=== PATIENT | male | born 1945 | race Caucasian/White ===

== ENCOUNTER 2018-01-23 09:29 | Day surgery (SDC) | payer OTHER ==
--- OUTSIDE RECORDS SUMMARY | 2018-01-23 09:31 | XMS REPORT | Clinical Summary ---
:1945 Author Organization [facility] Address [address] [place] [address] Phone Care Team Providers Name Role Phone Unavailable Primary Care Provider Unavailable Allergies No Known Allergies Current Medications Prescription Sig. Disp. Refills Start Date End Date Status minocycline Take 100 mg by Active (MINOCIN,DYNACIN) mouth daily. 100 MG capsule atorvastatin Take 1 tablet 30 tablet 3 09/18/2017 09/18/2018 Active (LIPITOR) 40 MG (40 mg total) tablet by mouth nightly. metoprolol Take 0.5 60 tablet 3 09/18/2017 09/18/2018 Active (LOPRESSOR) 25 MG tablets (12.5 tablet mg total) by mouth 2 (two) times daily. amiodarone Take 1 tablet 60 tablet 0 09/18/2017 09/18/2018 Active (PACERONE) 200 MG (200 mg total) tablet by mouth every 12 (twelve) hours. lisinopril Take 10 mg by 09/18/2017 Discontinued (PRINIVIL,ZESTRIL) mouth daily. 10 MG tablet acetaminophen-codei Take 1 tablet 30 tablet 0 09/18/2017 09/28/2017 ne (TYLENOL #3) by mouth every 300-30 mg per 4 (four) hours tablet as needed for up to 10 days. 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 (HCC) 09/09/2017 Anesthesia Event Graf Ronaldo Jarrett, AA 09/09/2017 Orders Only Andrzej Hernández MD after 01/22/2017 Social History Tobacco Use Types Packs/Day Years Used Date Former Smoker 1 25 Comments: stopped 5 years ago Sex Assigned at Date Recorded Not on file Last Filed Vital Signs Vital Sign Reading Time Taken Blood Pressure 119/69 09/18/2017 8:29 AM MEDICAL TRANSPORT SPECIALIST Pulse 88 09/18/2017 12:11 PM MEDICAL TRANSPORT SPECIALIST Temperature 36.5 C (97.7 F) 09/18/2017 8:29 AM MEDICAL TRANSPORT SPECIALIST Respiratory Rate 20 09/18/2017 12:11 PM MEDICAL TRANSPORT SPECIALIST Oxygen Saturation 96% 09/18/2017 12:11 PM MEDICAL TRANSPORT SPECIALIST Inhaled Oxygen Concentration - - Weight 109 kg (240 lb 4.8 oz) 09/18/2017 4:43 AM MEDICAL TRANSPORT SPECIALIST Height 171.5 cm (5' 7.5") 09/09/2017 7:48 AM MEDICAL TRANSPORT SPECIALIST Body Mass Index 37.08 09/18/2017 4:43 AM MEDICAL TRANSPORT SPECIALIST Plan of Treatment Not on file Implants Implanted Type Area Inhalation Therapy Aides Teacher Device Expiration Model / Identifier Date Serial / Lot Sut Surg Stl 7 18g 18in Mls Mp M655g - Sn/A Mcalister/Arthroscop N/A: J &J: ETHICON 06/21/2022 M655G / Implanted: Qty: 2 on 09/10/2017 by Mike Price MD y Sternum N/A / [id number] Sut Surg Stl 7 18g 18in Mls Mp M655g - Sn/A Mcalister/Arthroscop N/A: J &J: ETHICON 06/21/2022 M655G / Implanted: Qty: 4 on 09/10/2017 by Mike Price MD y Sternum N/A / [id number] Sternal Zipfix Ndl Strl [id number] - Sn/A Cardiovascular N/A: SYNTHES: SYNTHE 06/21/2022 08..[id number] / Implanted: Qty: 1 on 09/10/2017 by Mike Price MD Sternum S [facility] N /A / [id number] Procedures Procedure Name Priority Date/Time Associated Diagnosis Comments ENDOSCOPIC HARVEST,VEIN 09/10/2017 7:30 AM CAOD MEDICAL TRANSPORT SPECIALIST BYPASS,AORTO CORONARY 09/10/2017 7:30 AM CAOD MISTY/SVG MEDICAL TRANSPORT SPECIALIST after 01/22/2017 Results RHYTHM STRIP - SCAN (09/29/2017 2:11 PM)Only the most recent of2 resultswithin the time period is included.VASCULAR DIAGRAM -SCAN (09/19/2017 1:21 PM)Basic Metabolic Panel (09/18/2017 10:18 AM)Only the most recent of8 resultswithin the time period is included. Component Value Ref Range Sodium 135 (L) 136 - 145 meq/L Potassium 4.4 3.5 - 5.1 meq/L Chloride 106 98 - 107 meq/L CO2 22 22 - 29 meq/L BUN 16 7 - 21 mg/dL Creatinine 0.82 0.57 - 1.25 mg/dL Glucose 147 (H) 70 - 105 mg/dL Calcium 8.4 8.4 - 10.2 mg/dL EGFR 93Comment: ESTIMATED GFR IS NOT ACCURATE mL/min/1.73 sq m CREATININE CLEARANCE IN PREDICTING GLOMERULAR FILTRATION RATE. ESTIMATED GFR IS NOT APPLICABLE FOR DIALYSIS PATIENTS. Specimen Performing Laboratory Blood - Arm, [address] [address] CBC with platelet count + automated diff (09/18/2017 8:54 AM)Only the most recent of7 resultswithin the time period is included. Component Value Ref Range WBC 12.1 (H) 3.5 - 10.5 K/L RBC 3.66 (L) 4.63 - 6.08 M/L Hemoglobin 9.2 (L) 13.7 - 17.5 GM/DL Hematocrit 29.2 (L) 40.1 - 51.0 % MCV 79.8 79.0 - 92.2 fL MCH 25.1 (L) 25.7 - 32.2 pg MCHC 31.5 (L) 32.3 - 36.5 GM/DL RDW 16.2 (H) 11.6 - 14.4 % Platelets 224 150 - 450 K/CU MM MPV 10.9 9.4 - 12.4 fL nRBC 0 0 - 0 /100 WBC % Neutros 72 % % Lymphs 13 % % Monos 6 % % Eos 4 % % Baso 0 % # Neutros 8.68 (H) 1.78 - 5.38 K/L # Lymphs 1.61 1.32 - 3.57 K/L # Monos 0.74 0.30 - 0.82 K/L # Eos 0.44 0.04 - 0.54 K/L # Baso 0.04 0.01 - 0.08 K/L Immature Granulocytes-Relative 5 (H) 0 - 1 % Specimen Performing Laboratory Blood [facility] [address] [address] CBC with platelet count + automated diff (09/18/2017 8:54 AM)Only the most recent of7 resultswithin the time period is included. Specimen Performing Laboratory Blood Narrative The following orders were created for panel order CBC with platelet count + automated diff. Procedure Abnormality Status --------- ------ CBC with platelet count ...[[id number]]AbnormalFinal result Please view results for these tests on the individual orders. XR chest 1 view portable / bedside (09/16/2017 11:31 AM)Only the most recent of6 resultswithin the time period is included. Specimen Performing Laboratory GE RIS Narrative FINAL REPORT CLINICAL HISTORY: atelectasis wheeze TECHNIQUE: 1 view of the chest. COMPARISON: 09/13/2017 IMPRESSION: Mild prominence of the pulmonary vasculature is again seen with decreased left lower lung pleural-parenchymal opacity. A trace right effusion is again seen. The cardiomediastinal silhouette is magnified by technique with sternotomy wires.A chronic left clavicular fracture is again seen. Signed: Jose Marley MD Report Verified Date/Time:09/16/2017 12:21:35 Reading Location: [facility] Radiology Reading Room Procedure Note Interface, External Ris In - 09/16/2017 12:23 PM MEDICAL TRANSPORT SPECIALIST FINAL REPORT CLINICAL HISTORY: atelectasis wheeze TECHNIQUE: 1 view of the chest. COMPARISON: 09/13/2017 IMPRESSION: Mild prominence of the pulmonary vasculature is again seen with decreased left lower lung pleural-parenchymal opacity. A trace right effusion is again seen. The cardiomediastinal silhouette is magnified by technique with sternotomy wires. A chronic left clavicular fracture is again seen. Signed: Jose Marley MD Report Verified Date/Time: 09/16/2017 12:21:35 Reading Location: [facility] Radiology Reading Room Calcium, Ionized (09/14/2017 5:47 AM)Only the most recent of6 resultswithin the time period is included. Component Value Ref Range Calcium, Ion 1.02 (L) 1.12 - 1.27 mmol/L pH, Blood 7.39 Specimen Performing Laboratory Blood [address] [address] Phosphorus (09/14/2017 5:47 AM)Only the most recent of4 resultswithin the time period is included. Component Value Ref Range Phosphorus 3.4 2.3 - 4.7 mg/dL Specimen Performing Laboratory Blood [address] [address] Magnesium (09/14/2017 5:47 AM)Only the most recent of8 resultswithin the time period is included. Component Value Ref Range Magnesium 2.0 1.6 - 2.6 mg/dL Specimen Performing Laboratory Blood [address] [address] TRANSFUSION SERVICE REPORT - SCAN (09/12/2017 5:43 PM)Only the most recent of3 resultswithin the time period is included.POC-Glucose meter (09/12/2017 4:38 PM )Only the most recent of12 resultswithin the time period is included. Component Value Ref Range POC-Glucose Meter 123 (H)Comment: TESTED AT [address] 70 - 110 mg/[place] [address] Specimen Performing Laboratory Blood [address] [address] Lactic acid, arterial, whole blood (09/12/2017 4:59 AM)Only the most recent of5 resultswithin the time period is included. Component Value Ref Range Lactate, Art 1.0 0.5 - 2.2 mmol/L Specimen Performing Laboratory Blood, Arterial [address] [address] Narrative Effective 01/24/2016: Units/Reference Range Change New: 0.5-2.2 mmol/LPrevious: 5-20 mg/dL Oxygen saturation, measured (09/12/2017 4:58 AM)Only the most recent of3 resultswithin the time period is included. Component Value Ref Range O2 Saturation (Measured) 62.7 % Specimen Performing Laboratory Blood [address] [address] Prepare RBC (09/11/2017 11:54 PM) Component Value Ref Range CROSSMATCH COMPATIBLE Unit ABO O Pos UNIT NUMBER [id number] Status RETURNED FROM ISSUE Blood Bank Product RED BLOOD CELLS PRODUCT CODE N8779D32 CROSSMATCH COMPATIBLE Unit ABO O Pos UNIT NUMBER [id number] Status RETURNED FROM ISSUE Blood Bank Product RED BLOOD CELLS PRODUCT CODE [id number] CROSSMATCH COMPATIBLE Unit ABO O Pos UNIT NUMBER [id number] Status TRANSFUSED Blood Bank Product RED BLOOD CELLS PRODUCT CODE [id number] CROSSMATCH COMPATIBLE Unit ABO O Pos UNIT NUMBER [id number] Status RETURNED FROM ISSUE Blood Bank Product RED BLOOD CELLS PRODUCT CODE [id number] Specimen Performing Laboratory [place] Potassium (09/11/2017 6:14 PM)Only the most recent of3 resultswithin the time period is included. Component Value Ref Range Potassium 4.4 3.5 - 5.1 meq/L Specimen Performing Laboratory Blood - Line, Arterial [address] [address] Blood gas, arterial (09/11/2017 2:54 PM)Only the most recent of13 resultswithin the time period is included. Component Value Ref Range pH, Arterial 7.43 7.35 - 7.45 pCO2, Arterial 42 35 - 45 mmHg pO2, Arterial 76 (L) 80 - 90 mmHg O2 Sat, Arterial 95.2 (L) 96.0 - 97.0 % HCO3, Arterial 27 21 - 29 mmol/L Base Excess, Arterial 2.2 -2.0 - 3.0 mmol/L Patient Temperature 37.6 C FIO2 40.0 % Specimen Performing Laboratory Blood, Arterial [facility] [address] [place] [address] Glucose-Stat Lab (09/11/2017 1:11 AM)Only the most recent of8 resultswithin the time period is included. Component Value Ref Range Glucose 123 (H) 70 - 110 mg/dL Specimen Performing Laboratory Blood, [address] [address] HGB/HCT (H&H)-Stat Lab (09/10/2017 9:15 PM)Only the most recent of8 resultswithin the time period is included. Component Value Ref Range Hemoglobin 9.1 (L) 13.0 - 16.8 g/dL Hematocrit 27.0 (L) 40.0 - 50.0 % Specimen Performing Laboratory Blood, [address] [address] Hepatic function panel (09/10/2017 6:16 PM) Component Value Ref Range Protein, Total 5.5 (L) 6.0 - 8.3 gm/dL Albumin 3.5 3.5 - 5.0 g/dL Total Bilirubin 0.7 0.2 - 1.2 mg/dL Bilirubin, Direct 0.4 0.1 - 0.5 mg/dL Alkaline Phosphatase 50 40 - 150 U/L AST 54 (H) 5 - 34 U/L ALT 33 6 - 55 U/L Specimen Performing Laboratory Blood [address] [address] Hemoglobin and hematocrit (09/10/2017 4:47 PM) Component Value Ref Range Hemoglobin 9.1 (L) 13.7 - 17.5 GM/DL Hematocrit 29.2 (L) 40.1 - 51.0 % Specimen Performing Laboratory Blood [address] [address] CBC (Hemogram only) (09/10/2017 3:03 PM) Component Value Ref Range WBC 27.2 (H) 3.5 - 10.5 K/L RBC 3.92 (L) 4.63 - 6.08 M/L Hemoglobin 9.7 (L) 13.7 - 17.5 GM/DL Hematocrit 31.4 (L) 40.1 - 51.0 % MCV 80.1 79.0 - 92.2 fL MCH 24.7 (L) 25.7 - 32.2 pg MCHC 30.9 (L) 32.3 - 36.5 GM/DL RDW 15.6 (H) 11.6 - 14.4 % Platelets 126 (L) 150 - 450 K/CU MM MPV 11.2 9.4 - 12.4 fL nRBC 0 0 - 0 /100 WBC Specimen Performing Laboratory Blood - Line, Arterial [address] [address] RRL Critical Labs (ABG,NA,K,H&H,GLU) (09/10/2017 2:48 PM)Only the most recent of7 resultswithin the time period is included. Specimen Performing Laboratory Blood, Arterial Narrative The following orders were created for panel order RRL Critical Labs (ABG,NA,K,H&H,GLU). Procedure Abnormality Status --------- ------ Blood gas, arterial[[id number]]AbnormalFinal result Sodium Na-Stat Lab[[id number]] AbnormalFinal result Potassium-Stat Lab[[id number]] NormalFinal result Glucose-Stat Lab[[id number]] AbnormalFinal result HGB/HCT (H&H)-Stat Lab[[id number]] Abnormal Final result Please view results for these tests on the individual orders. Potassium-Stat Lab (09/10/2017 2:48 PM)Only the most recent of7 resultswithin the time period is included. Component Value Ref Range Potassium 4.2 3.6 - 5.5 meq/L Specimen Performing Laboratory Blood, Arterial [address] [address] Sodium Na-Stat Lab (09/10/2017 2:48 PM)Only the most recent of7 resultswithin the time period is included. Component Value Ref Range Sodium 134 (L) 135 - 148 meq/L Specimen Performing Laboratory Blood, Arterial [address] [address] Glucose-STAT (09/10/2017 12:59 PM) Component Value Ref Range Glucose 217 (H) 70 - 105 mg/dL Specimen Performing Laboratory Blood [facility] [address] [place] [address] POC ACTIVATED CLOTTING TIME (09/10/2017 11:12 AM)Only the most recent of5 resultswithin the time period is included. Component Value Ref Range Activated Clotting Time 109Comment: TESTED AT [address] sec [address] Specimen Performing Laboratory [address] [address] aPTT (09/10/2017 11:02 AM) Component Value Ref Range PTT 32.4 22.5 - 36.0 seconds Specimen Performing Laboratory [address] [address] Prothromin time/INR (09/10/2017 11:02 AM)Only the most recent of2 resultswithin the time period is included. Component Value Ref Range Protime 18.3 (H) 11.7 - 14.7 seconds INR 1.5 <=5.9 Specimen Performing Laboratory [address] [address] Narrative RECOMMENDED COUMADIN/WARFARIN INR THERAPY RANGES STANDARD DOSE: 2.0 - 3.0 Includes: PROPHYLAXIS for venous thrombosis, systemic embolization; TREATMENT for venous thrombosis and/or pulmonary embolus. HIGH RISK: Target INR is 2.5-3.5 for patients with mechanical heart valves. Fibrinogen (09/10/2017 11:02 AM) Component Value Ref Range Fibrinogen 248 225 - 434 mg/dl Specimen Performing Laboratory [address] [address] Platelet count (09/10/2017 11:02 AM) Component Value Ref Range Platelets 113 (L) 150 - 450 K/CU MM Specimen Performing Laboratory [address] [address] Tissue Exam (09/10/2017 10:45 AM) Component Value Ref Range Case Report Surgical Pathology Report Case: [id number] Authorizing Provider:Mike Price MDCollected: 09/10/2017 1045 Ordering Location: [facility] Received: 09/10/2017 1314 PERIOPERATIVE SERVICES Pathologist: Darcy Duque MD Specimen:Plaque, LEFT OM1 ARTERY PLAQUE DIAGNOSIS TISSUE SUBMITTED LEFTOM1 ARTERY PLAQUE: - ATHEROSCLEROTIC PLAQUE WITH CALCIFICATIONS Signing Pathologist Direct Phone Line: [phone] CPT Code(s) 28877; 96167 CLINICAL HISTORY CAOD SPECIMEN SOURCE Left artery plaque GROSS DESCRIPTION Specimen is received in saline labeled with the patient's information and labeled "left artery plaque" and consists of a velasquez, off-white, tubular shaped segment of calcified tissue measuring 1.2 cm in length x 0.3 cm in diameter. The specimen is sectioned and submitted entirely in A1 for decalcification. CG/ew MICROSCOPIC DESCRIPTION PERFORMED Specimen Performing Laboratory Tissue - Plaque [address] [address] Blood gas, venous (09/10/2017 9:57 AM) Component Value Ref Range pH, Paco 7.36 7.32 - 7.42 pCO2, Paco 41 41 - 51 mmHg pO2, Paco 44 (H) 25 - 40 mmHg O2 Sat, Paco 91.5 (H) 40.0 - 70.0 % HCO3, Paco 25 21 - 29 mmol/L Base Excess, Pcao -2.3 (L) -2.0 - 3.0 mmol/L Patient Temperature 30.2 C FIO2 70.0 % Specimen Performing Laboratory Blood [address] [address] Electrocardiogram, 12-lead (09/09/2017 10:11 AM) Specimen Performing Laboratory GE MUSE Narrative Ventricular Rate 89 BPM Atrial Rate 89 BPM P-R Interval 196 ms QRS Duration 86 ms Q-T Interval 370 ms QTC Calculation(Bazett) 450 ms P [place] 30 degrees R [place] 55 degrees T [place] 43 degrees Normal sinus rhythm Normal ECG No previous ECGs available Confirmed by MD Spivey Roberto ([id number]) on 09/09/2017 2:09:23 PM Procedure Note Interface, External Ris In - 09/09/2017 2:09 PM MEDICAL TRANSPORT SPECIALIST Ventricular Rate 89 BPM Atrial Rate 89 BPM P-R Interval 196 ms QRS Duration 86 ms Q-T Interval 370 ms QTC Calculation(Bazett) 450 ms P [place] 30 degrees R [place] 55 degrees T [place] 43 degrees Normal sinus rhythm Normal ECG No previous ECGs available Confirmed by MD Spivey Roberto ([id number]) on 09/09/2017 2:09:23 PM Type and screen, automated (09/09/2017 10:02 AM) Component Value Ref Range ABO/RH AUTOMATED (BEAKER) O POSITIVE Ab Scrn NEGATIVE Specimen Performing Laboratory Blood [address] [address] Comprehensive metabolic panel (09/09/2017 10:02 AM) Component Value Ref Range Protein, Total 6.5 6.0 - 8.3 gm/dL Albumin 3.6 3.5 - 5.0 g/dL Alkaline Phosphatase 83 40 - 150 U/L Total Bilirubin 0.5 0.2 - 1.2 mg/dL Sodium 133 (L) 136 - 145 meq/L Potassium 4.3 3.5 - 5.1 meq/L Chloride 103 98 - 107 meq/L CO2 22 22 - 29 meq/L BUN 16 7 - 21 mg/dL Creatinine 0.82 0.57 - 1.25 mg/dL Glucose 117 (H) 70 - 105 mg/dL Calcium 8.6 8.4 - 10.2 mg/dL AST 41 (H) 5 - 34 U/L ALT 44 6 - 55 U/L EGFR 93Comment: ESTIMATED GFR IS NOT ACCURATE mL/min/1.73 sq m CREATININE CLEARANCE IN PREDICTING GLOMERULAR FILTRATION RATE. ESTIMATED GFR IS NOT APPLICABLE FOR DIALYSIS PATIENTS. Specimen Performing Laboratory Blood [address] [address] after 01/22/2017
--- OUTSIDE RECORDS SUMMARY | 2018-01-23 09:32 | XMS REPORT ---
:1945 Author Organization [facility] Address [address] [place] [address] [address] [place] [address] Care Team Providers Name Role Phone MISTY PRIEC Unavailable Unavailable Problems This patient has no known problems. Allergies, Adverse Reactions, Alerts This patient has no known allergies or adverse reactions. Medications This patient has no known medications. Results Test Description Test Time Test Comments Text Results Atomic Results Result Comments BASIC METABOLIC PANEL 2017-09-18 11:11:00 Test Item Value Reference Range Comments SODIUM (BEAKER) (test 135 meq/L 136-145 mplv=596) POTASSIUM (BEAKER) (test 4.4 meq/L 3.5-5.1 jzaj=123) CHLORIDE (BEAKER) (test 106 meq/L 98-107 inpm=083) CO2 (BEAKER) (test bgns=430) 22 meq/L 22-29 BLOOD UREA NITROGEN (BEAKER) 16 mg/dL 7-21 (test jpyf=115) CREATININE (BEAKER) (test 0.82 mg/dL 0.57-1.25 mrbd=736) GLUCOSE RANDOM (BEAKER) 147 mg/dL 70-105 (test ftvo=533) CALCIUM (BEAKER) (test 8.4 mg/dL 8.4-10.2 zfre=715) EGFR (BEAKER) (test 93 mL/min/1.73 sq m ESTIMATED GFR IS NOT gaif=2808) ACCURATE CREATININE CLEARANCE IN PREDICTING GLOMERULAR FILTRATION RATE. ESTIMATED GFR IS NOT APPLICABLE FOR DIALYSIS PATIENTS. CBC W/PLT COUNT & AUTO [id number] 09:19:00 Test Item Value Reference Range Comments WHITE BLOOD CELL COUNT (BEAKER) (test vkgv=971) 12.1 K/ L 3.5-10.5 RED BLOOD CELL COUNT (BEAKER) (test wkbe=419) 3.66 M/ L 4.63-6.08 HEMOGLOBIN (BEAKER) (test bmem=332) 9.2 GM/DL 13.7-17.5 HEMATOCRIT (BEAKER) (test bdum=307) 29.2 % 40.1-51.0 MEAN CORPUSCULAR VOLUME (BEAKER) (test tosg=795) 79.8 fL 79.0-92.2 MEAN CORPUSCULAR HEMOGLOBIN (BEAKER) (test 25.1 pg 25.7-32.2 piqu=358) MEAN CORPUSCULAR HEMOGLOBIN CONC (BEAKER) (test 31.5 GM/DL 32.3-36.5 lbht=832) RED CELL DISTRIBUTION WIDTH (BEAKER) (test 16.2 % 11.6-14.4 mhke=251) PLATELET COUNT (BEAKER) (test mlfm=265) 224 K/CU MM 150-450 MEAN PLATELET VOLUME (BEAKER) (test flnu=013) 10.9 fL 9.4-12.4 NUCLEATED RED BLOOD CELLS (BEAKER) (test 0 /100 WBC 0-0 ehif=817) NEUTROPHILS RELATIVE PERCENT (BEAKER) (test 72 % akru=495) LYMPHOCYTES RELATIVE PERCENT (BEAKER) (test 13 % crgl=451) MONOCYTES RELATIVE PERCENT (BEAKER) (test 6 % dkrd=167) EOSINOPHILS RELATIVE PERCENT (BEAKER) (test 4 % qwtl=452) BASOPHILS RELATIVE PERCENT (BEAKER) (test 0 % kngl=296) NEUTROPHILS ABSOLUTE COUNT (BEAKER) (test 8.68 K/ L 1.78-5.38 xsfh=006) LYMPHOCYTES ABSOLUTE COUNT (BEAKER) (test 1.61 K/ L 1.32-3.57 lvnh=921) MONOCYTES ABSOLUTE COUNT (BEAKER) (test 0.74 K/ L 0.30-0.82 zyxb=036) EOSINOPHILS ABSOLUTE COUNT (BEAKER) (test 0.44 K/ L 0.04-0.54 bnjc=344) BASOPHILS ABSOLUTE COUNT (BEAKER) (test 0.04 K/ L 0.01-0.08 eulu=851) IMMATURE GRANULOCYTES-RELATIVE PERCENT (BEAKER) 5 % 0-1 (test ateg=3656) TISSUE [id number] 17:27:00Surgical Pathology Report Case: [id number] Authorizing Provider: Misty Price MD Collected: 09/10/2017 1045 Ordering Location: [facility] Received: 09/10/2017 1314 PERIOPERATIVE SERVICES Pathologist: Darcy Duque MD Specimen: Plaque , LEFT OM1 ARTERY PLAQUE TISSUE SUBMITTED LEFT OM1 ARTERY PLAQUE: - ATHEROSCLEROTIC PLAQUE WITH CALCIFICATIONS Signing Pathologist Direct Phone Line: [phone] at 5: 27 [id number]; [id number] artery plaque Specimen is received in saline labeled with the patient's information and labeled "left artery plaque" and consists of a velasquez, off-white, tubular shaped segment of calcified tissue measuring 1.2 cm in length x 0.3 cm in diameter. The specimen is sectioned and submitted entirely in A1 for decalcification. CG/ew PERFORMEDCBC W/PLT COUNT & AUTO [id number] 13:19:00 Test Item Value Reference Range Comments WHITE BLOOD CELL COUNT (BEAKER) (test wajo=105) 14.0 K/ L 3.5-10.5 RED BLOOD CELL COUNT (BEAKER) (test rcoc=127) 3.80 M/ L 4.63-6.08 HEMOGLOBIN (BEAKER) (test klwg=008) 9.2 GM/DL 13.7-17.5 HEMATOCRIT (BEAKER) (test opwv=295) 30.5 % 40.1-51.0 MEAN CORPUSCULAR VOLUME (BEAKER) (test uajs=964) 80.3 fL 79.0-92.2 MEAN CORPUSCULAR HEMOGLOBIN (BEAKER) (test 24.2 pg 25.7-32.2 nllx=348) MEAN CORPUSCULAR HEMOGLOBIN CONC (BEAKER) (test 30.2 GM/DL 32.3-36.5 eqrt=790) RED CELL DISTRIBUTION WIDTH (BEAKER) (test 16.1 % 11.6-14.4 oblo=421) PLATELET COUNT (BEAKER) (test zzis=000) 192 K/CU MM 150-450 MEAN PLATELET VOLUME (BEAKER) (test fagh=071) 11.3 fL 9.4-12.4 NUCLEATED RED BLOOD CELLS (BEAKER) (test 0 /100 WBC 0-0 icsf=937) NEUTROPHILS RELATIVE PERCENT (BEAKER) (test 68 % yxcv=146) LYMPHOCYTES RELATIVE PERCENT (BEAKER) (test 16 % aohq=163) MONOCYTES RELATIVE PERCENT (BEAKER) (test 9 % zgsi=345) EOSINOPHILS RELATIVE PERCENT (BEAKER) (test 4 % wlll=401) BASOPHILS RELATIVE PERCENT (BEAKER) (test 0 % sjuf=411) NEUTROPHILS ABSOLUTE COUNT (BEAKER) (test 9.46 K/ L 1.78-5.38 bjzo=948) LYMPHOCYTES ABSOLUTE COUNT (BEAKER) (test 2.18 K/ L 1.32-3.57 kwvs=855) MONOCYTES ABSOLUTE COUNT (BEAKER) (test 1.25 K/ L 0.30-0.82 xtbw=065) EOSINOPHILS ABSOLUTE COUNT (BEAKER) (test 0.50 K/ L 0.04-0.54 aokl=357) BASOPHILS ABSOLUTE COUNT (BEAKER) (test 0.05 K/ L 0.01-0.08 ixyc=852) IMMATURE GRANULOCYTES-RELATIVE PERCENT (BEAKER) 4 % 0-1 (test sxua=9599) RAD, CHEST, 1 VIEW, NON [id number] 12:21:00Reason for exam:->atelectasis ? wheezeShould this be performed at the bedside?->YesFINAL REPORT CLINICAL HISTORY: atelectasis wheeze TECHNIQUE: 1 view of the chest. COMPARISON: 09/13/2017 IMPRESSION: Mild prominence of the pulmonary vasculature is again seen with decreased left lower lung pleural-parenchymal opacity. A trace right effusion is again seen. The cardiomediastinal silhouette is magnified by technique with sternotomy wires. A chronic left clavicular fracture is again seen. Signed: Jose Marley [facility] CENTEReport Verified Date/Time: 12:21:35 Reading Location: [facility] Radiology Reading Room BASI METABOLIC [id number] 09:07:00 Test Item Value Reference Range Comments SODIUM (BEAKER) (test 134 meq/L 136-145 bury=749) POTASSIUM (BEAKER) (test 4.5 meq/L 3.5-5.1 Specimen slightly ubsr=174) hemolyzed CHLORIDE (BEAKER) (test 107 meq/L 98-107 voog=707) CO2 (BEAKER) (test 17 meq/L 22-29 eero=644) BLOOD UREA NITROGEN 15 mg/dL 7-21 (BEAKER) (test foiy=579) CREATININE (BEAKER) (test 0.83 mg/dL 0.57-1.25 Specimen slightly atrd=517) hemolyzed GLUCOSE RANDOM (BEAKER) 96 mg/dL 70-105 (test yslr=949) CALCIUM (BEAKER) (test 8.7 mg/dL 8.4-10.2 qswh=536) EGFR (BEAKER) (test 91 mL/min/1.73 sq m ESTIMATED GFR IS NOT nsyv=8950) ACCURATE CREATININE CLEARANCE IN PREDICTING GLOMERULAR FILTRATION RATE. ESTIMATED GFR IS NOT APPLICABLE FOR DIALYSIS PATIENTS. [id number] 07:48:00 Test Item Value Reference Range Comments PHOSPHORUS (BEAKER) (test vpav=691) 3.4 mg/dL 2.3-4.7 [id number] 07:48:00 Test Item Value Reference Range Comments MAGNESIUM (BEAKER) (test kake=911) 2.0 mg/dL 1.6-2.6 BASIC METABOLIC [id number] 07:48:00 Test Item Value Reference Range Comments SODIUM (BEAKER) (test 135 meq/L 136-145 swwm=376) POTASSIUM (BEAKER) (test 4.0 meq/L 3.5-5.1 pklt=194) CHLORIDE (BEAKER) (test 103 meq/L 98-107 skya=889) CO2 (BEAKER) (test 25 meq/L 22-29 omek=781) BLOOD UREA NITROGEN 25 mg/dL 7-21 (BEAKER) (test qjhx=204) CREATININE (BEAKER) (test 0.85 mg/dL 0.57-1.25 krqt=804) GLUCOSE RANDOM (BEAKER) 91 mg/dL 70-105 (test mahl=539) CALCIUM (BEAKER) (test 8.0 mg/dL 8.4-10.2 gywg=405) EGFR (BEAKER) (test 89 mL/min/1.73 sq m ESTIMATED GFR IS NOT qukp=0302) ACCURATE CREATININE CLEARANCE IN PREDICTING GLOMERULAR FILTRATION RATE. ESTIMATED GFR IS NOT APPLICABLE FOR DIALYSIS PATIENTS. CBC W/PLT COUNT & AUTO [id number] 06:28:00 Test Item Value Reference Range Comments WHITE BLOOD CELL COUNT (BEAKER) (test vglj=095) 10.5 K/ L 3.5-10.5 RED BLOOD CELL COUNT (BEAKER) (test serj=538) 3.51 M/ L 4.63-6.08 HEMOGLOBIN (BEAKER) (test dfxa=852) 8.6 GM/DL 13.7-17.5 HEMATOCRIT (BEAKER) (test xfuw=728) 27.8 % 40.1-51.0 MEAN CORPUSCULAR VOLUME (BEAKER) (test finc=980) 79.2 fL 79.0-92.2 MEAN CORPUSCULAR HEMOGLOBIN (BEAKER) (test 24.5 pg 25.7-32.2 eeng=083) MEAN CORPUSCULAR HEMOGLOBIN CONC (BEAKER) (test 30.9 GM/DL 32.3-36.5 lxhl=230) RED CELL DISTRIBUTION WIDTH (BEAKER) (test 16.0 % 11.6-14.4 qoma=887) PLATELET COUNT (BEAKER) (test kbmy=946) 138 K/CU MM 150-450 MEAN PLATELET VOLUME (BEAKER) (test ocxb=894) 11.4 fL 9.4-12.4 NUCLEATED RED BLOOD CELLS (BEAKER) (test 0 /100 WBC 0-0 cixj=855) NEUTROPHILS RELATIVE PERCENT (BEAKER) (test 67 % odhe=858) LYMPHOCYTES RELATIVE PERCENT (BEAKER) (test 19 % gsyy=505) MONOCYTES RELATIVE PERCENT (BEAKER) (test 10 % ysuv=877) EOSINOPHILS RELATIVE PERCENT (BEAKER) (test 2 % aste=980) BASOPHILS RELATIVE PERCENT (BEAKER) (test 0 % swfv=523) NEUTROPHILS ABSOLUTE COUNT (BEAKER) (test 7.04 K/ L 1.78-5.38 ryhn=572) LYMPHOCYTES ABSOLUTE COUNT (BEAKER) (test 1.95 K/ L 1.32-3.57 gupl=021) MONOCYTES ABSOLUTE COUNT (BEAKER) (test 1.07 K/ L 0.30-0.82 innq=489) EOSINOPHILS ABSOLUTE COUNT (BEAKER) (test 0.25 K/ L 0.04-0.54 bgns=528) BASOPHILS ABSOLUTE COUNT (BEAKER) (test 0.01 K/ L 0.01-0.08 ohlt=294) IMMATURE GRANULOCYTES-RELATIVE PERCENT (BEAKER) 2 % 0-1 (test oghv=8365) CALCIUM, [id number] 06:25:00 Test Item Value Reference Range Comments CALCIUM IONIZED (BEAKER) (test vcsx=649) 1.02 mmol/L 1.12-1.27 PH, BLOOD (BEAKER) (test aodh=1936) 7.39 CBC W/PLT COUNT & AUTO [id number] 08:38:00 Test Item Value Reference Range Comments WHITE BLOOD CELL COUNT (BEAKER) (test njjg=581) 15.7 K/ L 3.5-10.5 RED BLOOD CELL COUNT (BEAKER) (test mhao=492) 3.20 M/ L 4.63-6.08 HEMOGLOBIN (BEAKER) (test cjwk=508) 7.9 GM/DL 13.7-17.5 HEMATOCRIT (BEAKER) (test tdtj=069) 25.5 % 40.1-51.0 MEAN CORPUSCULAR VOLUME (BEAKER) (test glll=663) 79.7 fL 79.0-92.2 MEAN CORPUSCULAR HEMOGLOBIN (BEAKER) (test 24.7 pg 25.7-32.2 cfir=475) MEAN CORPUSCULAR HEMOGLOBIN CONC (BEAKER) (test 31.0 GM/DL 32.3-36.5 kvmu=459) RED CELL DISTRIBUTION WIDTH (BEAKER) (test 16.0 % 11.6-14.4 ktaq=402) PLATELET COUNT (BEAKER) (test hecu=161) 98 K/CU MM 150-450 MEAN PLATELET VOLUME (BEAKER) (test gwme=393) 11.3 fL 9.4-12.4 NUCLEATED RED BLOOD CELLS (BEAKER) (test 0 /100 WBC 0-0 xmtz=426) NEUTROPHILS RELATIVE PERCENT (BEAKER) (test 84 % fprb=888) LYMPHOCYTES RELATIVE PERCENT (BEAKER) (test 8 % zido=131) MONOCYTES RELATIVE PERCENT (BEAKER) (test 7 % nqpv=420) EOSINOPHILS RELATIVE PERCENT (BEAKER) (test 0 % djcu=776) BASOPHILS RELATIVE PERCENT (BEAKER) (test 0 % ddrn=888) NEUTROPHILS ABSOLUTE COUNT (BEAKER) (test 13.19 K/ L 1.78-5.38 pyuz=446) LYMPHOCYTES ABSOLUTE COUNT (BEAKER) (test 1.21 K/ L 1.32-3.57 xbtf=607) MONOCYTES ABSOLUTE COUNT (BEAKER) (test hbfr=896) 1.17 K/ L 0.30-0.82 EOSINOPHILS ABSOLUTE COUNT (BEAKER) (test 0.01 K/ L 0.04-0.54 leqd=929) BASOPHILS ABSOLUTE COUNT (BEAKER) (test tuxp=435) 0.01 K/ L 0.01-0.08 IMMATURE GRANULOCYTES-RELATIVE PERCENT (BEAKER) 1 % 0-1 (test jlxp=9753) RAD, CHEST, 1 VIEW, NON [id number] 07:45:00Reason for exam:->s/p cardiac surgeryFINAL REPORT HISTORY : s/p cardiac surgery. Comparison: 09/12/2017 Comment: Single portable view of the chest was obtained. The cardiac silhouette size is enlarged. There is widening of the mediastinum. There is a tortuous/ectatic thoracic aorta. There has been interval removalof the right-sided IJ sheath. No pneumothorax or pleural effusion is seen. There is some nonspecificpatchy bibasilar airspace disease. There is some mild pulmonary venous congestion with some interstitial prominence. Signed: Claire Sutherland MDReport Verified Date/Time: 09/13/2017 07:45: 50 Reading Location: [address] Transitional Reading Room [id number] 07:22:00 Test Item Value Reference Range Comments MAGNESIUM (BEAKER) (test 2.1 mg/dL 1.6-2.6 Specimen slightly hemolyzed msqc=767) [id number] 07:22:00 Test Item Value Reference Range Comments PHOSPHORUS (BEAKER) (test 3.3 mg/dL 2.3-4.7 Specimen slightly hemolyzed aybi=448) BASIC METABOLIC [id number] 07:22:00 Test Item Value Reference Range Comments SODIUM (BEAKER) (test 134 meq/L 136-145 hysx=622) POTASSIUM (BEAKER) (test 4.1 meq/L 3.5-5.1 Specimen slightly jhnl=561) hemolyzed CHLORIDE (BEAKER) (test 102 meq/L 98-107 fucf=236) CO2 (BEAKER) (test 23 meq/L 22-29 vhdx=327) BLOOD UREA NITROGEN 27 mg/dL 7-21 (BEAKER) (test zrsk=238) CREATININE (BEAKER) (test 0.85 mg/dL 0.57-1.25 Specimen slightly ajhw=496) hemolyzed GLUCOSE RANDOM (BEAKER) 122 mg/dL 70-105 (test wjba=049) CALCIUM (BEAKER) (test 8.0 mg/dL 8.4-10.2 ydbu=984) EGFR (BEAKER) (test 89 mL/min/1.73 sq m ESTIMATED GFR IS NOT jztd=1868) ACCURATE CREATININE CLEARANCE IN PREDICTING GLOMERULAR FILTRATION RATE. ESTIMATED GFR IS NOT APPLICABLE FOR DIALYSIS PATIENTS. POCT-GLUCOSE [id number] 17:00:00 Test Item Value Reference Range Comments POC-GLUCOSE METER (BEAKER) 258 mg/dL 70-110 TESTED AT [address] (test rcmt=5270) [facility] [address] POCT-GLUCOSE [id number] 16:40:00 Test Item Value Reference Range Comments POC-GLUCOSE METER (BEAKER) 123 mg/dL 70-110 TESTED AT [address] (test ztwp=8158) [facility] [address] [id number] 08:08:00 Test Item Value Reference Range Comments PHOSPHORUS (BEAKER) (test pmgq=146) 3.3 mg/dL 2.3-4.7 [id number] 08:08:00 Test Item Value Reference Range Comments MAGNESIUM (BEAKER) (test pwqn=610) 2.3 mg/dL 1.6-2.6 BASIC METABOLIC [id number] 08:08:00 Test Item Value Reference Range Comments SODIUM (BEAKER) (test 137 meq/L 136-145 hdpj=890) POTASSIUM (BEAKER) (test 4.5 meq/L 3.5-5.1 bwgf=867) CHLORIDE (BEAKER) (test 106 meq/L 98-107 gaun=768) CO2 (BEAKER) (test 23 meq/L 22-29 dpjc=731) BLOOD UREA NITROGEN 28 mg/dL 7-21 (BEAKER) (test mkvi=507) CREATININE (BEAKER) (test 0.86 mg/dL 0.57-1.25 dsst=891) GLUCOSE RANDOM (BEAKER) 159 mg/dL 70-105 (test iguc=055) CALCIUM (BEAKER) (test 8.4 mg/dL 8.4-10.2 eqit=748) EGFR (BEAKER) (test 88 mL/min/1.73 sq m ESTIMATED GFR IS NOT zled=6029) ACCURATE CREATININE CLEARANCE IN PREDICTING GLOMERULAR FILTRATION RATE. ESTIMATED GFR IS NOT APPLICABLE FOR DIALYSIS PATIENTS. RAD, CHEST, 1 VIEW, NON [id number] 07:59:00Reason for exam:->s/p cardiac surgeryFINAL REPORT AP chest HISTORY: Cardiac surgery COMPARISON: 09/11/2017 IMPRESSION:Endotracheal tube removed. Remainder of support lines unchanged. Cardiomegaly similar to previous. Some interval improvement in pulmonary expansion. Interstitial edema appears stable to slightly improved. Trace effusions. No pneumothorax. Signed: Sterling Meza MDReport Verified Date/Time: 09/12/2017 07:59:49 Reading Location: [facility] Radiology Reading Room CBC W/PLT COUNT & AUTO [id number] 06: 44:00 Test Item Value Reference Range Comments WHITE BLOOD CELL COUNT (BEAKER) (test junc=267) 14.3 K/ L 3.5-10.5 RED BLOOD CELL COUNT (BEAKER) (test cbzc=688) 3.26 M/ L 4.63-6.08 HEMOGLOBIN (BEAKER) (test thrt=522) 7.9 GM/DL 13.7-17.5 HEMATOCRIT (BEAKER) (test euns=885) 25.8 % 40.1-51.0 MEAN CORPUSCULAR VOLUME (BEAKER) (test noui=651) 79.1 fL 79.0-92.2 MEAN CORPUSCULAR HEMOGLOBIN (BEAKER) (test 24.2 pg 25.7-32.2 ahyz=223) MEAN CORPUSCULAR HEMOGLOBIN CONC (BEAKER) (test 30.6 GM/DL 32.3-36.5 rbuu=557) RED CELL DISTRIBUTION WIDTH (BEAKER) (test 16.1 % 11.6-14.4 abgm=460) PLATELET COUNT (BEAKER) (test qkcv=316) 91 K/CU MM 150-450 MEAN PLATELET VOLUME (BEAKER) (test pjzm=972) 12.3 fL 9.4-12.4 NUCLEATED RED BLOOD CELLS (BEAKER) (test 0 /100 WBC 0-0 fwgy=239) NEUTROPHILS RELATIVE PERCENT (BEAKER) (test 88 % ysbz=571) LYMPHOCYTES RELATIVE PERCENT (BEAKER) (test 6 % hmyo=927) MONOCYTES RELATIVE PERCENT (BEAKER) (test 5 % kawr=423) EOSINOPHILS RELATIVE PERCENT (BEAKER) (test 0 % swyh=509) BASOPHILS RELATIVE PERCENT (BEAKER) (test 0 % krpt=192) NEUTROPHILS ABSOLUTE COUNT (BEAKER) (test 12.52 K/ L 1.78-5.38 uuua=247) LYMPHOCYTES ABSOLUTE COUNT (BEAKER) (test 0.87 K/ L 1.32-3.57 uokp=703) MONOCYTES ABSOLUTE COUNT (BEAKER) (test bsvw=218) 0.77 K/ L 0.30-0.82 EOSINOPHILS ABSOLUTE COUNT (BEAKER) (test 0.00 K/ L 0.04-0.54 iydd=092) BASOPHILS ABSOLUTE COUNT (BEAKER) (test trom=330) 0.01 K/ L 0.01-0.08 IMMATURE GRANULOCYTES-RELATIVE PERCENT (BEAKER) 1 % 0-1 (test icwj=1796) LACTIC ACID, ARTERIAL, WHOLE [id number] 05:23:00 Test Item Value Reference Range Comments LACTATE BLOOD ARTERIAL (2) (BEAKER) (test 1.0 mmol/L 0.5-2.2 dvbh=7479) Effective 01/24/2016: Units/Reference Range ChangeNew: 0.5-2.2 mmol/L Previous: 5 -20 mg/dLCALCIUM, [id number] 04:58:00 Test Item Value Reference Range Comments CALCIUM IONIZED (BEAKER) (test bijq=789) 1.09 mmol/L 1.12-1.27 PH, BLOOD (BEAKER) (test pagg=3662) 7.46 OXYGEN SATURATION, [id number] 04:58:00 Test Item Value Reference Range Comments O2 SATURATION (MEASURED) (BEAKER) (test cxbe=9384) 62.7 % POCT-GLUCOSE [id number] 22:35:00 Test Item Value Reference Range Comments POC-GLUCOSE METER (BEAKER) 178 mg/dL 70-110 TESTED AT [address] (test kcvj=0181) [facility] [address] [id number] 18:51:00 Test Item Value Reference Range Comments POTASSIUM (BEAKER) (test gpwk=126) 4.4 meq/L 3.5-5.1 [id number] 18:51:00 Test Item Value Reference Range Comments MAGNESIUM (BEAKER) (test srfw=755) 2.1 mg/dL 1.6-2.6 POCT-GLUCOSE [id number] 18:46:00 Test Item Value Reference Range Comments POC-GLUCOSE METER (BEAKER) 170 mg/dL 70-110 TESTED AT [address] (test knwd=0435) [place] [id number] CALCIUM, [id number] 18:23:00 Test Item Value Reference Range Comments CALCIUM IONIZED (BEAKER) (test chls=678) 1.09 mmol/L 1.12-1.27 PH, BLOOD (BEAKER) (test rpph=3782) 7.44 BLOOD GAS, [id number] 15:01:00 Test Item Value Reference Range Comments PH ARTERIAL (BEAKER) (test rsfg=120) 7.43 7.35-7.45 PCO2 ARTERIAL (BEAKER) (test fbua=345) 42 mmHg 35-45 PO2 ARTERIAL (BEAKER) (test thmu=493) 76 mmHg 80-90 O2 SATURATION ARTERIAL (BEAKER) (test fxqs=903) 95.2 % 96.0-97.0 HCO3 ARTERIAL (BEAKER) (test xqyo=173) 27 mmol/L 21-29 BASE EXCESS ARTERIAL (BEAKER) (test serz=193) 2.2 mmol/L -2.0-3.0 PATIENT TEMPERATURE (BEAKER) (test nilg=6279) 37.6 C FIO2 (BEAKER) (test asiq=6042) 40.0 % POCT-GLUCOSE [id number] 13:46:00 Test Item Value Reference Range Comments POC-GLUCOSE METER (BEAKER) 166 mg/dL 70-110 TESTED AT [address] (test jzhb=9349) [place] [id number] 13:40:00 Test Item Value Reference Range Comments POTASSIUM (BEAKER) (test zubk=578) 4.3 meq/L 3.5-5.1 [id number] 13:40:00 Test Item Value Reference Range Comments MAGNESIUM (BEAKER) (test dksa=455) 2.1 mg/dL 1.6-2.6 RAD, CHEST, 1 VIEW, NON [id number] 09:06:00Reason for exam:-> postopShould this be performed at the bedside?->YesFINAL REPORT Chest one view. Clinical history: postop Comparison: 2016Discussion: A frontal chest is provided. Cardiomediastinal contours are unchanged. Lines and tubesare in stable position. There is vascular congestion. Slightly increased opacity at the left lowerlung may reflect progression of atelectasis/consolidation and a small superimposed effusion. Suspecttrace right effusion. No pneumothorax. Signed: Danna Gallego Verified Date/Time: 09/11/2017 09:06:00 Reading Location: [facility] Radiology Reading Room Electronically signed by: DANNA GALLEGO M.D. on 09/11 09:06 AMPOCT-GLUCOSE [id number] 08:34:00 Test Item Value Reference Range Comments POC-GLUCOSE METER (BEAKER) 172 mg/dL 70-110 TESTED AT [address] (test rwdg=6311) [facility] [address] CBC W/PLT COUNT & AUTO [id number] 04:19:00 Test Item Value Reference Range Comments WHITE BLOOD CELL COUNT (BEAKER) (test syks=640) 9.9 K/ L 3.5-10.5 RED BLOOD CELL COUNT (BEAKER) (test sotx=326) 3.18 M/ L 4.63-6.08 HEMOGLOBIN (BEAKER) (test skti=631) 7.9 GM/DL 13.7-17.5 HEMATOCRIT (BEAKER) (test cwic=951) 25.0 % 40.1-51.0 MEAN CORPUSCULAR VOLUME (BEAKER) (test xetp=070) 78.6 fL 79.0-92.2 MEAN CORPUSCULAR HEMOGLOBIN (BEAKER) (test 24.8 pg 25.7-32.2 dfua=892) MEAN CORPUSCULAR HEMOGLOBIN CONC (BEAKER) (test 31.6 GM/DL 32.3-36.5 flff=098) RED CELL DISTRIBUTION WIDTH (BEAKER) (test 15.8 % 11.6-14.4 ealk=429) PLATELET COUNT (BEAKER) (test kvde=721) 89 K/CU MM 150-450 MEAN PLATELET VOLUME (BEAKER) (test qhih=173) 11.0 fL 9.4-12.4 NUCLEATED RED BLOOD CELLS (BEAKER) (test 0 /100 WBC 0-0 lgkm=998) NEUTROPHILS RELATIVE PERCENT (BEAKER) (test 82 % krzs=896) LYMPHOCYTES RELATIVE PERCENT (BEAKER) (test 8 % ahqf=532) MONOCYTES RELATIVE PERCENT (BEAKER) (test 10 % nppb=067) EOSINOPHILS RELATIVE PERCENT (BEAKER) (test 0 % vgzn=017) BASOPHILS RELATIVE PERCENT (BEAKER) (test 0 % zmhe=589) NEUTROPHILS ABSOLUTE COUNT (BEAKER) (test 8.08 K/ L 1.78-5.38 eewc=548) LYMPHOCYTES ABSOLUTE COUNT (BEAKER) (test 0.75 K/ L 1.32-3.57 atiq=113) MONOCYTES ABSOLUTE COUNT (BEAKER) (test qjsz=379) 0.99 K/ L 0.30-0.82 EOSINOPHILS ABSOLUTE COUNT (BEAKER) (test 0.00 K/ L 0.04-0.54 gayj=750) BASOPHILS ABSOLUTE COUNT (BEAKER) (test cxwa=197) 0.00 K/ L 0.01-0.08 IMMATURE GRANULOCYTES-RELATIVE PERCENT (BEAKER) 1 % 0-1 (test jdan=7032) [id number] 04:16:00 Test Item Value Reference Range Comments PHOSPHORUS (BEAKER) (test cuvx=302) 3.9 mg/dL 2.3-4.7 [id number] 04:16:00 Test Item Value Reference Range Comments MAGNESIUM (BEAKER) (test drfg=646) 2.1 mg/dL 1.6-2.6 BASIC METABOLIC [id number] 04:16:00 Test Item Value Reference Range Comments SODIUM (BEAKER) (test 138 meq/L 136-145 acgp=442) POTASSIUM (BEAKER) (test 4.4 meq/L 3.5-5.1 qesn=419) CHLORIDE (BEAKER) (test 108 meq/L 98-107 xhuk=621) CO2 (BEAKER) (test 23 meq/L 22-29 nipo=016) BLOOD UREA NITROGEN 13 mg/dL 7-21 (BEAKER) (test qybt=756) CREATININE (BEAKER) (test 0.85 mg/dL 0.57-1.25 ttlb=001) GLUCOSE RANDOM (BEAKER) 120 mg/dL 70-105 (test wvhe=679) CALCIUM (BEAKER) (test 7.9 mg/dL 8.4-10.2 gvfx=078) EGFR (BEAKER) (test 89 mL/min/1.73 sq m ESTIMATED GFR IS NOT xlns=4062) ACCURATE CREATININE CLEARANCE IN PREDICTING GLOMERULAR FILTRATION RATE. ESTIMATED GFR IS NOT APPLICABLE FOR DIALYSIS PATIENTS. POCT-GLUCOSE [id number] 04:15:00 Test Item Value Reference Range Comments POC-GLUCOSE METER (BEAKER) 135 mg/dL 70-110 TESTED AT [address] (test gddr=8251) [facility] [id number] BLOOD GAS, [id number] 03:44:00 Test Item Value Reference Range Comments PH ARTERIAL (BEAKER) (test vkiw=155) 7.48 7.35-7.45 PCO2 ARTERIAL (BEAKER) (test vqvt=932) 36 mmHg 35-45 PO2 ARTERIAL (BEAKER) (test eujp=685) 106 mmHg 80-90 O2 SATURATION ARTERIAL (BEAKER) (test ejut=574) 98.2 % 96.0-97.0 HCO3 ARTERIAL (BEAKER) (test bdfm=765) 26 mmol/L 21-29 BASE EXCESS ARTERIAL (BEAKER) (test eoyc=726) 2.7 mmol/L -2.0-3.0 PATIENT TEMPERATURE (BEAKER) (test ifcj=3529) 36.8 C FIO2 (BEAKER) (test xnut=3422) 40.0 % POCT-GLUCOSE [id number] 03:10:00 Test Item Value Reference Range Comments POC-GLUCOSE METER (BEAKER) 128 mg/dL 70-110 TESTED AT [address] (test rwvi=5185) [place] [id number] LACTIC ACID, ARTERIAL, WHOLE [id number] 01:31:00 Test Item Value Reference Range Comments LACTATE BLOOD ARTERIAL (2) (BEAKER) (test 1.5 mmol/L 0.5-2.2 bimt=6765) Effective 01/24/2016: Units/Reference Range ChangeNew: 0.5-2.2 mmol/L Previous: 5 -20 mg/dLBLOOD GAS, [id number] 01:20:00 Test Item Value Reference Range Comments PH ARTERIAL (BEAKER) (test urqk=822) 7.39 7.35-7.45 PCO2 ARTERIAL (BEAKER) (test pcwx=905) 47 mmHg 35-45 PO2 ARTERIAL (BEAKER) (test vmda=624) 90 mmHg 80-90 O2 SATURATION ARTERIAL (BEAKER) (test uuja=236) 96.8 % 96.0-97.0 HCO3 ARTERIAL (BEAKER) (test ebvg=941) 28 mmol/L 21-29 BASE EXCESS ARTERIAL (BEAKER) (test isov=721) 2.8 mmol/L -2.0-3.0 PATIENT TEMPERATURE (BEAKER) (test nqpx=8542) 36.9 C FIO2 (BEAKER) (test hgrs=2647) 40.0 % GLUCOSE-STAT [id number] 01:20:00 Test Item Value Reference Range Comments GLUCOSE RANDOM (BEAKER) (test caha=208) 123 mg/dL 70-110 POCT-GLUCOSE [id number] 00:57:00 Test Item Value Reference Range Comments POC-GLUCOSE METER (BEAKER) 154 mg/dL 70-110 TESTED AT [address] (test sgrt=7213) [facility] [id number] POCT-GLUCOSE [id number] 22:22:00 Test Item Value Reference Range Comments POC-GLUCOSE METER (BEAKER) 176 mg/dL 70-110 TESTED AT [address] (test txqm=4400) [facility] [address] POCT-GLUCOSE [id number] 22:22:00 Test Item Value Reference Range Comments POC-GLUCOSE METER (BEAKER) 227 mg/dL 70-110 TESTED AT [address] (test vkda=7110) [place] [id number] LACTIC ACID, ARTERIAL, WHOLE [id number] 21:58:00 Test Item Value Reference Range Comments LACTATE BLOOD ARTERIAL (2) (BEAKER) (test 3.1 mmol/L 0.5-2.2 aqif=6794) Effective 01/24/2016: Units/Reference Range ChangeNew: 0.5-2.2 mmol/L Previous: 5 -20 mg/[id number] 21:58:00 Test Item Value Reference Range Comments MAGNESIUM (BEAKER) (test ovxg=329) 2.2 mg/dL 1.6-2.6 OXYGEN SATURATION, [id number] 21:27:00 Test Item Value Reference Range Comments O2 SATURATION (MEASURED) (BEAKER) (test ybvl=1626) 75.9 % BLOOD GAS, [id number] 21:26:00 Test Item Value Reference Range Comments PH ARTERIAL (BEAKER) (test wipm=351) 7.42 7.35-7.45 PCO2 ARTERIAL (BEAKER) (test rsoz=781) 41 mmHg 35-45 PO2 ARTERIAL (BEAKER) (test tijo=753) 152 mmHg 80-90 O2 SATURATION ARTERIAL (BEAKER) (test xaki=134) 99.0 % 96.0-97.0 HCO3 ARTERIAL (BEAKER) (test xmzs=049) 26 mmol/L 21-29 BASE EXCESS ARTERIAL (BEAKER) (test joeu=658) 1.2 mmol/L -2.0-3.0 PATIENT TEMPERATURE (BEAKER) (test xbfw=6414) 37.7 C FIO2 (BEAKER) (test abyk=6536) 60.0 % HGB/HCT (H&H) - STAT [id number] 21:26:00 Test Item Value Reference Range Comments HEMOGLOBIN (BEAKER) (test nfuz=468) 9.1 g/dL 13.0-16.8 HEMATOCRIT (BEAKER) (test nmox=861) 27.0 % 40.0-50.0 CALCIUM, [id number] 21:26:00 Test Item Value Reference Range Comments CALCIUM IONIZED (BEAKER) (test juej=336) 1.08 mmol/L 1.12-1.27 PH, BLOOD (BEAKER) (test ezzk=5695) 7.42 BASIC METABOLIC [id number] 18:58:00 Test Item Value Reference Range Comments SODIUM (BEAKER) (test 136 meq/L 136-145 jxwy=859) POTASSIUM (BEAKER) (test 4.8 meq/L 3.5-5.1 olfb=583) CHLORIDE (BEAKER) (test 105 meq/L 98-107 acza=751) CO2 (BEAKER) (test 20 meq/L 22-29 atlh=576) BLOOD UREA NITROGEN 13 mg/dL 7-21 (BEAKER) (test vdvw=667) CREATININE (BEAKER) (test 0.98 mg/dL 0.57-1.25 vfvm=882) GLUCOSE RANDOM (BEAKER) 246 mg/dL 70-105 (test nulp=522) CALCIUM (BEAKER) (test 7.4 mg/dL 8.4-10.2 kfxv=161) EGFR (BEAKER) (test 75 mL/min/1.73 sq m ESTIMATED GFR IS NOT tkyv=5533) ACCURATE CREATININE CLEARANCE IN PREDICTING GLOMERULAR FILTRATION RATE. ESTIMATED GFR IS NOT APPLICABLE FOR DIALYSIS PATIENTS. HEPATIC FUNCTION [id number] 18:54:00 Test Item Value Reference Range Comments TOTAL PROTEIN (BEAKER) (test iokg=212) 5.5 gm/dL 6.0-8.3 ALBUMIN (BEAKER) (test rvwf=3536) 3.5 g/dL 3.5-5.0 BILIRUBIN TOTAL (BEAKER) (test rzey=392) 0.7 mg/dL 0.2-1.2 BILIRUBIN DIRECT (BEAKER) (test bfgw=429) 0.4 mg/dL 0.1-0.5 ALKALINE PHOSPHATASE (BEAKER) (test vvkq=951) 50 U/L 40-150 AST (SGOT) (BEAKER) (test pfyz=900) 54 U/L 5-34 ALT (SGPT) (BEAKER) (test ungq=928) 33 U/L 6-55 LACTIC ACID, ARTERIAL, WHOLE [id number] 17:19:00 Test Item Value Reference Range Comments LACTATE BLOOD ARTERIAL (2) (BEAKER) (test 9.2 mmol/L 0.5-2.2 nkpm=8510) Effective 01/24/2016: Units/Reference Range ChangeNew: 0.5-2.2 mmol/L Previous: 5 -20 mg/dLPOCT-GLUCOSE [id number] 17:09:00 Test Item Value Reference Range Comments POC-GLUCOSE METER (BEAKER) 233 mg/dL 70-110 TESTED AT [facility] [address] [facility] (test svth=5015) [facility] [address] HEMOGLOBIN AND [id number] 17:08:00 Test Item Value Reference Range Comments HEMOGLOBIN (BEAKER) (test whaz=573) 9.1 GM/DL 13.7-17.5 HEMATOCRIT (BEAKER) (test xxtz=426) 29.2 % 40.1-51.0 BLOOD GAS, [id number] 17:03:00 Test Item Value Reference Range Comments PH ARTERIAL (BEAKER) (test sjxf=342) 7.29 7.35-7.45 PCO2 ARTERIAL (BEAKER) (test lvgq=249) 42 mm Hg 35-45 PO2 ARTERIAL (BEAKER) (test anuf=772) 175 mm Hg 80-90 O2 SATURATION ARTERIAL (BEAKER) (test cfdh=483) 99.0 % 96.0-97.0 HCO3 ARTERIAL (BEAKER) (test zzyu=293) 20 mmol/L 21-29 BASE EXCESS ARTERIAL (BEAKER) (test ojwv=987) -6.3 mmol/L -2.0-3.0 PATIENT TEMPERATURE (BEAKER) (test dref=9265) 36.9 FIO2 (BEAKER) (test nbxo=8854) 60 BLOOD GAS, [id number] 16:14:00 Test Item Value Reference Range Comments PH ARTERIAL (BEAKER) (test nkht=936) 7.29 7.35-7.45 PCO2 ARTERIAL (BEAKER) (test gvgw=291) 41 mmHg 35-45 PO2 ARTERIAL (BEAKER) (test ucew=517) 169 mmHg 80-90 O2 SATURATION ARTERIAL (BEAKER) (test vuzr=582) 99.0 % 96.0-97.0 HCO3 ARTERIAL (BEAKER) (test gjwb=907) 19 mmol/L 21-29 BASE EXCESS ARTERIAL (BEAKER) (test cjmn=354) -7.2 mmol/L -2.0-3.0 PATIENT TEMPERATURE (BEAKER) (test jgfh=1040) 36.8 C FIO2 (BEAKER) (test rtkt=3841) 60.0 % CBC (HEMOGRAM ONLY)2017-09-10 15:59:00 Test Item Value Reference Range Comments WHITE BLOOD CELL COUNT (BEAKER) (test mupn=521) 27.2 K/ L 3.5-10.5 RED BLOOD CELL COUNT (BEAKER) (test prtg=797) 3.92 M/ L 4.63-6.08 HEMOGLOBIN (BEAKER) (test kosc=594) 9.7 GM/DL 13.7-17.5 HEMATOCRIT (BEAKER) (test zzha=951) 31.4 % 40.1-51.0 MEAN CORPUSCULAR VOLUME (BEAKER) (test wapl=039) 80.1 fL 79.0-92.2 MEAN CORPUSCULAR HEMOGLOBIN (BEAKER) (test 24.7 pg 25.7-32.2 yocm=411) MEAN CORPUSCULAR HEMOGLOBIN CONC (BEAKER) (test 30.9 GM/DL 32.3-36.5 pevp=776) RED CELL DISTRIBUTION WIDTH (BEAKER) (test 15.6 % 11.6-14.4 hqtf=727) PLATELET COUNT (BEAKER) (test tkxz=863) 126 K/CU MM 150-450 MEAN PLATELET VOLUME (BEAKER) (test obvm=880) 11.2 fL 9.4-12.4 NUCLEATED RED BLOOD CELLS (BEAKER) (test 0 /100 WBC 0-0 hhwv=669) POTASSIUM-STAT [id number] 14:57:00 Test Item Value Reference Range Comments POTASSIUM (BEAKER) (test caen=457) 4.2 meq/L 3.6-5.5 BLOOD GAS, [id number] 14:57:00 Test Item Value Reference Range Comments PH ARTERIAL (BEAKER) (test tojh=501) 7.26 7.35-7.45 PCO2 ARTERIAL (BEAKER) (test zkba=227) 45 mmHg 35-45 PO2 ARTERIAL (BEAKER) (test qmfs=647) 208 mmHg 80-90 O2 SATURATION ARTERIAL (BEAKER) (test muqe=892) 99.2 % 96.0-97.0 HCO3 ARTERIAL (BEAKER) (test hybq=344) 20 mmol/L 21-29 BASE EXCESS ARTERIAL (BEAKER) (test auxy=183) -6.9 mmol/L -2.0-3.0 PATIENT TEMPERATURE (BEAKER) (test tkga=6455) 37.0 C FIO2 (BEAKER) (test pmgg=5151) 100.0 % SODIUM NA-STAT [id number] 14:57:00 Test Item Value Reference Range Comments SODIUM (BEAKER) (test wmql=523) 134 meq/L 135-148 GLUCOSE-STAT [id number] 14:57:00 Test Item Value Reference Range Comments GLUCOSE RANDOM (BEAKER) (test gidd=625) 218 mg/dL 70-110 HGB/HCT (H&H) - STAT [id number] 14:57:00 Test Item Value Reference Range Comments HEMOGLOBIN (BEAKER) (test dksa=042) 10.5 g/dL 13.0-16.8 HEMATOCRIT (BEAKER) (test hxnq=842) 31.0 % 40.0-50.0 LACTIC ACID, ARTERIAL, WHOLE [id number] 14:12:00 Test Item Value Reference Range Comments LACTATE BLOOD ARTERIAL (2) 4.2 mmol/L 0.5-2.2 Specimen slightly hemolyzed (BEAKER) (test uioc=8811) Effective 01/24/2016: Units/Reference Range ChangeNew: 0.5-2.2 mmol/L Previous: 5 -20 mg/dLBASIC METABOLIC [id number] 13:49:00 Test Item Value Reference Range Comments SODIUM (BEAKER) (test 134 meq/L 136-145 dmqh=144) POTASSIUM (BEAKER) (test 3.7 meq/L 3.5-5.1 Specimen slightly rpui=964) hemolyzed CHLORIDE (BEAKER) (test 106 meq/L 98-107 fvbb=940) CO2 (BEAKER) (test 17 meq/L 22-29 nkde=891) BLOOD UREA NITROGEN 13 mg/dL 7-21 (BEAKER) (test tmpn=687) CREATININE (BEAKER) (test 0.92 mg/dL 0.57-1.25 Specimen slightly nkzk=508) hemolyzed GLUCOSE RANDOM (BEAKER) 217 mg/dL 70-105 (test kdmr=167) CALCIUM (BEAKER) (test 7.6 mg/dL 8.4-10.2 zvsy=351) EGFR (BEAKER) (test 81 mL/min/1.73 sq m ESTIMATED GFR IS NOT usuu=3609) ACCURATE CREATININE CLEARANCE IN PREDICTING GLOMERULAR FILTRATION RATE. ESTIMATED GFR IS NOT APPLICABLE FOR DIALYSIS PATIENTS. [id number] 13:47:00 Test Item Value Reference Range Comments MAGNESIUM (BEAKER) (test 2.2 mg/dL 1.6-2.6 Specimen slightly hemolyzed gqwu=848) [id number] 13:47:00 Test Item Value Reference Range Comments POTASSIUM (BEAKER) (test 3.7 meq/L 3.5-5.1 Specimen slightly hemolyzed syfy=196) [id number] 13:47:00 Test Item Value Reference Range Comments GLUCOSE RANDOM (BEAKER) (test qlyz=643) 217 mg/dL 70-105 BLOOD GAS, [id number] 13:17:00 Test Item Value Reference Range Comments PH ARTERIAL (BEAKER) (test eclq=555) 7.32 7.35-7.45 PCO2 ARTERIAL (BEAKER) (test fpjl=148) 38 mmHg 35-45 PO2 ARTERIAL (BEAKER) (test kebl=198) 189 mmHg 80-90 O2 SATURATION ARTERIAL (BEAKER) (test wgko=732) 99.2 % 96.0-97.0 HCO3 ARTERIAL (BEAKER) (test bmrh=133) 19 mmol/L 21-29 BASE EXCESS ARTERIAL (BEAKER) (test oape=155) -6.5 mmol/L -2.0-3.0 PATIENT TEMPERATURE (BEAKER) (test bckv=8962) 37.0 C FIO2 (BEAKER) (test bcmf=6789) 100.0 % SODIUM NA-STAT [id number] 13:17:00 Test Item Value Reference Range Comments SODIUM (BEAKER) (test jaob=621) 132 meq/L 135-148 GLUCOSE-STAT [id number] 13:17:00 Test Item Value Reference Range Comments GLUCOSE RANDOM (BEAKER) (test rxty=457) 209 mg/dL 70-110 HGB/HCT (H&H) - STAT [id number] 13:17:00 Test Item Value Reference Range Comments HEMOGLOBIN (BEAKER) (test stvp=859) 11.3 g/dL 13.0-16.8 HEMATOCRIT (BEAKER) (test ctwk=881) 33.0 % 40.0-50.0 POTASSIUM-STAT [id number] 13:15:00 Test Item Value Reference Range Comments POTASSIUM (BEAKER) (test npzw=376) 3.7 meq/L 3.6-5.5 OXYGEN SATURATION, [id number] 13:15:00 Test Item Value Reference Range Comments O2 SATURATION (MEASURED) (BEAKER) (test pijl=7783) 72.7 % RAD, CHEST, 1 VIEW, NON [id number] 13:11:00Reason for exam:->intubated/ cardiac surgeryShould this be performed at the bedside?->YesFINAL REPORT INDICATION: intubated/cardiac surgery COMPARISON: September 09, 2017 TECHNIQUE: Chest radiograph, single view, portable technique. FINDINGS / IMPRESSION: Endotrachealtube terminates 1.5 cm above the dayami. Right internal jugular line terminates in the low SVC. Leftchest tube, mediastinal tube, and median sternotomy wires noted. No pulmonary edema, pneumothorax, or apical cap demonstrated. No significant mediastinal widening. Left retrocardiac opacity probably represents pleural fluid and related atelectasis. In summary, no definite postoperative obligation. Signed: Luiz Salazar MDReport Verified Date/Time: 09/10/2017 13:11:58 Reading Location: [address] Ortho Consult Reading Room [id number] 12:12:00 Test Item Value Reference Range Comments ACTIVATED CLOTTING TIME 109 sec TESTED AT [place] [address] [address] (BEAKER) (test bmmt=007) [place] [address] [id number] 12:12:00 Test Item Value Reference Range Comments ACTIVATED CLOTTING TIME 412 sec TESTED AT [place] [id number] [place] (BEAKER) (test nfmf=517) [place] [address] [id number] 12:11:00 Test Item Value Reference Range Comments ACTIVATED CLOTTING TIME 461 sec TESTED AT [place] [id number] [place] (BEAKER) (test pmph=666) [place] [address] [id number] 12:11:00 Test Item Value Reference Range Comments ACTIVATED CLOTTING TIME 527 sec TESTED AT [place] [id number] [place] (BEAKER) (test ynmo=795) [place] [address] [id number] 12:11:00 Test Item Value Reference Range Comments ACTIVATED CLOTTING TIME 494 sec TESTED AT [place] [id number] [place] (BEAKER) (test nnwv=362) [place] [address] PROTHROMBIN [id number] 12:07:00 Test Item Value Reference Range Comments PROTIME (BEAKER) (test wjyy=110) 18.3 seconds 11.7-14.7 INR (BEAKER) (test sjvq=614) 1.5 <=5.9 RECOMMENDED COUMADIN/WARFARIN INR THERAPY RANGESSTANDARD DOSE: 2.0 - 3.0 Includes: PROPHYLAXIS forvenous thrombosis, systemic embolization; TREATMENT for venous thrombosis and/or pulmonary embolus.HIGH RISK: Target INR is 2.5-3.5 for patients with mechanical heart valves.[id number] 12:07:00 Test Item Value Reference Range Comments FIBRINOGEN LEVEL (BEAKER) (test rynb=588) 248 mg/dl 225-434 [id number] 12:07:00 Test Item Value Reference Range Comments PARTIAL THROMBOPLASTIN TIME (BEAKER) (test 32.4 seconds 22.5-36.0 odwo=245) PLATELET [id number] 11:46:00 Test Item Value Reference Range Comments PLATELET COUNT (BEAKER) (test waez=979) 113 K/CU MM 150-450 BLOOD GAS, [id number] 11:25:00 Test Item Value Reference Range Comments PH ARTERIAL (BEAKER) (test qlgs=465) 7.45 7.35-7.45 PCO2 ARTERIAL (BEAKER) (test psno=749) 31 mmHg 35-45 PO2 ARTERIAL (BEAKER) (test fkjo=501) 381 mmHg 80-90 O2 SATURATION ARTERIAL (BEAKER) (test vjae=133) 99.8 % 96.0-97.0 HCO3 ARTERIAL (BEAKER) (test rdzz=971) 21 mmol/L 21-29 BASE EXCESS ARTERIAL (BEAKER) (test fjqk=522) -2.6 mmol/L -2.0-3.0 PATIENT TEMPERATURE (BEAKER) (test jduy=9280) 35.7 C FIO2 (BEAKER) (test melr=2349) 100.0 % SODIUM NA-STAT [id number] 11:25:00 Test Item Value Reference Range Comments SODIUM (BEAKER) (test dprg=494) 129 meq/L 135-148 GLUCOSE-STAT [id number] 11:25:00 Test Item Value Reference Range Comments GLUCOSE RANDOM (BEAKER) (test mayu=242) 158 mg/dL 70-110 HGB/HCT (H&H) - STAT [id number] 11:25:00 Test Item Value Reference Range Comments HEMOGLOBIN (BEAKER) (test qnjh=396) 9.4 g/dL 13.0-16.8 HEMATOCRIT (BEAKER) (test alre=925) 28.0 % 40.0-50.0 CALCIUM, [id number] 11:25:00 Test Item Value Reference Range Comments CALCIUM IONIZED (BEAKER) (test fwdv=127) 1.10 mmol/L 1.12-1.27 PH, BLOOD (BEAKER) (test ctgn=5904) 7.43 POTASSIUM-STAT [id number] 11:22:00 Test Item Value Reference Range Comments POTASSIUM (BEAKER) (test wsmf=062) 4.6 meq/L 3.6-5.5 BLOOD GAS, [id number] 10:50:00 Test Item Value Reference Range Comments PH ARTERIAL (BEAKER) (test wcla=349) 7.34 7.35-7.45 PCO2 ARTERIAL (BEAKER) (test kehn=015) 44 mmHg 35-45 PO2 ARTERIAL (BEAKER) (test gtob=176) 379 mmHg 80-90 O2 SATURATION ARTERIAL (BEAKER) (test wewu=101) 99.8 % 96.0-97.0 HCO3 ARTERIAL (BEAKER) (test qlkj=652) 23 mmol/L 21-29 BASE EXCESS ARTERIAL (BEAKER) (test zjkj=017) -2.3 mmol/L -2.0-3.0 PATIENT TEMPERATURE (BEAKER) (test zjde=2985) 36.9 C FIO2 (BEAKER) (test upjq=0107) 90.0 % SODIUM NA-STAT [id number] 10:50:00 Test Item Value Reference Range Comments SODIUM (BEAKER) (test wiwf=936) 128 meq/L 135-148 GLUCOSE-STAT [id number] 10:50:00 Test Item Value Reference Range Comments GLUCOSE RANDOM (BEAKER) (test gcyi=620) 153 mg/dL 70-110 HGB/HCT (H&H) - STAT [id number] 10:50:00 Test Item Value Reference Range Comments HEMOGLOBIN (BEAKER) (test mduh=543) 8.6 g/dL 13.0-16.8 HEMATOCRIT (BEAKER) (test mdjz=046) 25.0 % 40.0-50.0 POTASSIUM-STAT [id number] 10:50:00 Test Item Value Reference Range Comments POTASSIUM (BEAKER) (test mjsv=849) 6.1 meq/L 3.6-5.5 POTASSIUM-STAT [id number] 10:26:00 Test Item Value Reference Range Comments POTASSIUM (BEAKER) (test kczj=746) 6.3 meq/L 3.6-5.5 BLOOD GAS, [id number] 10:25:00 Test Item Value Reference Range Comments PH ARTERIAL (BEAKER) (test pryf=227) 7.45 7.35-7.45 PCO2 ARTERIAL (BEAKER) (test vuwy=959) 33 mmHg 35-45 PO2 ARTERIAL (BEAKER) (test kjnj=924) 308 mmHg 80-90 O2 SATURATION ARTERIAL (BEAKER) (test mcpc=190) 99.7 % 96.0-97.0 HCO3 ARTERIAL (BEAKER) (test fiix=192) 23 mmol/L 21-29 BASE EXCESS ARTERIAL (BEAKER) (test rknr=839) -1.6 mmol/L -2.0-3.0 PATIENT TEMPERATURE (BEAKER) (test vjil=1106) 34.6 C FIO2 (BEAKER) (test epyt=2142) 75.0 % SODIUM NA-STAT [id number] 10:25:00 Test Item Value Reference Range Comments SODIUM (BEAKER) (test lfrp=952) 124 meq/L 135-148 GLUCOSE-STAT [id number] 10:25:00 Test Item Value Reference Range Comments GLUCOSE RANDOM (BEAKER) (test qhvs=122) 143 mg/dL 70-110 HGB/HCT (H&H) - STAT [id number] 10:25:00 Test Item Value Reference Range Comments HEMOGLOBIN (BEAKER) (test fsbv=652) 7.6 g/dL 13.0-16.8 HEMATOCRIT (BEAKER) (test amdd=852) 22.0 % 40.0-50.0 BLOOD GAS, [id number] 10:07:00 Test Item Value Reference Range Comments PH VENOUS (BEAKER) (test hukn=826) 7.36 7.32-7.42 PCO2 VENOUS (BEAKER) (test pjin=925) 41 mmHg 41-51 PO2 VENOUS (BEAKER) (test hgsv=942) 44 mmHg 25-40 O2 SATURATION VENOUS (BEAKER) (test ujqs=609) 91.5 % 40.0-70.0 HCO3 VENOUS (BEAKER) (test pdkf=754) 25 mmol/L 21-29 BASE EXCESS VENOUS (BEAKER) (test koga=733) -2.3 mmol/L -2.0-3.0 PATIENT TEMPERATURE (BEAKER) (test trad=7210) 30.2 C FIO2 (BEAKER) (test erna=0824) 70.0 % BLOOD GAS, [id number] 10:06:00 Test Item Value Reference Range Comments PH ARTERIAL (BEAKER) (test nsjw=897) 7.38 7.35-7.45 PCO2 ARTERIAL (BEAKER) (test oukg=850) 38 mmHg 35-45 PO2 ARTERIAL (BEAKER) (test sjvm=389) 388 mmHg 80-90 O2 SATURATION ARTERIAL (BEAKER) (test wqcz=541) 99.8 % 96.0-97.0 HCO3 ARTERIAL (BEAKER) (test dryz=059) 24 mmol/L 21-29 BASE EXCESS ARTERIAL (BEAKER) (test btll=118) -2.9 mmol/L -2.0-3.0 PATIENT TEMPERATURE (BEAKER) (test lcpp=5469) 30.2 C FIO2 (BEAKER) (test symf=0406) 70.0 % SODIUM NA-STAT [id number] 10:06:00 Test Item Value Reference Range Comments SODIUM (BEAKER) (test akie=939) 125 meq/L 135-148 GLUCOSE-STAT [id number] 10:06:00 Test Item Value Reference Range Comments GLUCOSE RANDOM (BEAKER) (test qejp=764) 126 mg/dL 70-110 HGB/HCT (H&H) - STAT [id number] 10:06:00 Test Item Value Reference Range Comments HEMOGLOBIN (BEAKER) (test lnin=614) 6.9 g/dL 13.0-16.8 HEMATOCRIT (BEAKER) (test tquj=580) 20.0 % 40.0-50.0 POTASSIUM-STAT [id number] 10:04:00 Test Item Value Reference Range Comments POTASSIUM (BEAKER) (test osgx=934) 5.2 meq/L 3.6-5.5 CALCIUM, [id number] 08:57:00 Test Item Value Reference Range Comments CALCIUM IONIZED (BEAKER) (test dxgl=715) 1.02 mmol/L 1.12-1.27 PH, BLOOD (BEAKER) (test ouir=3051) 7.45 BLOOD GAS, [id number] 08:57:00 Test Item Value Reference Range Comments PH ARTERIAL (BEAKER) (test hegp=562) 7.45 7.35-7.45 PCO2 ARTERIAL (BEAKER) (test tgan=886) 37 mmHg 35-45 PO2 ARTERIAL (BEAKER) (test rqzi=341) 401 mmHg 80-90 O2 SATURATION ARTERIAL (BEAKER) (test vwzt=722) 99.8 % 96.0-97.0 HCO3 ARTERIAL (BEAKER) (test beyo=884) 25 mmol/L 21-29 BASE EXCESS ARTERIAL (BEAKER) (test ofcm=790) 1.5 mmol/L -2.0-3.0 PATIENT TEMPERATURE (BEAKER) (test dpqc=3142) 37.1 C FIO2 (BEAKER) (test pkfh=8059) 98.0 % SODIUM NA-STAT [id number] 08:57:00 Test Item Value Reference Range Comments SODIUM (BEAKER) (test jbod=947) 129 meq/L 135-148 GLUCOSE-STAT [id number] 08:57:00 Test Item Value Reference Range Comments GLUCOSE RANDOM (BEAKER) (test vjyq=569) 115 mg/dL 70-110 HGB/HCT (H&H) - STAT [id number] 08:57:00 Test Item Value Reference Range Comments HEMOGLOBIN (BEAKER) (test trum=744) 10.8 g/dL 13.0-16.8 HEMATOCRIT (BEAKER) (test zoya=542) 32.0 % 40.0-50.0 POTASSIUM-STAT [id number] 08:56:00 Test Item Value Reference Range Comments POTASSIUM (BEAKER) (test mjss=187) 4.8 meq/L 3.6-5.5 COMPREHENSIVE METABOLIC [id number] 11:10:00 Test Item Value Reference Range Comments TOTAL PROTEIN (BEAKER) 6.5 gm/dL 6.0-8.3 (test yzck=511) ALBUMIN (BEAKER) (test 3.6 g/dL 3.5-5.0 wkpu=2583) ALKALINE PHOSPHATASE 83 U/L 40-150 (BEAKER) (test cwti=064) BILIRUBIN TOTAL (BEAKER) 0.5 mg/dL 0.2-1.2 (test teje=981) SODIUM (BEAKER) (test 133 meq/L 136-145 rkfy=876) POTASSIUM (BEAKER) (test 4.3 meq/L 3.5-5.1 sjjz=894) CHLORIDE (BEAKER) (test 103 meq/L 98-107 hgxk=291) CO2 (BEAKER) (test 22 meq/L 22-29 tnoo=218) BLOOD UREA NITROGEN 16 mg/dL 7-21 (BEAKER) (test ypfh=898) CREATININE (BEAKER) (test 0.82 mg/dL 0.57-1.25 ikzs=417) GLUCOSE RANDOM (BEAKER) 117 mg/dL 70-105 (test khwf=952) CALCIUM (BEAKER) (test 8.6 mg/dL 8.4-10.2 ytri=974) AST (SGOT) (BEAKER) (test 41 U/L 5-34 uzfq=347) ALT (SGPT) (BEAKER) (test 44 U/L 6-55 yeic=631) EGFR (BEAKER) (test 93 mL/min/1.73 sq m ESTIMATED GFR IS NOT begp=1155) ACCURATE CREATININE CLEARANCE IN PREDICTING GLOMERULAR FILTRATION RATE. ESTIMATED GFR IS NOT APPLICABLE FOR DIALYSIS PATIENTS. CBC W/PLT COUNT & AUTO [id number] 10:41:00 Test Item Value Reference Range Comments WHITE BLOOD CELL COUNT (BEAKER) (test syqz=112) 7.9 K/ L 3.5-10.5 RED BLOOD CELL COUNT (BEAKER) (test hrkg=924) 4.33 M/ L 4.63-6.08 HEMOGLOBIN (BEAKER) (test bocn=144) 10.2 GM/DL 13.7-17.5 HEMATOCRIT (BEAKER) (test hsvy=207) 33.7 % 40.1-51.0 MEAN CORPUSCULAR VOLUME (BEAKER) (test hjcu=315) 77.8 fL 79.0-92.2 MEAN CORPUSCULAR HEMOGLOBIN (BEAKER) (test 23.6 pg 25.7-32.2 iyea=661) MEAN CORPUSCULAR HEMOGLOBIN CONC (BEAKER) (test 30.3 GM/DL 32.3-36.5 auqi=820) RED CELL DISTRIBUTION WIDTH (BEAKER) (test 15.6 % 11.6-14.4 jzqy=207) PLATELET COUNT (BEAKER) (test rwkf=629) 156 K/CU MM 150-450 MEAN PLATELET VOLUME (BEAKER) (test ywbq=555) 11.6 fL 9.4-12.4 NUCLEATED RED BLOOD CELLS (BEAKER) (test 0 /100 WBC 0-0 xxat=748) NEUTROPHILS RELATIVE PERCENT (BEAKER) (test 68 % lynk=436) LYMPHOCYTES RELATIVE PERCENT (BEAKER) (test 15 % velj=870) MONOCYTES RELATIVE PERCENT (BEAKER) (test 12 % atrm=107) EOSINOPHILS RELATIVE PERCENT (BEAKER) (test 3 % vbgm=641) BASOPHILS RELATIVE PERCENT (BEAKER) (test 1 % uqfs=580) NEUTROPHILS ABSOLUTE COUNT (BEAKER) (test 5.42 K/ L 1.78-5.38 orrq=586) LYMPHOCYTES ABSOLUTE COUNT (BEAKER) (test 1.20 K/ L 1.32-3.57 mgkf=614) MONOCYTES ABSOLUTE COUNT (BEAKER) (test 0.96 K/ L 0.30-0.82 nvud=184) EOSINOPHILS ABSOLUTE COUNT (BEAKER) (test 0.22 K/ L 0.04-0.54 xqmv=152) BASOPHILS ABSOLUTE COUNT (BEAKER) (test 0.04 K/ L 0.01-0.08 qzrt=600) IMMATURE GRANULOCYTES-RELATIVE PERCENT (BEAKER) 1 % 0-1 (test tnkw=8176) PROTHROMBIN TIME/[id number] 10:30:00 Test Item Value Reference Range Comments PROTIME (BEAKER) (test xffb=221) 14.0 seconds 11.7-14.7 INR (BEAKER) (test ekkv=657) 1.1 <=5.9 RECOMMENDED COUMADIN/WARFARIN INR THERAPY RANGESSTANDARD DOSE: 2.0 - 3.0 Includes: PROPHYLAXIS forvenous thrombosis, systemic embolization; TREATMENT for venous thrombosis and/or pulmonary embolus.HIGH RISK: Target INR is 2.5-3.5 for patients with mechanical heart valves.RAD, CHEST, 1 VIEW, NON [id number] 09:27:00Reason for exam:->pre opShould this be performed at the bedside?-& gt;YesFINAL REPORT HISTORY : pre op. Comparison: None Comment: Single portable viewof the chest was obtained. The cardiac silhouette size is enlarged. There are findings of mild pulmonary venous congestion. There is a tortuous/ectatic thoracic aorta with some atherosclerotic calcification. No pneumothorax or pleural effusion is seen. There is some hazy opacity identified over the left lung base. Signed: Claire Sutherland [facility] Verified Date/ Time: 09/09/2017 09:27:37 Reading Location: [facility] Radiology Reading Room
--- OUTSIDE RECORDS SUMMARY | 2018-01-23 09:59 | XMS REPORT | Clinical Summary ---
:1945 Author Organization [facility] Address [address] [place] [address] Phone Care Team Providers Name Role Phone [...] 4 (Primary Dx);Secondary hypertension;Coronary artery disease involving [place] coronary artery of [place] heart with angina pectoris (HCC) 09/09/2017 Anesthesia Event Graf Ronaldo Jarrett, AA 09/09/2017 Orders Only Andrzej Hernández MD after 01/22/2017 Social History Tobacco Use Types Packs/Day Years Used Date Former Smoker 1 25 Comments: stopped 5 years ago Sex Assigned at Date Recorded Not on file Last Filed Vital Signs Vital Sign Reading Time Taken Blood Pressure 119/69 09/18/2017 8:29 AM [facility] Pulse 88 09/18/2017 12:11 PM [facility] [employer] [employer] Temperature 36.5 C (97.7 F) 09/18/2017 8:29 AM [facility] [employer] [employer] Respiratory Rate 20 09/18/2017 12:11 PM [facility] [employer] [employer] Oxygen Saturation 96% 09/18/2017 12:11 PM [facility] [employer] Inhaled Oxygen Concentration - - Weight 109 kg (240 lb 4.8 oz) 09/18/2017 4:43 AM [facility] [employer] [employer] Height 171.5 cm (5' 7.5") 09/09/2017 7:48 AM [facility] [employer] [employer] Body Mass Index 37.08 09/18/2017 4:43 AM [facility] [employer] Plan of Treatment Not on file Implants Implanted Type Area Word Processor Device Expiration Model / Identifier Date Serial / Lot Sut Surg Stl 7 18g 18in Mls Mp M655g - Sn/A [place]/Arthroscop N/A: J &J: ETHICON 06/21/2022 M655G / Implanted: Qty: 2 on 09/10/2017 by Mike Price MD y Sternum N/A / [id number] Sut Surg Stl 7 18g 18in Mls Mp M655g - Sn/A [place]/Arthroscop N/A: J &J: ETHICON 06/21/2022 M655G / Implanted: Qty: 4 on 09/10/2017 by Mike Price MD y Sternum N/A / [id number] Sternal Zipfix Ndl Strl [id number] - Sn/A Cardiovascular N/A: SYNTHES: SYNTHE 06/21/2022 08..001.20S / Implanted: Qty: 1 on 09/10/2017 by Mike Price MD Sternum S [facility] N /A / [id number] Procedures Procedure Name Priority Date/Time Associated Diagnosis Comments ENDOSCOPIC HARVEST,VEIN 09/10/2017 7:30 AM CAOD [facility] BYPASS,[place] CORONARY 09/10/2017 7:30 AM CAOD MISTY/SVG [facility] [employer] after 01/22/2017 Results RHYTHM STRIP - SCAN [...] PATIENTS. Specimen Performing Laboratory Blood - Arm, [address] [address] CBC with platelet count + automated diff [...] 1 % Specimen Performing Laboratory Blood [facility] [address] [address] CBC with platelet count + automated diff (09/18/2017 8:54 AM)Only the most recent of7 resultswithin the time period is included. Specimen Performing Laboratory Blood Narrative The following orders were created for panel order CBC with platelet count + automated diff. Procedure Abnormality Status --------- ------ CBC with platelet count ...[[id number]]AbnormalFinal result Please view results for these tests [...] MD Report Verified Date/Time:09/16/2017 12:21:35 Reading Location: [facility] Radiology Reading Room Procedure Note Interface, External Ris In - 09/16/2017 12:23 PM [facility] [employer] FINAL REPORT CLINICAL HISTORY: atelectasis wheeze TECHNIQUE: [...] Report Verified Date/Time: 09/16/2017 12:21:35 Reading Location: [facility] Radiology Reading Room Calcium, Ionized (09/14/2017 5:47 AM)Only the most recent of6 resultswithin the time period is included. Component Value Ref Range Calcium, Ion 1.02 (L) 1.12 - 1.27 mmol/L pH, Blood 7.39 Specimen Performing Laboratory Blood [address] [address] Phosphorus (09/14/2017 5:47 AM)Only the most recent of4 resultswithin the time period is included. Component Value Ref Range Phosphorus 3.4 2.3 - 4.7 mg/dL Specimen Performing Laboratory Blood [address] [address] Magnesium (09/14/2017 5:47 AM)Only the most recent of8 resultswithin the time period is included. Component Value Ref Range Magnesium 2.0 1.6 - 2.6 mg/dL Specimen Performing Laboratory Blood [address] [address] TRANSFUSION SERVICE REPORT - SCAN (09/12/2017 5:43 PM)Only the most recent of3 resultswithin the time period is included.POC-Glucose meter (09/12/2017 4:38 PM )Only the most recent of12 resultswithin the time period is included. Component Value Ref Range POC-Glucose Meter 123 (H)Comment: TESTED AT [address] 70 - 110 mg/[place] [address] Specimen Performing Laboratory Blood [address] [address] Lactic acid, arterial, whole blood (09/12/2017 4:59 AM)Only the most recent of5 resultswithin the time period is included. Component Value Ref Range Lactate, Art 1.0 0.5 - 2.2 mmol/L Specimen Performing Laboratory Blood, Arterial [address] [address] Narrative Effective 01/24/2016: Units/Reference Range Change New: 0.5-2.2 mmol/LPrevious: 5-20 mg/dL Oxygen saturation, measured (09/12/2017 4:58 AM)Only the most recent of3 resultswithin the time period is included. Component Value Ref Range O2 Saturation (Measured) 62.7 % Specimen Performing Laboratory Blood [address] [address] Prepare RBC (09/11/2017 11:54 PM) Component Value Ref Range CROSSMATCH COMPATIBLE Unit ABO O Pos UNIT NUMBER [id number] Status RETURNED FROM ISSUE Blood Bank Product RED BLOOD CELLS PRODUCT CODE [id number] CROSSMATCH COMPATIBLE Unit ABO O Pos UNIT NUMBER [id number] Status RETURNED FROM ISSUE Blood Bank Product RED BLOOD CELLS PRODUCT CODE [id number] CROSSMATCH COMPATIBLE Unit ABO O Pos UNIT NUMBER [id number] Status TRANSFUSED Blood Bank Product RED BLOOD CELLS PRODUCT CODE [id number] CROSSMATCH COMPATIBLE Unit ABO O Pos UNIT NUMBER [id number] Status RETURNED FROM ISSUE Blood Bank Product RED BLOOD CELLS PRODUCT CODE [id number] Specimen Performing Laboratory [place] Potassium (09/11/2017 6:14 PM)Only the most recent of3 resultswithin the time period is included. Component Value Ref Range Potassium 4.4 3.5 - 5.1 meq/L Specimen Performing Laboratory Blood - Line, Arterial [address] [address] Blood gas, arterial (09/11/2017 2:54 PM)Only the [...] 40.0 % Specimen Performing Laboratory Blood, Arterial [facility] [address] [place] [address] Glucose-Stat Lab (09/11/2017 1:11 AM)Only the most recent of8 resultswithin the time period is included. Component Value Ref Range Glucose 123 (H) 70 - 110 mg/dL Specimen Performing Laboratory Blood, [address] [address] HGB/HCT (H&H)-Stat Lab (09/10/2017 9:15 PM)Only the most recent of8 resultswithin the time period is included. Component Value Ref Range Hemoglobin 9.1 (L) 13.0 - 16.8 g/dL Hematocrit 27.0 (L) 40.0 - 50.0 % Specimen Performing Laboratory Blood, [address] [address] Hepatic function panel (09/10/2017 6:16 PM) Component Value Ref Range Protein, Total 5.5 (L) 6.0 - 8.3 gm/dL Albumin 3.5 3.5 - 5.0 g/dL Total Bilirubin 0.7 0.2 - 1.2 mg/dL Bilirubin, Direct 0.4 0.1 - 0.5 mg/dL Alkaline Phosphatase 50 40 - 150 U/L AST 54 (H) 5 - 34 U/L ALT 33 6 - 55 U/L Specimen Performing Laboratory Blood [address] [address] Hemoglobin and hematocrit (09/10/2017 4:47 PM) Component Value Ref Range Hemoglobin 9.1 (L) 13.7 - 17.5 GM/DL Hematocrit 29.2 (L) 40.1 - 51.0 % Specimen Performing Laboratory Blood [address] [address] CBC (Hemogram only) (09/10/2017 3:03 PM) Component [...] Performing Laboratory Blood - Line, Arterial [address] [address] RRL Critical Labs (ABG,NA,K,H&H,GLU) (09/10/2017 2:48 PM)Only the most recent of7 resultswithin the time period is included. Specimen Performing Laboratory Blood, Arterial Narrative The following orders were created for panel order RRL Critical Labs (ABG,NA,K,H&H,GLU). Procedure Abnormality Status --------- ------ Blood gas, arterial[[id number]]AbnormalFinal result Sodium Na-Stat Lab[[id number]] AbnormalFinal result Potassium-Stat Lab[[id number]] NormalFinal result Glucose-Stat Lab[[id number]] AbnormalFinal result HGB/HCT (H&H)-Stat Lab[[id number]] Abnormal Final result Please view results for these tests on the individual orders. Potassium-Stat Lab (09/10/2017 2:48 PM)Only the most recent of7 resultswithin the time period is included. Component Value Ref Range Potassium 4.2 3.6 - 5.5 meq/L Specimen Performing Laboratory Blood, Arterial [address] [address] Sodium Na-Stat Lab (09/10/2017 2:48 PM)Only the most recent of7 resultswithin the time period is included. Component Value Ref Range Sodium 134 (L) 135 - 148 meq/L Specimen Performing Laboratory Blood, Arterial [address] [address] Glucose-STAT (09/10/2017 12:59 PM) Component Value Ref Range Glucose 217 (H) 70 - 105 mg/dL Specimen Performing Laboratory Blood [facility] [address] [place] [address] POC ACTIVATED CLOTTING TIME (09/10/2017 11:12 AM)Only the most recent of5 resultswithin the time period is included. Component Value Ref Range Activated Clotting Time 109Comment: TESTED AT [address] sec [address] Specimen Performing Laboratory [address] [address] aPTT (09/10/2017 11:02 AM) Component Value Ref Range PTT 32.4 22.5 - 36.0 seconds Specimen Performing Laboratory [address] [address] Prothromin time/INR (09/10/2017 11:02 AM)Only the most recent of2 resultswithin the time period is included. Component Value Ref Range Protime 18.3 (H) 11.7 - 14.7 seconds INR 1.5 <=5.9 Specimen Performing Laboratory [address] [address] Narrative RECOMMENDED COUMADIN/WARFARIN INR THERAPY RANGES STANDARD DOSE: 2.0 - 3.0 Includes: PROPHYLAXIS for venous thrombosis, systemic embolization; TREATMENT for venous thrombosis and/or pulmonary embolus. HIGH RISK: Target INR is 2.5-3.5 for patients with mechanical heart valves. Fibrinogen (09/10/2017 11:02 AM) Component Value Ref Range Fibrinogen 248 225 - 434 mg/dl Specimen Performing Laboratory [address] [address] Platelet count (09/10/2017 11:02 AM) Component Value Ref Range Platelets 113 (L) 150 - 450 K/CU MM Specimen Performing Laboratory [address] [address] Tissue Exam (09/10/2017 10:45 AM) Component Value Ref Range Case Report Surgical Pathology Report Case: [id number] Authorizing Provider:Mike Price MDCollected: 09/10/2017 1045 Ordering Location: [facility] Received: 09/10/2017 1314 PERIOPERATIVE SERVICES Pathologist: Darcy Duque MD Specimen:Plaque, LEFT OM1 ARTERY PLAQUE DIAGNOSIS TISSUE SUBMITTED LEFTOM1 ARTERY PLAQUE: - ATHEROSCLEROTIC PLAQUE WITH CALCIFICATIONS Signing Pathologist Direct Phone Line: [phone] CPT Code(s) 07355; 26276 CLINICAL HISTORY CAOD SPECIMEN SOURCE Left artery [...] Specimen Performing Laboratory Tissue - Plaque [address] [address] Blood gas, venous (09/10/2017 9:57 AM) Component Value Ref Range pH, Paco 7.36 7.32 - 7.42 pCO2, Paco 41 41 - 51 mmHg pO2, Paco 44 (H) 25 - 40 mmHg O2 Sat, Paco 91.5 (H) 40.0 - 70.0 % HCO3, Paco 25 21 - 29 mmol/L Base Excess, Paco -2.3 (L) -2.0 - 3.0 mmol/L Patient Temperature 30.2 C FIO2 70.0 % Specimen Performing Laboratory Blood [address] [address] Electrocardiogram, 12-lead (09/09/2017 10:11 AM) Specimen Performing Laboratory GE MUSE Narrative Ventricular Rate 89 BPM Atrial Rate 89 BPM P-R Interval 196 ms QRS Duration 86 ms Q-T Interval 370 ms QTC Calculation(Bazett) 450 ms P [place] 30 degrees R [place] 55 degrees T [place] 43 degrees Normal sinus rhythm Normal ECG No previous ECGs available Confirmed by MD Spivey Roberto ([id number]) on 09/09/2017 2:09:23 PM Procedure Note Interface, External Ris In - 09/09/2017 2:09 PM [facility] [employer] Ventricular Rate 89 BPM Atrial Rate 89 BPM P-R Interval 196 ms QRS Duration 86 ms Q-T Interval 370 ms QTC Calculation(Bazett) 450 ms P [place] 30 degrees R [place] 55 degrees T [place] 43 degrees Normal sinus rhythm Normal ECG No previous ECGs available Confirmed by MD Spivey Roberto ([id number]) on 09/09/2017 2:09:23 PM Type and screen, automated (09/09/2017 10:02 AM) Component Value Ref Range ABO/RH AUTOMATED (BEAKER) O POSITIVE Ab Scrn NEGATIVE Specimen Performing Laboratory Blood [address] [address] Comprehensive metabolic panel (09/09/2017 10:02 AM) Component [...] DIALYSIS PATIENTS. Specimen Performing Laboratory Blood [address] [address] after 01/22/2017
--- OUTSIDE RECORDS SUMMARY | 2018-01-23 10:00 | XMS REPORT ---
:1945 [facility] [address] [place] [address] Dr. Vega [address] [place] [id number] Care Team Providers Name Role Phone MISTY PRICE Unavailable Unavailable Problems This patient has no known problems. Allergies, Adverse Reactions, Alerts This patient has no known allergies or adverse reactions. Medications This patient has no known medications. Results Test Description Test Time Test Comments Text Results Atomic Results Result Comments BASIC METABOLIC PANEL 2017-09-18 11:11:00 Test Item Value Reference Range Comments SODIUM (BEAKER) (test 135 meq/L 136-145 dacl=255) POTASSIUM (BEAKER) (test 4.4 meq/L 3.5-5.1 qvsq=826) CHLORIDE (BEAKER) (test 106 meq/L 98-107 drsh=128) CO2 (BEAKER) (test kexe=263) 22 meq/L 22-29 BLOOD UREA NITROGEN (BEAKER) 16 mg/dL 7-21 (test iiad=341) CREATININE (BEAKER) (test 0.82 mg/dL 0.57-1.25 ehwx=277) GLUCOSE RANDOM (BEAKER) 147 mg/dL 70-105 (test igvz=795) CALCIUM (BEAKER) (test 8.4 mg/dL 8.4-10.2 nuis=176) EGFR (BEAKER) (test 93 mL/min/1.73 sq m ESTIMATED GFR IS NOT zjgp=8656) ACCURATE CREATININE CLEARANCE IN PREDICTING GLOMERULAR FILTRATION RATE. ESTIMATED GFR IS NOT APPLICABLE FOR DIALYSIS PATIENTS. CBC W/PLT COUNT & AUTO [id number] 09:19:00 Test Item Value Reference Range Comments WHITE BLOOD CELL COUNT (BEAKER) (test sjhs=249) 12.1 K/ L 3.5-10.5 RED BLOOD CELL COUNT (BEAKER) (test ewru=844) 3.66 M/ L 4.63-6.08 HEMOGLOBIN (BEAKER) (test ifba=810) 9.2 GM/DL 13.7-17.5 HEMATOCRIT (BEAKER) (test dqqu=897) 29.2 % 40.1-51.0 MEAN CORPUSCULAR VOLUME (BEAKER) (test lpnp=473) 79.8 fL 79.0-92.2 MEAN CORPUSCULAR HEMOGLOBIN (BEAKER) (test 25.1 pg 25.7-32.2 shcb=521) MEAN CORPUSCULAR HEMOGLOBIN CONC (BEAKER) (test 31.5 GM/DL 32.3-36.5 sivd=332) RED CELL DISTRIBUTION WIDTH (BEAKER) (test 16.2 % 11.6-14.4 zclp=877) PLATELET COUNT (BEAKER) (test couz=035) 224 K/CU MM 150-450 MEAN PLATELET VOLUME (BEAKER) (test tixp=234) 10.9 fL 9.4-12.4 NUCLEATED RED BLOOD CELLS (BEAKER) (test 0 /100 WBC 0-0 vper=643) NEUTROPHILS RELATIVE PERCENT (BEAKER) (test 72 % nxgy=965) LYMPHOCYTES RELATIVE PERCENT (BEAKER) (test 13 % wptj=004) MONOCYTES RELATIVE PERCENT (BEAKER) (test 6 % xjhb=427) EOSINOPHILS RELATIVE PERCENT (BEAKER) (test 4 % xjpk=137) BASOPHILS RELATIVE PERCENT (BEAKER) (test 0 % ckdr=529) NEUTROPHILS ABSOLUTE COUNT (BEAKER) (test 8.68 K/ L 1.78-5.38 diyx=600) LYMPHOCYTES ABSOLUTE COUNT (BEAKER) (test 1.61 K/ L 1.32-3.57 whwq=993) MONOCYTES ABSOLUTE COUNT (BEAKER) (test 0.74 K/ L 0.30-0.82 exnr=730) EOSINOPHILS ABSOLUTE COUNT (BEAKER) (test 0.44 K/ L 0.04-0.54 ttvx=669) BASOPHILS ABSOLUTE COUNT (BEAKER) (test 0.04 K/ L 0.01-0.08 ibld=874) IMMATURE GRANULOCYTES-RELATIVE PERCENT (BEAKER) 5 % 0-1 (test bjhq=7347) TISSUE [id number] 17:27:00Surgical Pathology Report Case: [id number] Authorizing Provider: Misty Price MD Collected: 09/10/2017 1045 Ordering Location: [facility] Received: 09/10/2017 1314 PERIOPERATIVE SERVICES Pathologist: Darcy Duque MD Specimen: Plaque , LEFT OM1 ARTERY PLAQUE TISSUE SUBMITTED LEFT OM1 ARTERY PLAQUE: - ATHEROSCLEROTIC PLAQUE WITH CALCIFICATIONS Signing Pathologist Direct Phone Line: at 5: [phone] [id number]; [id number] artery plaque Specimen is received in saline labeled with the patient's information and labeled "left artery plaque" and consists of a velasquez, off-white, tubular shaped segment of calcified tissue measuring 1.2 cm in length x 0.3 cm in diameter. The specimen is sectioned and submitted entirely in A1 for decalcification. CG/ew PERFORMEDCBC W/PLT COUNT & AUTO [id number] 13:19:00 Test Item Value Reference Range Comments WHITE BLOOD CELL COUNT (BEAKER) (test xvvv=046) 14.0 K/ L 3.5-10.5 RED BLOOD CELL COUNT (BEAKER) (test qhwg=633) 3.80 M/ L 4.63-6.08 HEMOGLOBIN (BEAKER) (test lztw=528) 9.2 GM/DL 13.7-17.5 HEMATOCRIT (BEAKER) (test tvht=061) 30.5 % 40.1-51.0 MEAN CORPUSCULAR VOLUME (BEAKER) (test vnom=245) 80.3 fL 79.0-92.2 MEAN CORPUSCULAR HEMOGLOBIN (BEAKER) (test 24.2 pg 25.7-32.2 qhyk=959) MEAN CORPUSCULAR HEMOGLOBIN CONC (BEAKER) (test 30.2 GM/DL 32.3-36.5 bjyn=801) RED CELL DISTRIBUTION WIDTH (BEAKER) (test 16.1 % 11.6-14.4 exer=821) PLATELET COUNT (BEAKER) (test thlc=281) 192 K/CU MM 150-450 MEAN PLATELET VOLUME (BEAKER) (test fxfd=987) 11.3 fL 9.4-12.4 NUCLEATED RED BLOOD CELLS (BEAKER) (test 0 /100 WBC 0-0 jcmi=404) NEUTROPHILS RELATIVE PERCENT (BEAKER) (test 68 % qrky=043) LYMPHOCYTES RELATIVE PERCENT (BEAKER) (test 16 % jbbv=745) MONOCYTES RELATIVE PERCENT (BEAKER) (test 9 % rbva=757) EOSINOPHILS RELATIVE PERCENT (BEAKER) (test 4 % isbq=466) BASOPHILS RELATIVE PERCENT (BEAKER) (test 0 % otwf=169) NEUTROPHILS ABSOLUTE COUNT (BEAKER) (test 9.46 K/ L 1.78-5.38 pzvw=902) LYMPHOCYTES ABSOLUTE COUNT (BEAKER) (test 2.18 K/ L 1.32-3.57 tyke=802) MONOCYTES ABSOLUTE COUNT (BEAKER) (test 1.25 K/ L 0.30-0.82 sqqs=388) EOSINOPHILS ABSOLUTE COUNT (BEAKER) (test 0.50 K/ L 0.04-0.54 zafi=069) BASOPHILS ABSOLUTE COUNT (BEAKER) (test 0.05 K/ L 0.01-0.08 fdqp=215) IMMATURE GRANULOCYTES-RELATIVE PERCENT (BEAKER) 4 % 0-1 (test zybp=0211) RAD, CHEST, 1 VIEW, NON [id number] 12:21:00Reason for exam:->atelectasis ? wheezeShould this be [...] fracture is again seen. Signed: Jose Marley [facility]ort Verified Date/Time: 12:21:35 Reading Location: [facility] Radiology Reading Room BASI METABOLIC [id number] 09:07:00 Test Item Value Reference Range Comments SODIUM (BEAKER) (test 134 meq/L 136-145 riac=859) POTASSIUM (BEAKER) (test 4.5 meq/L 3.5-5.1 Specimen slightly mcnb=804) hemolyzed CHLORIDE (BEAKER) (test 107 meq/L 98-107 mlvp=723) CO2 (BEAKER) (test 17 meq/L 22-29 dvom=952) BLOOD UREA NITROGEN 15 mg/dL 7-21 (BEAKER) (test asrr=981) CREATININE (BEAKER) (test 0.83 mg/dL 0.57-1.25 Specimen slightly golh=761) hemolyzed GLUCOSE RANDOM (BEAKER) 96 mg/dL 70-105 (test kvrb=329) CALCIUM (BEAKER) (test 8.7 mg/dL 8.4-10.2 wzoz=548) EGFR (BEAKER) (test 91 mL/min/1.73 sq m ESTIMATED GFR IS NOT ecyi=3777) ACCURATE CREATININE CLEARANCE IN PREDICTING GLOMERULAR FILTRATION RATE. ESTIMATED GFR IS NOT APPLICABLE FOR DIALYSIS PATIENTS. [id number] 07:48:00 Test Item Value Reference Range Comments PHOSPHORUS (BEAKER) (test wgoj=966) 3.4 mg/dL 2.3-4.7 [id number] 07:48:00 Test Item Value Reference Range Comments MAGNESIUM (BEAKER) (test bejy=833) 2.0 mg/dL 1.6-2.6 BASIC METABOLIC [id number] 07:48:00 Test Item Value Reference Range Comments SODIUM (BEAKER) (test 135 meq/L 136-145 sjyp=130) POTASSIUM (BEAKER) (test 4.0 meq/L 3.5-5.1 ldbe=927) CHLORIDE (BEAKER) (test 103 meq/L 98-107 fmwu=598) CO2 (BEAKER) (test 25 meq/L 22-29 ojzx=092) BLOOD UREA NITROGEN 25 mg/dL 7-21 (BEAKER) (test buhl=567) CREATININE (BEAKER) (test 0.85 mg/dL 0.57-1.25 zupo=390) GLUCOSE RANDOM (BEAKER) 91 mg/dL 70-105 (test cyyv=280) CALCIUM (BEAKER) (test 8.0 mg/dL 8.4-10.2 tbhs=274) EGFR (BEAKER) (test 89 mL/min/1.73 sq m ESTIMATED GFR IS NOT nrts=1827) ACCURATE CREATININE CLEARANCE IN PREDICTING GLOMERULAR FILTRATION RATE. ESTIMATED GFR IS NOT APPLICABLE FOR DIALYSIS PATIENTS. CBC W/PLT COUNT & AUTO [id number] 06:28:00 Test Item Value Reference Range Comments WHITE BLOOD CELL COUNT (BEAKER) (test gzhn=678) 10.5 K/ L 3.5-10.5 RED BLOOD CELL COUNT (BEAKER) (test iipj=310) 3.51 M/ L 4.63-6.08 HEMOGLOBIN (BEAKER) (test ptmm=247) 8.6 GM/DL 13.7-17.5 HEMATOCRIT (BEAKER) (test dsps=774) 27.8 % 40.1-51.0 MEAN CORPUSCULAR VOLUME (BEAKER) (test zayj=460) 79.2 fL 79.0-92.2 MEAN CORPUSCULAR HEMOGLOBIN (BEAKER) (test 24.5 pg 25.7-32.2 fyfw=365) MEAN CORPUSCULAR HEMOGLOBIN CONC (BEAKER) (test 30.9 GM/DL 32.3-36.5 xkyv=314) RED CELL DISTRIBUTION WIDTH (BEAKER) (test 16.0 % 11.6-14.4 rmpb=386) PLATELET COUNT (BEAKER) (test xpbz=485) 138 K/CU MM 150-450 MEAN PLATELET VOLUME (BEAKER) (test zbyo=970) 11.4 fL 9.4-12.4 NUCLEATED RED BLOOD CELLS (BEAKER) (test 0 /100 WBC 0-0 rrls=974) NEUTROPHILS RELATIVE PERCENT (BEAKER) (test 67 % vzbf=226) LYMPHOCYTES RELATIVE PERCENT (BEAKER) (test 19 % evkm=121) MONOCYTES RELATIVE PERCENT (BEAKER) (test 10 % void=921) EOSINOPHILS RELATIVE PERCENT (BEAKER) (test 2 % fsui=116) BASOPHILS RELATIVE PERCENT (BEAKER) (test 0 % qxhc=145) NEUTROPHILS ABSOLUTE COUNT (BEAKER) (test 7.04 K/ L 1.78-5.38 wqjv=856) LYMPHOCYTES ABSOLUTE COUNT (BEAKER) (test 1.95 K/ L 1.32-3.57 dqbh=617) MONOCYTES ABSOLUTE COUNT (BEAKER) (test 1.07 K/ L 0.30-0.82 dyqn=861) EOSINOPHILS ABSOLUTE COUNT (BEAKER) (test 0.25 K/ L 0.04-0.54 aeso=710) BASOPHILS ABSOLUTE COUNT (BEAKER) (test 0.01 K/ L 0.01-0.08 engi=249) IMMATURE GRANULOCYTES-RELATIVE PERCENT (BEAKER) 2 % 0-1 (test mdey=9955) CALCIUM, [id number] 06:25:00 Test Item Value Reference Range Comments CALCIUM IONIZED (BEAKER) (test ttgq=727) 1.02 mmol/L 1.12-1.27 PH, BLOOD (BEAKER) (test meli=4999) 7.39 CBC W/PLT COUNT & AUTO [id number] 08:38:00 Test Item Value Reference Range Comments WHITE BLOOD CELL COUNT (BEAKER) (test sejb=615) 15.7 K/ L 3.5-10.5 RED BLOOD CELL COUNT (BEAKER) (test xqwu=099) 3.20 M/ L 4.63-6.08 HEMOGLOBIN (BEAKER) (test diuf=561) 7.9 GM/DL 13.7-17.5 HEMATOCRIT (BEAKER) (test penc=170) 25.5 % 40.1-51.0 MEAN CORPUSCULAR VOLUME (BEAKER) (test pjnu=653) 79.7 fL 79.0-92.2 MEAN CORPUSCULAR HEMOGLOBIN (BEAKER) (test 24.7 pg 25.7-32.2 cqsq=828) MEAN CORPUSCULAR HEMOGLOBIN CONC (BEAKER) (test 31.0 GM/DL 32.3-36.5 opaf=607) RED CELL DISTRIBUTION WIDTH (BEAKER) (test 16.0 % 11.6-14.4 nubv=503) PLATELET COUNT (BEAKER) (test zcct=040) 98 K/CU MM 150-450 MEAN PLATELET VOLUME (BEAKER) (test uuxy=833) 11.3 fL 9.4-12.4 NUCLEATED RED BLOOD CELLS (BEAKER) (test 0 /100 WBC 0-0 pgau=447) NEUTROPHILS RELATIVE PERCENT (BEAKER) (test 84 % xicz=709) LYMPHOCYTES RELATIVE PERCENT (BEAKER) (test 8 % zhfy=042) MONOCYTES RELATIVE PERCENT (BEAKER) (test 7 % mcbf=638) EOSINOPHILS RELATIVE PERCENT (BEAKER) (test 0 % hpae=586) BASOPHILS RELATIVE PERCENT (BEAKER) (test 0 % prcv=923) NEUTROPHILS ABSOLUTE COUNT (BEAKER) (test 13.19 K/ L 1.78-5.38 eztr=404) LYMPHOCYTES ABSOLUTE COUNT (BEAKER) (test 1.21 K/ L 1.32-3.57 neas=725) MONOCYTES ABSOLUTE COUNT (BEAKER) (test lncj=022) 1.17 K/ L 0.30-0.82 EOSINOPHILS ABSOLUTE COUNT (BEAKER) (test 0.01 K/ L 0.04-0.54 euvm=890) BASOPHILS ABSOLUTE COUNT (BEAKER) (test htiq=180) 0.01 K/ L 0.01-0.08 IMMATURE GRANULOCYTES-RELATIVE PERCENT (BEAKER) 1 % 0-1 (test ayps=7120) RAD, CHEST, 1 VIEW, NON [id number] 07:45:00Reason for exam:->s/p cardiac surgeryFINAL REPORT HISTORY [...] congestion with some interstitial prominence. Signed: Claire Sutherlandeport Verified Date/Time: 09/13/2017 07:45: 50 Reading Location: [address] Transitional Reading Room [id number] 07:22:00 Test Item Value Reference Range Comments MAGNESIUM (BEAKER) (test 2.1 mg/dL 1.6-2.6 Specimen slightly hemolyzed zdsy=995) [id number] 07:22:00 Test Item Value Reference Range Comments PHOSPHORUS (BEAKER) (test 3.3 mg/dL 2.3-4.7 Specimen slightly hemolyzed wvrr=555) BASIC METABOLIC [id number] 07:22:00 Test Item Value Reference Range Comments SODIUM (BEAKER) (test 134 meq/L 136-145 imiq=588) POTASSIUM (BEAKER) (test 4.1 meq/L 3.5-5.1 Specimen slightly yxuk=505) hemolyzed CHLORIDE (BEAKER) (test 102 meq/L 98-107 ubck=254) CO2 (BEAKER) (test 23 meq/L 22-29 rsuc=366) BLOOD UREA NITROGEN 27 mg/dL 7-21 (BEAKER) (test lpel=193) CREATININE (BEAKER) (test 0.85 mg/dL 0.57-1.25 Specimen slightly iyog=682) hemolyzed GLUCOSE RANDOM (BEAKER) 122 mg/dL 70-105 (test vmgb=496) CALCIUM (BEAKER) (test 8.0 mg/dL 8.4-10.2 qzzh=805) EGFR (BEAKER) (test 89 mL/min/1.73 sq m ESTIMATED GFR IS NOT vybd=5800) ACCURATE CREATININE CLEARANCE IN PREDICTING GLOMERULAR FILTRATION RATE. ESTIMATED GFR IS NOT APPLICABLE FOR DIALYSIS PATIENTS. POCT-GLUCOSE [id number] 17:00:00 Test Item Value Reference Range Comments POC-GLUCOSE METER (BEAKER) 258 mg/dL 70-110 TESTED AT [address] (test nrsm=8625) [facility] [address] POCT-GLUCOSE [id number] 16:40:00 Test Item Value Reference Range Comments POC-GLUCOSE METER (BEAKER) 123 mg/dL 70-110 TESTED AT [address] (test zuxl=0595) [facility] [address] [id number] 08:08:00 Test Item Value Reference Range Comments PHOSPHORUS (BEAKER) (test xvej=683) 3.3 mg/dL 2.3-4.7 [id number] 08:08:00 Test Item Value Reference Range Comments MAGNESIUM (BEAKER) (test ysqf=744) 2.3 mg/dL 1.6-2.6 BASIC METABOLIC [id number] 08:08:00 Test Item Value Reference Range Comments SODIUM (BEAKER) (test 137 meq/L 136-145 egph=057) POTASSIUM (BEAKER) (test 4.5 meq/L 3.5-5.1 nrlq=061) CHLORIDE (BEAKER) (test 106 meq/L 98-107 gnzn=071) CO2 (BEAKER) (test 23 meq/L 22-29 vxps=957) BLOOD UREA NITROGEN 28 mg/dL 7-21 (BEAKER) (test vhhg=560) CREATININE (BEAKER) (test 0.86 mg/dL 0.57-1.25 pdqp=493) GLUCOSE RANDOM (BEAKER) 159 mg/dL 70-105 (test dqvv=825) CALCIUM (BEAKER) (test 8.4 mg/dL 8.4-10.2 ulbo=319) EGFR (BEAKER) (test 88 mL/min/1.73 sq m ESTIMATED GFR IS NOT khyc=4487) ACCURATE CREATININE CLEARANCE IN PREDICTING GLOMERULAR FILTRATION RATE. ESTIMATED GFR IS NOT APPLICABLE FOR DIALYSIS PATIENTS. RAD, CHEST, 1 VIEW, NON [id number] 07:59:00Reason for exam:->s/p cardiac surgeryFINAL REPORT AP chest HISTORY: Cardiac surgery COMPARISON: 09/11/2017 IMPRESSION:Endotracheal tube removed. Remainder of support lines unchanged. Cardiomegaly similar to previous. Some interval improvement in pulmonary expansion. Interstitial edema appears stable to slightly improved. Trace effusions. No pneumothorax. Signed: Sterling Meza MDReport Verified Date/Time: 09/12/2017 07:59:49 Reading Location: [facility] Radiology Reading Room CBC W/PLT COUNT & AUTO [id number] 06: 44:00 Test Item Value Reference Range Comments WHITE BLOOD CELL COUNT (BEAKER) (test ligg=525) 14.3 K/ L 3.5-10.5 RED BLOOD CELL COUNT (BEAKER) (test dzkf=048) 3.26 M/ L 4.63-6.08 HEMOGLOBIN (BEAKER) (test vmjn=114) 7.9 GM/DL 13.7-17.5 HEMATOCRIT (BEAKER) (test clsp=637) 25.8 % 40.1-51.0 MEAN CORPUSCULAR VOLUME (BEAKER) (test dzbr=542) 79.1 fL 79.0-92.2 MEAN CORPUSCULAR HEMOGLOBIN (BEAKER) (test 24.2 pg 25.7-32.2 nxfj=303) MEAN CORPUSCULAR HEMOGLOBIN CONC (BEAKER) (test 30.6 GM/DL 32.3-36.5 cqqb=615) RED CELL DISTRIBUTION WIDTH (BEAKER) (test 16.1 % 11.6-14.4 ibzx=417) PLATELET COUNT (BEAKER) (test pfrh=123) 91 K/CU MM 150-450 MEAN PLATELET VOLUME (BEAKER) (test cjoh=094) 12.3 fL 9.4-12.4 NUCLEATED RED BLOOD CELLS (BEAKER) (test 0 /100 WBC 0-0 yfvq=749) NEUTROPHILS RELATIVE PERCENT (BEAKER) (test 88 % dxuu=240) LYMPHOCYTES RELATIVE PERCENT (BEAKER) (test 6 % pogs=122) MONOCYTES RELATIVE PERCENT (BEAKER) (test 5 % logz=741) EOSINOPHILS RELATIVE PERCENT (BEAKER) (test 0 % nkyl=081) BASOPHILS RELATIVE PERCENT (BEAKER) (test 0 % azbb=123) NEUTROPHILS ABSOLUTE COUNT (BEAKER) (test 12.52 K/ L 1.78-5.38 zita=442) LYMPHOCYTES ABSOLUTE COUNT (BEAKER) (test 0.87 K/ L 1.32-3.57 canu=494) MONOCYTES ABSOLUTE COUNT (BEAKER) (test uuqt=385) 0.77 K/ L 0.30-0.82 EOSINOPHILS ABSOLUTE COUNT (BEAKER) (test 0.00 K/ L 0.04-0.54 yogf=103) BASOPHILS ABSOLUTE COUNT (BEAKER) (test dxnr=059) 0.01 K/ L 0.01-0.08 IMMATURE GRANULOCYTES-RELATIVE PERCENT (BEAKER) 1 % 0-1 (test quvp=0745) LACTIC ACID, ARTERIAL, WHOLE [id number] 05:23:00 Test Item Value Reference Range Comments LACTATE BLOOD ARTERIAL (2) (BEAKER) (test 1.0 mmol/L 0.5-2.2 lmwb=1626) Effective 01/24/2016: Units/Reference Range ChangeNew: 0.5-2.2 mmol/L Previous: 5 -20 mg/dLCALCIUM, [id number] 04:58:00 Test Item Value Reference Range Comments CALCIUM IONIZED (BEAKER) (test snmt=229) 1.09 mmol/L 1.12-1.27 PH, BLOOD (BEAKER) (test erzl=9814) 7.46 OXYGEN SATURATION, [id number] 04:58:00 Test Item Value Reference Range Comments O2 SATURATION (MEASURED) (BEAKER) (test knbm=7367) 62.7 % POCT-GLUCOSE [id number] 22:35:00 Test Item Value Reference Range Comments POC-GLUCOSE METER (BEAKER) 178 mg/dL 70-110 TESTED AT [address] (test utqs=1762) [facility] [address] [id number] 18:51:00 Test Item Value Reference Range Comments POTASSIUM (BEAKER) (test vqlv=748) 4.4 meq/L 3.5-5.1 [id number] 18:51:00 Test Item Value Reference Range Comments MAGNESIUM (BEAKER) (test jyst=601) 2.1 mg/dL 1.6-2.6 POCT-GLUCOSE [id number] 18:46:00 Test Item Value Reference Range Comments POC-GLUCOSE METER (BEAKER) 170 mg/dL 70-110 TESTED AT [address] (test glxf=7746) [place] [id number] CALCIUM, [id number] 18:23:00 Test Item Value Reference Range Comments CALCIUM IONIZED (BEAKER) (test qgzs=567) 1.09 mmol/L 1.12-1.27 PH, BLOOD (BEAKER) (test wgaq=6166) 7.44 BLOOD GAS, [id number] 15:01:00 Test Item Value Reference Range Comments PH ARTERIAL (BEAKER) (test outt=636) 7.43 7.35-7.45 PCO2 ARTERIAL (BEAKER) (test ptoe=435) 42 mmHg 35-45 PO2 ARTERIAL (BEAKER) (test ytbd=035) 76 mmHg 80-90 O2 SATURATION ARTERIAL (BEAKER) (test eunl=587) 95.2 % 96.0-97.0 HCO3 ARTERIAL (BEAKER) (test dder=002) 27 mmol/L 21-29 BASE EXCESS ARTERIAL (BEAKER) (test sboz=513) 2.2 mmol/L -2.0-3.0 PATIENT TEMPERATURE (BEAKER) (test hyps=1519) 37.6 C FIO2 (BEAKER) (test yngc=6469) 40.0 % POCT-GLUCOSE [id number] 13:46:00 Test Item Value Reference Range Comments POC-GLUCOSE METER (BEAKER) 166 mg/dL 70-110 TESTED AT [address] (test lxfr=8943) [place] [id number] 13:40:00 Test Item Value Reference Range Comments POTASSIUM (BEAKER) (test vqkg=203) 4.3 meq/L 3.5-5.1 [id number] 13:40:00 Test Item Value Reference Range Comments MAGNESIUM (BEAKER) (test tson=415) 2.1 mg/dL 1.6-2.6 RAD, CHEST, 1 VIEW, NON [id number] 09:06:00Reason for exam:-> postopShould this be performed [...] Gallego Verified Date/Time: 09/11/2017 09:06:00 Reading Location: [facility] Radiology Reading Room Electronically signed by: DANNA GALLEGO M.D. on 09/11 09:06 AMPOCT-GLUCOSE [id number] 08:34:00 Test Item Value Reference Range Comments POC-GLUCOSE METER (BEAKER) 172 mg/dL 70-110 TESTED AT [address] (test komu=7394) [facility] [address] CBC W/PLT COUNT & AUTO [id number] 04:19:00 Test Item Value Reference Range Comments WHITE BLOOD CELL COUNT (BEAKER) (test vwdb=786) 9.9 K/ L 3.5-10.5 RED BLOOD CELL COUNT (BEAKER) (test duwx=108) 3.18 M/ L 4.63-6.08 HEMOGLOBIN (BEAKER) (test jbve=230) 7.9 GM/DL 13.7-17.5 HEMATOCRIT (BEAKER) (test jtwm=987) 25.0 % 40.1-51.0 MEAN CORPUSCULAR VOLUME (BEAKER) (test aump=872) 78.6 fL 79.0-92.2 MEAN CORPUSCULAR HEMOGLOBIN (BEAKER) (test 24.8 pg 25.7-32.2 pgtq=040) MEAN CORPUSCULAR HEMOGLOBIN CONC (BEAKER) (test 31.6 GM/DL 32.3-36.5 kbcj=104) RED CELL DISTRIBUTION WIDTH (BEAKER) (test 15.8 % 11.6-14.4 rbzg=261) PLATELET COUNT (BEAKER) (test fcpx=886) 89 K/CU MM 150-450 MEAN PLATELET VOLUME (BEAKER) (test fuzn=403) 11.0 fL 9.4-12.4 NUCLEATED RED BLOOD CELLS (BEAKER) (test 0 /100 WBC 0-0 jfjs=810) NEUTROPHILS RELATIVE PERCENT (BEAKER) (test 82 % sgxe=265) LYMPHOCYTES RELATIVE PERCENT (BEAKER) (test 8 % rxee=674) MONOCYTES RELATIVE PERCENT (BEAKER) (test 10 % reqm=456) EOSINOPHILS RELATIVE PERCENT (BEAKER) (test 0 % hiqg=253) BASOPHILS RELATIVE PERCENT (BEAKER) (test 0 % bsrj=311) NEUTROPHILS ABSOLUTE COUNT (BEAKER) (test 8.08 K/ L 1.78-5.38 wbqm=659) LYMPHOCYTES ABSOLUTE COUNT (BEAKER) (test 0.75 K/ L 1.32-3.57 sjpe=788) MONOCYTES ABSOLUTE COUNT (BEAKER) (test pjfr=860) 0.99 K/ L 0.30-0.82 EOSINOPHILS ABSOLUTE COUNT (BEAKER) (test 0.00 K/ L 0.04-0.54 nrsj=107) BASOPHILS ABSOLUTE COUNT (BEAKER) (test kobm=340) 0.00 K/ L 0.01-0.08 IMMATURE GRANULOCYTES-RELATIVE PERCENT (BEAKER) 1 % 0-1 (test zuja=5203) [id number] 04:16:00 Test Item Value Reference Range Comments PHOSPHORUS (BEAKER) (test hdhn=607) 3.9 mg/dL 2.3-4.7 [id number] 04:16:00 Test Item Value Reference Range Comments MAGNESIUM (BEAKER) (test phbh=728) 2.1 mg/dL 1.6-2.6 BASIC METABOLIC [id number] 04:16:00 Test Item Value Reference Range Comments SODIUM (BEAKER) (test 138 meq/L 136-145 rmsr=696) POTASSIUM (BEAKER) (test 4.4 meq/L 3.5-5.1 tuwr=114) CHLORIDE (BEAKER) (test 108 meq/L 98-107 krjz=463) CO2 (BEAKER) (test 23 meq/L 22-29 arct=928) BLOOD UREA NITROGEN 13 mg/dL 7-21 (BEAKER) (test zlga=944) CREATININE (BEAKER) (test 0.85 mg/dL 0.57-1.25 zjpv=227) GLUCOSE RANDOM (BEAKER) 120 mg/dL 70-105 (test qcav=137) CALCIUM (BEAKER) (test 7.9 mg/dL 8.4-10.2 nihh=316) EGFR (BEAKER) (test 89 mL/min/1.73 sq m ESTIMATED GFR IS NOT ednr=4161) ACCURATE CREATININE CLEARANCE IN PREDICTING GLOMERULAR FILTRATION RATE. ESTIMATED GFR IS NOT APPLICABLE FOR DIALYSIS PATIENTS. POCT-GLUCOSE [id number] 04:15:00 Test Item Value Reference Range Comments POC-GLUCOSE METER (BEAKER) 135 mg/dL 70-110 TESTED AT [address] (test ptce=3084) [facility] [address] BLOOD GAS, [id number] 03:44:00 Test Item Value Reference Range Comments PH ARTERIAL (BEAKER) (test zegv=058) 7.48 7.35-7.45 PCO2 ARTERIAL (BEAKER) (test bewq=938) 36 mmHg 35-45 PO2 ARTERIAL (BEAKER) (test fdpa=410) 106 mmHg 80-90 O2 SATURATION ARTERIAL (BEAKER) (test mrca=436) 98.2 % 96.0-97.0 HCO3 ARTERIAL (BEAKER) (test eigk=759) 26 mmol/L 21-29 BASE EXCESS ARTERIAL (BEAKER) (test dsnx=362) 2.7 mmol/L -2.0-3.0 PATIENT TEMPERATURE (BEAKER) (test wbdt=7553) 36.8 C FIO2 (BEAKER) (test bmio=7207) 40.0 % POCT-GLUCOSE [id number] 03:10:00 Test Item Value Reference Range Comments POC-GLUCOSE METER (BEAKER) 128 mg/dL 70-110 TESTED AT [address] (test oumd=0803) [place] [id number] LACTIC ACID, ARTERIAL, WHOLE [id number] 01:31:00 Test Item Value Reference Range Comments LACTATE BLOOD ARTERIAL (2) (BEAKER) (test 1.5 mmol/L 0.5-2.2 qrvq=5276) Effective 01/24/2016: Units/Reference Range ChangeNew: 0.5-2.2 mmol/L Previous: 5 -20 mg/dLBLOOD GAS, [id number] 01:20:00 Test Item Value Reference Range Comments PH ARTERIAL (BEAKER) (test jyzr=282) 7.39 7.35-7.45 PCO2 ARTERIAL (BEAKER) (test ephm=493) 47 mmHg 35-45 PO2 ARTERIAL (BEAKER) (test atqm=156) 90 mmHg 80-90 O2 SATURATION ARTERIAL (BEAKER) (test rout=640) 96.8 % 96.0-97.0 HCO3 ARTERIAL (BEAKER) (test gtrx=373) 28 mmol/L 21-29 BASE EXCESS ARTERIAL (BEAKER) (test yunh=774) 2.8 mmol/L -2.0-3.0 PATIENT TEMPERATURE (BEAKER) (test iqyr=6903) 36.9 C FIO2 (BEAKER) (test nsak=9014) 40.0 % GLUCOSE-STAT [id number] 01:20:00 Test Item Value Reference Range Comments GLUCOSE RANDOM (BEAKER) (test hvak=050) 123 mg/dL 70-110 POCT-GLUCOSE [id number] 00:57:00 Test Item Value Reference Range Comments POC-GLUCOSE METER (BEAKER) 154 mg/dL 70-110 TESTED AT [address] (test qdlz=9113) [facility] [address] POCT-GLUCOSE [id number] 22:22:00 Test Item Value Reference Range Comments POC-GLUCOSE METER (BEAKER) 176 mg/dL 70-110 TESTED AT [address] (test ietf=0483) [facility] [address] POCT-GLUCOSE [id number] 22:22:00 Test Item Value Reference Range Comments POC-GLUCOSE METER (BEAKER) 227 mg/dL 70-110 TESTED AT [address] (test rvct=8670) [place] [id number] LACTIC ACID, ARTERIAL, WHOLE [id number] 21:58:00 Test Item Value Reference Range Comments LACTATE BLOOD ARTERIAL (2) (BEAKER) (test 3.1 mmol/L 0.5-2.2 uaxd=1959) Effective 01/24/2016: Units/Reference Range ChangeNew: 0.5-2.2 mmol/L Previous: 5 -20 mg/[id number] 21:58:00 Test Item Value Reference Range Comments MAGNESIUM (BEAKER) (test bfji=327) 2.2 mg/dL 1.6-2.6 OXYGEN SATURATION, [id number] 21:27:00 Test Item Value Reference Range Comments O2 SATURATION (MEASURED) (BEAKER) (test fuyy=9425) 75.9 % BLOOD GAS, [id number] 21:26:00 Test Item Value Reference Range Comments PH ARTERIAL (BEAKER) (test tedm=760) 7.42 7.35-7.45 PCO2 ARTERIAL (BEAKER) (test arbk=598) 41 mmHg 35-45 PO2 ARTERIAL (BEAKER) (test bfgw=319) 152 mmHg 80-90 O2 SATURATION ARTERIAL (BEAKER) (test diro=971) 99.0 % 96.0-97.0 HCO3 ARTERIAL (BEAKER) (test wlkf=954) 26 mmol/L 21-29 BASE EXCESS ARTERIAL (BEAKER) (test rddq=618) 1.2 mmol/L -2.0-3.0 PATIENT TEMPERATURE (BEAKER) (test jfhf=3318) 37.7 C FIO2 (BEAKER) (test eqtd=7968) 60.0 % HGB/HCT (H&H) - STAT [id number] 21:26:00 Test Item Value Reference Range Comments HEMOGLOBIN (BEAKER) (test tgrb=879) 9.1 g/dL 13.0-16.8 HEMATOCRIT (BEAKER) (test kbdf=328) 27.0 % 40.0-50.0 CALCIUM, [id number] 21:26:00 Test Item Value Reference Range Comments CALCIUM IONIZED (BEAKER) (test aaoj=271) 1.08 mmol/L 1.12-1.27 PH, BLOOD (BEAKER) (test aawe=2321) 7.42 BASIC METABOLIC [id number] 18:58:00 Test Item Value Reference Range Comments SODIUM (BEAKER) (test 136 meq/L 136-145 scgt=090) POTASSIUM (BEAKER) (test 4.8 meq/L 3.5-5.1 dunt=651) CHLORIDE (BEAKER) (test 105 meq/L 98-107 eitr=901) CO2 (BEAKER) (test 20 meq/L 22-29 ppte=797) BLOOD UREA NITROGEN 13 mg/dL 7-21 (BEAKER) (test yiqp=214) CREATININE (BEAKER) (test 0.98 mg/dL 0.57-1.25 pugg=588) GLUCOSE RANDOM (BEAKER) 246 mg/dL 70-105 (test pjbf=863) CALCIUM (BEAKER) (test 7.4 mg/dL 8.4-10.2 ksmt=565) EGFR (BEAKER) (test 75 mL/min/1.73 sq m ESTIMATED GFR IS NOT ygpk=5203) ACCURATE CREATININE CLEARANCE IN PREDICTING GLOMERULAR FILTRATION RATE. ESTIMATED GFR IS NOT APPLICABLE FOR DIALYSIS PATIENTS. HEPATIC FUNCTION [id number] 18:54:00 Test Item Value Reference Range Comments TOTAL PROTEIN (BEAKER) (test agfm=140) 5.5 gm/dL 6.0-8.3 ALBUMIN (BEAKER) (test vkpa=0068) 3.5 g/dL 3.5-5.0 BILIRUBIN TOTAL (BEAKER) (test ozrl=683) 0.7 mg/dL 0.2-1.2 BILIRUBIN DIRECT (BEAKER) (test zwuc=835) 0.4 mg/dL 0.1-0.5 ALKALINE PHOSPHATASE (BEAKER) (test ckgw=699) 50 U/L 40-150 AST (SGOT) (BEAKER) (test jvrn=852) 54 U/L 5-34 ALT (SGPT) (BEAKER) (test eibc=838) 33 U/L 6-55 LACTIC ACID, ARTERIAL, WHOLE [id number] 17:19:00 Test Item Value Reference Range Comments LACTATE BLOOD ARTERIAL (2) (BEAKER) (test 9.2 mmol/L 0.5-2.2 ngfh=1759) Effective 01/24/2016: Units/Reference Range ChangeNew: 0.5-2.2 mmol/L Previous: 5 -20 mg/dLPOCT-GLUCOSE [id number] 17:09:00 Test Item Value Reference Range Comments POC-GLUCOSE METER (BEAKER) 233 mg/dL 70-[address] [facility] [address] [facility] (test ctzw=3900) [facility] [address] HEMOGLOBIN AND [id number] 17:08:00 Test Item Value Reference Range Comments HEMOGLOBIN (BEAKER) (test fvfq=917) 9.1 GM/DL 13.7-17.5 HEMATOCRIT (BEAKER) (test mxdm=705) 29.2 % 40.1-51.0 BLOOD GAS, [id number] 17:03:00 Test Item Value Reference Range Comments PH ARTERIAL (BEAKER) (test gult=056) 7.29 7.35-7.45 PCO2 ARTERIAL (BEAKER) (test yobn=780) 42 mm Hg 35-45 PO2 ARTERIAL (BEAKER) (test jadp=900) 175 mm Hg 80-90 O2 SATURATION ARTERIAL (BEAKER) (test spki=194) 99.0 % 96.0-97.0 HCO3 ARTERIAL (BEAKER) (test pgqw=185) 20 mmol/L 21-29 BASE EXCESS ARTERIAL (BEAKER) (test ncgy=516) -6.3 mmol/L -2.0-3.0 PATIENT TEMPERATURE (BEAKER) (test pwup=0765) 36.9 FIO2 (BEAKER) (test qoug=5297) 60 BLOOD GAS, [id number] 16:14:00 Test Item Value Reference Range Comments PH ARTERIAL (BEAKER) (test buly=353) 7.29 7.35-7.45 PCO2 ARTERIAL (BEAKER) (test gbzt=564) 41 mmHg 35-45 PO2 ARTERIAL (BEAKER) (test zzpl=275) 169 mmHg 80-90 O2 SATURATION ARTERIAL (BEAKER) (test egaq=364) 99.0 % 96.0-97.0 HCO3 ARTERIAL (BEAKER) (test lnol=605) 19 mmol/L 21-29 BASE EXCESS ARTERIAL (BEAKER) (test ebug=682) -7.2 mmol/L -2.0-3.0 PATIENT TEMPERATURE (BEAKER) (test busv=6359) 36.8 C FIO2 (BEAKER) (test eskq=0492) 60.0 % CBC (HEMOGRAM ONLY)[id number] 15:59:00 Test Item Value Reference Range Comments WHITE BLOOD CELL COUNT (BEAKER) (test mpyj=837) 27.2 K/ L 3.5-10.5 RED BLOOD CELL COUNT (BEAKER) (test zzjo=800) 3.92 M/ L 4.63-6.08 HEMOGLOBIN (BEAKER) (test xmbh=178) 9.7 GM/DL 13.7-17.5 HEMATOCRIT (BEAKER) (test xody=984) 31.4 % 40.1-51.0 MEAN CORPUSCULAR VOLUME (BEAKER) (test llqj=672) 80.1 fL 79.0-92.2 MEAN CORPUSCULAR HEMOGLOBIN (BEAKER) (test 24.7 pg 25.7-32.2 rbye=069) MEAN CORPUSCULAR HEMOGLOBIN CONC (BEAKER) (test 30.9 GM/DL 32.3-36.5 pohb=276) RED CELL DISTRIBUTION WIDTH (BEAKER) (test 15.6 % 11.6-14.4 flez=347) PLATELET COUNT (BEAKER) (test mbhv=904) 126 K/CU MM 150-450 MEAN PLATELET VOLUME (BEAKER) (test wvuh=276) 11.2 fL 9.4-12.4 NUCLEATED RED BLOOD CELLS (BEAKER) (test 0 /100 WBC 0-0 fohu=606) POTASSIUM-STAT [id number] 14:57:00 Test Item Value Reference Range Comments POTASSIUM (BEAKER) (test cwch=648) 4.2 meq/L 3.6-5.5 BLOOD GAS, [id number] 14:57:00 Test Item Value Reference Range Comments PH ARTERIAL (BEAKER) (test jhao=389) 7.26 7.35-7.45 PCO2 ARTERIAL (BEAKER) (test zcrd=493) 45 mmHg 35-45 PO2 ARTERIAL (BEAKER) (test qmwr=139) 208 mmHg 80-90 O2 SATURATION ARTERIAL (BEAKER) (test bolh=063) 99.2 % 96.0-97.0 HCO3 ARTERIAL (BEAKER) (test rbwo=423) 20 mmol/L 21-29 BASE EXCESS ARTERIAL (BEAKER) (test huhv=742) -6.9 mmol/L -2.0-3.0 PATIENT TEMPERATURE (BEAKER) (test azxc=4198) 37.0 C FIO2 (BEAKER) (test zabp=5481) 100.0 % SODIUM NA-STAT [id number] 14:57:00 Test Item Value Reference Range Comments SODIUM (BEAKER) (test gjfq=600) 134 meq/L 135-148 GLUCOSE-STAT [id number] 14:57:00 Test Item Value Reference Range Comments GLUCOSE RANDOM (BEAKER) (test bllv=737) 218 mg/dL 70-110 HGB/HCT (H&H) - STAT [id number] 14:57:00 Test Item Value Reference Range Comments HEMOGLOBIN (BEAKER) (test nvfr=230) 10.5 g/dL 13.0-16.8 HEMATOCRIT (BEAKER) (test vuvo=527) 31.0 % 40.0-50.0 LACTIC ACID, ARTERIAL, WHOLE [id number] 14:12:00 Test Item Value Reference Range Comments LACTATE BLOOD ARTERIAL (2) 4.2 mmol/L 0.5-2.2 Specimen slightly hemolyzed (BEAKER) (test lzah=8785) Effective 01/24/2016: Units/Reference Range ChangeNew: 0.5-2.2 mmol/L Previous: 5 -20 mg/dLBASIC METABOLIC [id number] 13:49:00 Test Item Value Reference Range Comments SODIUM (BEAKER) (test 134 meq/L 136-145 gueh=630) POTASSIUM (BEAKER) (test 3.7 meq/L 3.5-5.1 Specimen slightly fhth=541) hemolyzed CHLORIDE (BEAKER) (test 106 meq/L 98-107 cxkk=607) CO2 (BEAKER) (test 17 meq/L 22-29 sxmo=412) BLOOD UREA NITROGEN 13 mg/dL 7-21 (BEAKER) (test xxys=853) CREATININE (BEAKER) (test 0.92 mg/dL 0.57-1.25 Specimen slightly pbgk=450) hemolyzed GLUCOSE RANDOM (BEAKER) 217 mg/dL 70-105 (test klpu=272) CALCIUM (BEAKER) (test 7.6 mg/dL 8.4-10.2 puil=885) EGFR (BEAKER) (test 81 mL/min/1.73 sq m ESTIMATED GFR IS NOT tdck=7293) ACCURATE CREATININE CLEARANCE IN PREDICTING GLOMERULAR FILTRATION RATE. ESTIMATED GFR IS NOT APPLICABLE FOR DIALYSIS PATIENTS. [id number] 13:47:00 Test Item Value Reference Range Comments MAGNESIUM (BEAKER) (test 2.2 mg/dL 1.6-2.6 Specimen slightly hemolyzed tbtv=251) [id number] 13:47:00 Test Item Value Reference Range Comments POTASSIUM (BEAKER) (test 3.7 meq/L 3.5-5.1 Specimen slightly hemolyzed bovm=978) [id number] 13:47:00 Test Item Value Reference Range Comments GLUCOSE RANDOM (BEAKER) (test flok=998) 217 mg/dL 70-105 BLOOD GAS, [id number] 13:17:00 Test Item Value Reference Range Comments PH ARTERIAL (BEAKER) (test afqj=954) 7.32 7.35-7.45 PCO2 ARTERIAL (BEAKER) (test vszv=532) 38 mmHg 35-45 PO2 ARTERIAL (BEAKER) (test xhtm=338) 189 mmHg 80-90 O2 SATURATION ARTERIAL (BEAKER) (test nbcb=249) 99.2 % 96.0-97.0 HCO3 ARTERIAL (BEAKER) (test erql=996) 19 mmol/L 21-29 BASE EXCESS ARTERIAL (BEAKER) (test dvjr=954) -6.5 mmol/L -2.0-3.0 PATIENT TEMPERATURE (BEAKER) (test dfce=6593) 37.0 C FIO2 (BEAKER) (test birt=8159) 100.0 % SODIUM NA-STAT [id number] 13:17:00 Test Item Value Reference Range Comments SODIUM (BEAKER) (test kuod=140) 132 meq/L 135-148 GLUCOSE-STAT [id number] 13:17:00 Test Item Value Reference Range Comments GLUCOSE RANDOM (BEAKER) (test adnt=826) 209 mg/dL 70-110 HGB/HCT (H&H) - STAT [id number] 13:17:00 Test Item Value Reference Range Comments HEMOGLOBIN (BEAKER) (test uzzq=301) 11.3 g/dL 13.0-16.8 HEMATOCRIT (BEAKER) (test mmsi=294) 33.0 % 40.0-50.0 POTASSIUM-STAT [id number] 13:15:00 Test Item Value Reference Range Comments POTASSIUM (BEAKER) (test mxmh=966) 3.7 meq/L 3.6-5.5 OXYGEN SATURATION, [id number] 13:15:00 Test Item Value Reference Range Comments O2 SATURATION (MEASURED) (BEAKER) (test qmiw=6627) 72.7 % RAD, CHEST, 1 VIEW, NON [id number] 13:11:00Reason for exam:->intubated/ cardiac surgeryShould this be [...] MDReport Verified Date/Time: 09/10/2017 13:11:58 Reading Location: [address] Consult Reading Room [id number] 12:12:00 Test Item Value Reference Range Comments ACTIVATED CLOTTING TIME 109 sec TESTED AT [place] [address] [address] [facility] (test wbne=076) [place] [address] [id number] 12:12:00 Test Item Value Reference Range Comments ACTIVATED CLOTTING TIME 412 sec TESTED AT [place] [address] [address] (BEAKER) (test xzxf=041) [place] [address] [id number] 12:11:00 Test Item Value Reference Range Comments ACTIVATED CLOTTING TIME 461 sec TESTED AT [place] [id number] (BEAKER) (test uvje=403) [place] [address] [id number] 12:11:00 Test Item Value Reference Range Comments ACTIVATED CLOTTING TIME 527 sec TESTED AT [place] [id number] [address] (BEAKER) (test ayno=768) [place] [address] [id number] 12:11:00 Test Item Value Reference Range Comments ACTIVATED CLOTTING TIME 494 sec TESTED AT [place] [address] [address] [facility] (test etgb=511) [place] [address] PROTHROMBIN [id number] 12:07:00 Test Item Value Reference Range Comments PROTIME ([facility]) (test oesu=644) 18.3 seconds 11.7-14.7 INR (BEAKER) (test rfso=479) 1.5 <=5.9 RECOMMENDED COUMADIN/WARFARIN INR THERAPY RANGESSTANDARD DOSE: 2.0 - 3.0 Includes: PROPHYLAXIS forvenous thrombosis, systemic embolization; TREATMENT for venous thrombosis and/or pulmonary embolus.HIGH RISK: Target INR is 2.5-3.5 for patients with mechanical heart valves.[id number] 12:07:00 Test Item Value Reference Range Comments FIBRINOGEN LEVEL (BEAKER) (test vtar=125) 248 mg/dl 225-434 [id number] 12:07:00 Test Item Value Reference Range Comments PARTIAL THROMBOPLASTIN TIME (BEAKER) (test 32.4 seconds 22.5-36.0 spon=487) PLATELET [id number] 11:46:00 Test Item Value Reference Range Comments PLATELET COUNT (BEAKER) (test ekym=473) 113 K/CU MM 150-450 BLOOD GAS, [id number] 11:25:00 Test Item Value Reference Range Comments PH ARTERIAL (BEAKER) (test nfnt=821) 7.45 7.35-7.45 PCO2 ARTERIAL (BEAKER) (test lofh=194) 31 mmHg 35-45 PO2 ARTERIAL (BEAKER) (test ormn=298) 381 mmHg 80-90 O2 SATURATION ARTERIAL (BEAKER) (test cmen=082) 99.8 % 96.0-97.0 HCO3 ARTERIAL (BEAKER) (test dtky=319) 21 mmol/L 21-29 BASE EXCESS ARTERIAL (BEAKER) (test hmth=232) -2.6 mmol/L -2.0-3.0 PATIENT TEMPERATURE (BEAKER) (test rvpv=1207) 35.7 C FIO2 (BEAKER) (test qaef=1510) 100.0 % SODIUM NA-STAT [id number] 11:25:00 Test Item Value Reference Range Comments SODIUM (BEAKER) (test zamo=250) 129 meq/L 135-148 GLUCOSE-STAT [id number] 11:25:00 Test Item Value Reference Range Comments GLUCOSE RANDOM (BEAKER) (test qozn=601) 158 mg/dL 70-110 HGB/HCT (H&H) - STAT [id number] 11:25:00 Test Item Value Reference Range Comments HEMOGLOBIN (BEAKER) (test yupu=426) 9.4 g/dL 13.0-16.8 HEMATOCRIT (BEAKER) (test gmgy=321) 28.0 % 40.0-50.0 CALCIUM, [id number] 11:25:00 Test Item Value Reference Range Comments CALCIUM IONIZED (BEAKER) (test xuts=163) 1.10 mmol/L 1.12-1.27 PH, BLOOD (BEAKER) (test wnno=2262) 7.43 POTASSIUM-STAT [id number] 11:22:00 Test Item Value Reference Range Comments POTASSIUM (BEAKER) (test eduy=115) 4.6 meq/L 3.6-5.5 BLOOD GAS, [id number] 10:50:00 Test Item Value Reference Range Comments PH ARTERIAL (BEAKER) (test trfs=316) 7.34 7.35-7.45 PCO2 ARTERIAL (BEAKER) (test kjpl=229) 44 mmHg 35-45 PO2 ARTERIAL (BEAKER) (test rjct=516) 379 mmHg 80-90 O2 SATURATION ARTERIAL (BEAKER) (test eids=633) 99.8 % 96.0-97.0 HCO3 ARTERIAL (BEAKER) (test afik=811) 23 mmol/L 21-29 BASE EXCESS ARTERIAL (BEAKER) (test lhel=372) -2.3 mmol/L -2.0-3.0 PATIENT TEMPERATURE (BEAKER) (test qzst=9098) 36.9 C FIO2 (BEAKER) (test wnvr=1028) 90.0 % SODIUM NA-STAT [id number] 10:50:00 Test Item Value Reference Range Comments SODIUM (BEAKER) (test edgz=661) 128 meq/L 135-148 GLUCOSE-STAT [id number] 10:50:00 Test Item Value Reference Range Comments GLUCOSE RANDOM (BEAKER) (test awrc=743) 153 mg/dL 70-110 HGB/HCT (H&H) - STAT [id number] 10:50:00 Test Item Value Reference Range Comments HEMOGLOBIN (BEAKER) (test vjmb=682) 8.6 g/dL 13.0-16.8 HEMATOCRIT (BEAKER) (test mybh=896) 25.0 % 40.0-50.0 POTASSIUM-STAT [id number] 10:50:00 Test Item Value Reference Range Comments POTASSIUM (BEAKER) (test oiyq=679) 6.1 meq/L 3.6-5.5 POTASSIUM-STAT [id number] 10:26:00 Test Item Value Reference Range Comments POTASSIUM (BEAKER) (test bdke=438) 6.3 meq/L 3.6-5.5 BLOOD GAS, [id number] 10:25:00 Test Item Value Reference Range Comments PH ARTERIAL (BEAKER) (test uizf=738) 7.45 7.35-7.45 PCO2 ARTERIAL (BEAKER) (test wjzz=571) 33 mmHg 35-45 PO2 ARTERIAL (BEAKER) (test bzbq=873) 308 mmHg 80-90 O2 SATURATION ARTERIAL (BEAKER) (test same=534) 99.7 % 96.0-97.0 HCO3 ARTERIAL (BEAKER) (test boom=203) 23 mmol/L 21-29 BASE EXCESS ARTERIAL (BEAKER) (test jcjo=987) -1.6 mmol/L -2.0-3.0 PATIENT TEMPERATURE (BEAKER) (test wqut=5438) 34.6 C FIO2 (BEAKER) (test simv=1312) 75.0 % SODIUM NA-STAT [id number] 10:25:00 Test Item Value Reference Range Comments SODIUM (BEAKER) (test uhmc=988) 124 meq/L 135-148 GLUCOSE-STAT [id number] 10:25:00 Test Item Value Reference Range Comments GLUCOSE RANDOM (BEAKER) (test cutq=217) 143 mg/dL 70-110 HGB/HCT (H&H) - STAT [id number] 10:25:00 Test Item Value Reference Range Comments HEMOGLOBIN (BEAKER) (test tjnt=613) 7.6 g/dL 13.0-16.8 HEMATOCRIT (BEAKER) (test qqkz=072) 22.0 % 40.0-50.0 BLOOD GAS, [id number] 10:07:00 Test Item Value Reference Range Comments PH VENOUS (BEAKER) (test dogb=354) 7.36 7.32-7.42 PCO2 VENOUS (BEAKER) (test vads=989) 41 mmHg 41-51 PO2 VENOUS (BEAKER) (test wzgt=331) 44 mmHg 25-40 O2 SATURATION VENOUS (BEAKER) (test dtxa=362) 91.5 % 40.0-70.0 HCO3 VENOUS (BEAKER) (test huhs=747) 25 mmol/L 21-29 BASE EXCESS VENOUS (BEAKER) (test sufh=203) -2.3 mmol/L -2.0-3.0 PATIENT TEMPERATURE (BEAKER) (test ntvo=2592) 30.2 C FIO2 (BEAKER) (test vkfi=8993) 70.0 % BLOOD GAS, [id number] 10:06:00 Test Item Value Reference Range Comments PH ARTERIAL (BEAKER) (test ohik=291) 7.38 7.35-7.45 PCO2 ARTERIAL (BEAKER) (test xsgu=290) 38 mmHg 35-45 PO2 ARTERIAL (BEAKER) (test zjoq=287) 388 mmHg 80-90 O2 SATURATION ARTERIAL (BEAKER) (test blwt=086) 99.8 % 96.0-97.0 HCO3 ARTERIAL (BEAKER) (test rlrk=961) 24 mmol/L 21-29 BASE EXCESS ARTERIAL (BEAKER) (test pmsh=965) -2.9 mmol/L -2.0-3.0 PATIENT TEMPERATURE (BEAKER) (test prrs=6428) 30.2 C FIO2 (BEAKER) (test tddr=6203) 70.0 % SODIUM NA-STAT [id number] 10:06:00 Test Item Value Reference Range Comments SODIUM (BEAKER) (test fkyk=366) 125 meq/L 135-148 GLUCOSE-STAT [id number] 10:06:00 Test Item Value Reference Range Comments GLUCOSE RANDOM (BEAKER) (test ljzg=774) 126 mg/dL 70-110 HGB/HCT (H&H) - STAT [id number] 10:06:00 Test Item Value Reference Range Comments HEMOGLOBIN (BEAKER) (test aycg=869) 6.9 g/dL 13.0-16.8 HEMATOCRIT (BEAKER) (test eolm=492) 20.0 % 40.0-50.0 POTASSIUM-STAT [id number] 10:04:00 Test Item Value Reference Range Comments POTASSIUM (BEAKER) (test hvmt=750) 5.2 meq/L 3.6-5.5 CALCIUM, [id number] 08:57:00 Test Item Value Reference Range Comments CALCIUM IONIZED (BEAKER) (test mcuy=271) 1.02 mmol/L 1.12-1.27 PH, BLOOD (BEAKER) (test city=7338) 7.45 BLOOD GAS, [id number] 08:57:00 Test Item Value Reference Range Comments PH ARTERIAL (BEAKER) (test htva=815) 7.45 7.35-7.45 PCO2 ARTERIAL (BEAKER) (test xsia=728) 37 mmHg 35-45 PO2 ARTERIAL (BEAKER) (test zhgx=766) 401 mmHg 80-90 O2 SATURATION ARTERIAL (BEAKER) (test obwx=199) 99.8 % 96.0-97.0 HCO3 ARTERIAL (BEAKER) (test rrsj=331) 25 mmol/L 21-29 BASE EXCESS ARTERIAL (BEAKER) (test ffst=495) 1.5 mmol/L -2.0-3.0 PATIENT TEMPERATURE (BEAKER) (test pgjy=2180) 37.1 C FIO2 (BEAKER) (test aunp=4873) 98.0 % SODIUM NA-STAT [id number] 08:57:00 Test Item Value Reference Range Comments SODIUM (BEAKER) (test mlvr=715) 129 meq/L 135-148 GLUCOSE-STAT [id number] 08:57:00 Test Item Value Reference Range Comments GLUCOSE RANDOM (BEAKER) (test ufqj=678) 115 mg/dL 70-110 HGB/HCT (H&H) - STAT [id number] 08:57:00 Test Item Value Reference Range Comments HEMOGLOBIN (BEAKER) (test qhti=135) 10.8 g/dL 13.0-16.8 HEMATOCRIT (BEAKER) (test qleo=934) 32.0 % 40.0-50.0 POTASSIUM-STAT [id number] 08:56:00 Test Item Value Reference Range Comments POTASSIUM (BEAKER) (test imee=638) 4.8 meq/L 3.6-5.5 COMPREHENSIVE METABOLIC [id number] 11:10:00 Test Item Value Reference Range Comments TOTAL PROTEIN (BEAKER) 6.5 gm/dL 6.0-8.3 (test xxvl=690) ALBUMIN (BEAKER) (test 3.6 g/dL 3.5-5.0 jmpc=2331) ALKALINE PHOSPHATASE 83 U/L 40-150 (BEAKER) (test pasz=392) BILIRUBIN TOTAL (BEAKER) 0.5 mg/dL 0.2-1.2 (test wpyd=875) SODIUM (BEAKER) (test 133 meq/L 136-145 wnfi=174) POTASSIUM (BEAKER) (test 4.3 meq/L 3.5-5.1 fljf=927) CHLORIDE (BEAKER) (test 103 meq/L 98-107 jkhx=594) CO2 (BEAKER) (test 22 meq/L 22-29 vwjh=142) BLOOD UREA NITROGEN 16 mg/dL 7-21 (BEAKER) (test pkpc=553) CREATININE (BEAKER) (test 0.82 mg/dL 0.57-1.25 vrdy=251) GLUCOSE RANDOM (BEAKER) 117 mg/dL 70-105 (test hqfy=837) CALCIUM (BEAKER) (test 8.6 mg/dL 8.4-10.2 clhf=601) AST (SGOT) (BEAKER) (test 41 U/L 5-34 ygmy=782) ALT (SGPT) (BEAKER) (test 44 U/L 6-55 bcum=593) EGFR (BEAKER) (test 93 mL/min/1.73 sq m ESTIMATED GFR IS NOT jebd=0371) ACCURATE CREATININE CLEARANCE IN PREDICTING GLOMERULAR FILTRATION RATE. ESTIMATED GFR IS NOT APPLICABLE FOR DIALYSIS PATIENTS. CBC W/PLT COUNT & AUTO [id number] 10:41:00 Test Item Value Reference Range Comments WHITE BLOOD CELL COUNT (BEAKER) (test bnxp=592) 7.9 K/ L 3.5-10.5 RED BLOOD CELL COUNT (BEAKER) (test hcfu=157) 4.33 M/ L 4.63-6.08 HEMOGLOBIN (BEAKER) (test qkzq=819) 10.2 GM/DL 13.7-17.5 HEMATOCRIT (BEAKER) (test yrli=718) 33.7 % 40.1-51.0 MEAN CORPUSCULAR VOLUME (BEAKER) (test acaa=699) 77.8 fL 79.0-92.2 MEAN CORPUSCULAR HEMOGLOBIN (BEAKER) (test 23.6 pg 25.7-32.2 zhvm=552) MEAN CORPUSCULAR HEMOGLOBIN CONC (BEAKER) (test 30.3 GM/DL 32.3-36.5 qehp=631) RED CELL DISTRIBUTION WIDTH (BEAKER) (test 15.6 % 11.6-14.4 ynwd=988) PLATELET COUNT (BEAKER) (test emlf=377) 156 K/CU MM 150-450 MEAN PLATELET VOLUME (BEAKER) (test pkns=748) 11.6 fL 9.4-12.4 NUCLEATED RED BLOOD CELLS (BEAKER) (test 0 /100 WBC 0-0 pajq=429) NEUTROPHILS RELATIVE PERCENT (BEAKER) (test 68 % clxh=828) LYMPHOCYTES RELATIVE PERCENT (BEAKER) (test 15 % ghff=468) MONOCYTES RELATIVE PERCENT (BEAKER) (test 12 % nexr=206) EOSINOPHILS RELATIVE PERCENT (BEAKER) (test 3 % llpl=226) BASOPHILS RELATIVE PERCENT (BEAKER) (test 1 % dnuk=083) NEUTROPHILS ABSOLUTE COUNT (BEAKER) (test 5.42 K/ L 1.78-5.38 qyqp=100) LYMPHOCYTES ABSOLUTE COUNT (BEAKER) (test 1.20 K/ L 1.32-3.57 emzy=033) MONOCYTES ABSOLUTE COUNT (BEAKER) (test 0.96 K/ L 0.30-0.82 yalx=110) EOSINOPHILS ABSOLUTE COUNT (BEAKER) (test 0.22 K/ L 0.04-0.54 orxk=184) BASOPHILS ABSOLUTE COUNT (BEAKER) (test 0.04 K/ L 0.01-0.08 vwcl=238) IMMATURE GRANULOCYTES-RELATIVE PERCENT (BEAKER) 1 % 0-1 (test mofc=0581) PROTHROMBIN TIME/[id number] 10:30:00 Test Item Value Reference Range Comments PROTIME (BEAKER) (test mbgp=567) 14.0 seconds 11.7-14.7 INR (BEAKER) (test ldyn=913) 1.1 <=5.9 RECOMMENDED COUMADIN/WARFARIN INR THERAPY RANGESSTANDARD DOSE: 2.0 - 3.0 Includes: PROPHYLAXIS forvenous thrombosis, systemic embolization; TREATMENT for venous thrombosis and/or pulmonary embolus.HIGH RISK: Target INR is 2.5-3.5 for patients with mechanical heart valves.RAD, CHEST, 1 VIEW, NON [id number] 09:27:00Reason for exam:->pre opShould this be [...] the left lung base. Signed: Claire Sutherland MDReport Verified Date/ Time: 09/09/2017 09:27:37 Reading Location: [facility] Radiology Reading Room
--- OUTSIDE RECORDS SUMMARY | 2018-01-23 10:01 | XMS REPORT | Clinical Summary ---
:1945 Author Organization [facility] Address [address] [place] [address] Phone Care Team Providers Name Role Phone [...] 4 (Primary Dx);Secondary hypertension;Coronary artery disease involving [place] coronary artery of [place] heart with angina pectoris (HCC) 09/09/2017 Anesthesia Event Graf Ronaldo Jarrett, AA 09/09/2017 Orders Only Andrzej Hernández MD after 01/22/2017 Social History Tobacco Use Types Packs/Day Years Used Date Former Smoker 1 25 Comments: stopped 5 years ago Sex Assigned at Date Recorded Not on file Last Filed Vital Signs Vital Sign Reading Time Taken Blood Pressure 119/69 09/18/2017 8:29 AM [employer] Pulse 88 09/18/2017 12:11 PM [employer] Temperature 36.5 C (97.7 F) 09/18/2017 8:29 AM [employer] Respiratory Rate 20 09/18/2017 12:11 PM [employer] Oxygen Saturation 96% 09/18/2017 12:11 PM [employer] Inhaled Oxygen Concentration - - Weight 109 kg (240 lb 4.8 oz) 09/18/2017 4:43 AM [employer] Height 171.5 cm (5' 7.5") 09/09/2017 7:48 AM [employer] Body Mass Index 37.08 09/18/2017 4:43 AM [employer] Plan of Treatment Not on file Implants Implanted Type Area Estimator Jewelry Device Expiration Model / Identifier Date Serial / Lot Sut Surg Stl 7 18g 18in Mls Mp M655g - Sn/A [place]/Arthroscop N/A: J &J: ETHICON 06/21/2022 M655G / Implanted: Qty: 2 on 09/10/2017 by Mike Price MD y Sternum N/A / [id number] Sut Surg Stl 7 18g 18in Mls Mp M655g - Sn/A [place]/Arthroscop N/A: J &J: ETHICON 06/21/2022 M655G / Implanted: Qty: 4 on 09/10/2017 by Mike Price MD y Sternum N/A / [id number] Sternal Zipfix Ndl Strl 08.501.001.20s - Sn/A Cardiovascular N/A: SYNTHES: SYNTHE 06/21/2022 08..001.20S / Implanted: Qty: 1 on 09/10/2017 by Mike Price MD Sternum S [facility] N /A / [id number] Procedures Procedure Name Priority Date/Time Associated Diagnosis Comments ENDOSCOPIC HARVEST,VEIN 09/10/2017 7:30 AM CAOD [employer] BYPASS,[place] CORONARY 09/10/2017 7:30 AM CAOD MISTY/SVG [employer] after 01/22/2017 Results RHYTHM STRIP - SCAN [...] PATIENTS. Specimen Performing Laboratory Blood - Arm, [address] [address] CBC with platelet count + automated diff [...] 1 % Specimen Performing Laboratory Blood [facility] [address] [address] CBC with platelet count + automated diff (09/18/2017 8:54 AM)Only the most recent of7 resultswithin the time period is included. Specimen Performing Laboratory Blood Narrative The following orders were created for panel order CBC with platelet count + automated diff. Procedure Abnormality Status --------- ------ CBC with platelet count ...[[id number]]AbnormalFinal result Please view results for these tests [...] MD Report Verified Date/Time:09/16/2017 12:21:35 Reading Location: [facility] Radiology Reading Room Procedure Note Interface, External Ris In - 09/16/2017 12:23 PM [employer] FINAL REPORT CLINICAL HISTORY: atelectasis wheeze TECHNIQUE: [...] Report Verified Date/Time: 09/16/2017 12:21:35 Reading Location: [facility] Radiology Reading Room Calcium, Ionized (09/14/2017 5:47 AM)Only the most recent of6 resultswithin the time period is included. Component Value Ref Range Calcium, Ion 1.02 (L) 1.12 - 1.27 mmol/L pH, Blood 7.39 Specimen Performing Laboratory Blood [address] [address] Phosphorus (09/14/2017 5:47 AM)Only the most recent of4 resultswithin the time period is included. Component Value Ref Range Phosphorus 3.4 2.3 - 4.7 mg/dL Specimen Performing Laboratory Blood [address] [address] Magnesium (09/14/2017 5:47 AM)Only the most recent of8 resultswithin the time period is included. Component Value Ref Range Magnesium 2.0 1.6 - 2.6 mg/dL Specimen Performing Laboratory Blood [address] [address] TRANSFUSION SERVICE REPORT - SCAN (09/12/2017 5:43 PM)Only the most recent of3 resultswithin the time period is included.POC-Glucose meter (09/12/2017 4:38 PM )Only the most recent of12 resultswithin the time period is included. Component Value Ref Range POC-Glucose Meter 123 (H)Comment: TESTED AT [address] 70 - 110 mg/[place] [address] Specimen Performing Laboratory Blood [address] [address] Lactic acid, arterial, whole blood (09/12/2017 4:59 AM)Only the most recent of5 resultswithin the time period is included. Component Value Ref Range Lactate, Art 1.0 0.5 - 2.2 mmol/L Specimen Performing Laboratory Blood, Arterial [address] [address] Narrative Effective 01/24/2016: Units/Reference Range Change New: 0.5-2.2 mmol/LPrevious: 5-20 mg/dL Oxygen saturation, measured (09/12/2017 4:58 AM)Only the most recent of3 resultswithin the time period is included. Component Value Ref Range O2 Saturation (Measured) 62.7 % Specimen Performing Laboratory Blood [address] [address] Prepare RBC (09/11/2017 11:54 PM) Component Value Ref Range CROSSMATCH COMPATIBLE Unit ABO O Pos UNIT NUMBER [id number] Status RETURNED FROM ISSUE Blood Bank Product RED BLOOD CELLS PRODUCT CODE [id number] CROSSMATCH COMPATIBLE Unit ABO O Pos UNIT NUMBER [id number] Status RETURNED FROM ISSUE Blood Bank Product RED BLOOD CELLS PRODUCT CODE [id number] CROSSMATCH COMPATIBLE Unit ABO O Pos UNIT NUMBER [id number] Status TRANSFUSED Blood Bank Product RED BLOOD CELLS PRODUCT CODE [id number] CROSSMATCH COMPATIBLE Unit ABO O Pos UNIT NUMBER [id number] Status RETURNED FROM ISSUE Blood Bank Product RED BLOOD CELLS PRODUCT CODE [id number] Specimen Performing Laboratory [place] Potassium (09/11/2017 6:14 PM)Only the most recent of3 resultswithin the time period is included. Component Value Ref Range Potassium 4.4 3.5 - 5.1 meq/L Specimen Performing Laboratory Blood - Line, Arterial [address] [address] Blood gas, arterial (09/11/2017 2:54 PM)Only the [...] 40.0 % Specimen Performing Laboratory Blood, Arterial [facility] [address] [place] [address] Glucose-Stat Lab (09/11/2017 1:11 AM)Only the most recent of8 resultswithin the time period is included. Component Value Ref Range Glucose 123 (H) 70 - 110 mg/dL Specimen Performing Laboratory Blood, [address] [address] HGB/HCT (H&H)-Stat Lab (09/10/2017 9:15 PM)Only the most recent of8 resultswithin the time period is included. Component Value Ref Range Hemoglobin 9.1 (L) 13.0 - 16.8 g/dL Hematocrit 27.0 (L) 40.0 - 50.0 % Specimen Performing Laboratory Blood, [address] [address] Hepatic function panel (09/10/2017 6:16 PM) Component Value Ref Range Protein, Total 5.5 (L) 6.0 - 8.3 gm/dL Albumin 3.5 3.5 - 5.0 g/dL Total Bilirubin 0.7 0.2 - 1.2 mg/dL Bilirubin, Direct 0.4 0.1 - 0.5 mg/dL Alkaline Phosphatase 50 40 - 150 U/L AST 54 (H) 5 - 34 U/L ALT 33 6 - 55 U/L Specimen Performing Laboratory Blood [address] [address] Hemoglobin and hematocrit (09/10/2017 4:47 PM) Component Value Ref Range Hemoglobin 9.1 (L) 13.7 - 17.5 GM/DL Hematocrit 29.2 (L) 40.1 - 51.0 % Specimen Performing Laboratory Blood [address] [address] CBC (Hemogram only) (09/10/2017 3:03 PM) Component [...] Specimen Performing Laboratory Blood - Line, Arterial [address] [address] RRL Critical Labs (ABG,NA,K,H&H,GLU) (09/10/2017 2:48 PM)Only the most recent of7 resultswithin the time period is included. Specimen Performing Laboratory Blood, Arterial Narrative The following orders were created for panel order RRL Critical Labs (ABG,NA,K,H&H,GLU). Procedure Abnormality Status --------- ------ Blood gas, arterial[[id number]]AbnormalFinal result Sodium Na-Stat Lab[[id number]] AbnormalFinal result Potassium-Stat Lab[[id number]] NormalFinal result Glucose-Stat Lab[[id number]] AbnormalFinal result HGB/HCT (H&H)-Stat Lab[[id number]] Abnormal Final result Please view results for these tests on the individual orders. Potassium-Stat Lab (09/10/2017 2:48 PM)Only the most recent of7 resultswithin the time period is included. Component Value Ref Range Potassium 4.2 3.6 - 5.5 meq/L Specimen Performing Laboratory Blood, Arterial [address] [address] Sodium Na-Stat Lab (09/10/2017 2:48 PM)Only the most recent of7 resultswithin the time period is included. Component Value Ref Range Sodium 134 (L) 135 - 148 meq/L Specimen Performing Laboratory Blood, Arterial [address] [address] Glucose-STAT (09/10/2017 12:59 PM) Component Value Ref Range Glucose 217 (H) 70 - 105 mg/dL Specimen Performing Laboratory Blood [facility] [address] [place] [address] POC ACTIVATED CLOTTING TIME (09/10/2017 11:12 AM)Only the most recent of5 resultswithin the time period is included. Component Value Ref Range Activated Clotting Time 109Comment: TESTED AT [address] sec [address] Specimen Performing Laboratory [address] [address] aPTT (09/10/2017 11:02 AM) Component Value Ref Range PTT 32.4 22.5 - 36.0 seconds Specimen Performing Laboratory [address] [address] Prothromin time/INR (09/10/2017 11:02 AM)Only the most recent of2 resultswithin the time period is included. Component Value Ref Range Protime 18.3 (H) 11.7 - 14.7 seconds INR 1.5 <=5.9 Specimen Performing Laboratory [address] [address] Narrative RECOMMENDED COUMADIN/WARFARIN INR THERAPY RANGES STANDARD DOSE: 2.0 - 3.0 Includes: PROPHYLAXIS for venous thrombosis, systemic embolization; TREATMENT for venous thrombosis and/or pulmonary embolus. HIGH RISK: Target INR is 2.5-3.5 for patients with mechanical heart valves. Fibrinogen (09/10/2017 11:02 AM) Component Value Ref Range Fibrinogen 248 225 - 434 mg/dl Specimen Performing Laboratory [address] [address] Platelet count (09/10/2017 11:02 AM) Component Value Ref Range Platelets 113 (L) 150 - 450 K/CU MM Specimen Performing Laboratory [address] [address] Tissue Exam (09/10/2017 10:45 AM) Component Value Ref Range Case Report Surgical Pathology Report Case: [id number] Authorizing Provider:Mike Price MDCollected: 09/10/2017 1045 Ordering Location: [facility] Received: 09/10/2017 1314 PERIOPERATIVE SERVICES Pathologist: Darcy Duque MD Specimen:Plaque, LEFT OM1 ARTERY PLAQUE DIAGNOSIS TISSUE SUBMITTED LEFTOM1 ARTERY PLAQUE: - ATHEROSCLEROTIC PLAQUE WITH CALCIFICATIONS Signing Pathologist Direct Phone Line: [phone] CPT Code(s) 37723; 47389 CLINICAL HISTORY CAOD SPECIMEN SOURCE Left artery [...] PERFORMED Specimen Performing Laboratory Tissue - Plaque [address] [address] Blood gas, venous (09/10/2017 9:57 AM) Component [...] FIO2 70.0 % Specimen Performing Laboratory Blood [address] [address] Electrocardiogram, 12-lead (09/09/2017 10:11 AM) Specimen Performing Laboratory GE MUSE Narrative Ventricular Rate 89 BPM Atrial Rate 89 BPM P-R Interval 196 ms QRS Duration 86 ms Q-T Interval 370 ms QTC Calculation(Bazett) 450 ms P [place] 30 degrees R [place] 55 degrees T [place] 43 degrees Normal sinus rhythm Normal ECG No previous ECGs available Confirmed by MD Spivey Roberto ([id number]) on 09/09/2017 2:09:23 PM Procedure Note Interface, External Ris In - 09/09/2017 2:09 PM [employer] Ventricular Rate 89 BPM Atrial Rate 89 BPM P-R Interval 196 ms QRS Duration 86 ms Q-T Interval 370 ms QTC Calculation(Bazett) 450 ms P [place] 30 degrees R [place] 55 degrees T [place] 43 degrees Normal sinus rhythm Normal ECG No previous ECGs available Confirmed by MD Spivey Roberto ([id number]) on 09/09/2017 2:09:23 PM Type and screen, automated (09/09/2017 10:02 AM) Component Value Ref Range ABO/RH AUTOMATED (BEAKER) O POSITIVE Ab Scrn NEGATIVE Specimen Performing Laboratory Blood [address] [address] Comprehensive metabolic panel (09/09/2017 10:02 AM) Component [...] FOR DIALYSIS PATIENTS. Specimen Performing Laboratory Blood [address] [address] after 01/22/2017
--- OUTSIDE RECORDS SUMMARY | 2018-01-23 10:03 | XMS REPORT ---
:1945 [facility] Address [address] [place] [address] Dr. Vega [address] [place] [id number] Care Team Providers Name Role Phone MISTY [...] Comments SODIUM (BEAKER) (test 135 meq/L 136-145 pihu=835) POTASSIUM (BEAKER) (test 4.4 meq/L 3.5-5.1 bsjv=135) CHLORIDE (BEAKER) (test 106 meq/L 98-107 tkqt=178) CO2 (BEAKER) (test vomd=821) 22 meq/L 22-29 BLOOD UREA NITROGEN (BEAKER) 16 mg/dL 7-21 (test qrzl=419) CREATININE (BEAKER) (test 0.82 mg/dL 0.57-1.25 neos=646) GLUCOSE RANDOM (BEAKER) 147 mg/dL 70-105 (test zjzs=995) CALCIUM (BEAKER) (test 8.4 mg/dL 8.4-10.2 litb=147) EGFR (BEAKER) (test 93 mL/min/1.73 sq m ESTIMATED GFR IS NOT gcxu=3612) ACCURATE CREATININE CLEARANCE IN PREDICTING GLOMERULAR FILTRATION RATE. ESTIMATED GFR IS NOT APPLICABLE FOR DIALYSIS PATIENTS. CBC W/PLT COUNT & AUTO [id number] 09:19:00 Test Item Value Reference Range Comments WHITE BLOOD CELL COUNT (BEAKER) (test tphh=345) 12.1 K/ L 3.5-10.5 RED BLOOD CELL COUNT (BEAKER) (test dsju=845) 3.66 M/ L 4.63-6.08 HEMOGLOBIN (BEAKER) (test uhyu=598) 9.2 GM/DL 13.7-17.5 HEMATOCRIT (BEAKER) (test sdyp=532) 29.2 % 40.1-51.0 MEAN CORPUSCULAR VOLUME (BEAKER) (test fojl=439) 79.8 fL 79.0-92.2 MEAN CORPUSCULAR HEMOGLOBIN (BEAKER) (test 25.1 pg 25.7-32.2 deyb=612) MEAN CORPUSCULAR HEMOGLOBIN CONC (BEAKER) (test 31.5 GM/DL 32.3-36.5 mhpp=919) RED CELL DISTRIBUTION WIDTH (BEAKER) (test 16.2 % 11.6-14.4 lmog=786) PLATELET COUNT (BEAKER) (test cncp=531) 224 K/CU MM 150-450 MEAN PLATELET VOLUME (BEAKER) (test baku=527) 10.9 fL 9.4-12.4 NUCLEATED RED BLOOD CELLS (BEAKER) (test 0 /100 WBC 0-0 hfvx=381) NEUTROPHILS RELATIVE PERCENT (BEAKER) (test 72 % zmyr=331) LYMPHOCYTES RELATIVE PERCENT (BEAKER) (test 13 % rnxs=509) MONOCYTES RELATIVE PERCENT (BEAKER) (test 6 % tucx=367) EOSINOPHILS RELATIVE PERCENT (BEAKER) (test 4 % tcsx=084) BASOPHILS RELATIVE PERCENT (BEAKER) (test 0 % bbwg=484) NEUTROPHILS ABSOLUTE COUNT (BEAKER) (test 8.68 K/ L 1.78-5.38 ngho=467) LYMPHOCYTES ABSOLUTE COUNT (BEAKER) (test 1.61 K/ L 1.32-3.57 dzcv=728) MONOCYTES ABSOLUTE COUNT (BEAKER) (test 0.74 K/ L 0.30-0.82 jokc=041) EOSINOPHILS ABSOLUTE COUNT (BEAKER) (test 0.44 K/ L 0.04-0.54 nhqm=670) BASOPHILS ABSOLUTE COUNT (BEAKER) (test 0.04 K/ L 0.01-0.08 cedo=094) IMMATURE GRANULOCYTES-RELATIVE PERCENT (BEAKER) 5 % 0-1 (test dagz=9469) TISSUE [id number] 17:27:00Surgical Pathology Report Case: [id number] Authorizing Provider: Misty Price MD Collected: 09/10/2017 1045 Ordering Location: [facility] Received: 09/10/2017 1314 PERIOPERATIVE SERVICES Pathologist: Darcy Duque MD Specimen: Plaque , LEFT OM1 ARTERY PLAQUE TISSUE SUBMITTED LEFT OM1 ARTERY PLAQUE: - ATHEROSCLEROTIC PLAQUE WITH CALCIFICATIONS Signing Pathologist Direct Phone Line: [phone] at 5: 27 [id number]; [id number] artery plaque Specimen is received in saline labeled with the patient's information and labeled "left artery plaque" and consists of a velasquez, off-white, tubular shaped segment of calcified tissue measuring 1.2 cm in length x 0.3 cm in diameter. The specimen is sectioned and submitted entirely in A1 for decalcification. CG/ew PERFORMEDCBC W/PLT COUNT & AUTO [id number] 13:19:00 Test Item Value Reference Range Comments WHITE BLOOD CELL COUNT (BEAKER) (test ouli=493) 14.0 K/ L 3.5-10.5 RED BLOOD CELL COUNT (BEAKER) (test pwbf=744) 3.80 M/ L 4.63-6.08 HEMOGLOBIN (BEAKER) (test mlym=617) 9.2 GM/DL 13.7-17.5 HEMATOCRIT (BEAKER) (test wkbi=422) 30.5 % 40.1-51.0 MEAN CORPUSCULAR VOLUME (BEAKER) (test ttiw=365) 80.3 fL 79.0-92.2 MEAN CORPUSCULAR HEMOGLOBIN (BEAKER) (test 24.2 pg 25.7-32.2 kcxk=275) MEAN CORPUSCULAR HEMOGLOBIN CONC (BEAKER) (test 30.2 GM/DL 32.3-36.5 wsxp=807) RED CELL DISTRIBUTION WIDTH (BEAKER) (test 16.1 % 11.6-14.4 ppcl=401) PLATELET COUNT (BEAKER) (test auih=552) 192 K/CU MM 150-450 MEAN PLATELET VOLUME (BEAKER) (test axlt=362) 11.3 fL 9.4-12.4 NUCLEATED RED BLOOD CELLS (BEAKER) (test 0 /100 WBC 0-0 fatd=937) NEUTROPHILS RELATIVE PERCENT (BEAKER) (test 68 % eumw=773) LYMPHOCYTES RELATIVE PERCENT (BEAKER) (test 16 % eaxo=032) MONOCYTES RELATIVE PERCENT (BEAKER) (test 9 % qcgq=618) EOSINOPHILS RELATIVE PERCENT (BEAKER) (test 4 % uvwo=762) BASOPHILS RELATIVE PERCENT (BEAKER) (test 0 % xijv=585) NEUTROPHILS ABSOLUTE COUNT (BEAKER) (test 9.46 K/ L 1.78-5.38 hiae=703) LYMPHOCYTES ABSOLUTE COUNT (BEAKER) (test 2.18 K/ L 1.32-3.57 pizn=459) MONOCYTES ABSOLUTE COUNT (BEAKER) (test 1.25 K/ L 0.30-0.82 grpu=853) EOSINOPHILS ABSOLUTE COUNT (BEAKER) (test 0.50 K/ L 0.04-0.54 ixed=516) BASOPHILS ABSOLUTE COUNT (BEAKER) (test 0.05 K/ L 0.01-0.08 jegm=065) IMMATURE GRANULOCYTES-RELATIVE PERCENT (BEAKER) 4 % 0-1 (test pnnq=7866) RAD, CHEST, 1 VIEW, NON [id number] 12:21:00Reason for exam:->atelectasis ? wheezeShould this be [...] fracture is again seen. Signed: Jose Marley [facility]ort Verified Date/Time: 12:21:35 [facility] BASI METABOLIC [id number] 09:07:00 Test Item Value Reference Range Comments SODIUM (BEAKER) (test 134 meq/L 136-145 rutz=553) POTASSIUM (BEAKER) (test 4.5 meq/L 3.5-5.1 Specimen slightly fame=705) hemolyzed CHLORIDE (BEAKER) (test 107 meq/L 98-107 qhjv=333) CO2 (BEAKER) (test 17 meq/L 22-29 gofd=052) BLOOD UREA NITROGEN 15 mg/dL 7-21 (BEAKER) (test uicl=564) CREATININE (BEAKER) (test 0.83 mg/dL 0.57-1.25 Specimen slightly unwm=121) hemolyzed GLUCOSE RANDOM (BEAKER) 96 mg/dL 70-105 (test ebxe=170) CALCIUM (BEAKER) (test 8.7 mg/dL 8.4-10.2 uiqa=826) EGFR (BEAKER) (test 91 mL/min/1.73 sq m ESTIMATED GFR IS NOT nqke=5759) ACCURATE CREATININE CLEARANCE IN PREDICTING GLOMERULAR FILTRATION RATE. ESTIMATED GFR IS NOT APPLICABLE FOR DIALYSIS PATIENTS. [id number] 07:48:00 Test Item Value Reference Range Comments PHOSPHORUS (BEAKER) (test qcmk=665) 3.4 mg/dL 2.3-4.7 [id number] 07:48:00 Test Item Value Reference Range Comments MAGNESIUM (BEAKER) (test yvmi=561) 2.0 mg/dL 1.6-2.6 BASIC METABOLIC [id number] 07:48:00 Test Item Value Reference Range Comments SODIUM (BEAKER) (test 135 meq/L 136-145 zyzm=711) POTASSIUM (BEAKER) (test 4.0 meq/L 3.5-5.1 qkwo=256) CHLORIDE (BEAKER) (test 103 meq/L 98-107 spuk=890) CO2 (BEAKER) (test 25 meq/L 22-29 fqtf=038) BLOOD UREA NITROGEN 25 mg/dL 7-21 (BEAKER) (test sezj=232) CREATININE (BEAKER) (test 0.85 mg/dL 0.57-1.25 cpqt=716) GLUCOSE RANDOM (BEAKER) 91 mg/dL 70-105 (test cyys=462) CALCIUM (BEAKER) (test 8.0 mg/dL 8.4-10.2 utqw=284) EGFR (BEAKER) (test 89 mL/min/1.73 sq m ESTIMATED GFR IS NOT dyms=2837) ACCURATE CREATININE CLEARANCE IN PREDICTING GLOMERULAR FILTRATION RATE. ESTIMATED GFR IS NOT APPLICABLE FOR DIALYSIS PATIENTS. CBC W/PLT COUNT & AUTO [id number] 06:28:00 Test Item Value Reference Range Comments WHITE BLOOD CELL COUNT (BEAKER) (test hzpc=900) 10.5 K/ L 3.5-10.5 RED BLOOD CELL COUNT (BEAKER) (test bwha=996) 3.51 M/ L 4.63-6.08 HEMOGLOBIN (BEAKER) (test oqns=724) 8.6 GM/DL 13.7-17.5 HEMATOCRIT (BEAKER) (test jmez=352) 27.8 % 40.1-51.0 MEAN CORPUSCULAR VOLUME (BEAKER) (test qjpl=753) 79.2 fL 79.0-92.2 MEAN CORPUSCULAR HEMOGLOBIN (BEAKER) (test 24.5 pg 25.7-32.2 hawe=604) MEAN CORPUSCULAR HEMOGLOBIN CONC (BEAKER) (test 30.9 GM/DL 32.3-36.5 uwzv=747) RED CELL DISTRIBUTION WIDTH (BEAKER) (test 16.0 % 11.6-14.4 mpqk=773) PLATELET COUNT (BEAKER) (test dvcc=599) 138 K/CU MM 150-450 MEAN PLATELET VOLUME (BEAKER) (test lihj=712) 11.4 fL 9.4-12.4 NUCLEATED RED BLOOD CELLS (BEAKER) (test 0 /100 WBC 0-0 hslq=264) NEUTROPHILS RELATIVE PERCENT (BEAKER) (test 67 % xdqr=745) LYMPHOCYTES RELATIVE PERCENT (BEAKER) (test 19 % idot=531) MONOCYTES RELATIVE PERCENT (BEAKER) (test 10 % frpg=767) EOSINOPHILS RELATIVE PERCENT (BEAKER) (test 2 % hsby=851) BASOPHILS RELATIVE PERCENT (BEAKER) (test 0 % olra=293) NEUTROPHILS ABSOLUTE COUNT (BEAKER) (test 7.04 K/ L 1.78-5.38 xatl=274) LYMPHOCYTES ABSOLUTE COUNT (BEAKER) (test 1.95 K/ L 1.32-3.57 hieu=513) MONOCYTES ABSOLUTE COUNT (BEAKER) (test 1.07 K/ L 0.30-0.82 djgh=999) EOSINOPHILS ABSOLUTE COUNT (BEAKER) (test 0.25 K/ L 0.04-0.54 efut=462) BASOPHILS ABSOLUTE COUNT (BEAKER) (test 0.01 K/ L 0.01-0.08 uzlt=393) IMMATURE GRANULOCYTES-RELATIVE PERCENT (BEAKER) 2 % 0-1 (test jfqy=9641) CALCIUM, [id number] 06:25:00 Test Item Value Reference Range Comments CALCIUM IONIZED (BEAKER) (test pzxu=964) 1.02 mmol/L 1.12-1.27 PH, BLOOD (BEAKER) (test jdpa=0957) 7.39 CBC W/PLT COUNT & AUTO [id number] 08:38:00 Test Item Value Reference Range Comments WHITE BLOOD CELL COUNT (BEAKER) (test qwue=425) 15.7 K/ L 3.5-10.5 RED BLOOD CELL COUNT (BEAKER) (test ksrk=143) 3.20 M/ L 4.63-6.08 HEMOGLOBIN (BEAKER) (test vbgo=283) 7.9 GM/DL 13.7-17.5 HEMATOCRIT (BEAKER) (test lujc=171) 25.5 % 40.1-51.0 MEAN CORPUSCULAR VOLUME (BEAKER) (test ivmm=123) 79.7 fL 79.0-92.2 MEAN CORPUSCULAR HEMOGLOBIN (BEAKER) (test 24.7 pg 25.7-32.2 nxrm=406) MEAN CORPUSCULAR HEMOGLOBIN CONC (BEAKER) (test 31.0 GM/DL 32.3-36.5 ukme=939) RED CELL DISTRIBUTION WIDTH (BEAKER) (test 16.0 % 11.6-14.4 emks=344) PLATELET COUNT (BEAKER) (test uymw=433) 98 K/CU MM 150-450 MEAN PLATELET VOLUME (BEAKER) (test axll=139) 11.3 fL 9.4-12.4 NUCLEATED RED BLOOD CELLS (BEAKER) (test 0 /100 WBC 0-0 rcio=794) NEUTROPHILS RELATIVE PERCENT (BEAKER) (test 84 % lvir=719) LYMPHOCYTES RELATIVE PERCENT (BEAKER) (test 8 % dzkn=220) MONOCYTES RELATIVE PERCENT (BEAKER) (test 7 % whgm=137) EOSINOPHILS RELATIVE PERCENT (BEAKER) (test 0 % uybl=610) BASOPHILS RELATIVE PERCENT (BEAKER) (test 0 % vpxs=863) NEUTROPHILS ABSOLUTE COUNT (BEAKER) (test 13.19 K/ L 1.78-5.38 fcmc=052) LYMPHOCYTES ABSOLUTE COUNT (BEAKER) (test 1.21 K/ L 1.32-3.57 fvzl=505) MONOCYTES ABSOLUTE COUNT (BEAKER) (test qrwz=972) 1.17 K/ L 0.30-0.82 EOSINOPHILS ABSOLUTE COUNT (BEAKER) (test 0.01 K/ L 0.04-0.54 lpcb=207) BASOPHILS ABSOLUTE COUNT (BEAKER) (test indo=129) 0.01 K/ L 0.01-0.08 IMMATURE GRANULOCYTES-RELATIVE PERCENT (BEAKER) 1 % 0-1 (test ksqm=0616) RAD, CHEST, 1 VIEW, NON [id number] 07:45:00Reason for exam:->s/p cardiac surgeryFINAL REPORT HISTORY [...] Verified Date/Time: 09/13/2017 07:45: 50 Reading Location: [address] Transitional Reading Room [id number] 07:22:00 Test Item Value Reference Range Comments MAGNESIUM (BEAKER) (test 2.1 mg/dL 1.6-2.6 Specimen slightly hemolyzed keho=742) [id number] 07:22:00 Test Item Value Reference Range Comments PHOSPHORUS (BEAKER) (test 3.3 mg/dL 2.3-4.7 Specimen slightly hemolyzed anmh=457) BASIC METABOLIC [id number] 07:22:00 Test Item Value Reference Range Comments SODIUM (BEAKER) (test 134 meq/L 136-145 eloh=768) POTASSIUM (BEAKER) (test 4.1 meq/L 3.5-5.1 Specimen slightly ghfd=786) hemolyzed CHLORIDE (BEAKER) (test 102 meq/L 98-107 nvxy=937) CO2 (BEAKER) (test 23 meq/L 22-29 zhkg=508) BLOOD UREA NITROGEN 27 mg/dL 7-21 (BEAKER) (test bkut=439) CREATININE (BEAKER) (test 0.85 mg/dL 0.57-1.25 Specimen slightly spqk=797) hemolyzed GLUCOSE RANDOM (BEAKER) 122 mg/dL 70-105 (test nvzy=128) CALCIUM (BEAKER) (test 8.0 mg/dL 8.4-10.2 wmlv=753) EGFR (BEAKER) (test 89 mL/min/1.73 sq m ESTIMATED GFR IS NOT ntzm=4627) ACCURATE CREATININE CLEARANCE IN PREDICTING GLOMERULAR FILTRATION RATE. ESTIMATED GFR IS NOT APPLICABLE FOR DIALYSIS PATIENTS. POCT-GLUCOSE [id number] 17:00:00 Test Item Value Reference Range Comments POC-GLUCOSE METER (BEAKER) 258 mg/dL 70-110 TESTED AT [address] (test pusj=9361) [facility] [address] POCT-GLUCOSE [id number] 16:40:00 Test Item Value Reference Range Comments POC-GLUCOSE METER (BEAKER) 123 mg/dL 70-110 TESTED AT [address] (test yyah=2690) [facility] [address] [id number] 08:08:00 Test Item Value Reference Range Comments PHOSPHORUS (BEAKER) (test edus=254) 3.3 mg/dL 2.3-4.7 [id number] 08:08:00 Test Item Value Reference Range Comments MAGNESIUM (BEAKER) (test nkne=972) 2.3 mg/dL 1.6-2.6 BASIC METABOLIC [id number] 08:08:00 Test Item Value Reference Range Comments SODIUM (BEAKER) (test 137 meq/L 136-145 pgmk=290) POTASSIUM (BEAKER) (test 4.5 meq/L 3.5-5.1 yhdo=824) CHLORIDE (BEAKER) (test 106 meq/L 98-107 xfvd=581) CO2 (BEAKER) (test 23 meq/L 22-29 edyg=341) BLOOD UREA NITROGEN 28 mg/dL 7-21 (BEAKER) (test nzvw=580) CREATININE (BEAKER) (test 0.86 mg/dL 0.57-1.25 ypbl=936) GLUCOSE RANDOM (BEAKER) 159 mg/dL 70-105 (test njqn=010) CALCIUM (BEAKER) (test 8.4 mg/dL 8.4-10.2 ienw=142) EGFR (BEAKER) (test 88 mL/min/1.73 sq m ESTIMATED GFR IS NOT cpue=2051) ACCURATE CREATININE CLEARANCE IN PREDICTING GLOMERULAR FILTRATION RATE. ESTIMATED GFR IS NOT APPLICABLE FOR DIALYSIS PATIENTS. RAD, CHEST, 1 VIEW, NON [id number] 07:59:00Reason for exam:->s/p cardiac surgeryFINAL REPORT AP chest HISTORY: Cardiac surgery COMPARISON: 09/11/2017 IMPRESSION:Endotracheal tube removed. Remainder of support lines unchanged. Cardiomegaly similar to previous. Some interval improvement in pulmonary expansion. Interstitial edema appears stable to slightly improved. Trace effusions. No pneumothorax. Signed: Sterling Meza MDReport Verified Date/Time: 09/12/2017 07:59:49 [facility] CBC W/PLT COUNT & AUTO [id number] 06: 44:00 Test Item Value Reference Range Comments WHITE BLOOD CELL COUNT (BEAKER) (test osyx=213) 14.3 K/ L 3.5-10.5 RED BLOOD CELL COUNT (BEAKER) (test cegz=514) 3.26 M/ L 4.63-6.08 HEMOGLOBIN (BEAKER) (test qcsn=243) 7.9 GM/DL 13.7-17.5 HEMATOCRIT (BEAKER) (test akba=355) 25.8 % 40.1-51.0 MEAN CORPUSCULAR VOLUME (BEAKER) (test qwjj=030) 79.1 fL 79.0-92.2 MEAN CORPUSCULAR HEMOGLOBIN (BEAKER) (test 24.2 pg 25.7-32.2 vopm=667) MEAN CORPUSCULAR HEMOGLOBIN CONC (BEAKER) (test 30.6 GM/DL 32.3-36.5 twgg=793) RED CELL DISTRIBUTION WIDTH (BEAKER) (test 16.1 % 11.6-14.4 mxlv=518) PLATELET COUNT (BEAKER) (test sehw=961) 91 K/CU MM 150-450 MEAN PLATELET VOLUME (BEAKER) (test wozx=700) 12.3 fL 9.4-12.4 NUCLEATED RED BLOOD CELLS (BEAKER) (test 0 /100 WBC 0-0 qnlj=631) NEUTROPHILS RELATIVE PERCENT (BEAKER) (test 88 % kwea=170) LYMPHOCYTES RELATIVE PERCENT (BEAKER) (test 6 % bubo=388) MONOCYTES RELATIVE PERCENT (BEAKER) (test 5 % tmii=735) EOSINOPHILS RELATIVE PERCENT (BEAKER) (test 0 % dphd=990) BASOPHILS RELATIVE PERCENT (BEAKER) (test 0 % hcpm=260) NEUTROPHILS ABSOLUTE COUNT (BEAKER) (test 12.52 K/ L 1.78-5.38 srgl=472) LYMPHOCYTES ABSOLUTE COUNT (BEAKER) (test 0.87 K/ L 1.32-3.57 jvjd=076) MONOCYTES ABSOLUTE COUNT (BEAKER) (test vlsr=892) 0.77 K/ L 0.30-0.82 EOSINOPHILS ABSOLUTE COUNT (BEAKER) (test 0.00 K/ L 0.04-0.54 vmnr=008) BASOPHILS ABSOLUTE COUNT (BEAKER) (test vcse=379) 0.01 K/ L 0.01-0.08 IMMATURE GRANULOCYTES-RELATIVE PERCENT (BEAKER) 1 % 0-1 (test dvtq=7241) LACTIC ACID, ARTERIAL, WHOLE [id number] 05:23:00 Test Item Value Reference Range Comments LACTATE BLOOD ARTERIAL (2) (BEAKER) (test 1.0 mmol/L 0.5-2.2 yhmg=4108) Effective 01/24/2016: Units/Reference Range ChangeNew: 0.5-2.2 mmol/L Previous: 5 -20 mg/dLCALCIUM, [id number] 04:58:00 Test Item Value Reference Range Comments CALCIUM IONIZED (BEAKER) (test dyej=629) 1.09 mmol/L 1.12-1.27 PH, BLOOD (BEAKER) (test hfeu=8897) 7.46 OXYGEN SATURATION, [id number] 04:58:00 Test Item Value Reference Range Comments O2 SATURATION (MEASURED) (BEAKER) (test tdpi=7398) 62.7 % POCT-GLUCOSE [id number] 22:35:00 Test Item Value Reference Range Comments POC-GLUCOSE METER (BEAKER) 178 mg/dL 70-110 TESTED AT [address] (test byop=5061) [facility] [address] [id number] 18:51:00 Test Item Value Reference Range Comments POTASSIUM (BEAKER) (test ktzp=601) 4.4 meq/L 3.5-5.1 [id number] 18:51:00 Test Item Value Reference Range Comments MAGNESIUM (BEAKER) (test nyij=031) 2.1 mg/dL 1.6-2.6 POCT-GLUCOSE [id number] 18:46:00 Test Item Value Reference Range Comments POC-GLUCOSE METER (BEAKER) 170 mg/dL 70-110 TESTED AT [address] (test quio=3333) [place] [id number] CALCIUM, [id number] 18:23:00 Test Item Value Reference Range Comments CALCIUM IONIZED (BEAKER) (test cclu=814) 1.09 mmol/L 1.12-1.27 PH, BLOOD (BEAKER) (test osdu=7362) 7.44 BLOOD GAS, [id number] 15:01:00 Test Item Value Reference Range Comments PH ARTERIAL (BEAKER) (test seho=350) 7.43 7.35-7.45 PCO2 ARTERIAL (BEAKER) (test jvkn=349) 42 mmHg 35-45 PO2 ARTERIAL (BEAKER) (test veta=292) 76 mmHg 80-90 O2 SATURATION ARTERIAL (BEAKER) (test qsfx=712) 95.2 % 96.0-97.0 HCO3 ARTERIAL (BEAKER) (test zalx=018) 27 mmol/L 21-29 BASE EXCESS ARTERIAL (BEAKER) (test jyqv=203) 2.2 mmol/L -2.0-3.0 PATIENT TEMPERATURE (BEAKER) (test xxzf=6434) 37.6 C FIO2 (BEAKER) (test qexk=0672) 40.0 % POCT-GLUCOSE [id number] 13:46:00 Test Item Value Reference Range Comments POC-GLUCOSE METER (BEAKER) 166 mg/dL 70-110 TESTED AT [address] (test frfn=5198) [place] [id number] 13:40:00 Test Item Value Reference Range Comments POTASSIUM (BEAKER) (test nziv=261) 4.3 meq/L 3.5-5.1 [id number] 13:40:00 Test Item Value Reference Range Comments MAGNESIUM (BEAKER) (test xori=380) 2.1 mg/dL 1.6-2.6 RAD, CHEST, 1 VIEW, NON [id number] 09:06:00Reason for exam:-> postopShould this be performed [...] Gallego Verified Date/Time: 09/11/2017 09:06:00 [facility] Electronically signed by: DANNA GALLEGO M.D. on 09/11 09:06 AMPOCT-GLUCOSE [id number] 08:34:00 Test Item Value Reference Range Comments POC-GLUCOSE METER (BEAKER) 172 mg/dL 70-110 TESTED AT [address] (test nnmo=8038) [facility] [address] CBC W/PLT COUNT & AUTO [id number] 04:19:00 Test Item Value Reference Range Comments WHITE BLOOD CELL COUNT (BEAKER) (test ejbs=302) 9.9 K/ L 3.5-10.5 RED BLOOD CELL COUNT (BEAKER) (test vzqz=259) 3.18 M/ L 4.63-6.08 HEMOGLOBIN (BEAKER) (test arwk=470) 7.9 GM/DL 13.7-17.5 HEMATOCRIT (BEAKER) (test vnzm=350) 25.0 % 40.1-51.0 MEAN CORPUSCULAR VOLUME (BEAKER) (test nspm=703) 78.6 fL 79.0-92.2 MEAN CORPUSCULAR HEMOGLOBIN (BEAKER) (test 24.8 pg 25.7-32.2 dpyu=697) MEAN CORPUSCULAR HEMOGLOBIN CONC (BEAKER) (test 31.6 GM/DL 32.3-36.5 qvnf=383) RED CELL DISTRIBUTION WIDTH (BEAKER) (test 15.8 % 11.6-14.4 ybjt=062) PLATELET COUNT (BEAKER) (test dxga=079) 89 K/CU MM 150-450 MEAN PLATELET VOLUME (BEAKER) (test fxge=513) 11.0 fL 9.4-12.4 NUCLEATED RED BLOOD CELLS (BEAKER) (test 0 /100 WBC 0-0 ivdb=843) NEUTROPHILS RELATIVE PERCENT (BEAKER) (test 82 % ykdc=185) LYMPHOCYTES RELATIVE PERCENT (BEAKER) (test 8 % gxtn=334) MONOCYTES RELATIVE PERCENT (BEAKER) (test 10 % rtjh=126) EOSINOPHILS RELATIVE PERCENT (BEAKER) (test 0 % vmlb=487) BASOPHILS RELATIVE PERCENT (BEAKER) (test 0 % khvu=253) NEUTROPHILS ABSOLUTE COUNT (BEAKER) (test 8.08 K/ L 1.78-5.38 njoi=825) LYMPHOCYTES ABSOLUTE COUNT (BEAKER) (test 0.75 K/ L 1.32-3.57 cqak=940) MONOCYTES ABSOLUTE COUNT (BEAKER) (test lskc=578) 0.99 K/ L 0.30-0.82 EOSINOPHILS ABSOLUTE COUNT (BEAKER) (test 0.00 K/ L 0.04-0.54 fnzj=872) BASOPHILS ABSOLUTE COUNT (BEAKER) (test dsik=766) 0.00 K/ L 0.01-0.08 IMMATURE GRANULOCYTES-RELATIVE PERCENT (BEAKER) 1 % 0-1 (test zowi=5932) [id number] 04:16:00 Test Item Value Reference Range Comments PHOSPHORUS (BEAKER) (test qclc=156) 3.9 mg/dL 2.3-4.7 [id number] 04:16:00 Test Item Value Reference Range Comments MAGNESIUM (BEAKER) (test jdmx=925) 2.1 mg/dL 1.6-2.6 BASIC METABOLIC [id number] 04:16:00 Test Item Value Reference Range Comments SODIUM (BEAKER) (test 138 meq/L 136-145 poxm=392) POTASSIUM (BEAKER) (test 4.4 meq/L 3.5-5.1 caqb=625) CHLORIDE (BEAKER) (test 108 meq/L 98-107 vusu=628) CO2 (BEAKER) (test 23 meq/L 22-29 ofuq=273) BLOOD UREA NITROGEN 13 mg/dL 7-21 (BEAKER) (test hvly=233) CREATININE (BEAKER) (test 0.85 mg/dL 0.57-1.25 qojz=953) GLUCOSE RANDOM (BEAKER) 120 mg/dL 70-105 (test gvsl=586) CALCIUM (BEAKER) (test 7.9 mg/dL 8.4-10.2 wfev=362) EGFR (BEAKER) (test 89 mL/min/1.73 sq m ESTIMATED GFR IS NOT zibs=2346) ACCURATE CREATININE CLEARANCE IN PREDICTING GLOMERULAR FILTRATION RATE. ESTIMATED GFR IS NOT APPLICABLE FOR DIALYSIS PATIENTS. POCT-GLUCOSE [id number] 04:15:00 Test Item Value Reference Range Comments POC-GLUCOSE METER (BEAKER) 135 mg/dL 70-110 TESTED AT [address] (test seqh=7842) [facility] [id number] BLOOD GAS, [id number] 03:44:00 Test Item Value Reference Range Comments PH ARTERIAL (BEAKER) (test umlx=161) 7.48 7.35-7.45 PCO2 ARTERIAL (BEAKER) (test hwyy=713) 36 mmHg 35-45 PO2 ARTERIAL (BEAKER) (test nxdo=683) 106 mmHg 80-90 O2 SATURATION ARTERIAL (BEAKER) (test kyqv=539) 98.2 % 96.0-97.0 HCO3 ARTERIAL (BEAKER) (test swmy=564) 26 mmol/L 21-29 BASE EXCESS ARTERIAL (BEAKER) (test cewz=812) 2.7 mmol/L -2.0-3.0 PATIENT TEMPERATURE (BEAKER) (test xmmc=0038) 36.8 C FIO2 (BEAKER) (test ssto=9071) 40.0 % POCT-GLUCOSE [id number] 03:10:00 Test Item Value Reference Range Comments POC-GLUCOSE METER (BEAKER) 128 mg/dL 70-110 TESTED AT [address] (test aclb=6055) [place] [id number] LACTIC ACID, ARTERIAL, WHOLE [id number] 01:31:00 Test Item Value Reference Range Comments LACTATE BLOOD ARTERIAL (2) (BEAKER) (test 1.5 mmol/L 0.5-2.2 zmlp=6897) Effective 01/24/2016: Units/Reference Range ChangeNew: 0.5-2.2 mmol/L Previous: 5 -20 mg/dLBLOOD GAS, [id number] 01:20:00 Test Item Value Reference Range Comments PH ARTERIAL (BEAKER) (test kfoc=800) 7.39 7.35-7.45 PCO2 ARTERIAL (BEAKER) (test rujp=942) 47 mmHg 35-45 PO2 ARTERIAL (BEAKER) (test nvgb=083) 90 mmHg 80-90 O2 SATURATION ARTERIAL (BEAKER) (test dpuk=929) 96.8 % 96.0-97.0 HCO3 ARTERIAL (BEAKER) (test zozx=407) 28 mmol/L 21-29 BASE EXCESS ARTERIAL (BEAKER) (test omgg=567) 2.8 mmol/L -2.0-3.0 PATIENT TEMPERATURE (BEAKER) (test gymt=5893) 36.9 C FIO2 (BEAKER) (test ghzf=8751) 40.0 % GLUCOSE-STAT [id number] 01:20:00 Test Item Value Reference Range Comments GLUCOSE RANDOM (BEAKER) (test rfri=702) 123 mg/dL 70-110 POCT-GLUCOSE [id number] 00:57:00 Test Item Value Reference Range Comments POC-GLUCOSE METER (BEAKER) 154 mg/dL 70-110 TESTED AT [address] (test iicm=9138) [facility] [id number] POCT-GLUCOSE [id number] 22:22:00 Test Item Value Reference Range Comments POC-GLUCOSE METER (BEAKER) 176 mg/dL 70-110 TESTED AT [address] (test tvhe=6530) [facility] [id number] POCT-GLUCOSE [id number] 22:22:00 Test Item Value Reference Range Comments POC-GLUCOSE METER (BEAKER) 227 mg/dL 70-110 TESTED AT [address] (test lbjo=6949) [place] [id number] LACTIC ACID, ARTERIAL, WHOLE [id number] 21:58:00 Test Item Value Reference Range Comments LACTATE BLOOD ARTERIAL (2) (BEAKER) (test 3.1 mmol/L 0.5-2.2 yktm=0128) Effective 01/24/2016: Units/Reference Range ChangeNew: 0.5-2.2 mmol/L Previous: 5 -20 mg/[id number] 21:58:00 Test Item Value Reference Range Comments MAGNESIUM (BEAKER) (test znjv=544) 2.2 mg/dL 1.6-2.6 OXYGEN SATURATION, [id number] 21:27:00 Test Item Value Reference Range Comments O2 SATURATION (MEASURED) (BEAKER) (test yipf=8088) 75.9 % BLOOD GAS, [id number] 21:26:00 Test Item Value Reference Range Comments PH ARTERIAL (BEAKER) (test jqhw=687) 7.42 7.35-7.45 PCO2 ARTERIAL (BEAKER) (test wgdm=688) 41 mmHg 35-45 PO2 ARTERIAL (BEAKER) (test osog=961) 152 mmHg 80-90 O2 SATURATION ARTERIAL (BEAKER) (test rsyw=754) 99.0 % 96.0-97.0 HCO3 ARTERIAL (BEAKER) (test tpty=333) 26 mmol/L 21-29 BASE EXCESS ARTERIAL (BEAKER) (test jofe=735) 1.2 mmol/L -2.0-3.0 PATIENT TEMPERATURE (BEAKER) (test exgu=4894) 37.7 C FIO2 (BEAKER) (test ympn=9390) 60.0 % HGB/HCT (H&H) - STAT [id number] 21:26:00 Test Item Value Reference Range Comments HEMOGLOBIN (BEAKER) (test hmar=389) 9.1 g/dL 13.0-16.8 HEMATOCRIT (BEAKER) (test ckog=601) 27.0 % 40.0-50.0 CALCIUM, [id number] 21:26:00 Test Item Value Reference Range Comments CALCIUM IONIZED (BEAKER) (test uhbl=727) 1.08 mmol/L 1.12-1.27 PH, BLOOD (BEAKER) (test wlof=2288) 7.42 BASIC METABOLIC [id number] 18:58:00 Test Item Value Reference Range Comments SODIUM (BEAKER) (test 136 meq/L 136-145 ppmy=570) POTASSIUM (BEAKER) (test 4.8 meq/L 3.5-5.1 bxrz=986) CHLORIDE (BEAKER) (test 105 meq/L 98-107 gqzv=104) CO2 (BEAKER) (test 20 meq/L 22-29 wpjg=816) BLOOD UREA NITROGEN 13 mg/dL 7-21 (BEAKER) (test yqhh=211) CREATININE (BEAKER) (test 0.98 mg/dL 0.57-1.25 kiac=219) GLUCOSE RANDOM (BEAKER) 246 mg/dL 70-105 (test fopm=389) CALCIUM (BEAKER) (test 7.4 mg/dL 8.4-10.2 sgvx=688) EGFR (BEAKER) (test 75 mL/min/1.73 sq m ESTIMATED GFR IS NOT vgze=1804) ACCURATE CREATININE CLEARANCE IN PREDICTING GLOMERULAR FILTRATION RATE. ESTIMATED GFR IS NOT APPLICABLE FOR DIALYSIS PATIENTS. HEPATIC FUNCTION [id number] 18:54:00 Test Item Value Reference Range Comments TOTAL PROTEIN (BEAKER) (test rsoa=471) 5.5 gm/dL 6.0-8.3 ALBUMIN (BEAKER) (test tzau=2812) 3.5 g/dL 3.5-5.0 BILIRUBIN TOTAL (BEAKER) (test tigz=403) 0.7 mg/dL 0.2-1.2 BILIRUBIN DIRECT (BEAKER) (test lewz=409) 0.4 mg/dL 0.1-0.5 ALKALINE PHOSPHATASE (BEAKER) (test tfvj=655) 50 U/L 40-150 AST (SGOT) (BEAKER) (test ccby=047) 54 U/L 5-34 ALT (SGPT) (BEAKER) (test ickz=831) 33 U/L 6-55 LACTIC ACID, ARTERIAL, WHOLE [id number] 17:19:00 Test Item Value Reference Range Comments LACTATE BLOOD ARTERIAL (2) (BEAKER) (test 9.2 mmol/L 0.5-2.2 xrys=7978) Effective 01/24/2016: Units/Reference Range ChangeNew: 0.5-2.2 mmol/L Previous: 5 -20 mg/dLPOCT-GLUCOSE [id number] 17:09:00 Test Item Value Reference Range Comments POC-GLUCOSE METER (BEAKER) 233 mg/dL 70-110 TESTED AT [facility] [address] [facility] (test xglf=5342) [facility] [address] HEMOGLOBIN AND [id number] 17:08:00 Test Item Value Reference Range Comments HEMOGLOBIN (BEAKER) (test rpyc=809) 9.1 GM/DL 13.7-17.5 HEMATOCRIT (BEAKER) (test glci=060) 29.2 % 40.1-51.0 BLOOD GAS, [id number] 17:03:00 Test Item Value Reference Range Comments PH ARTERIAL (BEAKER) (test xbtf=617) 7.29 7.35-7.45 PCO2 ARTERIAL (BEAKER) (test bdgo=678) 42 mm Hg 35-45 PO2 ARTERIAL (BEAKER) (test sdrg=005) 175 mm Hg 80-90 O2 SATURATION ARTERIAL (BEAKER) (test alfk=130) 99.0 % 96.0-97.0 HCO3 ARTERIAL (BEAKER) (test eobk=264) 20 mmol/L 21-29 BASE EXCESS ARTERIAL (BEAKER) (test gzsw=507) -6.3 mmol/L -2.0-3.0 PATIENT TEMPERATURE (BEAKER) (test ntnj=6656) 36.9 FIO2 (BEAKER) (test udce=5347) 60 BLOOD GAS, [id number] 16:14:00 Test Item Value Reference Range Comments PH ARTERIAL (BEAKER) (test tfkc=481) 7.29 7.35-7.45 PCO2 ARTERIAL (BEAKER) (test juub=352) 41 mmHg 35-45 PO2 ARTERIAL (BEAKER) (test pxno=944) 169 mmHg 80-90 O2 SATURATION ARTERIAL (BEAKER) (test glfa=497) 99.0 % 96.0-97.0 HCO3 ARTERIAL (BEAKER) (test iars=321) 19 mmol/L 21-29 BASE EXCESS ARTERIAL (BEAKER) (test vhbd=485) -7.2 mmol/L -2.0-3.0 PATIENT TEMPERATURE (BEAKER) (test cdla=9995) 36.8 C FIO2 (BEAKER) (test mowt=3142) 60.0 % CBC (HEMOGRAM ONLY)2017-09-10 15:59:00 Test Item Value Reference Range Comments WHITE BLOOD CELL COUNT (BEAKER) (test fhgd=021) 27.2 K/ L 3.5-10.5 RED BLOOD CELL COUNT (BEAKER) (test cymc=299) 3.92 M/ L 4.63-6.08 HEMOGLOBIN (BEAKER) (test gcjf=698) 9.7 GM/DL 13.7-17.5 HEMATOCRIT (BEAKER) (test jdqg=811) 31.4 % 40.1-51.0 MEAN CORPUSCULAR VOLUME (BEAKER) (test fmdi=574) 80.1 fL 79.0-92.2 MEAN CORPUSCULAR HEMOGLOBIN (BEAKER) (test 24.7 pg 25.7-32.2 rqhm=528) MEAN CORPUSCULAR HEMOGLOBIN CONC (BEAKER) (test 30.9 GM/DL 32.3-36.5 xkly=582) RED CELL DISTRIBUTION WIDTH (BEAKER) (test 15.6 % 11.6-14.4 dbzv=478) PLATELET COUNT (BEAKER) (test ibey=053) 126 K/CU MM 150-450 MEAN PLATELET VOLUME (BEAKER) (test ghvu=879) 11.2 fL 9.4-12.4 NUCLEATED RED BLOOD CELLS (BEAKER) (test 0 /100 WBC 0-0 bkye=421) POTASSIUM-STAT [id number] 14:57:00 Test Item Value Reference Range Comments POTASSIUM (BEAKER) (test aowd=422) 4.2 meq/L 3.6-5.5 BLOOD GAS, [id number] 14:57:00 Test Item Value Reference Range Comments PH ARTERIAL (BEAKER) (test byjw=243) 7.26 7.35-7.45 PCO2 ARTERIAL (BEAKER) (test dudw=739) 45 mmHg 35-45 PO2 ARTERIAL (BEAKER) (test ojly=125) 208 mmHg 80-90 O2 SATURATION ARTERIAL (BEAKER) (test pioy=717) 99.2 % 96.0-97.0 HCO3 ARTERIAL (BEAKER) (test jfyr=176) 20 mmol/L 21-29 BASE EXCESS ARTERIAL (BEAKER) (test xvup=768) -6.9 mmol/L -2.0-3.0 PATIENT TEMPERATURE (BEAKER) (test pxwo=9527) 37.0 C FIO2 (BEAKER) (test gtja=2145) 100.0 % SODIUM NA-STAT [id number] 14:57:00 Test Item Value Reference Range Comments SODIUM (BEAKER) (test iunm=304) 134 meq/L 135-148 GLUCOSE-STAT [id number] 14:57:00 Test Item Value Reference Range Comments GLUCOSE RANDOM (BEAKER) (test itqb=096) 218 mg/dL 70-110 HGB/HCT (H&H) - STAT [id number] 14:57:00 Test Item Value Reference Range Comments HEMOGLOBIN (BEAKER) (test rjwp=254) 10.5 g/dL 13.0-16.8 HEMATOCRIT (BEAKER) (test kkhz=182) 31.0 % 40.0-50.0 LACTIC ACID, ARTERIAL, WHOLE [id number] 14:12:00 Test Item Value Reference Range Comments LACTATE BLOOD ARTERIAL (2) 4.2 mmol/L 0.5-2.2 Specimen slightly hemolyzed (BEAKER) (test owrd=4242) Effective 01/24/2016: Units/Reference Range ChangeNew: 0.5-2.2 mmol/L Previous: 5 -20 mg/dLBASIC METABOLIC [id number] 13:49:00 Test Item Value Reference Range Comments SODIUM (BEAKER) (test 134 meq/L 136-145 dwvb=245) POTASSIUM (BEAKER) (test 3.7 meq/L 3.5-5.1 Specimen slightly ahmj=183) hemolyzed CHLORIDE (BEAKER) (test 106 meq/L 98-107 cfpk=584) CO2 (BEAKER) (test 17 meq/L 22-29 qrou=035) BLOOD UREA NITROGEN 13 mg/dL 7-21 (BEAKER) (test fzio=309) CREATININE (BEAKER) (test 0.92 mg/dL 0.57-1.25 Specimen slightly ciqj=167) hemolyzed GLUCOSE RANDOM (BEAKER) 217 mg/dL 70-105 (test ivqe=535) CALCIUM (BEAKER) (test 7.6 mg/dL 8.4-10.2 qmxr=892) EGFR (BEAKER) (test 81 mL/min/1.73 sq m ESTIMATED GFR IS NOT tgjd=9396) ACCURATE CREATININE CLEARANCE IN PREDICTING GLOMERULAR FILTRATION RATE. ESTIMATED GFR IS NOT APPLICABLE FOR DIALYSIS PATIENTS. [id number] 13:47:00 Test Item Value Reference Range Comments MAGNESIUM (BEAKER) (test 2.2 mg/dL 1.6-2.6 Specimen slightly hemolyzed cqgb=838) [id number] 13:47:00 Test Item Value Reference Range Comments POTASSIUM (BEAKER) (test 3.7 meq/L 3.5-5.1 Specimen slightly hemolyzed kpzr=540) [id number] 13:47:00 Test Item Value Reference Range Comments GLUCOSE RANDOM (BEAKER) (test kcsp=527) 217 mg/dL 70-105 BLOOD GAS, [id number] 13:17:00 Test Item Value Reference Range Comments PH ARTERIAL (BEAKER) (test zgbi=011) 7.32 7.35-7.45 PCO2 ARTERIAL (BEAKER) (test csmt=559) 38 mmHg 35-45 PO2 ARTERIAL (BEAKER) (test uqth=931) 189 mmHg 80-90 O2 SATURATION ARTERIAL (BEAKER) (test cmgr=471) 99.2 % 96.0-97.0 HCO3 ARTERIAL (BEAKER) (test resv=542) 19 mmol/L 21-29 BASE EXCESS ARTERIAL (BEAKER) (test jdnr=068) -6.5 mmol/L -2.0-3.0 PATIENT TEMPERATURE (BEAKER) (test igjk=9885) 37.0 C FIO2 (BEAKER) (test ygoz=2755) 100.0 % SODIUM NA-STAT [id number] 13:17:00 Test Item Value Reference Range Comments SODIUM (BEAKER) (test gxxx=763) 132 meq/L 135-148 GLUCOSE-STAT [id number] 13:17:00 Test Item Value Reference Range Comments GLUCOSE RANDOM (BEAKER) (test jsul=046) 209 mg/dL 70-110 HGB/HCT (H&H) - STAT [id number] 13:17:00 Test Item Value Reference Range Comments HEMOGLOBIN (BEAKER) (test glag=712) 11.3 g/dL 13.0-16.8 HEMATOCRIT (BEAKER) (test yxjw=557) 33.0 % 40.0-50.0 POTASSIUM-STAT [id number] 13:15:00 Test Item Value Reference Range Comments POTASSIUM (BEAKER) (test yvyx=719) 3.7 meq/L 3.6-5.5 OXYGEN SATURATION, [id number] 13:15:00 Test Item Value Reference Range Comments O2 SATURATION (MEASURED) (BEAKER) (test ygmp=5549) 72.7 % RAD, CHEST, 1 VIEW, NON [id number] 13:11:00Reason for exam:->intubated/ cardiac surgeryShould this be [...] MDReport Verified Date/Time: 09/10/2017 13:11:58 Reading Location: [address] Consult Reading Room [id number] 12:12:00 Test Item Value Reference Range Comments ACTIVATED CLOTTING TIME 109 sec TESTED AT [place] [address] [address] ([facility]) (test kchr=883) [place] [address] [id number] 12:12:00 Test Item Value Reference Range Comments ACTIVATED CLOTTING TIME 412 sec TESTED AT [place] [address] [address] (BEAKER) (test tnjt=607) [place] [address] [id number] 12:11:00 Test Item Value Reference Range Comments ACTIVATED CLOTTING TIME 461 sec TESTED AT [place] [id number] [facility] (BEAKER) (test egcz=344) [place] [address] [id number] 12:11:00 Test Item Value Reference Range Comments ACTIVATED CLOTTING TIME 527 sec TESTED AT [place] [id number] [facility] (BEAKER) (test bxvn=126) [place] [address] [id number] 12:11:00 Test Item Value Reference Range Comments ACTIVATED CLOTTING TIME 494 sec TESTED AT [place] [address] [address] ([facility]) (test jlfh=360) [place] [address] PROTHROMBIN [id number] 12:07:00 Test Item Value Reference Range Comments PROTIME ([facility]) (test cuuv=238) 18.3 seconds 11.7-14.7 INR (BEAKER) (test hitd=918) 1.5 <=5.9 RECOMMENDED COUMADIN/WARFARIN INR THERAPY RANGESSTANDARD DOSE: 2.0 - 3.0 Includes: PROPHYLAXIS forvenous thrombosis, systemic embolization; TREATMENT for venous thrombosis and/or pulmonary embolus.HIGH RISK: Target INR is 2.5-3.5 for patients with mechanical heart valves.[id number] 12:07:00 Test Item Value Reference Range Comments FIBRINOGEN LEVEL (BEAKER) (test bglj=526) 248 mg/dl 225-434 [id number] 12:07:00 Test Item Value Reference Range Comments PARTIAL THROMBOPLASTIN TIME (BEAKER) (test 32.4 seconds 22.5-36.0 nvhc=616) PLATELET [id number] 11:46:00 Test Item Value Reference Range Comments PLATELET COUNT (BEAKER) (test xyqs=164) 113 K/CU MM 150-450 BLOOD GAS, [id number] 11:25:00 Test Item Value Reference Range Comments PH ARTERIAL (BEAKER) (test lmfk=466) 7.45 7.35-7.45 PCO2 ARTERIAL (BEAKER) (test dwhv=622) 31 mmHg 35-45 PO2 ARTERIAL (BEAKER) (test hhqo=877) 381 mmHg 80-90 O2 SATURATION ARTERIAL (BEAKER) (test pjbi=828) 99.8 % 96.0-97.0 HCO3 ARTERIAL (BEAKER) (test nzxv=878) 21 mmol/L 21-29 BASE EXCESS ARTERIAL (BEAKER) (test etrn=196) -2.6 mmol/L -2.0-3.0 PATIENT TEMPERATURE (BEAKER) (test wimr=4712) 35.7 C FIO2 (BEAKER) (test pojm=8730) 100.0 % SODIUM NA-STAT [id number] 11:25:00 Test Item Value Reference Range Comments SODIUM (BEAKER) (test rymi=592) 129 meq/L 135-148 GLUCOSE-STAT [id number] 11:25:00 Test Item Value Reference Range Comments GLUCOSE RANDOM (BEAKER) (test lxet=810) 158 mg/dL 70-110 HGB/HCT (H&H) - STAT [id number] 11:25:00 Test Item Value Reference Range Comments HEMOGLOBIN (BEAKER) (test gagj=699) 9.4 g/dL 13.0-16.8 HEMATOCRIT (BEAKER) (test dxds=588) 28.0 % 40.0-50.0 CALCIUM, [id number] 11:25:00 Test Item Value Reference Range Comments CALCIUM IONIZED (BEAKER) (test akgb=360) 1.10 mmol/L 1.12-1.27 PH, BLOOD (BEAKER) (test crpu=3974) 7.43 POTASSIUM-STAT [id number] 11:22:00 Test Item Value Reference Range Comments POTASSIUM (BEAKER) (test tffv=919) 4.6 meq/L 3.6-5.5 BLOOD GAS, [id number] 10:50:00 Test Item Value Reference Range Comments PH ARTERIAL (BEAKER) (test uwba=655) 7.34 7.35-7.45 PCO2 ARTERIAL (BEAKER) (test hwgk=295) 44 mmHg 35-45 PO2 ARTERIAL (BEAKER) (test wnta=736) 379 mmHg 80-90 O2 SATURATION ARTERIAL (BEAKER) (test dptd=574) 99.8 % 96.0-97.0 HCO3 ARTERIAL (BEAKER) (test xtql=595) 23 mmol/L 21-29 BASE EXCESS ARTERIAL (BEAKER) (test dvcf=287) -2.3 mmol/L -2.0-3.0 PATIENT TEMPERATURE (BEAKER) (test azyt=6316) 36.9 C FIO2 (BEAKER) (test uzqv=7188) 90.0 % SODIUM NA-STAT [id number] 10:50:00 Test Item Value Reference Range Comments SODIUM (BEAKER) (test fqsm=860) 128 meq/L 135-148 GLUCOSE-STAT [id number] 10:50:00 Test Item Value Reference Range Comments GLUCOSE RANDOM (BEAKER) (test wfkb=480) 153 mg/dL 70-110 HGB/HCT (H&H) - STAT [id number] 10:50:00 Test Item Value Reference Range Comments HEMOGLOBIN (BEAKER) (test awku=666) 8.6 g/dL 13.0-16.8 HEMATOCRIT (BEAKER) (test bwrk=975) 25.0 % 40.0-50.0 POTASSIUM-STAT [id number] 10:50:00 Test Item Value Reference Range Comments POTASSIUM (BEAKER) (test kewe=789) 6.1 meq/L 3.6-5.5 POTASSIUM-STAT [id number] 10:26:00 Test Item Value Reference Range Comments POTASSIUM (BEAKER) (test lmhg=031) 6.3 meq/L 3.6-5.5 BLOOD GAS, [id number] 10:25:00 Test Item Value Reference Range Comments PH ARTERIAL (BEAKER) (test mhto=894) 7.45 7.35-7.45 PCO2 ARTERIAL (BEAKER) (test fiuc=337) 33 mmHg 35-45 PO2 ARTERIAL (BEAKER) (test ylmk=245) 308 mmHg 80-90 O2 SATURATION ARTERIAL (BEAKER) (test zasa=023) 99.7 % 96.0-97.0 HCO3 ARTERIAL (BEAKER) (test vscr=483) 23 mmol/L 21-29 BASE EXCESS ARTERIAL (BEAKER) (test jjzg=129) -1.6 mmol/L -2.0-3.0 PATIENT TEMPERATURE (BEAKER) (test iadp=6001) 34.6 C FIO2 (BEAKER) (test vkbx=4644) 75.0 % SODIUM NA-STAT [id number] 10:25:00 Test Item Value Reference Range Comments SODIUM (BEAKER) (test xnce=395) 124 meq/L 135-148 GLUCOSE-STAT [id number] 10:25:00 Test Item Value Reference Range Comments GLUCOSE RANDOM (BEAKER) (test pkmw=273) 143 mg/dL 70-110 HGB/HCT (H&H) - STAT [id number] 10:25:00 Test Item Value Reference Range Comments HEMOGLOBIN (BEAKER) (test edrc=709) 7.6 g/dL 13.0-16.8 HEMATOCRIT (BEAKER) (test cxmz=398) 22.0 % 40.0-50.0 BLOOD GAS, [id number] 10:07:00 Test Item Value Reference Range Comments PH VENOUS (BEAKER) (test rusc=735) 7.36 7.32-7.42 PCO2 VENOUS (BEAKER) (test gcgp=336) 41 mmHg 41-51 PO2 VENOUS (BEAKER) (test crhp=192) 44 mmHg 25-40 O2 SATURATION VENOUS (BEAKER) (test cwjx=034) 91.5 % 40.0-70.0 HCO3 VENOUS (BEAKER) (test egtd=087) 25 mmol/L 21-29 BASE EXCESS VENOUS (BEAKER) (test pmst=340) -2.3 mmol/L -2.0-3.0 PATIENT TEMPERATURE (BEAKER) (test bqad=2238) 30.2 C FIO2 (BEAKER) (test doxw=0788) 70.0 % BLOOD GAS, [id number] 10:06:00 Test Item Value Reference Range Comments PH ARTERIAL (BEAKER) (test czok=092) 7.38 7.35-7.45 PCO2 ARTERIAL (BEAKER) (test eyzz=654) 38 mmHg 35-45 PO2 ARTERIAL (BEAKER) (test nqke=344) 388 mmHg 80-90 O2 SATURATION ARTERIAL (BEAKER) (test gkdl=812) 99.8 % 96.0-97.0 HCO3 ARTERIAL (BEAKER) (test qrvg=502) 24 mmol/L 21-29 BASE EXCESS ARTERIAL (BEAKER) (test nbgb=104) -2.9 mmol/L -2.0-3.0 PATIENT TEMPERATURE (BEAKER) (test vpoz=4907) 30.2 C FIO2 (BEAKER) (test hfme=4969) 70.0 % SODIUM NA-STAT [id number] 10:06:00 Test Item Value Reference Range Comments SODIUM (BEAKER) (test qdlu=029) 125 meq/L 135-148 GLUCOSE-STAT [id number] 10:06:00 Test Item Value Reference Range Comments GLUCOSE RANDOM (BEAKER) (test gcix=626) 126 mg/dL 70-110 HGB/HCT (H&H) - STAT [id number] 10:06:00 Test Item Value Reference Range Comments HEMOGLOBIN (BEAKER) (test dlkt=249) 6.9 g/dL 13.0-16.8 HEMATOCRIT (BEAKER) (test lqge=407) 20.0 % 40.0-50.0 POTASSIUM-STAT [id number] 10:04:00 Test Item Value Reference Range Comments POTASSIUM (BEAKER) (test okkq=937) 5.2 meq/L 3.6-5.5 CALCIUM, [id number] 08:57:00 Test Item Value Reference Range Comments CALCIUM IONIZED (BEAKER) (test kpfk=086) 1.02 mmol/L 1.12-1.27 PH, BLOOD (BEAKER) (test cnhn=3487) 7.45 BLOOD GAS, [id number] 08:57:00 Test Item Value Reference Range Comments PH ARTERIAL (BEAKER) (test stug=301) 7.45 7.35-7.45 PCO2 ARTERIAL (BEAKER) (test rgwh=473) 37 mmHg 35-45 PO2 ARTERIAL (BEAKER) (test bvrh=078) 401 mmHg 80-90 O2 SATURATION ARTERIAL (BEAKER) (test ohfz=194) 99.8 % 96.0-97.0 HCO3 ARTERIAL (BEAKER) (test rpnf=781) 25 mmol/L 21-29 BASE EXCESS ARTERIAL (BEAKER) (test fdqz=718) 1.5 mmol/L -2.0-3.0 PATIENT TEMPERATURE (BEAKER) (test meqe=2809) 37.1 C FIO2 (BEAKER) (test ttkd=7909) 98.0 % SODIUM NA-STAT [id number] 08:57:00 Test Item Value Reference Range Comments SODIUM (BEAKER) (test jiwf=842) 129 meq/L 135-148 GLUCOSE-STAT [id number] 08:57:00 Test Item Value Reference Range Comments GLUCOSE RANDOM (BEAKER) (test gbve=232) 115 mg/dL 70-110 HGB/HCT (H&H) - STAT [id number] 08:57:00 Test Item Value Reference Range Comments HEMOGLOBIN (BEAKER) (test agdj=970) 10.8 g/dL 13.0-16.8 HEMATOCRIT (BEAKER) (test nhah=035) 32.0 % 40.0-50.0 POTASSIUM-STAT [id number] 08:56:00 Test Item Value Reference Range Comments POTASSIUM (BEAKER) (test tano=013) 4.8 meq/L 3.6-5.5 COMPREHENSIVE METABOLIC [id number] 11:10:00 Test Item Value Reference Range Comments TOTAL PROTEIN (BEAKER) 6.5 gm/dL 6.0-8.3 (test qunp=657) ALBUMIN (BEAKER) (test 3.6 g/dL 3.5-5.0 mzkt=6072) ALKALINE PHOSPHATASE 83 U/L 40-150 (BEAKER) (test fxjl=453) BILIRUBIN TOTAL (BEAKER) 0.5 mg/dL 0.2-1.2 (test qlnz=257) SODIUM (BEAKER) (test 133 meq/L 136-145 vikb=531) POTASSIUM (BEAKER) (test 4.3 meq/L 3.5-5.1 ofbz=934) CHLORIDE (BEAKER) (test 103 meq/L 98-107 etll=109) CO2 (BEAKER) (test 22 meq/L 22-29 wior=513) BLOOD UREA NITROGEN 16 mg/dL 7-21 (BEAKER) (test oqok=303) CREATININE (BEAKER) (test 0.82 mg/dL 0.57-1.25 znhs=449) GLUCOSE RANDOM (BEAKER) 117 mg/dL 70-105 (test yvzs=828) CALCIUM (BEAKER) (test 8.6 mg/dL 8.4-10.2 fwqy=093) AST (SGOT) (BEAKER) (test 41 U/L 5-34 snzx=337) ALT (SGPT) (BEAKER) (test 44 U/L 6-55 mhza=890) EGFR (BEAKER) (test 93 mL/min/1.73 sq m ESTIMATED GFR IS NOT dqtb=4034) ACCURATE CREATININE CLEARANCE IN PREDICTING GLOMERULAR FILTRATION RATE. ESTIMATED GFR IS NOT APPLICABLE FOR DIALYSIS PATIENTS. CBC W/PLT COUNT & AUTO [id number] 10:41:00 Test Item Value Reference Range Comments WHITE BLOOD CELL COUNT (BEAKER) (test srpf=058) 7.9 K/ L 3.5-10.5 RED BLOOD CELL COUNT (BEAKER) (test fgjx=369) 4.33 M/ L 4.63-6.08 HEMOGLOBIN (BEAKER) (test mfxh=593) 10.2 GM/DL 13.7-17.5 HEMATOCRIT (BEAKER) (test uzky=414) 33.7 % 40.1-51.0 MEAN CORPUSCULAR VOLUME (BEAKER) (test qqgx=700) 77.8 fL 79.0-92.2 MEAN CORPUSCULAR HEMOGLOBIN (BEAKER) (test 23.6 pg 25.7-32.2 pgxt=404) MEAN CORPUSCULAR HEMOGLOBIN CONC (BEAKER) (test 30.3 GM/DL 32.3-36.5 kfup=226) RED CELL DISTRIBUTION WIDTH (BEAKER) (test 15.6 % 11.6-14.4 hrdk=034) PLATELET COUNT (BEAKER) (test rlbq=106) 156 K/CU MM 150-450 MEAN PLATELET VOLUME (BEAKER) (test evez=833) 11.6 fL 9.4-12.4 NUCLEATED RED BLOOD CELLS (BEAKER) (test 0 /100 WBC 0-0 fmrv=955) NEUTROPHILS RELATIVE PERCENT (BEAKER) (test 68 % clpk=819) LYMPHOCYTES RELATIVE PERCENT (BEAKER) (test 15 % xcsq=831) MONOCYTES RELATIVE PERCENT (BEAKER) (test 12 % awow=423) EOSINOPHILS RELATIVE PERCENT (BEAKER) (test 3 % lxwq=032) BASOPHILS RELATIVE PERCENT (BEAKER) (test 1 % rtxd=928) NEUTROPHILS ABSOLUTE COUNT (BEAKER) (test 5.42 K/ L 1.78-5.38 hehr=156) LYMPHOCYTES ABSOLUTE COUNT (BEAKER) (test 1.20 K/ L 1.32-3.57 mbvk=371) MONOCYTES ABSOLUTE COUNT (BEAKER) (test 0.96 K/ L 0.30-0.82 obqm=243) EOSINOPHILS ABSOLUTE COUNT (BEAKER) (test 0.22 K/ L 0.04-0.54 eqmh=273) BASOPHILS ABSOLUTE COUNT (BEAKER) (test 0.04 K/ L 0.01-0.08 bgsd=813) IMMATURE GRANULOCYTES-RELATIVE PERCENT (BEAKER) 1 % 0-1 (test dqgx=0120) PROTHROMBIN [id number] 10:30:00 Test Item Value Reference Range Comments PROTIME (BEAKER) (test ujqx=224) 14.0 seconds 11.7-14.7 INR (BEAKER) (test gatq=966) 1.1 <=5.9 RECOMMENDED COUMADIN/WARFARIN INR THERAPY RANGESSTANDARD DOSE: 2.0 - 3.0 Includes: PROPHYLAXIS forvenous thrombosis, systemic embolization; TREATMENT for venous thrombosis and/or pulmonary embolus.HIGH RISK: Target INR is 2.5-3.5 for patients with mechanical heart valves.RAD, CHEST, 1 VIEW, NON [id number] 09:27:00Reason for exam:->pre opShould this be [...] Verified Date/ Time: 09/09/2017 09:27:37 Reading Location: [facility] Radiology Reading Room
[2018-01-23] MEDS ORDERED: NA CHLORIDE 0.9% 250 ML ONE ×2 (11:54→13:55)
[2018-01-23] MEDS ORDERED: FUROSEMIDE 40 MG/4 ML VIAL ONE (14:01)
[2018-01-23 15:46] VITALS: BMI 37.5
[2018-01-23 18:57] VITALS: BP 128/78; TEMP 98; O2SAT 97
== END 2018-01-23 18:30 | disposition home or self-care (01) ==
LOC: DS 09:29 → EDSTATUS 10:00 → DS 18:30
PROVIDERS: ATTEND Internal Medicine Gastroenterology
DX: D50.0 Iron deficiency anemia secondary to blood loss (chronic) (principal)
CPT/HCPCS: 36430; 86850; 86900; 86901; P9016 ×2

== ENCOUNTER 2018-02-24 08:42 | Day surgery (SDC) | payer OTHER ==
--- OUTSIDE RECORDS SUMMARY | 2018-02-24 08:45 | XMS REPORT | Clinical Summary ---
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) 09/09/2017 Anesthesia Event Graf Ronaldo Jarrett, AA 09/09/2017 Orders Only Andrzej Hernández MD after 02/23/2017 Social History Tobacco Use Types Packs/Day Years Used Date Former Smoker 1 25 Comments: stopped 5 years ago Sex Assigned at Date Recorded Not on file Last Filed Vital Signs Vital Sign Reading Time Taken Blood Pressure 119/69 09/18/2017 8:29 AM [facility] Pulse 88 09/18/2017 12:11 PM [facility] Temperature 36.5 C (97.7 F) 09/18/2017 8:29 AM [facility] Respiratory Rate 20 09/18/2017 12:11 PM [facility] Oxygen Saturation 96% 09/18/2017 12:11 PM [facility] Inhaled Oxygen Concentration - - Weight 109 kg (240 lb 4.8 oz) 09/18/2017 4:43 AM [facility] Height 171.5 cm (5' 7.5") 09/09/2017 7:48 AM [facility] Body Mass Index 37.08 09/18/2017 4:43 AM [facility] Plan of Treatment Not on file Implants Implanted Type Area Rail Loader Device Expiration Model / Identifier Date Serial / Lot Sut Surg Stl 7 18g 18in Mls Mp M655g - Sn/A Palmetto/Arthroscop N/A: J &J: ETHICON 06/21/2022 M655G / Implanted: Qty: 2 on 09/10/2017 by Mike Price MD y Sternum N/A / [id number] Sut Surg Stl 7 18g 18in Mls Mp M655g - Sn/A Palmetto/Arthroscop N/A: J &J: ETHICON 06/21/2022 M655G / Implanted: Qty: 4 on 09/10/2017 by Mike Price MD y Sternum N/A / [id number] Sternal Zipfix Ndl Strl 08.501.001.20s - Sn/A Cardiovascular N/A: SYNTHES: SYNTHE 06/21/2022 08..001.20S / Implanted: Qty: 1 on 09/10/2017 by Mike Price MD Sternum [facility] N /A / [id number] Procedures Procedure Name Priority Date/Time Associated Diagnosis Comments ENDOSCOPIC HARVEST,VEIN 09/10/2017 7:30 AM CAOD [facility] BYPASS,AORTO CORONARY 09/10/2017 7:30 AM CAOD MISTY/SVG [facility] after 02/23/2017 Results RHYTHM STRIP - SCAN (09/29/2017 2:11 [...] PATIENTS. Specimen Performing Laboratory Blood - Arm, [address] [address] CBC with platelet count + automated diff [...] 1 % Specimen Performing Laboratory Blood [facility] [address] [address] CBC with platelet count + automated diff (09/18/2017 8:54 AM)Only the most recent of7 resultswithin the time period is included. Specimen Performing Laboratory Blood Narrative The following orders were created for panel order CBC with platelet count + automated diff. Procedure Abnormality Status --------- ------ CBC with platelet count ...[[id number]]AbnormalFinal result Please view results for these tests [...] MD Report Verified Date/Time:09/16/2017 12:21:35 Reading Location: [facility] Radiology Reading Room Procedure Note Interface, External Ris In - 09/16/2017 12:23 PM [facility] FINAL REPORT CLINICAL HISTORY: atelectasis wheeze TECHNIQUE: [...] Report Verified Date/Time: 09/16/2017 12:21:35 Reading Location: [facility] Radiology Reading Room Calcium, Ionized (09/14/2017 5:47 AM)Only the most recent of6 resultswithin the time period is included. Component Value Ref Range Calcium, Ion 1.02 (L) 1.12 - 1.27 mmol/L pH, Blood 7.39 Specimen Performing Laboratory Blood [address] [address] Phosphorus (09/14/2017 5:47 AM)Only the most recent of4 resultswithin the time period is included. Component Value Ref Range Phosphorus 3.4 2.3 - 4.7 mg/dL Specimen Performing Laboratory Blood [address] [address] Magnesium (09/14/2017 5:47 AM)Only the most recent of8 resultswithin the time period is included. Component Value Ref Range Magnesium 2.0 1.6 - 2.6 mg/dL Specimen Performing Laboratory Blood [address] [address] TRANSFUSION SERVICE REPORT - SCAN (09/12/2017 5:43 PM)Only the most recent of3 resultswithin the time period is included.POC-Glucose meter (09/12/2017 4:38 PM )Only the most recent of12 resultswithin the time period is included. Component Value Ref Range POC-Glucose Meter 123 (H)Comment: TESTED AT [address] 70 - 110 mg/[place] [address] Specimen Performing Laboratory Blood [address] [address] Lactic acid, arterial, whole blood (09/12/2017 4:59 AM)Only the most recent of5 resultswithin the time period is included. Component Value Ref Range Lactate, Art 1.0 0.5 - 2.2 mmol/L Specimen Performing Laboratory Blood, Arterial [address] [address] Narrative Effective 01/24/2016: Units/Reference Range Change New: 0.5-2.2 mmol/LPrevious: 5-20 mg/dL Oxygen saturation, measured (09/12/2017 4:58 AM)Only the most recent of3 resultswithin the time period is included. Component Value Ref Range O2 Saturation (Measured) 62.7 % Specimen Performing Laboratory Blood [address] [address] Prepare RBC (09/11/2017 11:54 PM) Component Value Ref Range CROSSMATCH COMPATIBLE Unit ABO O Pos UNIT NUMBER [id number] Status RETURNED FROM ISSUE Blood Bank Product RED BLOOD CELLS PRODUCT CODE K9018S04 CROSSMATCH COMPATIBLE Unit ABO O Pos UNIT NUMBER [id number] Status RETURNED FROM ISSUE Blood Bank Product RED BLOOD CELLS PRODUCT CODE [id number] CROSSMATCH COMPATIBLE Unit ABO O Pos UNIT NUMBER [id number] Status TRANSFUSED Blood Bank Product RED BLOOD CELLS PRODUCT CODE F0550A40 CROSSMATCH COMPATIBLE Unit ABO O Pos UNIT NUMBER [id number] Status RETURNED FROM ISSUE Blood Bank Product RED BLOOD CELLS PRODUCT CODE [id number] Specimen Performing Laboratory [place] Potassium (09/11/2017 6:14 PM)Only the most recent of3 resultswithin the time period is included. Component Value Ref Range Potassium 4.4 3.5 - 5.1 meq/L Specimen Performing Laboratory Blood - Line, Arterial [address] [address] Blood gas, arterial (09/11/2017 2:54 PM)Only the [...] 40.0 % Specimen Performing Laboratory Blood, Arterial [facility] [address] [place] [address] Glucose-Stat Lab (09/11/2017 1:11 AM)Only the most recent of8 resultswithin the time period is included. Component Value Ref Range Glucose 123 (H) 70 - 110 mg/dL Specimen Performing Laboratory Blood, [address] [address] HGB/HCT (H&H)-Stat Lab (09/10/2017 9:15 PM)Only the most recent of8 resultswithin the time period is included. Component Value Ref Range Hemoglobin 9.1 (L) 13.0 - 16.8 g/dL Hematocrit 27.0 (L) 40.0 - 50.0 % Specimen Performing Laboratory Blood, [address] [address] Hepatic function panel (09/10/2017 6:16 PM) Component Value Ref Range Protein, Total 5.5 (L) 6.0 - 8.3 gm/dL Albumin 3.5 3.5 - 5.0 g/dL Total Bilirubin 0.7 0.2 - 1.2 mg/dL Bilirubin, Direct 0.4 0.1 - 0.5 mg/dL Alkaline Phosphatase 50 40 - 150 U/L AST 54 (H) 5 - 34 U/L ALT 33 6 - 55 U/L Specimen Performing Laboratory Blood [address] [address] Hemoglobin and hematocrit (09/10/2017 4:47 PM) Component Value Ref Range Hemoglobin 9.1 (L) 13.7 - 17.5 GM/DL Hematocrit 29.2 (L) 40.1 - 51.0 % Specimen Performing Laboratory Blood [address] [address] CBC (Hemogram only) (09/10/2017 3:03 PM) Component [...] Specimen Performing Laboratory Blood - Line, Arterial [address] [address] [facility] Critical Labs (ABG,NA,K,H&H,GLU) (09/10/2017 2:48 PM)Only the most recent of7 resultswithin the time period is included. Specimen Performing Laboratory Blood, Arterial Narrative The following orders were created for panel order [facility] Critical Labs (ABG,NA,K,H&H,GLU). Procedure Abnormality Status --------- ------ Blood gas, arterial[[id number]]AbnormalFinal result Sodium Na-Stat Lab[[id number]] AbnormalFinal result Potassium-Stat Lab[[id number]] NormalFinal result Glucose-Stat Lab[[id number]] AbnormalFinal result HGB/HCT (H&H)-Stat Lab[[id number]] Abnormal Final result Please view results for these tests on the individual orders. Potassium-Stat Lab (09/10/2017 2:48 PM)Only the most recent of7 resultswithin the time period is included. Component Value Ref Range Potassium 4.2 3.6 - 5.5 meq/L Specimen Performing Laboratory Blood, Arterial [address] [address] Sodium Na-Stat Lab (09/10/2017 2:48 PM)Only the most recent of7 resultswithin the time period is included. Component Value Ref Range Sodium 134 (L) 135 - 148 meq/L Specimen Performing Laboratory Blood, Arterial [address] [address] Glucose-STAT (09/10/2017 12:59 PM) Component Value Ref Range Glucose 217 (H) 70 - 105 mg/dL Specimen Performing Laboratory Blood [facility] [address] [place] [address] POC ACTIVATED CLOTTING TIME (09/10/2017 11:12 AM)Only the most recent of5 resultswithin the time period is included. Component Value Ref Range Activated Clotting Time 109Comment: TESTED AT [address] sec [address] Specimen Performing Laboratory [address] [address] aPTT (09/10/2017 11:02 AM) Component Value Ref Range PTT 32.4 22.5 - 36.0 seconds Specimen Performing Laboratory [address] [address] Prothromin time/INR (09/10/2017 11:02 AM)Only the most recent of2 resultswithin the time period is included. Component Value Ref Range Protime 18.3 (H) 11.7 - 14.7 seconds INR 1.5 <=5.9 Specimen Performing Laboratory [address] [address] Narrative RECOMMENDED COUMADIN/WARFARIN INR THERAPY RANGES STANDARD DOSE: 2.0 - 3.0 Includes: PROPHYLAXIS for venous thrombosis, systemic embolization; TREATMENT for venous thrombosis and/or pulmonary embolus. HIGH RISK: Target INR is 2.5-3.5 for patients with mechanical heart valves. Fibrinogen (09/10/2017 11:02 AM) Component Value Ref Range Fibrinogen 248 225 - 434 mg/dl Specimen Performing Laboratory [address] [address] Platelet count (09/10/2017 11:02 AM) Component Value Ref Range Platelets 113 (L) 150 - 450 K/CU MM Specimen Performing Laboratory [address] [address] Tissue Exam (09/10/2017 10:45 AM) Component Value Ref Range Case Report Surgical Pathology Report Case: [id number] Authorizing Provider:Mike Price MDCollected: 09/10/2017 1045 Ordering Location: [facility] Received: 09/10/2017 1314 PERIOPERATIVE SERVICES Pathologist: Darcy Duque MD Specimen:Plaque, LEFT OM1 ARTERY PLAQUE DIAGNOSIS TISSUE SUBMITTED LEFTOM1 ARTERY PLAQUE: - ATHEROSCLEROTIC PLAQUE WITH CALCIFICATIONS Signing Pathologist Direct Phone Line: [phone] CPT Code(s) 14804; 82183 CLINICAL HISTORY CAOD SPECIMEN SOURCE Left artery [...] PERFORMED Specimen Performing Laboratory Tissue - Plaque [address] [address] Blood gas, venous (09/10/2017 9:57 AM) Component [...] FIO2 70.0 % Specimen Performing Laboratory Blood [address] [address] Electrocardiogram, 12-lead (09/09/2017 10:11 AM) Specimen Performing Laboratory GE MUSE Narrative Ventricular Rate 89 BPM Atrial Rate 89 BPM P-R Interval 196 ms QRS Duration 86 ms Q-T Interval 370 ms QTC Calculation(Bazett) 450 ms P [place] 30 degrees R [place] 55 degrees T [place] 43 degrees Normal sinus rhythm Normal ECG No previous ECGs available Confirmed by MD Spivey Roberto ([id number]) on 09/09/2017 2:09:23 PM Procedure Note Interface, External Ris In - 09/09/2017 2:09 PM [facility] Ventricular Rate 89 BPM Atrial Rate 89 BPM P-R Interval 196 ms QRS Duration 86 ms Q-T Interval 370 ms QTC Calculation(Bazett) 450 ms P [place] 30 degrees R [place] 55 degrees T [place] 43 degrees Normal sinus rhythm Normal ECG No previous ECGs available Confirmed by MD Spivey Roberto ([id number]) on 09/09/2017 2:09:23 PM Type and screen, automated (09/09/2017 10:02 AM) Component Value Ref Range ABO/RH AUTOMATED (BEAKER) O POSITIVE Ab Scrn NEGATIVE Specimen Performing Laboratory Blood [address] [address] Comprehensive metabolic panel (09/09/2017 10:02 AM) Component [...] FOR DIALYSIS PATIENTS. Specimen Performing Laboratory Blood [address] [address] after 02/23/2017
--- OUTSIDE RECORDS SUMMARY | 2018-02-24 08:46 | XMS REPORT ---
:1945 [facility] Address [address] [place] [address] Dr. Vega [address] [place] [id number] Care Team Providers Name Role Phone MISTY [...] Comments SODIUM (BEAKER) (test 135 meq/L 136-145 anvv=638) POTASSIUM (BEAKER) (test 4.4 meq/L 3.5-5.1 cbdr=871) CHLORIDE (BEAKER) (test 106 meq/L 98-107 zqex=384) CO2 (BEAKER) (test gbvh=489) 22 meq/L 22-29 BLOOD UREA NITROGEN (BEAKER) 16 mg/dL 7-21 (test bdog=690) CREATININE (BEAKER) (test 0.82 mg/dL 0.57-1.25 udye=180) GLUCOSE RANDOM (BEAKER) 147 mg/dL 70-105 (test soma=904) CALCIUM (BEAKER) (test 8.4 mg/dL 8.4-10.2 vdko=212) EGFR (BEAKER) (test 93 mL/min/1.73 sq m ESTIMATED GFR IS NOT ioqp=5363) ACCURATE CREATININE CLEARANCE IN PREDICTING GLOMERULAR FILTRATION RATE. ESTIMATED GFR IS NOT APPLICABLE FOR DIALYSIS PATIENTS. CBC W/PLT COUNT & AUTO [id number] 09:19:00 Test Item Value Reference Range Comments WHITE BLOOD CELL COUNT (BEAKER) (test zvrn=269) 12.1 K/ L 3.5-10.5 RED BLOOD CELL COUNT (BEAKER) (test mksn=894) 3.66 M/ L 4.63-6.08 HEMOGLOBIN (BEAKER) (test ldgq=975) 9.2 GM/DL 13.7-17.5 HEMATOCRIT (BEAKER) (test xmyn=716) 29.2 % 40.1-51.0 MEAN CORPUSCULAR VOLUME (BEAKER) (test cwwv=891) 79.8 fL 79.0-92.2 MEAN CORPUSCULAR HEMOGLOBIN (BEAKER) (test 25.1 pg 25.7-32.2 nfbj=573) MEAN CORPUSCULAR HEMOGLOBIN CONC (BEAKER) (test 31.5 GM/DL 32.3-36.5 zqqc=239) RED CELL DISTRIBUTION WIDTH (BEAKER) (test 16.2 % 11.6-14.4 tren=527) PLATELET COUNT (BEAKER) (test sawa=552) 224 K/CU MM 150-450 MEAN PLATELET VOLUME (BEAKER) (test sxsx=845) 10.9 fL 9.4-12.4 NUCLEATED RED BLOOD CELLS (BEAKER) (test 0 /100 WBC 0-0 czqy=974) NEUTROPHILS RELATIVE PERCENT (BEAKER) (test 72 % cvdf=128) LYMPHOCYTES RELATIVE PERCENT (BEAKER) (test 13 % stuc=442) MONOCYTES RELATIVE PERCENT (BEAKER) (test 6 % xuii=335) EOSINOPHILS RELATIVE PERCENT (BEAKER) (test 4 % fypo=239) BASOPHILS RELATIVE PERCENT (BEAKER) (test 0 % lsca=344) NEUTROPHILS ABSOLUTE COUNT (BEAKER) (test 8.68 K/ L 1.78-5.38 drnf=772) LYMPHOCYTES ABSOLUTE COUNT (BEAKER) (test 1.61 K/ L 1.32-3.57 jdmk=688) MONOCYTES ABSOLUTE COUNT (BEAKER) (test 0.74 K/ L 0.30-0.82 eqyx=969) EOSINOPHILS ABSOLUTE COUNT (BEAKER) (test 0.44 K/ L 0.04-0.54 tfai=967) BASOPHILS ABSOLUTE COUNT (BEAKER) (test 0.04 K/ L 0.01-0.08 cpcy=453) IMMATURE GRANULOCYTES-RELATIVE PERCENT (BEAKER) 5 % 0-1 (test dnbz=0106) TISSUE [id number] 17:27:00Surgical Pathology Report Case: [id number] Authorizing Provider: Misty Price MD Collected: 09/10/2017 1045 Ordering Location: [facility] Received: 09/10/2017 1314 PERIOPERATIVE SERVICES Pathologist: Darcy Duque MD Specimen: Plaque , LEFT OM1 ARTERY PLAQUE TISSUE SUBMITTED LEFT OM1 ARTERY PLAQUE: - ATHEROSCLEROTIC PLAQUE WITH CALCIFICATIONS Signing Pathologist Direct Phone Line: at [phone]: [phone] [id number]; [id number] artery plaque Specimen is received in saline labeled with the patient's information and labeled "left artery plaque" and consists of a velasquez, off-white, tubular shaped segment of calcified tissue measuring 1.2 cm in length x 0.3 cm in diameter. The specimen is sectioned and submitted entirely in A1 for decalcification. CG/ew PERFORMEDCBC W/PLT COUNT & AUTO [id number] 13:19:00 Test Item Value Reference Range Comments WHITE BLOOD CELL COUNT (BEAKER) (test rews=192) 14.0 K/ L 3.5-10.5 RED BLOOD CELL COUNT (BEAKER) (test thrb=636) 3.80 M/ L 4.63-6.08 HEMOGLOBIN (BEAKER) (test ycnu=514) 9.2 GM/DL 13.7-17.5 HEMATOCRIT (BEAKER) (test scow=228) 30.5 % 40.1-51.0 MEAN CORPUSCULAR VOLUME (BEAKER) (test qmhb=910) 80.3 fL 79.0-92.2 MEAN CORPUSCULAR HEMOGLOBIN (BEAKER) (test 24.2 pg 25.7-32.2 wude=070) MEAN CORPUSCULAR HEMOGLOBIN CONC (BEAKER) (test 30.2 GM/DL 32.3-36.5 vxvm=921) RED CELL DISTRIBUTION WIDTH (BEAKER) (test 16.1 % 11.6-14.4 gucx=187) PLATELET COUNT (BEAKER) (test uowl=601) 192 K/CU MM 150-450 MEAN PLATELET VOLUME (BEAKER) (test odhp=947) 11.3 fL 9.4-12.4 NUCLEATED RED BLOOD CELLS (BEAKER) (test 0 /100 WBC 0-0 lvul=211) NEUTROPHILS RELATIVE PERCENT (BEAKER) (test 68 % vehf=055) LYMPHOCYTES RELATIVE PERCENT (BEAKER) (test 16 % kflr=180) MONOCYTES RELATIVE PERCENT (BEAKER) (test 9 % ribe=779) EOSINOPHILS RELATIVE PERCENT (BEAKER) (test 4 % oqod=717) BASOPHILS RELATIVE PERCENT (BEAKER) (test 0 % wjhs=582) NEUTROPHILS ABSOLUTE COUNT (BEAKER) (test 9.46 K/ L 1.78-5.38 crba=106) LYMPHOCYTES ABSOLUTE COUNT (BEAKER) (test 2.18 K/ L 1.32-3.57 wktg=665) MONOCYTES ABSOLUTE COUNT (BEAKER) (test 1.25 K/ L 0.30-0.82 aaoy=469) EOSINOPHILS ABSOLUTE COUNT (BEAKER) (test 0.50 K/ L 0.04-0.54 jxzx=129) BASOPHILS ABSOLUTE COUNT (BEAKER) (test 0.05 K/ L 0.01-0.08 hudb=284) IMMATURE GRANULOCYTES-RELATIVE PERCENT (BEAKER) 4 % 0-1 (test ytij=9633) RAD, CHEST, 1 VIEW, NON [id number] 12:21:00Reason for exam:->atelectasis ? wheezeShould this be [...] fracture is again seen. Signed: Jose Marley [facility] Verified Date/Time: 12:21:35 Reading Location: [facility] Radiology Reading Room BASI METABOLIC [id number] 09:07:00 Test Item Value Reference Range Comments SODIUM (BEAKER) (test 134 meq/L 136-145 toah=489) POTASSIUM (BEAKER) (test 4.5 meq/L 3.5-5.1 Specimen slightly vmlf=119) hemolyzed CHLORIDE (BEAKER) (test 107 meq/L 98-107 dvke=399) CO2 (BEAKER) (test 17 meq/L 22-29 nmuv=100) BLOOD UREA NITROGEN 15 mg/dL 7-21 (BEAKER) (test vdzf=883) CREATININE (BEAKER) (test 0.83 mg/dL 0.57-1.25 Specimen slightly txfo=798) hemolyzed GLUCOSE RANDOM (BEAKER) 96 mg/dL 70-105 (test weno=116) CALCIUM (BEAKER) (test 8.7 mg/dL 8.4-10.2 jqgy=810) EGFR (BEAKER) (test 91 mL/min/1.73 sq m ESTIMATED GFR IS NOT mpvq=6934) ACCURATE CREATININE CLEARANCE IN PREDICTING GLOMERULAR FILTRATION RATE. ESTIMATED GFR IS NOT APPLICABLE FOR DIALYSIS PATIENTS. [id number] 07:48:00 Test Item Value Reference Range Comments PHOSPHORUS (BEAKER) (test oczw=379) 3.4 mg/dL 2.3-4.7 [id number] 07:48:00 Test Item Value Reference Range Comments MAGNESIUM (BEAKER) (test sklv=778) 2.0 mg/dL 1.6-2.6 BASIC METABOLIC [id number] 07:48:00 Test Item Value Reference Range Comments SODIUM (BEAKER) (test 135 meq/L 136-145 uxlc=761) POTASSIUM (BEAKER) (test 4.0 meq/L 3.5-5.1 drup=958) CHLORIDE (BEAKER) (test 103 meq/L 98-107 rcqy=059) CO2 (BEAKER) (test 25 meq/L 22-29 gnml=256) BLOOD UREA NITROGEN 25 mg/dL 7-21 (BEAKER) (test ukej=923) CREATININE (BEAKER) (test 0.85 mg/dL 0.57-1.25 hctc=503) GLUCOSE RANDOM (BEAKER) 91 mg/dL 70-105 (test wvcb=878) CALCIUM (BEAKER) (test 8.0 mg/dL 8.4-10.2 votl=973) EGFR (BEAKER) (test 89 mL/min/1.73 sq m ESTIMATED GFR IS NOT fzdm=0518) ACCURATE CREATININE CLEARANCE IN PREDICTING GLOMERULAR FILTRATION RATE. ESTIMATED GFR IS NOT APPLICABLE FOR DIALYSIS PATIENTS. CBC W/PLT COUNT & AUTO [id number] 06:28:00 Test Item Value Reference Range Comments WHITE BLOOD CELL COUNT (BEAKER) (test ldlm=623) 10.5 K/ L 3.5-10.5 RED BLOOD CELL COUNT (BEAKER) (test xyyj=138) 3.51 M/ L 4.63-6.08 HEMOGLOBIN (BEAKER) (test axnz=954) 8.6 GM/DL 13.7-17.5 HEMATOCRIT (BEAKER) (test kdqm=449) 27.8 % 40.1-51.0 MEAN CORPUSCULAR VOLUME (BEAKER) (test dfxu=267) 79.2 fL 79.0-92.2 MEAN CORPUSCULAR HEMOGLOBIN (BEAKER) (test 24.5 pg 25.7-32.2 soqa=763) MEAN CORPUSCULAR HEMOGLOBIN CONC (BEAKER) (test 30.9 GM/DL 32.3-36.5 dtex=379) RED CELL DISTRIBUTION WIDTH (BEAKER) (test 16.0 % 11.6-14.4 dhim=492) PLATELET COUNT (BEAKER) (test fpcb=640) 138 K/CU MM 150-450 MEAN PLATELET VOLUME (BEAKER) (test rfcr=103) 11.4 fL 9.4-12.4 NUCLEATED RED BLOOD CELLS (BEAKER) (test 0 /100 WBC 0-0 ikke=067) NEUTROPHILS RELATIVE PERCENT (BEAKER) (test 67 % jnss=563) LYMPHOCYTES RELATIVE PERCENT (BEAKER) (test 19 % thhd=337) MONOCYTES RELATIVE PERCENT (BEAKER) (test 10 % zeio=196) EOSINOPHILS RELATIVE PERCENT (BEAKER) (test 2 % rmxy=487) BASOPHILS RELATIVE PERCENT (BEAKER) (test 0 % bkpt=443) NEUTROPHILS ABSOLUTE COUNT (BEAKER) (test 7.04 K/ L 1.78-5.38 qtgw=497) LYMPHOCYTES ABSOLUTE COUNT (BEAKER) (test 1.95 K/ L 1.32-3.57 zilm=204) MONOCYTES ABSOLUTE COUNT (BEAKER) (test 1.07 K/ L 0.30-0.82 gpjc=653) EOSINOPHILS ABSOLUTE COUNT (BEAKER) (test 0.25 K/ L 0.04-0.54 mnjh=607) BASOPHILS ABSOLUTE COUNT (BEAKER) (test 0.01 K/ L 0.01-0.08 csrp=134) IMMATURE GRANULOCYTES-RELATIVE PERCENT (BEAKER) 2 % 0-1 (test nuxc=0439) CALCIUM, [id number] 06:25:00 Test Item Value Reference Range Comments CALCIUM IONIZED (BEAKER) (test gaap=564) 1.02 mmol/L 1.12-1.27 PH, BLOOD (BEAKER) (test zmjo=5531) 7.39 CBC W/PLT COUNT & AUTO [id number] 08:38:00 Test Item Value Reference Range Comments WHITE BLOOD CELL COUNT (BEAKER) (test megm=736) 15.7 K/ L 3.5-10.5 RED BLOOD CELL COUNT (BEAKER) (test olvj=069) 3.20 M/ L 4.63-6.08 HEMOGLOBIN (BEAKER) (test suao=342) 7.9 GM/DL 13.7-17.5 HEMATOCRIT (BEAKER) (test mdnx=387) 25.5 % 40.1-51.0 MEAN CORPUSCULAR VOLUME (BEAKER) (test ulje=803) 79.7 fL 79.0-92.2 MEAN CORPUSCULAR HEMOGLOBIN (BEAKER) (test 24.7 pg 25.7-32.2 seer=086) MEAN CORPUSCULAR HEMOGLOBIN CONC (BEAKER) (test 31.0 GM/DL 32.3-36.5 gthl=915) RED CELL DISTRIBUTION WIDTH (BEAKER) (test 16.0 % 11.6-14.4 dwhg=827) PLATELET COUNT (BEAKER) (test banb=835) 98 K/CU MM 150-450 MEAN PLATELET VOLUME (BEAKER) (test kzbe=958) 11.3 fL 9.4-12.4 NUCLEATED RED BLOOD CELLS (BEAKER) (test 0 /100 WBC 0-0 xfzr=125) NEUTROPHILS RELATIVE PERCENT (BEAKER) (test 84 % yenk=272) LYMPHOCYTES RELATIVE PERCENT (BEAKER) (test 8 % wuop=855) MONOCYTES RELATIVE PERCENT (BEAKER) (test 7 % dqal=206) EOSINOPHILS RELATIVE PERCENT (BEAKER) (test 0 % avkr=932) BASOPHILS RELATIVE PERCENT (BEAKER) (test 0 % llgw=965) NEUTROPHILS ABSOLUTE COUNT (BEAKER) (test 13.19 K/ L 1.78-5.38 jrql=459) LYMPHOCYTES ABSOLUTE COUNT (BEAKER) (test 1.21 K/ L 1.32-3.57 pjpx=403) MONOCYTES ABSOLUTE COUNT (BEAKER) (test qrbz=389) 1.17 K/ L 0.30-0.82 EOSINOPHILS ABSOLUTE COUNT (BEAKER) (test 0.01 K/ L 0.04-0.54 gzrj=417) BASOPHILS ABSOLUTE COUNT (BEAKER) (test uobq=660) 0.01 K/ L 0.01-0.08 IMMATURE GRANULOCYTES-RELATIVE PERCENT (BEAKER) 1 % 0-1 (test fwiy=8606) RAD, CHEST, 1 VIEW, NON [id number] 07:45:00Reason for exam:->s/p cardiac surgeryFINAL REPORT HISTORY [...] Verified Date/Time: 09/13/2017 07:45: 50 Reading Location: [address] Transitional Reading Room [id number] 07:22:00 Test Item Value Reference Range Comments MAGNESIUM (BEAKER) (test 2.1 mg/dL 1.6-2.6 Specimen slightly hemolyzed nryc=250) [id number] 07:22:00 Test Item Value Reference Range Comments PHOSPHORUS (BEAKER) (test 3.3 mg/dL 2.3-4.7 Specimen slightly hemolyzed mcbc=893) BASIC METABOLIC [id number] 07:22:00 Test Item Value Reference Range Comments SODIUM (BEAKER) (test 134 meq/L 136-145 joed=011) POTASSIUM (BEAKER) (test 4.1 meq/L 3.5-5.1 Specimen slightly hfzz=161) hemolyzed CHLORIDE (BEAKER) (test 102 meq/L 98-107 sxti=180) CO2 (BEAKER) (test 23 meq/L 22-29 ogua=112) BLOOD UREA NITROGEN 27 mg/dL 7-21 (BEAKER) (test muod=965) CREATININE (BEAKER) (test 0.85 mg/dL 0.57-1.25 Specimen slightly uxss=312) hemolyzed GLUCOSE RANDOM (BEAKER) 122 mg/dL 70-105 (test lqzj=557) CALCIUM (BEAKER) (test 8.0 mg/dL 8.4-10.2 vitn=490) EGFR (BEAKER) (test 89 mL/min/1.73 sq m ESTIMATED GFR IS NOT veoa=8686) ACCURATE CREATININE CLEARANCE IN PREDICTING GLOMERULAR FILTRATION RATE. ESTIMATED GFR IS NOT APPLICABLE FOR DIALYSIS PATIENTS. POCT-GLUCOSE [id number] 17:00:00 Test Item Value Reference Range Comments POC-GLUCOSE METER (BEAKER) 258 mg/dL 70-110 TESTED AT [address] (test eher=9509) [facility] [address] POCT-GLUCOSE [id number] 16:40:00 Test Item Value Reference Range Comments POC-GLUCOSE METER (BEAKER) 123 mg/dL 70-110 TESTED AT [address] (test fyzr=5400) [facility] [address] [id number] 08:08:00 Test Item Value Reference Range Comments PHOSPHORUS (BEAKER) (test ampi=069) 3.3 mg/dL 2.3-4.7 [id number] 08:08:00 Test Item Value Reference Range Comments MAGNESIUM (BEAKER) (test fkre=091) 2.3 mg/dL 1.6-2.6 BASIC METABOLIC [id number] 08:08:00 Test Item Value Reference Range Comments SODIUM (BEAKER) (test 137 meq/L 136-145 dbcq=611) POTASSIUM (BEAKER) (test 4.5 meq/L 3.5-5.1 uzcj=369) CHLORIDE (BEAKER) (test 106 meq/L 98-107 sxxp=040) CO2 (BEAKER) (test 23 meq/L 22-29 paqk=245) BLOOD UREA NITROGEN 28 mg/dL 7-21 (BEAKER) (test jjuh=150) CREATININE (BEAKER) (test 0.86 mg/dL 0.57-1.25 krhq=992) GLUCOSE RANDOM (BEAKER) 159 mg/dL 70-105 (test uodb=792) CALCIUM (BEAKER) (test 8.4 mg/dL 8.4-10.2 zzno=187) EGFR (BEAKER) (test 88 mL/min/1.73 sq m ESTIMATED GFR IS NOT ytct=7574) ACCURATE CREATININE CLEARANCE IN PREDICTING GLOMERULAR FILTRATION RATE. ESTIMATED GFR IS NOT APPLICABLE FOR DIALYSIS PATIENTS. RAD, CHEST, 1 VIEW, NON [id number] 07:59:00Reason for exam:->s/p cardiac surgeryFINAL REPORT AP chest HISTORY: Cardiac surgery COMPARISON: 09/11/2017 IMPRESSION:Endotracheal tube removed. Remainder of support lines unchanged. Cardiomegaly similar to previous. Some interval improvement in pulmonary expansion. Interstitial edema appears stable to slightly improved. Trace effusions. No pneumothorax. Signed: Sterling Meza MDReport Verified Date/Time: 09/12/2017 07:59:49 Reading Location: [facility] Radiology Reading Room CBC W/PLT COUNT & AUTO [id number] 06: 44:00 Test Item Value Reference Range Comments WHITE BLOOD CELL COUNT (BEAKER) (test nvej=673) 14.3 K/ L 3.5-10.5 RED BLOOD CELL COUNT (BEAKER) (test tofb=758) 3.26 M/ L 4.63-6.08 HEMOGLOBIN (BEAKER) (test uzog=717) 7.9 GM/DL 13.7-17.5 HEMATOCRIT (BEAKER) (test vrry=062) 25.8 % 40.1-51.0 MEAN CORPUSCULAR VOLUME (BEAKER) (test tayz=481) 79.1 fL 79.0-92.2 MEAN CORPUSCULAR HEMOGLOBIN (BEAKER) (test 24.2 pg 25.7-32.2 xpgz=913) MEAN CORPUSCULAR HEMOGLOBIN CONC (BEAKER) (test 30.6 GM/DL 32.3-36.5 ifsh=671) RED CELL DISTRIBUTION WIDTH (BEAKER) (test 16.1 % 11.6-14.4 orws=681) PLATELET COUNT (BEAKER) (test jofb=476) 91 K/CU MM 150-450 MEAN PLATELET VOLUME (BEAKER) (test xzic=237) 12.3 fL 9.4-12.4 NUCLEATED RED BLOOD CELLS (BEAKER) (test 0 /100 WBC 0-0 ujdm=469) NEUTROPHILS RELATIVE PERCENT (BEAKER) (test 88 % unze=620) LYMPHOCYTES RELATIVE PERCENT (BEAKER) (test 6 % hwez=820) MONOCYTES RELATIVE PERCENT (BEAKER) (test 5 % oewu=157) EOSINOPHILS RELATIVE PERCENT (BEAKER) (test 0 % crhv=953) BASOPHILS RELATIVE PERCENT (BEAKER) (test 0 % oogh=861) NEUTROPHILS ABSOLUTE COUNT (BEAKER) (test 12.52 K/ L 1.78-5.38 badw=109) LYMPHOCYTES ABSOLUTE COUNT (BEAKER) (test 0.87 K/ L 1.32-3.57 wzak=647) MONOCYTES ABSOLUTE COUNT (BEAKER) (test bicw=640) 0.77 K/ L 0.30-0.82 EOSINOPHILS ABSOLUTE COUNT (BEAKER) (test 0.00 K/ L 0.04-0.54 uzsy=843) BASOPHILS ABSOLUTE COUNT (BEAKER) (test kibq=441) 0.01 K/ L 0.01-0.08 IMMATURE GRANULOCYTES-RELATIVE PERCENT (BEAKER) 1 % 0-1 (test sesn=8182) LACTIC ACID, ARTERIAL, WHOLE [id number] 05:23:00 Test Item Value Reference Range Comments LACTATE BLOOD ARTERIAL (2) (BEAKER) (test 1.0 mmol/L 0.5-2.2 kibd=6333) Effective 01/24/2016: Units/Reference Range ChangeNew: 0.5-2.2 mmol/L Previous: 5 -20 mg/dLCALCIUM, [id number] 04:58:00 Test Item Value Reference Range Comments CALCIUM IONIZED (BEAKER) (test mtzv=243) 1.09 mmol/L 1.12-1.27 PH, BLOOD (BEAKER) (test zrno=1364) 7.46 OXYGEN SATURATION, [id number] 04:58:00 Test Item Value Reference Range Comments O2 SATURATION (MEASURED) (BEAKER) (test drui=4509) 62.7 % POCT-GLUCOSE [id number] 22:35:00 Test Item Value Reference Range Comments POC-GLUCOSE METER (BEAKER) 178 mg/dL 70-110 TESTED AT [address] (test nued=3571) [facility] [address] [id number] 18:51:00 Test Item Value Reference Range Comments POTASSIUM (BEAKER) (test qfzx=065) 4.4 meq/L 3.5-5.1 [id number] 18:51:00 Test Item Value Reference Range Comments MAGNESIUM (BEAKER) (test xrip=198) 2.1 mg/dL 1.6-2.6 POCT-GLUCOSE [id number] 18:46:00 Test Item Value Reference Range Comments POC-GLUCOSE METER (BEAKER) 170 mg/dL 70-110 TESTED AT [address] (test rplk=6164) [place] [id number] CALCIUM, [id number] 18:23:00 Test Item Value Reference Range Comments CALCIUM IONIZED (BEAKER) (test wzbt=257) 1.09 mmol/L 1.12-1.27 PH, BLOOD (BEAKER) (test fzdh=0977) 7.44 BLOOD GAS, [id number] 15:01:00 Test Item Value Reference Range Comments PH ARTERIAL (BEAKER) (test fwnr=753) 7.43 7.35-7.45 PCO2 ARTERIAL (BEAKER) (test iotz=266) 42 mmHg 35-45 PO2 ARTERIAL (BEAKER) (test thmm=054) 76 mmHg 80-90 O2 SATURATION ARTERIAL (BEAKER) (test vlkt=505) 95.2 % 96.0-97.0 HCO3 ARTERIAL (BEAKER) (test pkxk=737) 27 mmol/L 21-29 BASE EXCESS ARTERIAL (BEAKER) (test jfqb=570) 2.2 mmol/L -2.0-3.0 PATIENT TEMPERATURE (BEAKER) (test anlf=3645) 37.6 C FIO2 (BEAKER) (test cggn=3043) 40.0 % POCT-GLUCOSE [id number] 13:46:00 Test Item Value Reference Range Comments POC-GLUCOSE METER (BEAKER) 166 mg/dL 70-110 TESTED AT [address] (test lsyh=7932) [place] [id number] 13:40:00 Test Item Value Reference Range Comments POTASSIUM (BEAKER) (test nyyb=082) 4.3 meq/L 3.5-5.1 [id number] 13:40:00 Test Item Value Reference Range Comments MAGNESIUM (BEAKER) (test gity=811) 2.1 mg/dL 1.6-2.6 RAD, CHEST, 1 VIEW, NON [id number] 09:06:00Reason for exam:-> postopShould this be performed [...] Gallego Verified Date/Time: 09/11/2017 09:06:00 Reading Location: [facility] Radiology Reading Room Electronically signed by: DANNA GALLEGO M.D. on 09/11 09:06 AMPOCT-GLUCOSE [id number] 08:34:00 Test Item Value Reference Range Comments POC-GLUCOSE METER (BEAKER) 172 mg/dL 70-110 TESTED AT [address] (test kgnb=2356) [facility] [address] CBC W/PLT COUNT & AUTO [id number] 04:19:00 Test Item Value Reference Range Comments WHITE BLOOD CELL COUNT (BEAKER) (test dmcm=267) 9.9 K/ L 3.5-10.5 RED BLOOD CELL COUNT (BEAKER) (test apna=860) 3.18 M/ L 4.63-6.08 HEMOGLOBIN (BEAKER) (test nwqg=802) 7.9 GM/DL 13.7-17.5 HEMATOCRIT (BEAKER) (test hluk=092) 25.0 % 40.1-51.0 MEAN CORPUSCULAR VOLUME (BEAKER) (test hfuu=489) 78.6 fL 79.0-92.2 MEAN CORPUSCULAR HEMOGLOBIN (BEAKER) (test 24.8 pg 25.7-32.2 bdqw=336) MEAN CORPUSCULAR HEMOGLOBIN CONC (BEAKER) (test 31.6 GM/DL 32.3-36.5 thqa=625) RED CELL DISTRIBUTION WIDTH (BEAKER) (test 15.8 % 11.6-14.4 gomy=918) PLATELET COUNT (BEAKER) (test qtqa=343) 89 K/CU MM 150-450 MEAN PLATELET VOLUME (BEAKER) (test rgtm=565) 11.0 fL 9.4-12.4 NUCLEATED RED BLOOD CELLS (BEAKER) (test 0 /100 WBC 0-0 jxiw=519) NEUTROPHILS RELATIVE PERCENT (BEAKER) (test 82 % gxqs=895) LYMPHOCYTES RELATIVE PERCENT (BEAKER) (test 8 % idjv=812) MONOCYTES RELATIVE PERCENT (BEAKER) (test 10 % sufw=345) EOSINOPHILS RELATIVE PERCENT (BEAKER) (test 0 % nhdn=436) BASOPHILS RELATIVE PERCENT (BEAKER) (test 0 % cora=008) NEUTROPHILS ABSOLUTE COUNT (BEAKER) (test 8.08 K/ L 1.78-5.38 ozmn=644) LYMPHOCYTES ABSOLUTE COUNT (BEAKER) (test 0.75 K/ L 1.32-3.57 tboo=451) MONOCYTES ABSOLUTE COUNT (BEAKER) (test pyxy=841) 0.99 K/ L 0.30-0.82 EOSINOPHILS ABSOLUTE COUNT (BEAKER) (test 0.00 K/ L 0.04-0.54 brez=357) BASOPHILS ABSOLUTE COUNT (BEAKER) (test eepg=950) 0.00 K/ L 0.01-0.08 IMMATURE GRANULOCYTES-RELATIVE PERCENT (BEAKER) 1 % 0-1 (test tljl=4004) [id number] 04:16:00 Test Item Value Reference Range Comments PHOSPHORUS (BEAKER) (test mken=891) 3.9 mg/dL 2.3-4.7 [id number] 04:16:00 Test Item Value Reference Range Comments MAGNESIUM (BEAKER) (test xzch=480) 2.1 mg/dL 1.6-2.6 BASIC METABOLIC [id number] 04:16:00 Test Item Value Reference Range Comments SODIUM (BEAKER) (test 138 meq/L 136-145 hvpx=821) POTASSIUM (BEAKER) (test 4.4 meq/L 3.5-5.1 qneq=560) CHLORIDE (BEAKER) (test 108 meq/L 98-107 zhlk=625) CO2 (BEAKER) (test 23 meq/L 22-29 wstz=409) BLOOD UREA NITROGEN 13 mg/dL 7-21 (BEAKER) (test hfax=564) CREATININE (BEAKER) (test 0.85 mg/dL 0.57-1.25 wlny=849) GLUCOSE RANDOM (BEAKER) 120 mg/dL 70-105 (test uysh=672) CALCIUM (BEAKER) (test 7.9 mg/dL 8.4-10.2 reen=156) EGFR (BEAKER) (test 89 mL/min/1.73 sq m ESTIMATED GFR IS NOT vmth=3805) ACCURATE CREATININE CLEARANCE IN PREDICTING GLOMERULAR FILTRATION RATE. ESTIMATED GFR IS NOT APPLICABLE FOR DIALYSIS PATIENTS. POCT-GLUCOSE [id number] 04:15:00 Test Item Value Reference Range Comments POC-GLUCOSE METER (BEAKER) 135 mg/dL 70-110 TESTED AT [address] (test xfyj=3180) [facility] [address] BLOOD GAS, [id number] 03:44:00 Test Item Value Reference Range Comments PH ARTERIAL (BEAKER) (test dpgc=891) 7.48 7.35-7.45 PCO2 ARTERIAL (BEAKER) (test fwvn=667) 36 mmHg 35-45 PO2 ARTERIAL (BEAKER) (test cowa=807) 106 mmHg 80-90 O2 SATURATION ARTERIAL (BEAKER) (test puuj=690) 98.2 % 96.0-97.0 HCO3 ARTERIAL (BEAKER) (test reck=512) 26 mmol/L 21-29 BASE EXCESS ARTERIAL (BEAKER) (test qmvp=998) 2.7 mmol/L -2.0-3.0 PATIENT TEMPERATURE (BEAKER) (test vuee=1990) 36.8 C FIO2 (BEAKER) (test eyvn=6524) 40.0 % POCT-GLUCOSE [id number] 03:10:00 Test Item Value Reference Range Comments POC-GLUCOSE METER (BEAKER) 128 mg/dL 70-110 TESTED AT [address] (test vdpl=3434) [place] [id number] LACTIC ACID, ARTERIAL, WHOLE [id number] 01:31:00 Test Item Value Reference Range Comments LACTATE BLOOD ARTERIAL (2) (BEAKER) (test 1.5 mmol/L 0.5-2.2 dntu=1213) Effective 01/24/2016: Units/Reference Range ChangeNew: 0.5-2.2 mmol/L Previous: 5 -20 mg/dLBLOOD GAS, [id number] 01:20:00 Test Item Value Reference Range Comments PH ARTERIAL (BEAKER) (test uwaa=616) 7.39 7.35-7.45 PCO2 ARTERIAL (BEAKER) (test arfn=602) 47 mmHg 35-45 PO2 ARTERIAL (BEAKER) (test kldm=351) 90 mmHg 80-90 O2 SATURATION ARTERIAL (BEAKER) (test gstm=174) 96.8 % 96.0-97.0 HCO3 ARTERIAL (BEAKER) (test vfcj=370) 28 mmol/L 21-29 BASE EXCESS ARTERIAL (BEAKER) (test byvv=610) 2.8 mmol/L -2.0-3.0 PATIENT TEMPERATURE (BEAKER) (test qily=4793) 36.9 C FIO2 (BEAKER) (test kzvl=1572) 40.0 % GLUCOSE-STAT [id number] 01:20:00 Test Item Value Reference Range Comments GLUCOSE RANDOM (BEAKER) (test bcyd=969) 123 mg/dL 70-110 POCT-GLUCOSE [id number] 00:57:00 Test Item Value Reference Range Comments POC-GLUCOSE METER (BEAKER) 154 mg/dL 70-110 TESTED AT [address] (test jrdi=4690) [facility] [id number] POCT-GLUCOSE [id number] 22:22:00 Test Item Value Reference Range Comments POC-GLUCOSE METER (BEAKER) 176 mg/dL 70-110 TESTED AT [address] (test gped=3344) [facility] [id number] POCT-GLUCOSE [id number] 22:22:00 Test Item Value Reference Range Comments POC-GLUCOSE METER (BEAKER) 227 mg/dL 70-110 TESTED AT [address] (test aqig=8332) [place] [id number] LACTIC ACID, ARTERIAL, WHOLE [id number] 21:58:00 Test Item Value Reference Range Comments LACTATE BLOOD ARTERIAL (2) (BEAKER) (test 3.1 mmol/L 0.5-2.2 qoyx=7389) Effective 01/24/2016: Units/Reference Range ChangeNew: 0.5-2.2 mmol/L Previous: 5 -20 mg/[id number] 21:58:00 Test Item Value Reference Range Comments MAGNESIUM (BEAKER) (test sicr=065) 2.2 mg/dL 1.6-2.6 OXYGEN SATURATION, [id number] 21:27:00 Test Item Value Reference Range Comments O2 SATURATION (MEASURED) (BEAKER) (test eghd=5527) 75.9 % BLOOD GAS, [id number] 21:26:00 Test Item Value Reference Range Comments PH ARTERIAL (BEAKER) (test cjge=764) 7.42 7.35-7.45 PCO2 ARTERIAL (BEAKER) (test rgql=258) 41 mmHg 35-45 PO2 ARTERIAL (BEAKER) (test pfql=465) 152 mmHg 80-90 O2 SATURATION ARTERIAL (BEAKER) (test omxc=649) 99.0 % 96.0-97.0 HCO3 ARTERIAL (BEAKER) (test msql=696) 26 mmol/L 21-29 BASE EXCESS ARTERIAL (BEAKER) (test tiqi=808) 1.2 mmol/L -2.0-3.0 PATIENT TEMPERATURE (BEAKER) (test csxd=2270) 37.7 C FIO2 (BEAKER) (test tgse=4060) 60.0 % HGB/HCT (H&H) - STAT [id number] 21:26:00 Test Item Value Reference Range Comments HEMOGLOBIN (BEAKER) (test ecjl=150) 9.1 g/dL 13.0-16.8 HEMATOCRIT (BEAKER) (test xroj=295) 27.0 % 40.0-50.0 CALCIUM, [id number] 21:26:00 Test Item Value Reference Range Comments CALCIUM IONIZED (BEAKER) (test anpv=641) 1.08 mmol/L 1.12-1.27 PH, BLOOD (BEAKER) (test nuah=0291) 7.42 BASIC METABOLIC [id number] 18:58:00 Test Item Value Reference Range Comments SODIUM (BEAKER) (test 136 meq/L 136-145 qmqm=985) POTASSIUM (BEAKER) (test 4.8 meq/L 3.5-5.1 ukfl=981) CHLORIDE (BEAKER) (test 105 meq/L 98-107 wjut=316) CO2 (BEAKER) (test 20 meq/L 22-29 besf=215) BLOOD UREA NITROGEN 13 mg/dL 7-21 (BEAKER) (test rrkj=057) CREATININE (BEAKER) (test 0.98 mg/dL 0.57-1.25 yvyi=918) GLUCOSE RANDOM (BEAKER) 246 mg/dL 70-105 (test bdfl=694) CALCIUM (BEAKER) (test 7.4 mg/dL 8.4-10.2 ioef=974) EGFR (BEAKER) (test 75 mL/min/1.73 sq m ESTIMATED GFR IS NOT jxes=1024) ACCURATE CREATININE CLEARANCE IN PREDICTING GLOMERULAR FILTRATION RATE. ESTIMATED GFR IS NOT APPLICABLE FOR DIALYSIS PATIENTS. HEPATIC FUNCTION [id number] 18:54:00 Test Item Value Reference Range Comments TOTAL PROTEIN (BEAKER) (test edxd=424) 5.5 gm/dL 6.0-8.3 ALBUMIN (BEAKER) (test olmy=1865) 3.5 g/dL 3.5-5.0 BILIRUBIN TOTAL (BEAKER) (test jeww=387) 0.7 mg/dL 0.2-1.2 BILIRUBIN DIRECT (BEAKER) (test eyov=743) 0.4 mg/dL 0.1-0.5 ALKALINE PHOSPHATASE (BEAKER) (test fkhd=153) 50 U/L 40-150 AST (SGOT) (BEAKER) (test eoed=267) 54 U/L 5-34 ALT (SGPT) (BEAKER) (test hoaz=688) 33 U/L 6-55 LACTIC ACID, ARTERIAL, WHOLE [id number] 17:19:00 Test Item Value Reference Range Comments LACTATE BLOOD ARTERIAL (2) (BEAKER) (test 9.2 mmol/L 0.5-2.2 ywxx=8862) Effective 01/24/2016: Units/Reference Range ChangeNew: 0.5-2.2 mmol/L Previous: 5 -20 mg/dLPOCT-GLUCOSE [id number] 17:09:00 Test Item Value Reference Range Comments POC-GLUCOSE METER (BEAKER) 233 mg/dL 70-110 TESTED AT [facility] [address] [facility] (test gkmy=5408) [facility] [address] HEMOGLOBIN AND [id number] 17:08:00 Test Item Value Reference Range Comments HEMOGLOBIN (BEAKER) (test jfyh=625) 9.1 GM/DL 13.7-17.5 HEMATOCRIT (BEAKER) (test trbz=996) 29.2 % 40.1-51.0 BLOOD GAS, [id number] 17:03:00 Test Item Value Reference Range Comments PH ARTERIAL (BEAKER) (test lnof=564) 7.29 7.35-7.45 PCO2 ARTERIAL (BEAKER) (test wpog=210) 42 mm Hg 35-45 PO2 ARTERIAL (BEAKER) (test eamj=161) 175 mm Hg 80-90 O2 SATURATION ARTERIAL (BEAKER) (test dmpe=233) 99.0 % 96.0-97.0 HCO3 ARTERIAL (BEAKER) (test sabx=720) 20 mmol/L 21-29 BASE EXCESS ARTERIAL (BEAKER) (test pnxj=524) -6.3 mmol/L -2.0-3.0 PATIENT TEMPERATURE (BEAKER) (test yenh=0785) 36.9 FIO2 (BEAKER) (test blcm=5484) 60 BLOOD GAS, [id number] 16:14:00 Test Item Value Reference Range Comments PH ARTERIAL (BEAKER) (test zrnx=292) 7.29 7.35-7.45 PCO2 ARTERIAL (BEAKER) (test fqhw=655) 41 mmHg 35-45 PO2 ARTERIAL (BEAKER) (test pgkv=085) 169 mmHg 80-90 O2 SATURATION ARTERIAL (BEAKER) (test mwey=842) 99.0 % 96.0-97.0 HCO3 ARTERIAL (BEAKER) (test uper=842) 19 mmol/L 21-29 BASE EXCESS ARTERIAL (BEAKER) (test lfme=252) -7.2 mmol/L -2.0-3.0 PATIENT TEMPERATURE (BEAKER) (test xxoe=7273) 36.8 C FIO2 (BEAKER) (test irxi=9912) 60.0 % CBC (HEMOGRAM ONLY)[id number] 15:59:00 Test Item Value Reference Range Comments WHITE BLOOD CELL COUNT (BEAKER) (test xasw=839) 27.2 K/ L 3.5-10.5 RED BLOOD CELL COUNT (BEAKER) (test gjvr=416) 3.92 M/ L 4.63-6.08 HEMOGLOBIN (BEAKER) (test lend=302) 9.7 GM/DL 13.7-17.5 HEMATOCRIT (BEAKER) (test jddn=110) 31.4 % 40.1-51.0 MEAN CORPUSCULAR VOLUME (BEAKER) (test ojqk=903) 80.1 fL 79.0-92.2 MEAN CORPUSCULAR HEMOGLOBIN (BEAKER) (test 24.7 pg 25.7-32.2 sxlx=146) MEAN CORPUSCULAR HEMOGLOBIN CONC (BEAKER) (test 30.9 GM/DL 32.3-36.5 uumt=175) RED CELL DISTRIBUTION WIDTH (BEAKER) (test 15.6 % 11.6-14.4 scrk=334) PLATELET COUNT (BEAKER) (test post=982) 126 K/CU MM 150-450 MEAN PLATELET VOLUME (BEAKER) (test ooey=978) 11.2 fL 9.4-12.4 NUCLEATED RED BLOOD CELLS (BEAKER) (test 0 /100 WBC 0-0 ubet=015) POTASSIUM-STAT [id number] 14:57:00 Test Item Value Reference Range Comments POTASSIUM (BEAKER) (test ymqh=984) 4.2 meq/L 3.6-5.5 BLOOD GAS, [id number] 14:57:00 Test Item Value Reference Range Comments PH ARTERIAL (BEAKER) (test iuqn=849) 7.26 7.35-7.45 PCO2 ARTERIAL (BEAKER) (test vtgi=710) 45 mmHg 35-45 PO2 ARTERIAL (BEAKER) (test gizj=777) 208 mmHg 80-90 O2 SATURATION ARTERIAL (BEAKER) (test nurq=249) 99.2 % 96.0-97.0 HCO3 ARTERIAL (BEAKER) (test hvfj=105) 20 mmol/L 21-29 BASE EXCESS ARTERIAL (BEAKER) (test xzoh=714) -6.9 mmol/L -2.0-3.0 PATIENT TEMPERATURE (BEAKER) (test znov=9159) 37.0 C FIO2 (BEAKER) (test yewv=4166) 100.0 % SODIUM NA-STAT [id number] 14:57:00 Test Item Value Reference Range Comments SODIUM (BEAKER) (test qaqg=704) 134 meq/L 135-148 GLUCOSE-STAT [id number] 14:57:00 Test Item Value Reference Range Comments GLUCOSE RANDOM (BEAKER) (test vyjs=663) 218 mg/dL 70-110 HGB/HCT (H&H) - STAT [id number] 14:57:00 Test Item Value Reference Range Comments HEMOGLOBIN (BEAKER) (test jadk=988) 10.5 g/dL 13.0-16.8 HEMATOCRIT (BEAKER) (test fnhk=800) 31.0 % 40.0-50.0 LACTIC ACID, ARTERIAL, WHOLE [id number] 14:12:00 Test Item Value Reference Range Comments LACTATE BLOOD ARTERIAL (2) 4.2 mmol/L 0.5-2.2 Specimen slightly hemolyzed (BEAKER) (test sfme=9208) Effective 01/24/2016: Units/Reference Range ChangeNew: 0.5-2.2 mmol/L Previous: 5 -20 mg/dLBASIC METABOLIC [id number] 13:49:00 Test Item Value Reference Range Comments SODIUM (BEAKER) (test 134 meq/L 136-145 tvxe=569) POTASSIUM (BEAKER) (test 3.7 meq/L 3.5-5.1 Specimen slightly qykl=989) hemolyzed CHLORIDE (BEAKER) (test 106 meq/L 98-107 mivd=954) CO2 (BEAKER) (test 17 meq/L 22-29 cmjj=330) BLOOD UREA NITROGEN 13 mg/dL 7-21 (BEAKER) (test mxya=870) CREATININE (BEAKER) (test 0.92 mg/dL 0.57-1.25 Specimen slightly mcdq=445) hemolyzed GLUCOSE RANDOM (BEAKER) 217 mg/dL 70-105 (test ketb=013) CALCIUM (BEAKER) (test 7.6 mg/dL 8.4-10.2 dzwk=874) EGFR (BEAKER) (test 81 mL/min/1.73 sq m ESTIMATED GFR IS NOT ssiz=8548) ACCURATE CREATININE CLEARANCE IN PREDICTING GLOMERULAR FILTRATION RATE. ESTIMATED GFR IS NOT APPLICABLE FOR DIALYSIS PATIENTS. [id number] 13:47:00 Test Item Value Reference Range Comments MAGNESIUM (BEAKER) (test 2.2 mg/dL 1.6-2.6 Specimen slightly hemolyzed fjdx=118) [id number] 13:47:00 Test Item Value Reference Range Comments POTASSIUM (BEAKER) (test 3.7 meq/L 3.5-5.1 Specimen slightly hemolyzed bcsf=663) [id number] 13:47:00 Test Item Value Reference Range Comments GLUCOSE RANDOM (BEAKER) (test wzrm=373) 217 mg/dL 70-105 BLOOD GAS, [id number] 13:17:00 Test Item Value Reference Range Comments PH ARTERIAL (BEAKER) (test agfv=543) 7.32 7.35-7.45 PCO2 ARTERIAL (BEAKER) (test qdom=871) 38 mmHg 35-45 PO2 ARTERIAL (BEAKER) (test lvlb=545) 189 mmHg 80-90 O2 SATURATION ARTERIAL (BEAKER) (test tkfz=837) 99.2 % 96.0-97.0 HCO3 ARTERIAL (BEAKER) (test jbsi=649) 19 mmol/L 21-29 BASE EXCESS ARTERIAL (BEAKER) (test pdrc=410) -6.5 mmol/L -2.0-3.0 PATIENT TEMPERATURE (BEAKER) (test mtyl=9067) 37.0 C FIO2 (BEAKER) (test aola=5373) 100.0 % SODIUM NA-STAT [id number] 13:17:00 Test Item Value Reference Range Comments SODIUM (BEAKER) (test owhf=786) 132 meq/L 135-148 GLUCOSE-STAT [id number] 13:17:00 Test Item Value Reference Range Comments GLUCOSE RANDOM (BEAKER) (test gcol=651) 209 mg/dL 70-110 HGB/HCT (H&H) - STAT [id number] 13:17:00 Test Item Value Reference Range Comments HEMOGLOBIN (BEAKER) (test ozvf=689) 11.3 g/dL 13.0-16.8 HEMATOCRIT (BEAKER) (test zalt=556) 33.0 % 40.0-50.0 POTASSIUM-STAT [id number] 13:15:00 Test Item Value Reference Range Comments POTASSIUM (BEAKER) (test slmm=663) 3.7 meq/L 3.6-5.5 OXYGEN SATURATION, [id number] 13:15:00 Test Item Value Reference Range Comments O2 SATURATION (MEASURED) (BEAKER) (test mbps=1592) 72.7 % RAD, CHEST, 1 VIEW, NON [id number] 13:11:00Reason for exam:->intubated/ cardiac surgeryShould this be [...] MDReport Verified Date/Time: 09/10/2017 13:11:58 Reading Location: [address] Consult Reading Room [id number] 12:12:00 Test Item Value Reference Range Comments ACTIVATED CLOTTING TIME 109 sec TESTED AT [place] [address] [facility] ([facility]) (test ztzt=374) [place] [address] [id number] 12:12:00 Test Item Value Reference Range Comments ACTIVATED CLOTTING TIME 412 sec TESTED AT [place] [address] [address] (BEAKER) (test hjjs=311) [place] [address] [id number] 12:11:00 Test Item Value Reference Range Comments ACTIVATED CLOTTING TIME 461 sec TESTED AT [place] [id number] [place] (BEAKER) (test sqqb=027) [place] [address] [id number] 12:11:00 Test Item Value Reference Range Comments ACTIVATED CLOTTING TIME 527 sec TESTED AT [place] [id number] [place] (BEAKER) (test vysr=448) [place] [address] [id number] 12:11:00 Test Item Value Reference Range Comments ACTIVATED CLOTTING TIME 494 sec TESTED AT [place] [address] [place] ([facility]) (test rxga=395) [place] [address] PROTHROMBIN [id number] 12:07:00 Test Item Value Reference Range Comments PROTIME ([facility]) (test tpen=587) 18.3 seconds 11.7-14.7 INR (BEAKER) (test bugc=418) 1.5 <=5.9 RECOMMENDED COUMADIN/WARFARIN INR THERAPY RANGESSTANDARD DOSE: 2.0 - 3.0 Includes: PROPHYLAXIS forvenous thrombosis, systemic embolization; TREATMENT for venous thrombosis and/or pulmonary embolus.HIGH RISK: Target INR is 2.5-3.5 for patients with mechanical heart valves.[id number] 12:07:00 Test Item Value Reference Range Comments FIBRINOGEN LEVEL (BEAKER) (test hhdh=283) 248 mg/dl 225-434 [id number] 12:07:00 Test Item Value Reference Range Comments PARTIAL THROMBOPLASTIN TIME (BEAKER) (test 32.4 seconds 22.5-36.0 jely=445) PLATELET [id number] 11:46:00 Test Item Value Reference Range Comments PLATELET COUNT (BEAKER) (test oohn=996) 113 K/CU MM 150-450 BLOOD GAS, [id number] 11:25:00 Test Item Value Reference Range Comments PH ARTERIAL (BEAKER) (test vnbw=297) 7.45 7.35-7.45 PCO2 ARTERIAL (BEAKER) (test xwak=207) 31 mmHg 35-45 PO2 ARTERIAL (BEAKER) (test fqvg=002) 381 mmHg 80-90 O2 SATURATION ARTERIAL (BEAKER) (test rmxr=804) 99.8 % 96.0-97.0 HCO3 ARTERIAL (BEAKER) (test fotl=076) 21 mmol/L 21-29 BASE EXCESS ARTERIAL (BEAKER) (test ldxa=505) -2.6 mmol/L -2.0-3.0 PATIENT TEMPERATURE (BEAKER) (test enjc=6113) 35.7 C FIO2 (BEAKER) (test kkgz=5474) 100.0 % SODIUM NA-STAT [id number] 11:25:00 Test Item Value Reference Range Comments SODIUM (BEAKER) (test biid=247) 129 meq/L 135-148 GLUCOSE-STAT [id number] 11:25:00 Test Item Value Reference Range Comments GLUCOSE RANDOM (BEAKER) (test lpxp=401) 158 mg/dL 70-110 HGB/HCT (H&H) - STAT [id number] 11:25:00 Test Item Value Reference Range Comments HEMOGLOBIN (BEAKER) (test ajjl=236) 9.4 g/dL 13.0-16.8 HEMATOCRIT (BEAKER) (test sywh=016) 28.0 % 40.0-50.0 CALCIUM, [id number] 11:25:00 Test Item Value Reference Range Comments CALCIUM IONIZED (BEAKER) (test uxju=046) 1.10 mmol/L 1.12-1.27 PH, BLOOD (BEAKER) (test rxju=5265) 7.43 POTASSIUM-STAT [id number] 11:22:00 Test Item Value Reference Range Comments POTASSIUM (BEAKER) (test vmkb=022) 4.6 meq/L 3.6-5.5 BLOOD GAS, [id number] 10:50:00 Test Item Value Reference Range Comments PH ARTERIAL (BEAKER) (test xyew=242) 7.34 7.35-7.45 PCO2 ARTERIAL (BEAKER) (test artu=616) 44 mmHg 35-45 PO2 ARTERIAL (BEAKER) (test mcnk=950) 379 mmHg 80-90 O2 SATURATION ARTERIAL (BEAKER) (test tmzq=284) 99.8 % 96.0-97.0 HCO3 ARTERIAL (BEAKER) (test jhlw=468) 23 mmol/L 21-29 BASE EXCESS ARTERIAL (BEAKER) (test vvpo=844) -2.3 mmol/L -2.0-3.0 PATIENT TEMPERATURE (BEAKER) (test jytp=0809) 36.9 C FIO2 (BEAKER) (test vjij=2181) 90.0 % SODIUM NA-STAT [id number] 10:50:00 Test Item Value Reference Range Comments SODIUM (BEAKER) (test voem=701) 128 meq/L 135-148 GLUCOSE-STAT [id number] 10:50:00 Test Item Value Reference Range Comments GLUCOSE RANDOM (BEAKER) (test bsuq=452) 153 mg/dL 70-110 HGB/HCT (H&H) - STAT [id number] 10:50:00 Test Item Value Reference Range Comments HEMOGLOBIN (BEAKER) (test orsk=173) 8.6 g/dL 13.0-16.8 HEMATOCRIT (BEAKER) (test zfjq=244) 25.0 % 40.0-50.0 POTASSIUM-STAT [id number] 10:50:00 Test Item Value Reference Range Comments POTASSIUM (BEAKER) (test nteg=303) 6.1 meq/L 3.6-5.5 POTASSIUM-STAT [id number] 10:26:00 Test Item Value Reference Range Comments POTASSIUM (BEAKER) (test dibc=527) 6.3 meq/L 3.6-5.5 BLOOD GAS, [id number] 10:25:00 Test Item Value Reference Range Comments PH ARTERIAL (BEAKER) (test czml=090) 7.45 7.35-7.45 PCO2 ARTERIAL (BEAKER) (test uxjx=746) 33 mmHg 35-45 PO2 ARTERIAL (BEAKER) (test orin=054) 308 mmHg 80-90 O2 SATURATION ARTERIAL (BEAKER) (test ozuq=445) 99.7 % 96.0-97.0 HCO3 ARTERIAL (BEAKER) (test jblr=728) 23 mmol/L 21-29 BASE EXCESS ARTERIAL (BEAKER) (test smgs=600) -1.6 mmol/L -2.0-3.0 PATIENT TEMPERATURE (BEAKER) (test knsi=5721) 34.6 C FIO2 (BEAKER) (test yaxg=7749) 75.0 % SODIUM NA-STAT [id number] 10:25:00 Test Item Value Reference Range Comments SODIUM (BEAKER) (test yhww=740) 124 meq/L 135-148 GLUCOSE-STAT [id number] 10:25:00 Test Item Value Reference Range Comments GLUCOSE RANDOM (BEAKER) (test blku=926) 143 mg/dL 70-110 HGB/HCT (H&H) - STAT [id number] 10:25:00 Test Item Value Reference Range Comments HEMOGLOBIN (BEAKER) (test rpfn=627) 7.6 g/dL 13.0-16.8 HEMATOCRIT (BEAKER) (test btkt=638) 22.0 % 40.0-50.0 BLOOD GAS, [id number] 10:07:00 Test Item Value Reference Range Comments PH VENOUS (BEAKER) (test crql=523) 7.36 7.32-7.42 PCO2 VENOUS (BEAKER) (test fxhc=183) 41 mmHg 41-51 PO2 VENOUS (BEAKER) (test zhdv=575) 44 mmHg 25-40 O2 SATURATION VENOUS (BEAKER) (test dakx=197) 91.5 % 40.0-70.0 HCO3 VENOUS (BEAKER) (test njoy=922) 25 mmol/L 21-29 BASE EXCESS VENOUS (BEAKER) (test bbtj=849) -2.3 mmol/L -2.0-3.0 PATIENT TEMPERATURE (BEAKER) (test jnod=5410) 30.2 C FIO2 (BEAKER) (test xkti=9844) 70.0 % BLOOD GAS, [id number] 10:06:00 Test Item Value Reference Range Comments PH ARTERIAL (BEAKER) (test xrzf=484) 7.38 7.35-7.45 PCO2 ARTERIAL (BEAKER) (test ankn=606) 38 mmHg 35-45 PO2 ARTERIAL (BEAKER) (test gayo=970) 388 mmHg 80-90 O2 SATURATION ARTERIAL (BEAKER) (test fhqh=685) 99.8 % 96.0-97.0 HCO3 ARTERIAL (BEAKER) (test fdsb=496) 24 mmol/L 21-29 BASE EXCESS ARTERIAL (BEAKER) (test epds=362) -2.9 mmol/L -2.0-3.0 PATIENT TEMPERATURE (BEAKER) (test cvvk=0881) 30.2 C FIO2 (BEAKER) (test lygy=3134) 70.0 % SODIUM NA-STAT [id number] 10:06:00 Test Item Value Reference Range Comments SODIUM (BEAKER) (test kizg=633) 125 meq/L 135-148 GLUCOSE-STAT [id number] 10:06:00 Test Item Value Reference Range Comments GLUCOSE RANDOM (BEAKER) (test vccq=470) 126 mg/dL 70-110 HGB/HCT (H&H) - STAT [id number] 10:06:00 Test Item Value Reference Range Comments HEMOGLOBIN (BEAKER) (test wmwa=511) 6.9 g/dL 13.0-16.8 HEMATOCRIT (BEAKER) (test rcta=240) 20.0 % 40.0-50.0 POTASSIUM-STAT [id number] 10:04:00 Test Item Value Reference Range Comments POTASSIUM (BEAKER) (test gilj=976) 5.2 meq/L 3.6-5.5 CALCIUM, [id number] 08:57:00 Test Item Value Reference Range Comments CALCIUM IONIZED (BEAKER) (test yltz=501) 1.02 mmol/L 1.12-1.27 PH, BLOOD (BEAKER) (test pjgc=5845) 7.45 BLOOD GAS, [id number] 08:57:00 Test Item Value Reference Range Comments PH ARTERIAL (BEAKER) (test fsqb=596) 7.45 7.35-7.45 PCO2 ARTERIAL (BEAKER) (test wlam=577) 37 mmHg 35-45 PO2 ARTERIAL (BEAKER) (test mjbe=269) 401 mmHg 80-90 O2 SATURATION ARTERIAL (BEAKER) (test lmob=435) 99.8 % 96.0-97.0 HCO3 ARTERIAL (BEAKER) (test vjms=082) 25 mmol/L 21-29 BASE EXCESS ARTERIAL (BEAKER) (test bpfq=931) 1.5 mmol/L -2.0-3.0 PATIENT TEMPERATURE (BEAKER) (test pcsr=7536) 37.1 C FIO2 (BEAKER) (test zidf=2485) 98.0 % SODIUM NA-STAT [id number] 08:57:00 Test Item Value Reference Range Comments SODIUM (BEAKER) (test mznb=913) 129 meq/L 135-148 GLUCOSE-STAT [id number] 08:57:00 Test Item Value Reference Range Comments GLUCOSE RANDOM (BEAKER) (test xsoy=787) 115 mg/dL 70-110 HGB/HCT (H&H) - STAT [id number] 08:57:00 Test Item Value Reference Range Comments HEMOGLOBIN (BEAKER) (test frfm=789) 10.8 g/dL 13.0-16.8 HEMATOCRIT (BEAKER) (test jnqv=752) 32.0 % 40.0-50.0 POTASSIUM-STAT [id number] 08:56:00 Test Item Value Reference Range Comments POTASSIUM (BEAKER) (test bwqy=737) 4.8 meq/L 3.6-5.5 COMPREHENSIVE METABOLIC [id number] 11:10:00 Test Item Value Reference Range Comments TOTAL PROTEIN (BEAKER) 6.5 gm/dL 6.0-8.3 (test gegb=785) ALBUMIN (BEAKER) (test 3.6 g/dL 3.5-5.0 xvil=1476) ALKALINE PHOSPHATASE 83 U/L 40-150 (BEAKER) (test xbkx=422) BILIRUBIN TOTAL (BEAKER) 0.5 mg/dL 0.2-1.2 (test zbtt=075) SODIUM (BEAKER) (test 133 meq/L 136-145 jlxd=431) POTASSIUM (BEAKER) (test 4.3 meq/L 3.5-5.1 idky=876) CHLORIDE (BEAKER) (test 103 meq/L 98-107 qpmw=159) CO2 (BEAKER) (test 22 meq/L 22-29 uyao=860) BLOOD UREA NITROGEN 16 mg/dL 7-21 (BEAKER) (test qdks=490) CREATININE (BEAKER) (test 0.82 mg/dL 0.57-1.25 xytt=240) GLUCOSE RANDOM (BEAKER) 117 mg/dL 70-105 (test icuj=141) CALCIUM (BEAKER) (test 8.6 mg/dL 8.4-10.2 nlhw=003) AST (SGOT) (BEAKER) (test 41 U/L 5-34 uctn=969) ALT (SGPT) (BEAKER) (test 44 U/L 6-55 hlbs=271) EGFR (BEAKER) (test 93 mL/min/1.73 sq m ESTIMATED GFR IS NOT xdnc=4988) ACCURATE CREATININE CLEARANCE IN PREDICTING GLOMERULAR FILTRATION RATE. ESTIMATED GFR IS NOT APPLICABLE FOR DIALYSIS PATIENTS. CBC W/PLT COUNT & AUTO [id number] 10:41:00 Test Item Value Reference Range Comments WHITE BLOOD CELL COUNT (BEAKER) (test oenj=825) 7.9 K/ L 3.5-10.5 RED BLOOD CELL COUNT (BEAKER) (test pibj=385) 4.33 M/ L 4.63-6.08 HEMOGLOBIN (BEAKER) (test fkpx=278) 10.2 GM/DL 13.7-17.5 HEMATOCRIT (BEAKER) (test hezy=287) 33.7 % 40.1-51.0 MEAN CORPUSCULAR VOLUME (BEAKER) (test yxdo=031) 77.8 fL 79.0-92.2 MEAN CORPUSCULAR HEMOGLOBIN (BEAKER) (test 23.6 pg 25.7-32.2 vmet=196) MEAN CORPUSCULAR HEMOGLOBIN CONC (BEAKER) (test 30.3 GM/DL 32.3-36.5 xmbr=202) RED CELL DISTRIBUTION WIDTH (BEAKER) (test 15.6 % 11.6-14.4 plll=646) PLATELET COUNT (BEAKER) (test rpok=860) 156 K/CU MM 150-450 MEAN PLATELET VOLUME (BEAKER) (test qcuq=009) 11.6 fL 9.4-12.4 NUCLEATED RED BLOOD CELLS (BEAKER) (test 0 /100 WBC 0-0 baul=112) NEUTROPHILS RELATIVE PERCENT (BEAKER) (test 68 % vcrd=151) LYMPHOCYTES RELATIVE PERCENT (BEAKER) (test 15 % hhcy=237) MONOCYTES RELATIVE PERCENT (BEAKER) (test 12 % bwuu=156) EOSINOPHILS RELATIVE PERCENT (BEAKER) (test 3 % ihux=022) BASOPHILS RELATIVE PERCENT (BEAKER) (test 1 % kczx=062) NEUTROPHILS ABSOLUTE COUNT (BEAKER) (test 5.42 K/ L 1.78-5.38 gpnc=183) LYMPHOCYTES ABSOLUTE COUNT (BEAKER) (test 1.20 K/ L 1.32-3.57 uqjd=822) MONOCYTES ABSOLUTE COUNT (BEAKER) (test 0.96 K/ L 0.30-0.82 hjgf=438) EOSINOPHILS ABSOLUTE COUNT (BEAKER) (test 0.22 K/ L 0.04-0.54 tvuh=847) BASOPHILS ABSOLUTE COUNT (BEAKER) (test 0.04 K/ L 0.01-0.08 oljg=529) IMMATURE GRANULOCYTES-RELATIVE PERCENT (BEAKER) 1 % 0-1 (test jpvk=2947) PROTHROMBIN [id number] 10:30:00 Test Item Value Reference Range Comments PROTIME (BEAKER) (test feay=706) 14.0 seconds 11.7-14.7 INR (BEAKER) (test rgkq=022) 1.1 <=5.9 RECOMMENDED COUMADIN/WARFARIN INR THERAPY RANGESSTANDARD DOSE: 2.0 - 3.0 Includes: PROPHYLAXIS forvenous thrombosis, systemic embolization; TREATMENT for venous thrombosis and/or pulmonary embolus.HIGH RISK: Target INR is 2.5-3.5 for patients with mechanical heart valves.RAD, CHEST, 1 VIEW, NON [id number] 09:27:00Reason for exam:->pre opShould this be [...] Verified Date/ Time: 09/09/2017 09:27:37 Reading Location: [facility] Radiology Reading Room
[2018-02-24 09:21] VITALS: BMI 37.5
[2018-02-24] MEDS ORDERED: NA CHLORIDE 0.9% 250 ML ONE ×2 (12:38→14:57)
[2018-02-24 13:23] VITALS: TEMP 98.1; O2SAT 96
[2018-02-24] MEDS ORDERED: FUROSEMIDE 40 MG/4 ML VIAL ONE (14:57)
[2018-02-24 18:44] VITALS: BP 153/59
[2018-02-24 19:05] LABS: Hematocrit 29.6 % (39.6-49.0)
== END 2018-02-24 18:42 | disposition home or self-care (01) ==
LOC: DS 08:42
PROVIDERS: ATTEND Internal Medicine Gastroenterology
DX: D50.0 Iron deficiency anemia secondary to blood loss (chronic) (principal); D50.9 Iron deficiency anemia, unspecified
CPT/HCPCS: 36415; 36430; 85014; 85018; 86850; 86870; 86900; 86901; 86902 ×2; 86922 ×2; P9016 ×2

== ENCOUNTER 2020-02-21 14:48 | Emergency (ER) | payer OTHER ==
--- NOTE | 2020-02-21 15:40 | RAD REPORT ---
EXAM DESCRIPTION: RAD - Chest Single View - 02/21/2020 3:31 pm CLINICAL HISTORY: COUGH Chest pain. COMPARISON: Chest Pa And Lat (2 Views) dated 02/21/2020; Chest Pa And Lat (2 Views) dated 10/03/2017; C hest Pa And Lat (2 Views) dated 09/05/2017; CHEST SINGLE VIEW dated 02/13/2012 FINDINGS: Portable technique limits examination quality. Moderate pulmonary edema with small pleural effusions. The heart moderately enlarged. Sternotomy wire s present. IMPRESSION: Moderate CHF.
[2020-02-21 16:49] LABS: Protime INR 1.19
[2020-02-21 16:51] LABS: Absolute Lymphocytes (CBC) 1.4 K/uL (0.7-4.9); Basophils % 0.9 % (0-1.3); Hematocrit 22.2 % (39.6-49.0); Lymphocytes % 14.7 % (15.3-44.8); RBC Red Blood Cell Count 4.07 M/uL (4.33-5.43)
[2020-02-21 17:10] LABS: ALT/SGPT 20 U/L (12-78); AST/SGOT 9 U/L (15-37); Albumin 3.4 g/dL (3.4-5.0); Alkaline Phosphatase 87 U/L (45-117); BUN Blood Urea Nitrogen 17 mg/dL (7-18); Bicarbonate 25 mmol/L (21-32); Bilirubin Direct 0.2 mg/dL (0-0.2); Bilirubin Total 0.7 mg/dL (0.2-1.0); Glucose Level 130 mg/dL (74-106); Lipase 84 U/L (73-393); NT PRO-BNP 1206 pg/mL (<125); Potassium 4.2 mmol/L (3.5-5.1); Sodium Level 139 mmol/L (136-145); Troponin (Emerg Dept Use Only) < 0.02 ng/mL (0.0-0.045)
[2020-02-21 17:17] LABS: Urine Blood NEGATIVE (NEG); Urine Glucose NEGATIVE (NEG); Urine Protein NEGATIVE (NEG); Urine pH 5.5 (5.0-7.0)
--- OUTSIDE RECORDS SUMMARY | 2020-02-21 17:34 | XMS REPORT | Clinical Summary ---
:1945 [address] [facility] Address [address] [place] [address] Care Team Providers Name Role Phone Kayleen Benji Primary Care Provider Unavailable Allergies No Known Allergies Medications Medication Sig Dispensed Refills Start Date End Date Status minocycline Take 100 mg by 0 Act alla (MINOCIN,DYNACIN) 100 MG mouth daily. capsule pantoprazole (PROTONIX) Take 40 mg by 0 Active 40 MG tablet mouth daily. aspirin 81 MG EC tablet Take 81 mg by 0 Active mouth daily. ferrous sulfate 325 (65 Take 325 mg by 0 Active FE) MG tablet mouth daily with breakfast. metoprolol (TOPROL-XL) Take 25 mg by 0 Active 25 MG 24 hr tablet mouth daily. Active Problems Problem Noted Date Hypertension 09/09/2017 Rosacea 09/09/2017 CAD (coronary artery disease) 09/09/2017 Acute respiratory insufficiency Paroxysmal atrial fibrillation with RVR Acute blood loss anemia Thrombocytopenia Hyperglycemia Social History Tobacco Use Types Packs/Day Years Used Date Former Smoker 10 16 Quit: 2012 Smokeless Tobacco: Never Used Alcohol Use Drinks/Week oz/Week Comments Yes occasionally Sex Assigned at Date Recorded Not on file Job Start Date Occupation Industry Not on file Not on file Not on file Travel History Travel Start Travel End No recent travel history available. Last Filed Vital Signs Not on file Plan of Treatment Not on file Implants Implanted Type Area Shoe Stamper Device Shelf Model / Identifier Expiration Serial / Date Lot Sut Surg Stl 7 18g 18in Mls Mp M655g - Sn/A [place]/[employer]rosc[employer] N/A: J &J:ETHICON 06/21/2022 M655G / Implanted: Qty: 2 on 09/10/2017 by Mike Price MD y Gianni armstrong N/A / [id number] Sut Surg Stl 7 18g 18in Mls Mp M655g - Sn/A [place]/Arthroscop N/A: J &J:ETHICON 06/21/2022 [id number] / Implanted: Qty: 4 on 09/10/2017 by Mike Price MD y Gianni N/A / [id number] Sternal Zipfix Ndl Strl .001.20s - Sn/A Cardiovascular N/ A: SYNTHES:SYNTHE 06/21/2022.001.20S / Implanted: Qty: 1 on 09/10/2017 by Mike Price MD [facility] N/A / [id number] Results Not on fileafter 02/20/2019 Insurance Payer Benefit Plan / Group Subscriber ID Type Phone A ddress MEDICARE MEDICARE A B xxxxxxxxxx Medicare AETNA - MGD CARE AETNA INDEMNITY NON CONTR xxxxxxxxx Comm Advance Directives For more information, please contact:[address] [phone] Code Status Date Activated Date Inactivated Comments Full Code 09/09/2017 7:12 PM 09/18/2017 2:49 PM This code status was determined by: Patient Full Code 09/09/2017 7:39 AM 09/09/2017 7:12 PM This code status was determined by: Patient
--- OUTSIDE RECORDS SUMMARY | 2020-02-21 17:36 | XMS REPORT | Continuity of Care Document ---
:1945 Author Organization [facility] t Address [address] [place] [address] Dr. V[address] [place] [address] Care Team Providers Name Role Phone BILL PRICE Attending Clinician Unavailable BILL PRICE Admitting Clinician Unavailable Problems This patient has no known problems. Allergies, Adverse Reactions, Alerts This patient has no known allergies or adverse reactions. Medications This patient has no known medications. Procedures This patient has no known procedures. Results Test Description Test Time Test Comments Results Result Comments Source BASIC METABOLIC PANEL 2017-09-18 11:11:00 Test Item Value Reference Range Interpretation Comme nts SODIUM (BEAKER) (test code 135 meq/L 136-145 L = 381) POTASSIUM (BEAKER) (test 4.4 meq/L 3.5-5.1 code = 379) CHLORIDE (BEAKER) (test 106 meq/L 98-107 code = 382) CO2 (BEAKER) (test code = 22 meq/L 22-29 355) BLOOD UREA NITROGEN 16 mg/dL 7-21 (BEAKER) (test code = 354) CREATININE (BEAKER) (test 0.82 mg/dL 0.57-1.25 code = 358) GLUCOSE RANDOM (BEAKER) 147 mg/dL 70-105 H (test code = 652) CALCIUM (BEAKER) (test code 8.4 mg/dL 8.4-10.2 = 697) EGFR (BEAKER) (test code = 93 mL/min/1.73 sq m ESTIMATED GFR IS NOT 1092) ACCURATE CRE ATININE CLEARANCE IN [place] EDICTING GLOMERULAR FILT RATION RATE. ESTIMATED GFR IS NOT APPLICABLE FOR DIALYSIS PATIENTS. CBC W/PLT COUNT & AUTO [id number] 09:19:00 Test Item Value Reference Range Interpretation Comments WHITE BLOOD CELL COUNT (BEAKER) 12.1 K/ L 3.5-10.5 H (test code = 775) RED BLOOD CELL COUNT (BEAKER) 3.66 M/ L 4.63-6.08 L (test code = 761) HEMOGLOBIN (BEAKER) (test code = 9.2 GM/DL 13.7-17.5 L 410) HEMATOCRIT (BEAKER) (test code = 29.2 % 40.1-51.0 L 411) MEAN CORPUSCULAR VOLUME (BEAKER) 79.8 fL 79.0-92.2 (test code = 753) MEAN CORPUSCULAR HEMOGLOBIN 25.1 pg 25.7-32.2 L (BEAKER) (test code = 751) MEAN CORPUSCULAR HEMOGLOBIN CONC 31.5 GM/DL 32.3-36.5 L (BEAKER) (test code = 752) RED CELL DISTRIBUTION WIDTH 16.2 % 11.6-14.4 H (BEAKER) (test code = 412) PLATELET COUNT (BEAKER) (test 224 K/CU MM 150-450 code = 756) MEAN PLATELET VOLUME (BEAKER) 10.9 fL 9.4-12.4 (test code = 754) NUCLEATED RED BLOOD CELLS 0 /100 WBC 0-0 (BEAKER) (test code = 413) NEUTROPHILS RELATIVE PERCENT 72 % (BEAKER) (test code = 429) LYMPHOCYTES RELATIVE PERCENT 13 % (BEAKER) (test code = 430) MONOCYTES RELATIVE PERCENT 6 % (BEAKER) (test code = 431) EOSINOPHILS RELATIVE PERCENT 4 % (BEAKER) (test code = 432) BASOPHILS RELATIVE PERCENT 0 % (BEAKER) (test code = 437) NEUTROPHILS ABSOLUTE COUNT 8.68 K/ L 1.78-5.38 H (BEAKER) (test code = 670) LYMPHOCYTES ABSOLUTE COUNT 1.61 K/ L 1.32-3.57 (BEAKER) (test code = 414) MONOCYTES ABSOLUTE COUNT (BEAKER) 0.74 K/ L 0.30-0.82 (test code = 415) EOSINOPHILS ABSOLUTE COUNT 0.44 K/ L 0.04-0.54 (BEAKER) (test code = 416) BASOPHILS ABSOLUTE COUNT (BEAKER) 0.04 K/ L 0.01-0.08 (test code = 417) IMMATURE GRANULOCYTES-RELATIVE 5 % 0-1 H PERCENT (BEAKER) (test code = 2801) TISSUE [id number] 17:27:00Surgical Pathology Report Case: [id number] Authorizing Provider: Mkie Price MD Collected: 09/10/2017 1045 Ordering Location: [facility] Received: 09/10/2017 1314 PERIOPERATIVE SERVICES Pathologist: Darcy Duque MD Specimen: Plaque, LEFT OM1 ARTERY PLAQUE TISSUE SUBMITTED LEFT OM1 ARTERY PLAQUE: - ATHEROSCLEROTIC PLAQUE WITH CALCIFICATIONS Signing Pathologist Direct Phone Line: [phone] signed by Darcy Duque MD on 09/17/2017 at 5:27 [id number]; [id number] artery plaque Specimen is received in saline labeled with the patient's information and labeled "left artery plaque" and consists of a velasquez, off-white, tubular shaped segment of calcified tissue measuring 1.2 cm in length x 0.3 cm in diameter. The specimen is sectioned and submitted entirely in A1 for decalcification. CG/ew PERFORMEDCBC W/PLT COUNT & AUTO [id number] 13:19:00 Test Item Value Reference Range Interpretation Comments WHITE BLOOD CELL COUNT (BEAKER) 14.0 K/ L 3.5-10.5 H (test code = 775) RED BLOOD CELL COUNT (BEAKER) 3.80 M/ L 4.63-6.08 L (test code = 761) HEMOGLOBIN (BEAKER) (test code = 9.2 GM/DL 13.7-17.5 L 410) HEMATOCRIT (BEAKER) (test code = 30.5 % 40.1-51.0 L 411) MEAN CORPUSCULAR VOLUME (BEAKER) 80.3 fL 79.0-92.2 (test code = 753) MEAN CORPUSCULAR HEMOGLOBIN 24.2 pg 25.7-32.2 L (BEAKER) (test code = 751) MEAN CORPUSCULAR HEMOGLOBIN CONC 30.2 GM/DL 32.3-36.5 L (BEAKER) (test code = 752) RED CELL DISTRIBUTION WIDTH 16.1 % 11.6-14.4 H (BEAKER) (test code = 412) PLATELET COUNT (BEAKER) (test 192 K/CU MM 150-450 code = 756) MEAN PLATELET VOLUME (BEAKER) 11.3 fL 9.4-12.4 (test code = 754) NUCLEATED RED BLOOD CELLS 0 /100 WBC 0-0 (BEAKER) (test code = 413) NEUTROPHILS RELATIVE PERCENT 68 % (BEAKER) (test code = 429) LYMPHOCYTES RELATIVE PERCENT 16 % (BEAKER) (test code = 430) MONOCYTES RELATIVE PERCENT 9 % (BEAKER) (test code = 431) EOSINOPHILS RELATIVE PERCENT 4 % (BEAKER) (test code = 432) BASOPHILS RELATIVE PERCENT 0 % (BEAKER) (test code = 437) NEUTROPHILS ABSOLUTE COUNT 9.46 K/ L 1.78-5.38 H (BEAKER) (test code = 670) LYMPHOCYTES ABSOLUTE COUNT 2.18 K/ L 1.32-3.57 (BEAKER) (test code = 414) MONOCYTES ABSOLUTE COUNT (BEAKER) 1.25 K/ L 0.30-0.82 H (test code = 415) EOSINOPHILS ABSOLUTE COUNT 0.50 K/ L 0.04-0.54 (BEAKER) (test code = 416) BASOPHILS ABSOLUTE COUNT (BEAKER) 0.05 K/ L 0.01-0.08 (test code = 417) IMMATURE GRANULOCYTES-RELATIVE 4 % 0-1 H PERCENT (BEAKER) (test code = 2801) RAD, CHEST, 1 VIEW, NON [id number] 12:21:00Reason for exam:->atelectasis ? wheezeShould this be [...] clavicular fracture is again seen. Signed: Jose Cote MDReport Verified Date/Time: 09/16/2017 12:21:35 Reading Location: [facility] Radiology Reading Room BASI METABOLIC [id number] 09:07:00 Test Item Value Reference Range Interpretation Comments SODIUM (BEAKER) 134 meq/L 136-145 L (test code = 381) POTASSIUM (BEAKER) 4.5 meq/L 3.5-5.1 Specimen slightly (test code = 379) hemolyzed CHLORIDE (BEAKER) 107 meq/L 98-107 (test code = 382) CO2 (BEAKER) (test 17 meq/L 22-29 L code = 355) BLOOD UREA NITROGEN 15 mg/dL 7-21 (BEAKER) (test code = 354) CREATININE (BEAKER) 0.83 mg/dL 0.57-1.25 Specimen slightly (test code = 358) hemolyzed GLUCOSE RANDOM 96 mg/dL 70-105 (BEAKER) (test code = 652) CALCIUM (BEAKER) 8.7 mg/dL 8.4-10.2 (test code = 697) EGFR (BEAKER) (test 91 mL/min/1.73 ESTIMA DAGOBERTO GFR IS code = 1092) sq m NOT ACCURATE CREATININE CLEARANCE IN PREDICTING GLOMERULAR FILTRATION RATE . ESTIMATED GFR I S NOT APPLICABLE FOR DIALYSIS PATIEN TS. [id number] 07:48:00 Test Item Value Reference Range Interpretation Comments PHOSPHORUS (BEAKER) (test code = 3.4 mg/dL 2.3-4.7 604) [id number] 07:48:00 Test Item Value Reference Range Interpretation Comments MAGNESIUM (BEAKER) (test code = 2.0 mg/dL 1.6-2.6 627) BASIC METABOLIC [id number] 07:48:00 Test Item Value Reference Range Interpretation Comments SODIUM (BEAKER) 135 meq/L 136-145 L (test code = 381) POTASSIUM (BEAKER) 4.0 meq/L 3.5-5.1 (test code = 379) CHLORIDE (BEAKER) 103 meq/L 98-107 (test code = 382) CO2 (BEAKER) (test 25 meq/L 22-29 code = 355) BLOOD UREA NITROGEN 25 mg/dL 7-21 H (BEAKER) (test code = 354) CREATININE (BEAKER) 0.85 mg/dL 0.57-1.25 (test code = 358) GLUCOSE RANDOM 91 mg/dL 70-105 (BEAKER) (test code = 652) CALCIUM (BEAKER) 8.0 mg/dL 8.4-10.2 L (test code = 697) EGFR (BEAKER) (test 89 mL/min/1.73 ESTIMA DAGOBERTO GFR IS code = 1092) sq m NOT ACCURATE CREATININE CLEARANCE IN PREDICTING GLOMERULAR FILTRATION RATE . ESTIMATED GFR I S NOT APPLICABLE FOR DIALYSIS PATIEN TS. CBC W/PLT COUNT & AUTO [id number] 06:28:00 Test Item Value Reference Range Interpretation Comments WHITE BLOOD CELL COUNT (BEAKER) 10.5 K/ L 3.5-10.5 (test code = 775) RED BLOOD CELL COUNT (BEAKER) 3.51 M/ L 4.63-6.08 L (test code = 761) HEMOGLOBIN (BEAKER) (test code = 8.6 GM/DL 13.7-17.5 L 410) HEMATOCRIT (BEAKER) (test code = 27.8 % 40.1-51.0 L 411) MEAN CORPUSCULAR VOLUME (BEAKER) 79.2 fL 79.0-92.2 (test code = 753) MEAN CORPUSCULAR HEMOGLOBIN 24.5 pg 25.7-32.2 L (BEAKER) (test code = 751) MEAN CORPUSCULAR HEMOGLOBIN CONC 30.9 GM/DL 32.3-36.5 L (BEAKER) (test code = 752) RED CELL DISTRIBUTION WIDTH 16.0 % 11.6-14.4 H (BEAKER) (test code = 412) PLATELET COUNT (BEAKER) (test 138 K/CU MM 150-450 L code = 756) MEAN PLATELET VOLUME (BEAKER) 11.4 fL 9.4-12.4 (test code = 754) NUCLEATED RED BLOOD CELLS 0 /100 WBC 0-0 (BEAKER) (test code = 413) NEUTROPHILS RELATIVE PERCENT 67 % (BEAKER) (test code = 429) LYMPHOCYTES RELATIVE PERCENT 19 % (BEAKER) (test code = 430) MONOCYTES RELATIVE PERCENT 10 % (BEAKER) (test code = 431) EOSINOPHILS RELATIVE PERCENT 2 % (BEAKER) (test code = 432) BASOPHILS RELATIVE PERCENT 0 % (BEAKER) (test code = 437) NEUTROPHILS ABSOLUTE COUNT 7.04 K/ L 1.78-5.38 H (BEAKER) (test code = 670) LYMPHOCYTES ABSOLUTE COUNT 1.95 K/ L 1.32-3.57 (BEAKER) (test code = 414) MONOCYTES ABSOLUTE COUNT (BEAKER) 1.07 K/ L 0.30-0.82 H (test code = 415) EOSINOPHILS ABSOLUTE COUNT 0.25 K/ L 0.04-0.54 (BEAKER) (test code = 416) BASOPHILS ABSOLUTE COUNT (BEAKER) 0.01 K/ L 0.01-0.08 (test code = 417) IMMATURE GRANULOCYTES-RELATIVE 2 % 0-1 H PERCENT (BEAKER) (test code = 2801) CALCIUM, [id number] 06:25:00 Test Item Value Reference Range Interpretation Comments CALCIUM IONIZED (BEAKER) (test 1.02 mmol/L 1.12-1.27 L code = 698) PH, BLOOD (BEAKER) (test code = 7.39 1810) CBC W/PLT COUNT & AUTO [id number] 08:38:00 Test Item Value Reference Range Interpretation Comments WHITE BLOOD CELL COUNT (BEAKER) 15.7 K/ L 3.5-10.5 H (test code = 775) RED BLOOD CELL COUNT (BEAKER) 3.20 M/ L 4.63-6.08 L (test code = 761) HEMOGLOBIN (BEAKER) (test code = 7.9 GM/DL 13.7-17.5 L 410) HEMATOCRIT (BEAKER) (test code = 25.5 % 40.1-51.0 L 411) MEAN CORPUSCULAR VOLUME (BEAKER) 79.7 fL 79.0-92.2 (test code = 753) MEAN CORPUSCULAR HEMOGLOBIN 24.7 pg 25.7-32.2 L (BEAKER) (test code = 751) MEAN CORPUSCULAR HEMOGLOBIN CONC 31.0 GM/DL 32.3-36.5 L (BEAKER) (test code = 752) RED CELL DISTRIBUTION WIDTH 16.0 % 11.6-14.4 H (BEAKER) (test code = 412) PLATELET COUNT (BEAKER) (test code 98 K/CU MM 150-450 L = 756) MEAN PLATELET VOLUME (BEAKER) 11.3 fL 9.4-12.4 (test code = 754) NUCLEATED RED BLOOD CELLS (BEAKER) 0 /100 WBC 0-0 (test code = 413) NEUTROPHILS RELATIVE PERCENT 84 % (BEAKER) (test code = 429) LYMPHOCYTES RELATIVE PERCENT 8 % (BEAKER) (test code = 430) MONOCYTES RELATIVE PERCENT 7 % (BEAKER) (test code = 431) EOSINOPHILS RELATIVE PERCENT 0 % (BEAKER) (test code = 432) BASOPHILS RELATIVE PERCENT 0 % (BEAKER) (test code = 437) NEUTROPHILS ABSOLUTE COUNT 13.19 K/ L 1.78-5.38 H (BEAKER) (test code = 670) LYMPHOCYTES ABSOLUTE COUNT 1.21 K/ L 1.32-3.57 L (BEAKER) (test code = 414) MONOCYTES ABSOLUTE COUNT (BEAKER) 1.17 K/ L 0.30-0.82 H (test code = 415) EOSINOPHILS ABSOLUTE COUNT 0.01 K/ L 0.04-0.54 L (BEAKER) (test code = 416) BASOPHILS ABSOLUTE COUNT (BEAKER) 0.01 K/ L 0.01-0.08 (test code = 417) IMMATURE GRANULOCYTES-RELATIVE 1 % 0-1 PERCENT (BEAKER) (test code = 2801) RAD, CHEST, 1 VIEW, NON [id number] 07:45:00Reason for exam:->s/p cardiac surgeryFINAL REPORT HISTORY [...] Signed: Claire Sutherland MDReport Verified Date/Time: 09/13/2017 07:45:50 Reading Location: [facility] [address] [place] [address] Reading Room [id number] 07:22:00 Test Item Value Reference Range Interpretation Comments MAGNESIUM (BEAKER) 2.1 mg/dL 1.6-2.6 Specimen slightly (test code = 627) hemolyzed [id number] 07:22:00 Test Item Value Reference Range Interpretation Comments PHOSPHORUS (BEAKER) 3.3 mg/dL 2.3-4.7 Specimen slightly (test code = 604) hemolyzed BASIC METABOLIC [id number] 07:22:00 Test Item Value Reference Range Interpretation Comments SODIUM (BEAKER) 134 meq/L 136-145 L (test code = 381) POTASSIUM (BEAKER) 4.1 meq/L 3.5-5.1 Specimen slightly (test code = 379) hemolyzed CHLORIDE (BEAKER) 102 meq/L 98-107 (test code = 382) CO2 (BEAKER) (test 23 meq/L 22-29 code = 355) BLOOD UREA NITROGEN 27 mg/dL 7-21 H (BEAKER) (test code = 354) CREATININE (BEAKER) 0.85 mg/dL 0.57-1.25 Specimen slightly (test code = 358) hemolyzed GLUCOSE RANDOM 122 mg/dL 70-105 H (BEAKER) (test code = 652) CALCIUM (BEAKER) 8.0 mg/dL 8.4-10.2 L (test code = 697) EGFR (BEAKER) (test 89 mL/min/1.73 ESTIMA DAGOBERTO GFR IS code = 1092) sq m NOT ACCURATE CREATININE CLEARANCE IN PREDICTING GLOMERULAR FILTRATION RATE . ESTIMATED GFR I S NOT APPLICABLE FOR DIALYSIS PATIEN TS. POCT-GLUCOSE [id number] 17:00:00 Test Item Value Reference Range Interpretation Comments POC-GLUCOSE METER 258 mg/dL 70-[address] [facility] 6720 (BEAKER) (test code = [facility] 1538) [id number] POCT-GLUCOSE [id number] 16:40:00 Test Item Value Reference Range Interpretation Comments POC-GLUCOSE METER 123 mg/dL 70-[address] [facility] 6720 (BEAKER) (test code = [facility] 1538) [address] [id number] 08:08:00 Test Item Value Reference Range Interpretation Comments PHOSPHORUS (BEAKER) (test code = 3.3 mg/dL 2.3-4.7 604) [id number] 08:08:00 Test Item Value Reference Range Interpretation Comments MAGNESIUM (BEAKER) (test code = 2.3 mg/dL 1.6-2.6 627) BASIC METABOLIC [id number] 08:08:00 Test Item Value Reference Range Interpretation Comments SODIUM (BEAKER) 137 meq/L 136-145 (test code = 381) POTASSIUM (BEAKER) 4.5 meq/L 3.5-5.1 (test code = 379) CHLORIDE (BEAKER) 106 meq/L 98-107 (test code = 382) CO2 (BEAKER) (test 23 meq/L 22-29 code = 355) BLOOD UREA NITROGEN 28 mg/dL 7-21 H (BEAKER) (test code = 354) CREATININE (BEAKER) 0.86 mg/dL 0.57-1.25 (test code = 358) GLUCOSE RANDOM 159 mg/dL 70-105 H (BEAKER) (test code = 652) CALCIUM (BEAKER) 8.4 mg/dL 8.4-10.2 (test code = 697) EGFR (BEAKER) (test 88 mL/min/1.73 ESTIMA DAGOBERTO GFR IS code = 1092) sq m NOT ACCURATE CREATININE CLEARANCE IN PREDICTING GLOMERULAR FILTRATION RATE . ESTIMATED GFR I S NOT APPLICABLE FOR DIALYSIS PATIEN TS. RAD, CHEST, 1 VIEW, NON [id number] 07:59:00Reason for exam:->s/p cardiac surgeryFINAL REPORT AP chest HISTORY: Cardiac surgery COMPARISON: 09/11/2017 IMPRESSION:Endotracheal tube removed. Remainder of support lines unchanged. Cardiomegaly similar to previous. Some interval improvement in pulmonary expansion. Interstitial edema appears stable to slightly improved. Trace effusions. No pneumothorax. Signed: Sterling Bolton MDReport Verified Date/Time: 09/12/2017 07:59:49 Reading Location: [facility] Radiology Reading Room CBC W/PLT COUNT & AUTO [id number] 06:44:00 Test Item Value Reference Range Interpretation Comments WHITE BLOOD CELL COUNT (BEAKER) 14.3 K/ L 3.5-10.5 H (test code = 775) RED BLOOD CELL COUNT (BEAKER) 3.26 M/ L 4.63-6.08 L (test code = 761) HEMOGLOBIN (BEAKER) (test code = 7.9 GM/DL 13.7-17.5 L 410) HEMATOCRIT (BEAKER) (test code = 25.8 % 40.1-51.0 L 411) MEAN CORPUSCULAR VOLUME (BEAKER) 79.1 fL 79.0-92.2 (test code = 753) MEAN CORPUSCULAR HEMOGLOBIN 24.2 pg 25.7-32.2 L (BEAKER) (test code = 751) MEAN CORPUSCULAR HEMOGLOBIN CONC 30.6 GM/DL 32.3-36.5 L (BEAKER) (test code = 752) RED CELL DISTRIBUTION WIDTH 16.1 % 11.6-14.4 H (BEAKER) (test code = 412) PLATELET COUNT (BEAKER) (test code 91 K/CU MM 150-450 L = 756) MEAN PLATELET VOLUME (BEAKER) 12.3 fL 9.4-12.4 (test code = 754) NUCLEATED RED BLOOD CELLS (BEAKER) 0 /100 WBC 0-0 (test code = 413) NEUTROPHILS RELATIVE PERCENT 88 % (BEAKER) (test code = 429) LYMPHOCYTES RELATIVE PERCENT 6 % (BEAKER) (test code = 430) MONOCYTES RELATIVE PERCENT 5 % (BEAKER) (test code = 431) EOSINOPHILS RELATIVE PERCENT 0 % (BEAKER) (test code = 432) BASOPHILS RELATIVE PERCENT 0 % (BEAKER) (test code = 437) NEUTROPHILS ABSOLUTE COUNT 12.52 K/ L 1.78-5.38 H (BEAKER) (test code = 670) LYMPHOCYTES ABSOLUTE COUNT 0.87 K/ L 1.32-3.57 L (BEAKER) (test code = 414) MONOCYTES ABSOLUTE COUNT (BEAKER) 0.77 K/ L 0.30-0.82 (test code = 415) EOSINOPHILS ABSOLUTE COUNT 0.00 K/ L 0.04-0.54 L (BEAKER) (test code = 416) BASOPHILS ABSOLUTE COUNT (BEAKER) 0.01 K/ L 0.01-0.08 (test code = 417) IMMATURE GRANULOCYTES-RELATIVE 1 % 0-1 PERCENT (BEAKER) (test code = 2801) LACTIC ACID, ARTERIAL, WHOLE [id number] 05:23:00 Test Item Value Reference Range Interpretation Comments LACTATE BLOOD ARTERIAL (2) 1.0 mmol/L 0.5-2.2 (BEAKER) (test code = 2874) Effective 01/24/2016: Units/Reference Range ChangeNew: 0.5-2.2 mmol/L Previous: 5-20 mg/dLCALCIUM, [id number] 04:58:00 Test Item Value Reference Range Interpretation Comments CALCIUM IONIZED (BEAKER) (test 1.09 mmol/L 1.12-1.27 L code = 698) PH, BLOOD (BEAKER) (test code = 7.46 1810) OXYGEN SATURATION, [id number] 04:58:00 Test Item Value Reference Range Interpretation Comments O2 SATURATION (MEASURED) (BEAKER) 62.7 % (test code = 1455) POCT-GLUCOSE [id number] 22:35:00 Test Item Value Reference Range Interpretation Comments POC-GLUCOSE METER 178 mg/dL 70-110 H TESTED AT [place] [address] ([facility]) (test code = [facility] 1538) [id number] 18:51:00 Test Item Value Reference Range Interpretation Comments POTASSIUM (BEAKER) (test code = 4.4 meq/L 3.5-5.1 379) [id number] 18:51:00 Test Item Value Reference Range Interpretation Comments MAGNESIUM (BEAKER) (test code = 2.1 mg/dL 1.6-2.6 627) POCT-GLUCOSE [id number] 18:46:00 Test Item Value Reference Range Interpretation Comments POC-GLUCOSE METER 170 mg/dL 70-110 H TESTED AT [place] [address] ([facility]) (test code = [facility] 1538) [address] CALCIUM, [id number] 18:23:00 Test Item Value Reference Range Interpretation Comments CALCIUM IONIZED (BEAKER) (test 1.09 mmol/L 1.12-1.27 L code = 698) PH, BLOOD (BEAKER) (test code = 7.44 1810) BLOOD GAS, [id number] 15:01:00 Test Item Value Reference Range Interpretation Comments PH ARTERIAL (BEAKER) (test code = 7.43 7.35-7.45 383) PCO2 ARTERIAL (BEAKER) (test code 42 mmHg 35-45 = 384) PO2 ARTERIAL (BEAKER) (test code = 76 mmHg 80-90 L 385) O2 SATURATION ARTERIAL (BEAKER) 95.2 % 96.0-97.0 L (test code = 386) HCO3 ARTERIAL (BEAKER) (test code 27 mmol/L 21-29 = 388) BASE EXCESS ARTERIAL (BEAKER) 2.2 mmol/L -2.0-3.0 (test code = 387) PATIENT TEMPERATURE (BEAKER) (test 37.6 C code = 1818) FIO2 (BEAKER) (test code = 1819) 40.0 % POCT-GLUCOSE [id number] 13:46:00 Test Item Value Reference Range Interpretation Comments POC-GLUCOSE METER 166 mg/dL 70-110 H TESTED AT [place] [address] ([facility]) (test code = [facility] [address] [place] 1538) [id number] 13:40:00 Test Item Value Reference Range Interpretation Comments POTASSIUM (BEAKER) (test code = 4.3 meq/L 3.5-5.1 379) [id number] 13:40:00 Test Item Value Reference Range Interpretation Comments MAGNESIUM (BEAKER) (test code = 2.1 mg/dL 1.6-2.6 627) RAD, CHEST, 1 VIEW, NON [id number] 09:06:00Reason for exam:->postopShould this be performed at the bedside?->YesFINAL REPORT Chest one view. Clinical history: postop Comparison: 09/10/2017Discussion: A frontal chest is provided. Cardiomediastinal contours are unchanged. Lines and tubesare in stable position. There is vascular congestion. Slightly increased opacity at the left lowerlung may reflect progression of atelectasis/consolidation and a small superimposed effusion. Suspecttrace right effusion. No pneumothorax. Signed: Danna Gallego Verified Date/Time: 09/11/2017 09:06:00 Reading Location: [facility] Radiology Reading Room POCT-GLUCOSE [id number] 08:34:00 Test Item Value Reference Range Interpretation Comments POC-GLUCOSE METER 172 mg/dL 70-[address] [facility] 6720 ([facility]) (test code = [facility] [address] [place] 1538) [id number] CBC W/PLT COUNT & AUTO [id number] 04:19:00 Test Item Value Reference Range Interpretation Comments WHITE BLOOD CELL COUNT (BEAKER) 9.9 K/ L 3.5-10.5 (test code = 775) RED BLOOD CELL COUNT (BEAKER) 3.18 M/ L 4.63-6.08 L (test code = 761) HEMOGLOBIN (BEAKER) (test code = 7.9 GM/DL 13.7-17.5 L 410) HEMATOCRIT (BEAKER) (test code = 25.0 % 40.1-51.0 L 411) MEAN CORPUSCULAR VOLUME (BEAKER) 78.6 fL 79.0-92.2 L (test code = 753) MEAN CORPUSCULAR HEMOGLOBIN 24.8 pg 25.7-32.2 L (BEAKER) (test code = 751) MEAN CORPUSCULAR HEMOGLOBIN CONC 31.6 GM/DL 32.3-36.5 L (BEAKER) (test code = 752) RED CELL DISTRIBUTION WIDTH 15.8 % 11.6-14.4 H (BEAKER) (test code = 412) PLATELET COUNT (BEAKER) (test code 89 K/CU MM 150-450 L = 756) MEAN PLATELET VOLUME (BEAKER) 11.0 fL 9.4-12.4 (test code = 754) NUCLEATED RED BLOOD CELLS (BEAKER) 0 /100 WBC 0-0 (test code = 413) NEUTROPHILS RELATIVE PERCENT 82 % (BEAKER) (test code = 429) LYMPHOCYTES RELATIVE PERCENT 8 % (BEAKER) (test code = 430) MONOCYTES RELATIVE PERCENT 10 % (BEAKER) (test code = 431) EOSINOPHILS RELATIVE PERCENT 0 % (BEAKER) (test code = 432) BASOPHILS RELATIVE PERCENT 0 % (BEAKER) (test code = 437) NEUTROPHILS ABSOLUTE COUNT 8.08 K/ L 1.78-5.38 H (BEAKER) (test code = 670) LYMPHOCYTES ABSOLUTE COUNT 0.75 K/ L 1.32-3.57 L (BEAKER) (test code = 414) MONOCYTES ABSOLUTE COUNT (BEAKER) 0.99 K/ L 0.30-0.82 H (test code = 415) EOSINOPHILS ABSOLUTE COUNT 0.00 K/ L 0.04-0.54 L (BEAKER) (test code = 416) BASOPHILS ABSOLUTE COUNT (BEAKER) 0.00 K/ L 0.01-0.08 L (test code = 417) IMMATURE GRANULOCYTES-RELATIVE 1 % 0-1 PERCENT (BEAKER) (test code = 2801) [id number] 04:16:00 Test Item Value Reference Range Interpretation Comments PHOSPHORUS (BEAKER) (test code = 3.9 mg/dL 2.3-4.7 604) [id number] 04:16:00 Test Item Value Reference Range Interpretation Comments MAGNESIUM (BEAKER) (test code = 2.1 mg/dL 1.6-2.6 627) BASIC METABOLIC [id number] 04:16:00 Test Item Value Reference Range Interpretation Comments SODIUM (BEAKER) 138 meq/L 136-145 (test code = 381) POTASSIUM (BEAKER) 4.4 meq/L 3.5-5.1 (test code = 379) CHLORIDE (BEAKER) 108 meq/L 98-107 H (test code = 382) CO2 (BEAKER) (test 23 meq/L 22-29 code = 355) BLOOD UREA NITROGEN 13 mg/dL 7-21 (BEAKER) (test code = 354) CREATININE (BEAKER) 0.85 mg/dL 0.57-1.25 (test code = 358) GLUCOSE RANDOM 120 mg/dL 70-105 H (BEAKER) (test code = 652) CALCIUM (BEAKER) 7.9 mg/dL 8.4-10.2 L (test code = 697) EGFR (BEAKER) (test 89 mL/min/1.73 ESTIMA DAGOBERTO GFR IS code = 1092) sq m NOT ACCURATE CREATININE CLEARANCE IN PREDICTING GLOMERULAR FILTRATION RATE . ESTIMATED GFR I S NOT APPLICABLE FOR DIALYSIS PATIEN TS. POCT-GLUCOSE [id number] 04:15:00 Test Item Value Reference Range Interpretation Comments POC-GLUCOSE METER 135 mg/dL 70-[address] [facility] [address] (BEAKER) (test code = [place] 1538) [id number] BLOOD GAS, [id number] 03:44:00 Test Item Value Reference Range Interpretation Comments PH ARTERIAL (BEAKER) (test code = 7.48 7.35-7.45 H 383) PCO2 ARTERIAL (BEAKER) (test code 36 mmHg 35-45 = 384) PO2 ARTERIAL (BEAKER) (test code = 106 mmHg 80-90 H 385) O2 SATURATION ARTERIAL (BEAKER) 98.2 % 96.0-97.0 H (test code = 386) HCO3 ARTERIAL (BEAKER) (test code 26 mmol/L 21-29 = 388) BASE EXCESS ARTERIAL (BEAKER) 2.7 mmol/L -2.0-3.0 (test code = 387) PATIENT TEMPERATURE (BEAKER) (test 36.8 C code = 1818) FIO2 (BEAKER) (test code = 1819) 40.0 % POCT-GLUCOSE [id number] 03:10:00 Test Item Value Reference Range Interpretation Comments POC-GLUCOSE METER 128 mg/dL 70-[address] [facility] [address] (BEAKER) (test code = [place] 1538) [id number] LACTIC ACID, ARTERIAL, WHOLE [id number] 01:31:00 Test Item Value Reference Range Interpretation Comments LACTATE BLOOD ARTERIAL (2) 1.5 mmol/L 0.5-2.2 (BEAKER) (test code = 2874) Effective 01/24/2016: Units/Reference Range ChangeNew: 0.5-2.2 mmol/L Previous: 5-20 mg/dLBLOOD GAS, [id number] 01:20:00 Test Item Value Reference Range Interpretation Comments PH ARTERIAL (BEAKER) (test code = 7.39 7.35-7.45 383) PCO2 ARTERIAL (BEAKER) (test code 47 mmHg 35-45 H = 384) PO2 ARTERIAL (BEAKER) (test code = 90 mmHg 80-90 385) O2 SATURATION ARTERIAL (BEAKER) 96.8 % 96.0-97.0 (test code = 386) HCO3 ARTERIAL (BEAKER) (test code 28 mmol/L 21-29 = 388) BASE EXCESS ARTERIAL (BEAKER) 2.8 mmol/L -2.0-3.0 (test code = 387) PATIENT TEMPERATURE (BEAKER) (test 36.9 C code = 1818) FIO2 (BEAKER) (test code = 1819) 40.0 % GLUCOSE-STAT [id number] 01:20:00 Test Item Value Reference Range Interpretation Comments GLUCOSE RANDOM (BEAKER) (test code 123 mg/dL 70-110 H = 652) POCT-GLUCOSE [id number] 00:57:00 Test Item Value Reference Range Interpretation Comments POC-GLUCOSE METER 154 mg/dL 70-[address] [facility] 6720 (BEAKER) (test code = REHAN Jaimes [place] 1538) [id number] POCT-GLUCOSE [id number] 22:22:00 Test Item Value Reference Range Interpretation Comments POC-GLUCOSE METER 176 mg/dL 70-110 H TESTED AT [place] [id number] (BEAKER) (test code = REHAN Jaimes [place] 1538) [address] POCT-GLUCOSE [id number] 22:22:00 Test Item Value Reference Range Interpretation Comments POC-GLUCOSE METER 227 mg/dL 70-110 H TESTED AT [place] [address] (BEAKER) (test code = REHAN Jaimes [place] 1538) [address] LACTIC ACID, ARTERIAL, WHOLE [id number] 21:58:00 Test Item Value Reference Range Interpretation Comments LACTATE BLOOD ARTERIAL (2) 3.1 mmol/L 0.5-2.2 H (BEAKER) (test code = 2874) Effective 01/24/2016: Units/Reference Range ChangeNew: 0.5-2.2 mmol/L Previous: 5-20 mg/[id number] 21:58:00 Test Item Value Reference Range Interpretation Comments MAGNESIUM (BEAKER) (test code = 2.2 mg/dL 1.6-2.6 627) OXYGEN SATURATION, [id number] 21:27:00 Test Item Value Reference Range Interpretation Comments O2 SATURATION (MEASURED) (BEAKER) 75.9 % (test code = 1455) BLOOD GAS, [id number] 21:26:00 Test Item Value Reference Range Interpretation Comments PH ARTERIAL (BEAKER) (test code = 7.42 7.35-7.45 383) PCO2 ARTERIAL (BEAKER) (test code 41 mmHg 35-45 = 384) PO2 ARTERIAL (BEAKER) (test code = 152 mmHg 80-90 H 385) O2 SATURATION ARTERIAL (BEAKER) 99.0 % 96.0-97.0 H (test code = 386) HCO3 ARTERIAL (BEAKER) (test code 26 mmol/L 21-29 = 388) BASE EXCESS ARTERIAL (BEAKER) 1.2 mmol/L -2.0-3.0 (test code = 387) PATIENT TEMPERATURE (BEAKER) (test 37.7 C code = 1818) FIO2 (BEAKER) (test code = 1819) 60.0 % HGB/HCT (H&H) - STAT [id number] 21:26:00 Test Item Value Reference Range Interpretation Comments HEMOGLOBIN (BEAKER) (test code = 9.1 g/dL 13.0-16.8 L 410) HEMATOCRIT (BEAKER) (test code = 27.0 % 40.0-50.0 L 411) CALCIUM, [id number] 21:26:00 Test Item Value Reference Range Interpretation Comments CALCIUM IONIZED (BEAKER) (test 1.08 mmol/L 1.12-1.27 L code = 698) PH, BLOOD (BEAKER) (test code = 7.42 1810) BASIC METABOLIC [id number] 18:58:00 Test Item Value Reference Range Interpretation Comments SODIUM (BEAKER) 136 meq/L 136-145 (test code = 381) POTASSIUM (BEAKER) 4.8 meq/L 3.5-5.1 (test code = 379) CHLORIDE (BEAKER) 105 meq/L 98-107 (test code = 382) CO2 (BEAKER) (test 20 meq/L 22-29 L code = 355) BLOOD UREA NITROGEN 13 mg/dL 7-21 (BEAKER) (test code = 354) CREATININE (BEAKER) 0.98 mg/dL 0.57-1.25 (test code = 358) GLUCOSE RANDOM 246 mg/dL 70-105 H (BEAKER) (test code = 652) CALCIUM (BEAKER) 7.4 mg/dL 8.4-10.2 L (test code = 697) EGFR (BEAKER) (test 75 mL/min/1.73 ESTIMA DAGOBERTO GFR IS code = 1092) sq m NOT ACCURATE CREATININE CLEARANCE IN PREDICTING GLOMERULAR FILTRATION RATE . ESTIMATED GFR I S NOT APPLICABLE FOR DIALYSIS PATIEN TS. HEPATIC FUNCTION [id number] 18:54:00 Test Item Value Reference Range Interpretation Comments TOTAL PROTEIN (BEAKER) (test code = 5.5 gm/dL 6.0-8.3 L 770) ALBUMIN (BEAKER) (test code = 1145) 3.5 g/dL 3.5-5.0 BILIRUBIN TOTAL (BEAKER) (test code 0.7 mg/dL 0.2-1.2 = 377) BILIRUBIN DIRECT (BEAKER) (test 0.4 mg/dL 0.1-0.5 code = 706) ALKALINE PHOSPHATASE (BEAKER) (test 50 U/L 40-150 code = 346) AST (SGOT) (BEAKER) (test code = 54 U/L 5-34 H 353) ALT (SGPT) (BEAKER) (test code = 33 U/L 6-55 347) LACTIC ACID, ARTERIAL, WHOLE [id number] 17:19:00 Test Item Value Reference Range Interpretation Comments LACTATE BLOOD ARTERIAL (2) 9.2 mmol/L 0.5-2.2 H (BEAKER) (test code = 2874) Effective 01/24/2016: Units/Reference Range ChangeNew: 0.5-2.2 mmol/L Previous: 5-20 mg/dLPOCT-GLUCOSE [id number] 17:09:00 Test Item Value Reference Range Interpretation Comments POC-GLUCOSE METER 233 mg/dL 70-[address] [facility] 6720 (BEAKER) (test code = DEIRDREWALLY Theodore [place] 1538) [address] HEMOGLOBIN AND [id number] 17:08:00 Test Item Value Reference Range Interpretation Comments HEMOGLOBIN (BEAKER) (test code = 9.1 GM/DL 13.7-17.5 L 410) HEMATOCRIT (BEAKER) (test code = 29.2 % 40.1-51.0 L 411) BLOOD GAS, [id number] 17:03:00 Test Item Value Reference Range Interpretation Comments PH ARTERIAL (BEAKER) (test code = 7.29 7.35-7.45 L 383) PCO2 ARTERIAL (BEAKER) (test code 42 mm Hg 35-45 = 384) PO2 ARTERIAL (BEAKER) (test code 175 mm Hg 80-90 H = 385) O2 SATURATION ARTERIAL (BEAKER) 99.0 % 96.0-97.0 H (test code = 386) HCO3 ARTERIAL (BEAKER) (test code 20 mmol/L 21-29 L = 388) BASE EXCESS ARTERIAL (BEAKER) -6.3 mmol/L -2.0-3.0 L (test code = 387) PATIENT TEMPERATURE (BEAKER) 36.9 (test code = 1818) FIO2 (BEAKER) (test code = 1819) 60 BLOOD GAS, [id number] 16:14:00 Test Item Value Reference Range Interpretation Comments PH ARTERIAL (BEAKER) (test code = 7.29 7.35-7.45 L 383) PCO2 ARTERIAL (BEAKER) (test code 41 mmHg 35-45 = 384) PO2 ARTERIAL (BEAKER) (test code 169 mmHg 80-90 H = 385) O2 SATURATION ARTERIAL (BEAKER) 99.0 % 96.0-97.0 H (test code = 386) HCO3 ARTERIAL (BEAKER) (test code 19 mmol/L 21-29 L = 388) BASE EXCESS ARTERIAL (BEAKER) -7.2 mmol/L -2.0-3.0 L (test code = 387) PATIENT TEMPERATURE (BEAKER) 36.8 C (test code = 1818) FIO2 (BEAKER) (test code = 1819) 60.0 % CBC (HEMOGRAM ONLY)[id number] 15:59:00 Test Item Value Reference Range Interpretation Comments WHITE BLOOD CELL COUNT (BEAKER) 27.2 K/ L 3.5-10.5 H (test code = 775) RED BLOOD CELL COUNT (BEAKER) 3.92 M/ L 4.63-6.08 L (test code = 761) HEMOGLOBIN (BEAKER) (test code = 9.7 GM/DL 13.7-17.5 L 410) HEMATOCRIT (BEAKER) (test code = 31.4 % 40.1-51.0 L 411) MEAN CORPUSCULAR VOLUME (BEAKER) 80.1 fL 79.0-92.2 (test code = 753) MEAN CORPUSCULAR HEMOGLOBIN 24.7 pg 25.7-32.2 L (BEAKER) (test code = 751) MEAN CORPUSCULAR HEMOGLOBIN CONC 30.9 GM/DL 32.3-36.5 L (BEAKER) (test code = 752) RED CELL DISTRIBUTION WIDTH 15.6 % 11.6-14.4 H (BEAKER) (test code = 412) PLATELET COUNT (BEAKER) (test 126 K/CU MM 150-450 L code = 756) MEAN PLATELET VOLUME (BEAKER) 11.2 fL 9.4-12.4 (test code = 754) NUCLEATED RED BLOOD CELLS 0 /100 WBC 0-0 (BEAKER) (test code = 413) POTASSIUM-STAT [id number] 14:57:00 Test Item Value Reference Range Interpretation Comments POTASSIUM (BEAKER) (test code = 4.2 meq/L 3.6-5.5 379) BLOOD GAS, [id number] 14:57:00 Test Item Value Reference Range Interpretation Comments PH ARTERIAL (BEAKER) (test code = 7.26 7.35-7.45 L 383) PCO2 ARTERIAL (BEAKER) (test code 45 mmHg 35-45 = 384) PO2 ARTERIAL (BEAKER) (test code 208 mmHg 80-90 H = 385) O2 SATURATION ARTERIAL (BEAKER) 99.2 % 96.0-97.0 H (test code = 386) HCO3 ARTERIAL (BEAKER) (test code 20 mmol/L 21-29 L = 388) BASE EXCESS ARTERIAL (BEAKER) -6.9 mmol/L -2.0-3.0 L (test code = 387) PATIENT TEMPERATURE (BEAKER) 37.0 C (test code = 1818) FIO2 (BEAKER) (test code = 1819) 100.0 % SODIUM NA-STAT [id number] 14:57:00 Test Item Value Reference Range Interpretation Comments SODIUM (BEAKER) (test code = 381) 134 meq/L 135-148 L GLUCOSE-STAT [id number] 14:57:00 Test Item Value Reference Range Interpretation Comments GLUCOSE RANDOM (BEAKER) (test code 218 mg/dL 70-110 H = 652) HGB/HCT (H&H) - STAT [id number] 14:57:00 Test Item Value Reference Range Interpretation Comments HEMOGLOBIN (BEAKER) (test code = 10.5 g/dL 13.0-16.8 L 410) HEMATOCRIT (BEAKER) (test code = 31.0 % 40.0-50.0 L 411) LACTIC ACID, ARTERIAL, WHOLE [id number] 14:12:00 Test Item Value Reference Range Interpretation Comments LACTATE BLOOD 4.2 mmol/L 0.5-2.2 H Specimen sligh tly ARTERIAL (2) (BEAKER) hemoly zed (test code = 2874) Effective 01/24/2016: Units/Reference Range ChangeNew: 0.5-2.2 mmol/L Previous: 5-20 mg/dLBASIC METABOLIC [id number] 13:49:00 Test Item Value Reference Range Interpretation Comments SODIUM (BEAKER) 134 meq/L 136-145 L (test code = 381) POTASSIUM (BEAKER) 3.7 meq/L 3.5-5.1 Specimen slightly (test code = 379) hemolyzed CHLORIDE (BEAKER) 106 meq/L 98-107 (test code = 382) CO2 (BEAKER) (test 17 meq/L 22-29 L code = 355) BLOOD UREA NITROGEN 13 mg/dL 7-21 (BEAKER) (test code = 354) CREATININE (BEAKER) 0.92 mg/dL 0.57-1.25 Specimen slightly (test code = 358) hemolyzed GLUCOSE RANDOM 217 mg/dL 70-105 H (BEAKER) (test code = 652) CALCIUM (BEAKER) 7.6 mg/dL 8.4-10.2 L (test code = 697) EGFR (BEAKER) (test 81 mL/min/1.73 ESTIMA DAGOBERTO GFR IS code = 1092) sq m NOT ACCURATE CREATININE CLEARANCE IN PREDICTING GLOMERULAR FILTRATION RATE . ESTIMATED GFR I S NOT APPLICABLE FOR DIALYSIS PATIEN TS. [id number] 13:47:00 Test Item Value Reference Range Interpretation Comments MAGNESIUM (BEAKER) 2.2 mg/dL 1.6-2.6 Specimen slightly (test code = 627) hemolyzed [id number] 13:47:00 Test Item Value Reference Range Interpretation Comments POTASSIUM (BEAKER) 3.7 meq/L 3.5-5.1 Specimen slightly (test code = 379) hemolyzed [id number] 13:47:00 Test Item Value Reference Range Interpretation Comments GLUCOSE RANDOM (BEAKER) (test code 217 mg/dL 70-105 H = 652) BLOOD GAS, [id number] 13:17:00 Test Item Value Reference Range Interpretation Comments PH ARTERIAL (BEAKER) (test code = 7.32 7.35-7.45 L 383) PCO2 ARTERIAL (BEAKER) (test code 38 mmHg 35-45 = 384) PO2 ARTERIAL (BEAKER) (test code 189 mmHg 80-90 H = 385) O2 SATURATION ARTERIAL (BEAKER) 99.2 % 96.0-97.0 H (test code = 386) HCO3 ARTERIAL (BEAKER) (test code 19 mmol/L 21-29 L = 388) BASE EXCESS ARTERIAL (BEAKER) -6.5 mmol/L -2.0-3.0 L (test code = 387) PATIENT TEMPERATURE (BEAKER) 37.0 C (test code = 1818) FIO2 (BEAKER) (test code = 1819) 100.0 % SODIUM NA-STAT [id number] 13:17:00 Test Item Value Reference Range Interpretation Comments SODIUM (BEAKER) (test code = 381) 132 meq/L 135-148 L GLUCOSE-STAT [id number] 13:17:00 Test Item Value Reference Range Interpretation Comments GLUCOSE RANDOM (BEAKER) (test code 209 mg/dL 70-110 H = 652) HGB/HCT (H&H) - STAT [id number] 13:17:00 Test Item Value Reference Range Interpretation Comments HEMOGLOBIN (BEAKER) (test code = 11.3 g/dL 13.0-16.8 L 410) HEMATOCRIT (BEAKER) (test code = 33.0 % 40.0-50.0 L 411) POTASSIUM-STAT [id number] 13:15:00 Test Item Value Reference Range Interpretation Comments POTASSIUM (BEAKER) (test code = 3.7 meq/L 3.6-5.5 379) OXYGEN SATURATION, [id number] 13:15:00 Test Item Value Reference Range Interpretation Comments O2 SATURATION (MEASURED) (BEAKER) 72.7 % (test code = 1455) RAD, CHEST, 1 VIEW, NON [id number] 13:11:00Reason for exam:- >intubated/cardiac surgeryShould this be performed at the bedside?->Yes FINAL REPORT INDICATION: intubated/cardiac surgery COMPARISON: September 09, [...] In summary, no definite postoperative obligation. Signed: Mekhi Velasquez MDReport Verified Date/Time: 09/10/2017 13:11:58 Reading Location: [facility] B1 [id number] Ortho Consult Reading Room [id number] 12:12:00 Test Item Value Reference Range Interpretation Comments ACTIVATED CLOTTING TIME 109 sec TEST ED AT [place] [address] ([facility]) (test code = REH[place] [address]) [address] [id number] 12:12:00 Test Item Value Reference Range Interpretation Comments ACTIVATED CLOTTING TIME 412 sec TEST ED AT [place] [address] ([facility]) (test code = REHAN Jaimes [place] [address]) [address] [id number] 12:11:00 Test Item Value Reference Range Interpretation Comments ACTIVATED CLOTTING TIME 461 sec TEST ED AT [place] [address] ([facility]) (test code = RE[place] [address]) [address] [id number] 12:11:00 Test Item Value Reference Range Interpretation Comments ACTIVATED CLOTTING TIME 527 sec TEST ED AT [place] [address] ([facility]) (test code = RE[place] 441) [address] [id number] 12:11:00 Test Item Value Reference Range Interpretation Comments ACTIVATED CLOTTING TIME 494 sec TEST ED AT [place] [address] ([facility]) (test code = REHAN Jaimes [place] [address]) [address] PROTHROMBIN [id number] 12:07:00 Test Item Value Reference Range Interpretation Comments PROTIME ([facility]) (test code = 18.3 seconds 11.7-14.7 H 759) INR ([facility]) (test code = 370) 1.5 <=5.9 RECOMMENDED COUMADIN/WARFARIN INR THERAPY RANGESSTANDARD DOSE: 2.0 - 3.0 Includes: PROPHYLAXIS forvenous thrombosis, systemic embolization; TREATMENT for venous thrombosis and/or pulmonary embolus.HIGH RISK: Target INR is 2.5-3.5 for patients with mechanical heart valves.[id number] 12:07:00 Test Item Value Reference Range Interpretation Comments FIBRINOGEN LEVEL ([facility]) (test 248 mg/dl 225-434 code = 658) [id number] 12:07:00 Test Item Value Reference Range Interpretation Comments PARTIAL THROMBOPLASTIN TIME 32.4 seconds 22.5-36.0 (BEAKER) (test code = 760) PLATELET [id number] 11:46:00 Test Item Value Reference Range Interpretation Comments PLATELET COUNT (BEAKER) (test 113 K/CU MM 150-450 L code = 756) BLOOD GAS, [id number] 11:25:00 Test Item Value Reference Range Interpretation Comments PH ARTERIAL (BEAKER) (test code = 7.45 7.35-7.45 383) PCO2 ARTERIAL (BEAKER) (test code 31 mmHg 35-45 L = 384) PO2 ARTERIAL (BEAKER) (test code 381 mmHg 80-90 H = 385) O2 SATURATION ARTERIAL (BEAKER) 99.8 % 96.0-97.0 H (test code = 386) HCO3 ARTERIAL (BEAKER) (test code 21 mmol/L 21-29 = 388) BASE EXCESS ARTERIAL (BEAKER) -2.6 mmol/L -2.0-3.0 L (test code = 387) PATIENT TEMPERATURE (BEAKER) 35.7 C (test code = 1818) FIO2 (BEAKER) (test code = 1819) 100.0 % SODIUM NA-STAT [id number] 11:25:00 Test Item Value Reference Range Interpretation Comments SODIUM (BEAKER) (test code = 381) 129 meq/L 135-148 L GLUCOSE-STAT [id number] 11:25:00 Test Item Value Reference Range Interpretation Comments GLUCOSE RANDOM (BEAKER) (test code 158 mg/dL 70-110 H = 652) HGB/HCT (H&H) - STAT [id number] 11:25:00 Test Item Value Reference Range Interpretation Comments HEMOGLOBIN (BEAKER) (test code = 9.4 g/dL 13.0-16.8 L 410) HEMATOCRIT (BEAKER) (test code = 28.0 % 40.0-50.0 L 411) CALCIUM, [id number] 11:25:00 Test Item Value Reference Range Interpretation Comments CALCIUM IONIZED (BEAKER) (test 1.10 mmol/L 1.12-1.27 L code = 698) PH, BLOOD (BEAKER) (test code = 7.43 1810) POTASSIUM-STAT [id number] 11:22:00 Test Item Value Reference Range Interpretation Comments POTASSIUM (BEAKER) (test code = 4.6 meq/L 3.6-5.5 379) BLOOD GAS, [id number] 10:50:00 Test Item Value Reference Range Interpretation Comments PH ARTERIAL (BEAKER) (test code = 7.34 7.35-7.45 L 383) PCO2 ARTERIAL (BEAKER) (test code 44 mmHg 35-45 = 384) PO2 ARTERIAL (BEAKER) (test code 379 mmHg 80-90 H = 385) O2 SATURATION ARTERIAL (BEAKER) 99.8 % 96.0-97.0 H (test code = 386) HCO3 ARTERIAL (BEAKER) (test code 23 mmol/L 21-29 = 388) BASE EXCESS ARTERIAL (BEAKER) -2.3 mmol/L -2.0-3.0 L (test code = 387) PATIENT TEMPERATURE (BEAKER) 36.9 C (test code = 1818) FIO2 (BEAKER) (test code = 1819) 90.0 % SODIUM NA-STAT [id number] 10:50:00 Test Item Value Reference Range Interpretation Comments SODIUM (BEAKER) (test code = 381) 128 meq/L 135-148 L GLUCOSE-STAT [id number] 10:50:00 Test Item Value Reference Range Interpretation Comments GLUCOSE RANDOM (BEAKER) (test code 153 mg/dL 70-110 H = 652) HGB/HCT (H&H) - STAT [id number] 10:50:00 Test Item Value Reference Range Interpretation Comments HEMOGLOBIN (BEAKER) (test code = 8.6 g/dL 13.0-16.8 L 410) HEMATOCRIT (BEAKER) (test code = 25.0 % 40.0-50.0 L 411) POTASSIUM-STAT [id number] 10:50:00 Test Item Value Reference Range Interpretation Comments POTASSIUM (BEAKER) (test code = 6.1 meq/L 3.6-5.5 HH 379) POTASSIUM-STAT [id number] 10:26:00 Test Item Value Reference Range Interpretation Comments POTASSIUM (BEAKER) (test code = 6.3 meq/L 3.6-5.5 HH 379) BLOOD GAS, [id number] 10:25:00 Test Item Value Reference Range Interpretation Comments PH ARTERIAL (BEAKER) (test code = 7.45 7.35-7.45 383) PCO2 ARTERIAL (BEAKER) (test code 33 mmHg 35-45 L = 384) PO2 ARTERIAL (BEAKER) (test code 308 mmHg 80-90 H = 385) O2 SATURATION ARTERIAL (BEAKER) 99.7 % 96.0-97.0 H (test code = 386) HCO3 ARTERIAL (BEAKER) (test code 23 mmol/L 21-29 = 388) BASE EXCESS ARTERIAL (BEAKER) -1.6 mmol/L -2.0-3.0 (test code = 387) PATIENT TEMPERATURE (BEAKER) 34.6 C (test code = 1818) FIO2 (BEAKER) (test code = 1819) 75.0 % SODIUM NA-STAT [id number] 10:25:00 Test Item Value Reference Range Interpretation Comments SODIUM (BEAKER) (test code = 381) 124 meq/L 135-148 L GLUCOSE-STAT [id number] 10:25:00 Test Item Value Reference Range Interpretation Comments GLUCOSE RANDOM (BEAKER) (test code 143 mg/dL 70-110 H = 652) HGB/HCT (H&H) - STAT [id number] 10:25:00 Test Item Value Reference Range Interpretation Comments HEMOGLOBIN (BEAKER) (test code = 7.6 g/dL 13.0-16.8 L 410) HEMATOCRIT (BEAKER) (test code = 22.0 % 40.0-50.0 L 411) BLOOD GAS, [id number] 10:07:00 Test Item Value Reference Range Interpretation Comments PH VENOUS (BEAKER) (test code = 7.36 7.32-7.42 701) PCO2 VENOUS (BEAKER) (test code = 41 mmHg 41-51 755) PO2 VENOUS (BEAKER) (test code = 44 mmHg 25-40 H 702) O2 SATURATION VENOUS (BEAKER) 91.5 % 40.0-70.0 H (test code = 703) HCO3 VENOUS (BEAKER) (test code = 25 mmol/L 21-29 705) BASE EXCESS VENOUS (BEAKER) (test -2.3 mmol/L -2.0-3.0 L code = 704) PATIENT TEMPERATURE (BEAKER) 30.2 C (test code = 1818) FIO2 (BEAKER) (test code = 1819) 70.0 % BLOOD GAS, [id number] 10:06:00 Test Item Value Reference Range Interpretation Comments PH ARTERIAL (BEAKER) (test code = 7.38 7.35-7.45 383) PCO2 ARTERIAL (BEAKER) (test code 38 mmHg 35-45 = 384) PO2 ARTERIAL (BEAKER) (test code 388 mmHg 80-90 H = 385) O2 SATURATION ARTERIAL (BEAKER) 99.8 % 96.0-97.0 H (test code = 386) HCO3 ARTERIAL (BEAKER) (test code 24 mmol/L 21-29 = 388) BASE EXCESS ARTERIAL (BEAKER) -2.9 mmol/L -2.0-3.0 L (test code = 387) PATIENT TEMPERATURE (BEAKER) 30.2 C (test code = 1818) FIO2 (BEAKER) (test code = 1819) 70.0 % SODIUM NA-STAT [id number] 10:06:00 Test Item Value Reference Range Interpretation Comments SODIUM (BEAKER) (test code = 381) 125 meq/L 135-148 L GLUCOSE-STAT [id number] 10:06:00 Test Item Value Reference Range Interpretation Comments GLUCOSE RANDOM (BEAKER) (test code 126 mg/dL 70-110 H = 652) HGB/HCT (H&H) - STAT [id number] 10:06:00 Test Item Value Reference Range Interpretation Comments HEMOGLOBIN (BEAKER) (test code = 6.9 g/dL 13.0-16.8 L 410) HEMATOCRIT (BEAKER) (test code = 20.0 % 40.0-50.0 L 411) POTASSIUM-STAT [id number] 10:04:00 Test Item Value Reference Range Interpretation Comments POTASSIUM (BEAKER) (test code = 5.2 meq/L 3.6-5.5 379) CALCIUM, [id number] 08:57:00 Test Item Value Reference Range Interpretation Comments CALCIUM IONIZED (BEAKER) (test 1.02 mmol/L 1.12-1.27 L code = 698) PH, BLOOD (BEAKER) (test code = 7.45 1810) BLOOD GAS, [id number] 08:57:00 Test Item Value Reference Range Interpretation Comments PH ARTERIAL (BEAKER) (test code = 7.45 7.35-7.45 383) PCO2 ARTERIAL (BEAKER) (test code 37 mmHg 35-45 = 384) PO2 ARTERIAL (BEAKER) (test code = 401 mmHg 80-90 H 385) O2 SATURATION ARTERIAL (BEAKER) 99.8 % 96.0-97.0 H (test code = 386) HCO3 ARTERIAL (BEAKER) (test code 25 mmol/L 21-29 = 388) BASE EXCESS ARTERIAL (BEAKER) 1.5 mmol/L -2.0-3.0 (test code = 387) PATIENT TEMPERATURE (BEAKER) (test 37.1 C code = 1818) FIO2 (BEAKER) (test code = 1819) 98.0 % SODIUM NA-STAT [id number] 08:57:00 Test Item Value Reference Range Interpretation Comments SODIUM (BEAKER) (test code = 381) 129 meq/L 135-148 L GLUCOSE-STAT [id number] 08:57:00 Test Item Value Reference Range Interpretation Comments GLUCOSE RANDOM (BEAKER) (test code 115 mg/dL 70-110 H = 652) HGB/HCT (H&H) - STAT [id number] 08:57:00 Test Item Value Reference Range Interpretation Comments HEMOGLOBIN (BEAKER) (test code = 10.8 g/dL 13.0-16.8 L 410) HEMATOCRIT (BEAKER) (test code = 32.0 % 40.0-50.0 L 411) POTASSIUM-STAT [id number] 08:56:00 Test Item Value Reference Range Interpretation Comments POTASSIUM (BEAKER) (test code = 4.8 meq/L 3.6-5.5 379) COMPREHENSIVE METABOLIC [id number] 11:10:00 Test Item Value Reference Range Interpretation Comments TOTAL PROTEIN 6.5 gm/dL 6.0-8.3 (BEAKER) (test code = 770) ALBUMIN (BEAKER) 3.6 g/dL 3.5-5.0 (test code = 1145) ALKALINE PHOSPHATASE 83 U/L 40-150 (BEAKER) (test code = 346) BILIRUBIN TOTAL 0.5 mg/dL 0.2-1.2 (BEAKER) (test code = 377) SODIUM (BEAKER) (test 133 meq/L 136-145 L code = 381) POTASSIUM (BEAKER) 4.3 meq/L 3.5-5.1 (test code = 379) CHLORIDE (BEAKER) 103 meq/L 98-107 (test code = 382) CO2 (BEAKER) (test 22 meq/L 22-29 code = 355) BLOOD UREA NITROGEN 16 mg/dL 7-21 (BEAKER) (test code = 354) CREATININE (BEAKER) 0.82 mg/dL 0.57-1.25 (test code = 358) GLUCOSE RANDOM 117 mg/dL 70-105 H (BEAKER) (test code = 652) CALCIUM (BEAKER) 8.6 mg/dL 8.4-10.2 (test code = 697) AST (SGOT) (BEAKER) 41 U/L 5-34 H (test code = 353) ALT (SGPT) (BEAKER) 44 U/L 6-55 (test code = 347) EGFR (BEAKER) (test 93 mL/min/1.73 ESTIMA DAGOBERTO GFR IS code = 1092) sq m NOT ACCURATE CREATININE CLEARANCE IN PREDICTING GLOMERULAR FILTRATION RATE . ESTIMATED GFR I S NOT APPLICABLE FOR DIALYSIS PATIEN TS. CBC W/PLT COUNT & AUTO [id number] 10:41:00 Test Item Value Reference Range Interpretation Comments WHITE BLOOD CELL COUNT (BEAKER) 7.9 K/ L 3.5-10.5 (test code = 775) RED BLOOD CELL COUNT (BEAKER) 4.33 M/ L 4.63-6.08 L (test code = 761) HEMOGLOBIN (BEAKER) (test code = 10.2 GM/DL 13.7-17.5 L 410) HEMATOCRIT (BEAKER) (test code = 33.7 % 40.1-51.0 L 411) MEAN CORPUSCULAR VOLUME (BEAKER) 77.8 fL 79.0-92.2 L (test code = 753) MEAN CORPUSCULAR HEMOGLOBIN 23.6 pg 25.7-32.2 L (BEAKER) (test code = 751) MEAN CORPUSCULAR HEMOGLOBIN CONC 30.3 GM/DL 32.3-36.5 L (BEAKER) (test code = 752) RED CELL DISTRIBUTION WIDTH 15.6 % 11.6-14.4 H (BEAKER) (test code = 412) PLATELET COUNT (BEAKER) (test 156 K/CU MM 150-450 code = 756) MEAN PLATELET VOLUME (BEAKER) 11.6 fL 9.4-12.4 (test code = 754) NUCLEATED RED BLOOD CELLS 0 /100 WBC 0-0 (BEAKER) (test code = 413) NEUTROPHILS RELATIVE PERCENT 68 % (BEAKER) (test code = 429) LYMPHOCYTES RELATIVE PERCENT 15 % (BEAKER) (test code = 430) MONOCYTES RELATIVE PERCENT 12 % (BEAKER) (test code = 431) EOSINOPHILS RELATIVE PERCENT 3 % (BEAKER) (test code = 432) BASOPHILS RELATIVE PERCENT 1 % (BEAKER) (test code = 437) NEUTROPHILS ABSOLUTE COUNT 5.42 K/ L 1.78-5.38 H (BEAKER) (test code = 670) LYMPHOCYTES ABSOLUTE COUNT 1.20 K/ L 1.32-3.57 L (BEAKER) (test code = 414) MONOCYTES ABSOLUTE COUNT (BEAKER) 0.96 K/ L 0.30-0.82 H (test code = 415) EOSINOPHILS ABSOLUTE COUNT 0.22 K/ L 0.04-0.54 (BEAKER) (test code = 416) BASOPHILS ABSOLUTE COUNT (BEAKER) 0.04 K/ L 0.01-0.08 (test code = 417) IMMATURE GRANULOCYTES-RELATIVE 1 % 0-1 PERCENT (BEAKER) (test code = 2801) PROTHROMBIN [id number] 10:30:00 Test Item Value Reference Range Interpretation Comments PROTIME (BEAKER) (test code = 14.0 seconds 11.7-14.7 759) INR (BEAKER) (test code = 370) 1.1 <=5.9 RECOMMENDED COUMADIN/WARFARIN INR THERAPY RANGESSTANDARD DOSE: 2.0 - 3.0 Includes: PROPHYLAXIS forvenous thrombosis, systemic embolization; TREATMENT for venous thrombosis and/or pulmonary embolus.HIGH RISK: Target INR is 2.5-3.5 for patients with mechanical heart valves.RAD, CHEST, 1 VIEW, NON [id number] 09:27:00Reason for exam:->pre opShould this be performed at the bedside?->YesFINAL REPORT HISTORY : pre op. Comparison: None Comment: Single portable viewof the chest was obtained. The cardiac silhouette size is enlarged. There are findings of mild pulmonary venous congestion. There is a tortuous/ectatic thoracic aorta with some atherosclerotic calcification. No pneumothorax or pleural effusion is seen. There is some hazy opacity identified over the left lung base. Signed: Claire Sutherland Verified Date/Time: 09/09/2017 09:27:37 Reading Location: [facility] Radiology Reading Room
[2020-02-21 18:00] LABS: Thyroid Stimulating Hormone 4.09 uIU/mL (0.360-3.740)
--- NOTE | 2020-02-21 20:20 | ER ---
Nurse's Notes [facility] Name: Earl Mccoy Age: 74 yrs Sex: Male : 1945 Arrival Date: 02/21/2020 Time: 14:51 Bed 18 Private MD: Timothy Tobin R Diagnosis: Gastrointestinal hemorrhage, unspecified-SMALL BOWEL ORGIN, AVM'S;Anemia, unspecified;Atrial fibrillation and flutter-NEW ONSET;Obesity, unspecified;Unspecified combined systolic (congestive) and diastolic (congestive) heart failure Presentation: 02/20 15:03 Chief complaint: Patient states: Was going to be a direct admit for anemia and blood ll1 transfusion. We have no GI, so he has to be seen as ER patient per traffic warehouse supervisor. Coronavirus screen: Proceed with normal triage. Patient denies a cough. Patient denies shortness of breath or difficulty breathing. Patient denies measured and/or subjective temperature greater than 100.4F prior to today's visit. Patient denies travel on a cruise ship or to a country the [facility] currently lists as an affected area. Patient denies contact with known and/or suspected case of COVID-19. Ebola Screen: Patient denies travel to an Ebola-affected area in the 21 days before illness onset. Initial Sepsis Screen: Does the patient meet any 2 criteria? HR > 90 bpm. No. Patient's initial sepsis screen is negative. Risk Assessment: Do you want to hurt yourself or someone else? Patient reports no desire to harm self or others. Onset of symptoms was February 21, 2020. 15:03 Method Of Arrival: Wheelchair ll1 15:03 Acuity: JOAQUIN 3 ll1 20:41 Initial Sepsis Screen: Does the patient have a suspected source of infection? No. Patient's initial sepsis screen is negative. Historical: - Allergies: 15:05 No Known Allergies; ll1 - PMHx: 15:05 CAD; Hypertension; ll1 - PSHx: 15:05 quadruple bypass; R shoulder repair; ll1 - Immunization history:: Adult Immunizations up to date. - Social history:: Patient uses alcohol, only on a social basis. weekly. Patient/guardian denies using street drugs, tobacco products. Screenin:58 Abuse screen: Denies threats or abuse. Nutritional screening: No deficits noted. Tuberculosis screening: No symptoms or risk factors identified. Fall Risk None identified. Assessment: 15:30 General: Appears in no apparent distress. Pain: Denies pain. Neuro: Level of Consciousness is awake, alert. Cardiovascular: Heart tones S1 S2 present Capillary refill < 3 seconds Patient's skin is warm and dry. Pulses are palpable in right radial artery and left radial artery Rhythm is atrial fibrillation. Respiratory: Airway is patent Respiratory effort is even, labored, Respiratory pattern is regular, symmetrical. GI: Abdomen is distended, Last BM was February 19, 2020. Bowel sounds present X 4 quads. Reports. : Urine is clear. 17:30 Reassessment: Pt states that his bottom is hurting and will not stay in bed. Pt sat in [facility] at bedside and given the urinal. Advised Pt to call for help. 18:00 Reassessment: Pt continues to unhook himself from monitors and try to leave room to go to restroom. Informed Pt again that urinal is at bedside and to use call light if he needs any help. Pt states that he forgot. 18:30 Reassessment: Pt tolerating medications well but continues to get out of bed and unhooks himself from monitors. Informed him that he will fall and to please use call light and ask for help. 19:35 Reassessment: Attempted to call report to [facility], she states that there is not a nurse to take report at this time and to call back in 20 mins or so. 20:20 Reassessment: Went to [facility] room and he was standing in the middle of the room with IV ah pulled out. No bleeding noted. Pt states he does not know how it happened. 20:25 Reassessment: Report called to MYRON Cintron at [facility]. 20:55 Reassessment: Pt left with EMS. Vital Signs: 15:01 BP 134 / 54; Pulse 111; Resp 24; Pulse Ox 100% ; ah 15:03 BP 113 / 96; Pulse 117; Resp 20; Temp 98.9; Pulse Ox 96% ; Pain 0/10; ll1 16:05 BP 132 / 61; Pulse 112; Resp 22; Pulse Ox 100% ; ah 17:40 BP 102 / 72; Pulse 115; Pulse Ox 100% ; ah 17:50 BP 112 / 77; Pulse 150; Pulse Ox 100% ; ah 18:37 BP 129 / 97; Pulse 115; Resp 25; Temp 98.7; Pulse Ox 98% on R/A; vc 18:50 BP 110 / 64; Pulse 94; Pulse Ox 100% ; ah 19:30 BP 115 / 59; Pulse 101; Resp 20; Pulse Ox 100% ; ah 20:05 BP 112 / 68; Pulse 104; Resp 22; Pulse Ox 97% ; ah 20:54 BP 141 / 84; Pulse 133; Resp 20; Pulse Ox 100% ; ED Course: 14:51 Patient arrived in ED. mr 14:51 Timothy Tobin MD is Private Physician. mr 14:59 Bryce Fox MD is Attending Physician. [facility] 15:05 Triage completed. ll1 15:05 Arm band placed on Patient placed in an exam room, on a stretcher. ll1 15:32 XRAY Chest (1 view) In Process Unspecified. EDMS 15:35 Urine collected: clean catch specimen, clear, srinath colored. jp3 16:02 Initial lab(s) drawn, by ak, sent to lab. T\T\S collected, blood band applied to patient. jp3 Inserted saline lock: 20 gauge in right antecubital area, using aseptic technique. Blood collected. 16:43 Brinda Madrid, RN is Primary Nurse. 20:42 Inserted saline lock: 22 gauge in right antecubital area, using aseptic technique. 20:55 Patient has correct armband on for positive identification. Bed in low position. Call light in reach. Side rails up X 1. monitoring tech on. Pulse ox on. NIBP on. 20:55 Patient transferred, IV remains in place. intact. 21:07 No provider procedures requiring assistance completed. Administered Medications: 17:05 Drug: NS 0.9% 1000 ml Route: IV; Rate: 125 ml/hr; Site: right antecubital; 22:35 Follow up: Response: No adverse reaction; IV Status: Infusion continued upon transfer 17:05 Drug: ProTONIX 40 mg Route: IVP; Site: right antecubital; 22:34 Follow up: Response: No adverse reaction 17:35 Drug: Lasix 20 mg Route: IVP; Site: right antecubital; 20:59 Follow up: Response: No adverse reaction ah 17:38 Drug: Lopressor 2.5 mg Route: IVP; Site: right antecubital; ah 22:34 Follow up: Response: No adverse reaction ah 17:45 Drug: Digoxin 0.5 mg Route: IVP; Site: right antecubital; ah 22:34 Follow up: Response: No adverse reaction ah 17:55 Drug: ProTONIX 40 mg Route: IVP; Site: right antecubital; ah 22:34 Follow up: Response: No adverse reaction ah 18:41 Drug: Lopressor 2.5 mg Route: IVP; Site: right antecubital; ah 22:34 Follow up: Response: No adverse reaction ah 18:55 Drug: Lopressor 2.5 mg Route: IVP; Site: right antecubital; 20:57 Follow up: Response: No adverse reaction ah 20:59 Follow up: Response: No adverse reaction Outcome: 17:30 ER care complete, transfer ordered by . lauren 20:55 Transferred by ground EMS to [facility], Transfer form completed. 20:55 Condition: stable 20:55 Instructed on the need for transfer, Demonstrated understanding of 21:08 Patient left the ED. Signatures: Dispatcher [employer] EDMS Bryce Fox MD MD cha Rivera, Carmen mr QuispeyashalleyMitchell jp3 Malorie Bartlett RN RN vc Harris, Amy, RN RN ah Lewis, Lynsay, RN RN ll1
--- NOTE | 2020-02-21 20:20 | EDPHYS ---
Physician Documentation [facility] Name: Earl Mccoy Age: 74 yrs Sex: Male : 1945 Arrival Date: 02/21/2020 Time: 14:51 Bed 18 Private MD: Timothy Tobin R ED Physician Bryce Fox HPI: 02/20 16:46 This 74 yrs old Male presents to ER via Wheelchair with complaints of Anemia. lauren 16:46 The patient has shortness of breath at rest, with light activity. Onset: The lauren symptoms/episode began/occurred 2 day(s) ago. Duration: The symptoms are continuous, and are steadily getting worse. The patient's shortness of breath is aggravated by exertion, supine position. The patient presents with abdominal pain in the upper abdomen, in the lower abdomen, abdominal distention in the upper abdomen, in the lower abdomen. Onset: The symptoms/episode began/occurred 5 day(s) ago. hx of small bowel bleeding, sent for anemia. Associated signs and symptoms: Pertinent positives: non-productive cough, dizziness. Severity of symptoms: At their worst the symptoms were moderate in the emergency department the symptoms are unchanged. The symptoms do not radiate. Associated signs and symptoms: Pertinent positives: shortness of breath. The symptoms are described as crampy. Modifying factors: The symptoms are alleviated by remaining still, supine position, the symptoms are aggravated by movement, walking. Severity of pain: At its worst the pain was moderate in the emergency department the pain is unchanged. The patient has not experienced similar symptoms in the past. Historical: - Allergies: 15:05 No Known Allergies; ll1 - PMHx: 15:05 CAD; Hypertension; ll1 - PSHx: 15:05 quadruple bypass; R shoulder repair; ll1 - Immunization history:: Adult Immunizations up to date. - Social history:: Patient uses alcohol, only on a social basis. weekly. Patient/guardian denies using street drugs, tobacco products. ROS: 16:50 Constitutional: Negative for fever, chills, and weight loss, Eyes: Negative for injury, lauren pain, redness, and discharge, ENT: Negative for injury, pain, and discharge, Neck: Negative for injury, pain, and swelling, Back: Negative for injury and pain, : Negative for injury, bleeding, discharge, and swelling, MS/Extremity: Negative for injury and deformity, Neuro: Negative for headache, weakness, numbness, tingling, and seizure, Psych: Negative for depression, anxiety, suicide ideation, homicidal ideation, and hallucinations, Allergy/Immunology: Negative for hives, rash, and allergies, Endocrine: Negative for neck swelling, polydipsia, polyuria, polyphagia, and marked weight changes, Hematologic/Lymphatic: Negative for swollen nodes, abnormal bleeding, and unusual bruising. 16:50 Cardiovascular: Positive for palpitations. 16:50 Respiratory: Positive for cough, shortness of breath, at rest. 16:50 Abdomen/GI: Positive for abdominal distension. 16:50 MS/extremity: Positive for swelling, of the right leg and left leg. Exam: 16:50 Constitutional: This is a well developed, well nourished patient who is awake, alert, lauren and in no acute distress. Head/Face: Normocephalic, atraumatic. Eyes: Pupils equal round and reactive to light, extra-ocular motions intact. Lids and lashes normal. Conjunctiva and sclera are non-icteric and not injected. Cornea within normal limits. Periorbital areas with no swelling, redness, or edema. ENT: Nares patent. No nasal discharge, no septal abnormalities noted. Tympanic membranes are normal and external auditory canals are clear. Oropharynx with no redness, swelling, or masses, exudates, or evidence of obstruction, uvula midline. Mucous membranes moist. Neck: Trachea midline, no thyromegaly or masses palpated, and no cervical lymphadenopathy. Supple, full range of motion without nuchal rigidity, or vertebral point tenderness. No Meningismus. Chest/axilla: Normal chest wall appearance and motion. Nontender with no deformity. No lesions are appreciated. Back: No spinal tenderness. No costovertebral tenderness. Full range of motion. Male : Normal genitalia with no discharge or lesions. Skin: Warm, dry with normal turgor. Normal color with no rashes, no lesions, and no evidence of cellulitis. Neuro: Awake and alert, GCS 15, oriented to person, place, time, and situation. Cranial nerves II-XII grossly intact. Motor strength 5/5 in all extremities. Sensory grossly intact. Cerebellar exam normal. Normal gait. Psych: Awake, alert, with orientation to person, place and time. Behavior, mood, and affect are within normal limits. 16:50 Cardiovascular: Rate: tachycardic, Rhythm: irregularly irregular, Pulses: Pulses are 4+ in bilateral radial, brachial, femoral, popliteal, posterior tibial and and dorsalis pedis arteries.. Heart sounds: normal, Edema: 2+ edema to level of left midcalf and right midcalf, JVD: is noted bilaterally, to 1 cm. 16:50 Respiratory: mild respiratory distress is noted, Respirations: labored breathing, that is mild, Breath sounds: decreased breath sounds, that are mild, Respiratory rate: 20 19:06 ECG was reviewed by the Attending Physician. lauren 19:06 ECG was reviewed by the Attending Physician. 19:46 Abdomen/GI: Rectal exam: Prostate: normal, rectal tone normal, Stool: guaiac positive, lauren hemorrhoid(s), are not appreciated, mass, is not appreciated, swelling, is not appreciated, tenderness, is not appreciated, the exam is chaperoned by the nurse, Liver: no appreciated palpable abnormalities, Hernia: not appreciated. Vital Signs: 15:01 BP 134 / 54; Pulse 111; Resp 24; Pulse Ox 100% ; ah 15:03 BP 113 / 96; Pulse 117; Resp 20; Temp 98.9; Pulse Ox 96% ; Pain 0/10; ll1 16:05 BP 132 / 61; Pulse 112; Resp 22; Pulse Ox 100% ; ah 17:40 BP 102 / 72; Pulse 115; Pulse Ox 100% ; ah 17:50 BP 112 / 77; Pulse 150; Pulse Ox 100% ; ah 18:37 BP 129 / 97; Pulse 115; Resp 25; Temp 98.7; Pulse Ox 98% on R/A; vc 18:50 BP 110 / 64; Pulse 94; Pulse Ox 100% ; ah 19:30 BP 115 / 59; Pulse 101; Resp 20; Pulse Ox 100% ; ah 20:05 BP 112 / 68; Pulse 104; Resp 22; Pulse Ox 97% ; ah 20:54 BP 141 / 84; Pulse 133; Resp 20; Pulse Ox 100% ; ah MDM: 14:59 Patient medically screened. lauren 16:52 Differential diagnosis: Anemia CHF exacerbation, Chronic Obstructive Pulmonary Disease lauren pneumonia, pulmonary edema, Pulmonary Embolism reactive airway disease, bowel obstruction, diverticulitis, GI Bleed, non-specific abd pain, pancreatitis, urinary tract infection. Antibiotic administration: Not indicated. Immunization status: Pneumococcal vaccine: Influenza vaccine: Data reviewed: vital signs, nurses notes, lab test result(s), EKG, radiologic studies, CT scan, plain films. Data interpreted: turn down worker: rate is 120 beats/min, rhythm is atrial fibrillation, Pulse oximetry: on 2L(s) per nasal canula, is 96 %. Test interpretation: by ED physician or midlevel provider: ECG, plain radiologic studies. Counseling: I had a detailed discussion with the patient and/or guardian regarding: the historical points, exam findings, and any diagnostic results supporting the discharge/admit diagnosis, the presence of at least one elevated blood pressure reading (>120/80) during this emergency department visit, lab results, radiology results, the need to transfer to another facility. 19:47 The patient's Wells Deep Vein Thrombosis Score was calculated as follows: Total Score: lauren 0-2 Pts- Low Risk. The patient's pulmonary embolism risk score was calculated as follows: Total Score: 0-2 points. This patient was found to be at low risk for a pulmonary embolism by using the Well's assessment criteria. ED course: pt alert and oriented x3, understands the plan , dw and she understands the plan as well. 02/20 15:00 Order name: Basic Metabolic Panel; Complete Time: 17:26 [facility] 02/20 15:00 Order name: CBC with Diff 02/20 15:00 Order name: LFT's; Complete Time: 17:26 [facility] 02/20 15:00 Order name: Magnesium; Complete Time: 17:26 [facility] 02/20 15:00 Order name: NT PRO-BNP; Complete Time: 17:26 [facility] 02/20 15:00 Order name: PT-INR; Complete Time: 17:10 [facility] 02/20 15:00 Order name: Troponin (emerg Dept Use Only); Complete Time: 17:26 [facility] 02/20 15:00 Order name: Lipase; Complete Time: 17:26 [facility] 02/20 15:00 Order name: Type And Screen [facility] 02/20 15:02 Order name: Urine Dipstick--Ancillary (enter results); Complete Time: 17:26 bd 02/20 16:42 Order name: TSH; Complete Time: 18:29 [facility] 02/20 16:44 Order name: Occult Blood--Ancillary 02/20 17:02 Order name: Bb Add On bd 06 17:05 Order name: CBC Smear Scan [facility] 02/20 15:00 Order name: XRAY Chest (1 view) [facility] 02/20 15:00 Order name: EKG; Complete Time: 15:02 [facility] 02/20 15:00 Order name: Cardiac monitoring; Complete Time: 16:09 [facility] 02/20 15:00 Order name: EKG - Nurse/Tech; Complete Time: 16:09 [facility] 02/20 15:00 Order name: IV Saline Lock; Complete Time: 16:09 [facility] 02/20 18:02 Order name: T4 Free; Complete Time: 18:29 [facility] 02/20 18:35 Order name: EKG; Complete Time: 18:35 [facility] 02/20 19:19 Order name: Packed RBCs (Additional Unit) [facility] 02/20 15:00 Order name: Labs collected and sent; Complete Time: 16:09 [facility] 02/20 15:00 Order name: O2 Per Protocol; Complete Time: 16:09 [facility] 02/20 15:00 Order name: O2 Sat Monitoring; Complete Time: 16:09 [facility] 02/20 15:00 Order name: Urine Dipstick-Ancillary (obtain specimen); Complete Time: 16:10 [facility] 02/20 15:00 Order name: IV Saline Lock - Large Bore; Complete Time: 16:09 [facility] 02/20 18:35 Order name: EKG - Nurse/Tech; Complete Time: 19:31 lauren EC:06 Rate is 120 beats/min. Rhythm is irregularly irregular. QRS [place] is Normal. VT interval lauren is normal. QRS interval is normal. QT interval is normal. No Q waves. T waves are Normal. No ST changes noted. Clinical impression: Atrial Fibrillation. Interpreted by me. Reviewed by me. 19:06 Rate is 103 beats/min. Rhythm is irregularly irregular. QRS [place] is Normal. VT interval lauren is normal. QRS interval is normal. QT interval is normal. No Q waves. T waves are Normal. No ST changes noted. Clinical impression: Atrial Fibrillation. Interpreted by me. Reviewed by me. Administered Medications: 17:05 Drug: NS 0.9% 1000 ml Route: IV; Rate: 125 ml/hr; Site: right antecubital; 22:35 Follow up: Response: No adverse reaction; IV Status: Infusion continued upon transfer ah 17:05 Drug: ProTONIX 40 mg Route: IVP; Site: right antecubital; ah 22:34 Follow up: Response: No adverse reaction ah 17:35 Drug: Lasix 20 mg Route: IVP; Site: right antecubital; ah 20:59 Follow up: Response: No adverse reaction ah 17:38 Drug: Lopressor 2.5 mg Route: IVP; Site: right antecubital; ah 22:34 Follow up: Response: No adverse reaction ah 17:45 Drug: Digoxin 0.5 mg Route: IVP; Site: right antecubital; ah 22:34 Follow up: Response: No adverse reaction ah 17:55 Drug: ProTONIX 40 mg Route: IVP; Site: right antecubital; ah 22:34 Follow up: Response: No adverse reaction ah 18:41 Drug: Lopressor 2.5 mg Route: IVP; Site: right antecubital; ah 22:34 Follow up: Response: No adverse reaction ah 18:55 Drug: Lopressor 2.5 mg Route: IVP; Site: right antecubital; ah 20:57 Follow up: Response: No adverse reaction ah 20:59 Follow up: Response: No adverse reaction Disposition: 02/21/20 17:30 Transfer ordered to [facility]. Diagnosis are Gastrointestinal hemorrhage, unspecified - SMALL BOWEL ORGIN, AVM'S, Anemia, unspecified, Atrial fibrillation and flutter - NEW ONSET, Obesity, unspecified, Unspecified combined systolic (congestive) and diastolic (congestive) heart failure. - Reason for transfer: Higher level of care. - Accepting physician is TO [facility], [facility]. - Condition is Fair. - Problem is new. - Symptoms have improved. Signatures: Dispatcher [employer] EDBryce Gordon MD MD cha Harris, Amy RN RN Carlie Bynum RN RN ll1 Corrections: (The following items were deleted from the chart) 21:08 17:30 02/21/2020 17:30 Transfer ordered to [facility]. Diagnosis is Gastrointestinal hemorrhage, unspecified - SMALL BOWEL ORGIN, AVM'S; Anemia, unspecified; Atrial fibrillation and flutter - NEW ONSET; Obesity, unspecified; Unspecified combined systolic (congestive) and diastolic (congestive) heart failure. Reason for transfer: Higher level of care. Accepting physician is TO [facility], [facility]. Condition is Fair. Problem is new. Symptoms have improved. lauren
[2020-02-21 20:29] LABS: Anisocytosis 2+; Blood Morphology Comment NOTED (NOT SEEN); Hypochromasia 2+; Platelet Estimate ADEQ; Poikilocytosis 3+; Urine White Blood Cell Casts OK
[2020-02-21 21:27] VITALS: TEMP 98.7
[2020-02-21 21:32] VITALS: BP 141/84; O2SAT 100
--- NOTE | 2020-02-22 19:27 | EKG ---
Test Date: 2020-02-21 Test Time: 19:03:52 Snuff Blender: AZAM MEASUREMENT RESULTS: Intervals: Rate: 103 TN: QRSD: 88 QT: 370 QTc: 484 [place]: P: TN: QRS: 91 T: 68 INTERPRETIVE STATEMENTS: Atrial fibrillation with rapid ventricular response Rightward axis Abnormal ECG Compared to ECG 02/21/2020 16:21:54 Right-axis deviation now present Electronically Signed On 02-22-20 19:24:11 CDT by Jose Shore
--- NOTE | 2020-02-22 19:28 | EKG ---
Test Date: 2020-02-21 Test Time: 16:21:54 Senior Java Programmer Analyst: AZAM MEASUREMENT RESULTS: Intervals: Rate: 120 [place]: QRSD: 90 QT: 332 QTc: 469 [place]: P: [place]: QRS: 89 T: 3 INTERPRETIVE STATEMENTS: Atrial fibrillation with rapid ventricular response Abnormal ECG Compared to ECG 02/12/2012 14:03:45 Sinus rhythm no longer present Electronically Signed On 02-22-20 19:24:19 CDT by Jose Shore
== END 2020-02-21 21:08 | disposition short-term general hospital (02) ==
LOC: ER 14:48
DX: D64.9 Anemia, unspecified (principal); I48.91 Unspecified atrial fibrillation; I48.92 Unspecified atrial flutter; I50.40 Unspecified combined systolic (congestive) and diastolic (congestive) heart failure; E66.9 Obesity, unspecified; I10 Essential (primary) hypertension
CPT/HCPCS: 36415; 71045; 71046; 80048; 80053; 80076; 81003; 83690; 83735; 83880; 84439; 84443; 84484; 85025; 85610; 86850; 86900; 86901; 86902; 86922; 93005; 96361; 96374; 96375; 99285

== ENCOUNTER 2020-03-16 11:54 | Day surgery (SDC) | payer OTHER ==
[2020-03-15 14:07] LABS: Protime INR 1.06
--- NOTE | 2020-03-15 14:39 | RAD REPORT ---
EXAM DESCRIPTION: RAD - Chest Pa And Lat (2 Views) - 03/15/2020 1:48 pm CLINICAL HISTORY: preop, pending heart catheterization COMPARISON: Portable February 21, 2020 ; Two view chest February 21, 2020 TECHNIQUE: Frontal and lateral views of the chest were obtained. FINDINGS: The lungs are normal volume. Baseline mild chronic interstitial lung pattern present and n ot showing a suspicious change from prior imaging. Heart size is upper normal. No vascular engorgeme nt. Sternotomy wires are in place. Trachea is midline. CABG surgical changes are seen. No pneumothora x or measurable pleural effusion. Costophrenic angle blunting seen on the portable study has resolved . No acute bony finding noted. No aortic abnormality. IMPRESSION: No acute cardiopulmonary process. Chest is not significantly different dating back to February 20 imaging.
[2020-03-16] MEDS ORDERED: NA CHLORIDE 0.9% 500 ML ONE (12:04)
[2020-03-16] MEDS ORDERED: HEPA 1000U/500MLS 2,000 UNIT/1,000 ML BAG IV ONE (12:13)
[2020-03-16] MEDS ORDERED: HEPARIN 5000 UNIT/ML 1 ML VIAL ONE (12:13)
[2020-03-16] MEDS ORDERED: MIDAZOLAM HCL 2 MG/2 ML INJ ONE ×2 (12:13→12:52)
[2020-03-16] MEDS ORDERED: ATROPINE SULF 1 MG/10 ML SYR IV ONE (12:14)
[2020-03-16] MEDS ORDERED: FENTANYL CITR 100 MCG/2 ML ONE (12:14)
[2020-03-16] MEDS ORDERED: LIDOCAINE 1% MPF 30 ML VIAL ONE (12:15)
[2020-03-16 14:50] VITALS: O2SAT 98
--- OUTSIDE RECORDS SUMMARY | 2020-03-16 14:50 | XMS REPORT | Clinical Summary ---
:1945 Author Organization [facility] Address [address] [place] [address] Care Team Providers Name Role Phone Benji Beyer Primary Care Provider Unavailable Chucho Jim Unavailable Allergies No Known Allergies Medications Medication Sig Dispensed Refills Start Date End Date Status aspirin 81 MG EC Take 81 mg by 0 Active tablet mouth daily. glimepiride Take 1 mg by 0 Activ e (AMARYL) 1 MG mouth every tablet morning before breakfast. metFORMIN Take 500 mg by 0 Activ e (GLUCOPHAGE) 500 mouth 2 (two) MG tablet times daily with breakfast and dinner. atorvastatin Take 40 mg by 0 Act alla (LIPITOR) 40 MG mouth daily. tablet pantoprazole Take 1 tablet 30 tablet 1 02/25/2020 Ac tive (PROTONIX) 40 MG (40 mg total) tablet by mouth daily. furosemide (LASIX) Take 1 tablet 30 tablet 1 02/26/2020 Active 40 MG tablet (40 mg total) 1 by mouth daily. metoprolol Take 3 tablets 180 tablet 1 02/25/2020 Ac tive succinate (75 mg total) 1 (TOPROL-XL) 25 MG by mouth 2 24 hr tablet (two) times daily. ferrous sulfate Take 1 tablet 60 tablet 1 02/25/2020 Active 325 (65 FE) MG EC (325 mg total) 1 tablet by mouth 2 (two) times daily with breakfast and dinner. minocycline Take 100 mg by 0 Dis continued (MINOCIN,DYNACIN) mouth daily. 0 100 MG capsule pantoprazole Take 40 mg by 0 Dis continued (PROTONIX) 40 MG mouth daily. 0 tablet ferrous sulfate Take 325 mg by 0 Discontinued 325 (65 FE) MG mouth daily 0 tablet with breakfast. metoprolol Take 25 mg by 0 Disco ntinued (TOPROL-XL) 25 MG mouth daily. 0 24 hr tablet Active Problems Problem Noted Date GIB (gastrointestinal bleeding) 02/21/2020 Hypertension 09/09/2017 Rosacea 09/09/2017 CAD (coronary artery disease) 09/09/2017 Acute respiratory insufficiency Paroxysmal atrial fibrillation with RVR Acute blood loss anemia Thrombocytopenia Hyperglycemia Encounters Date Type Specialty Care Team Description 02/23/2020 Surgery Gastroenterology Dionicio Cerda EN DOSCOPY,BIOPSY MD Don 02/23/2020 Anesthesia Event Gastroenterology Naima Chowdary MD 02/21/2020 - Hospital Encounter Cardiology Vicky, [place] Acute bl ood loss anemia; 02/25/2020 MD Vicenta Gastrointestinal hemorrhage, unspecified gastrointestinal hemorrhage type; Max, Thrombocytopeni a (HCC); Carrie Lopez, Coronary arter y disease involving [place] coronary artery of [place] heart with angina pectoris ([facility]); Paroxysmal atrial fibrillation with RVR ([facility]); Ramone, Hypervolemia, u nspecified hypervolemia type Debbi Davis MD after 03/16/2019 Social History Tobacco Use Types Packs/Day Years Used Date Former Smoker 10 16 Quit: 2012 Smokeless Tobacco: Never Used Alcohol Use Drinks/Week oz/Week Comments Yes occasionally Sex Assigned at Date Recorded Not on file Job Start Date Occupation Industry Not on file Not on file Not on file Travel History Travel Start Travel End No recent travel history available. Last Filed Vital Signs Vital Sign Reading Time Taken Blood Pressure 116/75 02/25/2020 11:41 AM CDT Pulse 102 02/25/2020 11:41 AM CDT Temperature 36.8 C (98.3 F) 02/25/2020 11:41 AM CDT Respiratory Rate 18 02/25/2020 11:41 AM CDT Oxygen Saturation 99% 02/25/2020 11:41 AM CDT Inhaled Oxygen Concentration - - Weight 109.8 kg (242 lb) 02/21/2020 10:00 PM CDT Height 167.6 cm (5' 6") 02/21/2020 10:00 PM CDT Body Mass Index 39.06 02/21/2020 10:00 PM CDT Plan of Treatment Not on file Implants Implanted Type Area Herd Tester Device Shelf Model / Identifier Expiration Serial / Date Lot Sut Surg Stl 7 18g 18in Mls Mp M655g - Sn/A [place]/Arthroscop N/A: J &J:ETHICON 06/21/2022 [id number] / Implanted: Qty: 2 on 09/10/2017 by Mike Price MD y [facility] N/A / [id number] Sut Surg Stl 7 18g 18in Mls Mp M655g - Sn/A [place]/Arthroscop N/A: J &J:ETHICON 06/21/2022 [id number] / Implanted: Qty: 4 on 09/10/2017 by Mike Price MD y [facility] N/A / [id number] Sternal Zipfix Ndl Strl [id number] - Sn/A Cardiovascular N/ A: SYNTHES:SYNTHE 06/21/2022 [id number] / Implanted: Qty: 1 on 09/10/2017 by Mike Price MD [facility] N/A / [id number] Procedures Procedure Name Priority Date/Time Associated Comments Diagnosis REPORT OF PROCEDURE - 02/28/2020 12:11 ENDOSCOPY SCAN PM CDT RHYTHM STRIP - SCAN 02/28/2020 12:11 PM CDT POCT-GLUCOSE METER Routine 02/25/2020 12:15 Resul ts for this PM CDT procedure are i n the results section. POCT-GLUCOSE METER Routine 02/25/2020 6:00 Resul ts for this AM CDT procedure are i n the results section. CBC W/PLT COUNT & Routine 02/25/2020 3:49 Result s for this AUTO DIFFERENTIAL AM CDT procedure are in the results section. MAGNESIUM Routine 02/25/2020 3:49 Results for this AM CDT procedure are i n the results section. BASIC METABOLIC PANEL Routine 02/25/2020 3:49 Re sults for this (7) AM CDT procedure are i n the results section. CBC W/PLT COUNT & Routine 02/25/2020 3:49 Result s for this AUTO DIFFERENTIAL AM CDT procedure are in the results section. POCT-GLUCOSE METER Routine 02/25/2020 12:13 Resul ts for this AM CDT procedure are i n the results section. TRANSFUSION SERVICE 02/24/2020 5:50 REPORT - SCAN PM CDT POCT-GLUCOSE METER Routine 02/24/2020 5:46 Resul ts for this PM CDT procedure are i n the results section. POCT-GLUCOSE METER Routine 02/24/2020 12:08 Resul ts for this PM CDT procedure are i n the results section. POCT-GLUCOSE METER Routine 02/24/2020 7:30 Resul ts for this AM CDT procedure are i n the results section. CBC W/PLT COUNT & Routine 02/24/2020 3:41 Result s for this AUTO DIFFERENTIAL AM CDT procedure are in the results section. CBC W/PLT COUNT & Routine 02/24/2020 3:41 Result s for this AUTO DIFFERENTIAL AM CDT procedure are in the results section. BASIC METABOLIC PANEL Routine 02/24/2020 3:41 Re sults for this (7) AM CDT procedure are i n the results section. PROTHROMBIN TIME/INR Routine 02/24/2020 3:41 Res ults for this AM CDT procedure are i n the results section. HEPATIC FUNCTION Routine 02/24/2020 3:41 Results for this PANEL AM CDT procedure are i n the results section. PREPARE LEUKO-REDUCED Routine 02/23/2020 11:54 Re sults for this RBC PM CDT procedure are i n the results section. PREPARE LEUKO-REDUCED Routine 02/23/2020 11:54 Re sults for this RBC PM CDT procedure are i n the results section. POCT-GLUCOSE METER Routine 02/23/2020 11:06 Resul ts for this PM CDT procedure are i n the results section. TRANSFUSION SERVICE 02/23/2020 5:50 REPORT - SCAN PM CDT REPORT OF PROCEDURE - 02/23/2020 11:47 ENDOSCOPY URL AM CDT REPORT OF PROCEDURE - 02/23/2020 11:39 ENDOSCOPY URL AM CDT TISSUE EXAM AP Routine 02/23/2020 11:06 Results for this AM CDT procedure are i n the results section. COLONOSCOPY,POLYPECTO 02/23/2020 11:00 Anemia, unspeci fied MY AM CDT type UPPER 02/23/2020 11:00 Anemia, unspecified ENDOSCOPY,BIOPSY AM CDT type SARS-COV2/RT-PCR Routine 02/23/2020 8:47 Results for this ([facility]) AM CDT procedure are in the results section. POCT-GLUCOSE METER Routine 02/23/2020 6:20 Resul ts for this AM CDT procedure are i n the results section. CBC W/PLT COUNT & Routine 02/23/2020 4:41 Result s for this AUTO DIFFERENTIAL AM CDT procedure are in the results section. CBC W/PLT COUNT & Routine 02/23/2020 4:41 Result s for this AUTO DIFFERENTIAL AM CDT procedure are in the results section. LIPID PANEL Routine 02/23/2020 4:41 Results for this AM CDT procedure are i n the results section. BASIC METABOLIC PANEL Routine 02/23/2020 4:41 Re sults for this (7) AM CDT procedure are i n the results section. PROTHROMBIN TIME/INR Routine 02/23/2020 4:41 Res ults for this AM CDT procedure are i n the results section. HEPATIC FUNCTION Routine 02/23/2020 4:41 Results for this PANEL AM CDT procedure are i n the results section. POCT-GLUCOSE METER Routine 02/22/2020 8:52 Resul ts for this PM CDT procedure are i n the results section. FERRITIN Routine 02/22/2020 7:02 Results for this PM CDT procedure are i n the results section. IRON, TIBC, % SAT. Routine 02/22/2020 7:02 Resul ts for this (WITHOUT FERRITIN) PM CDT procedure are in the results section. PROTHROMBIN TIME/INR Routine 02/22/2020 7:02 Res ults for this PM CDT procedure are i n the results section. TRANSFUSE Routine 02/22/2020 6:40 LEUKO-REDUCED RED PM CDT BLOOD CELLS TRANSFUSION SERVICE 02/22/2020 5:50 REPORT - SCAN PM CDT POCT-GLUCOSE METER Routine 02/22/2020 5:00 Resul ts for this PM CDT procedure are i n the results section. 2D ECHO W/ DOPPLER Routine 02/22/2020 4:51 Resul ts for this (CW/PW/COLOR) PM CDT procedure are in the results section. POCT-GLUCOSE METER Routine 02/22/2020 8:32 Resul ts for this AM CDT procedure are i n the results section. CBC W/PLT COUNT & Routine 02/22/2020 7:54 Result s for this AUTO DIFFERENTIAL AM CDT procedure are in the results section. CBC W/PLT COUNT & Routine 02/22/2020 7:54 Result s for this AUTO DIFFERENTIAL AM CDT procedure are in the results section. POCT-GLUCOSE METER Routine 02/22/2020 6:34 Resul ts for this AM CDT procedure are i n the results section. HEMOGLOBIN A1C Routine 02/22/2020 5:46 Results f or this AM CDT procedure are i n the results section. B-TYPE NATRIURETIC Routine 02/22/2020 5:46 Resul ts for this FACTOR (BNP) AM CDT procedure are i n the results section. BASIC METABOLIC PANEL Routine 02/22/2020 5:46 Re sults for this (7) AM CDT procedure are i n the results section. HEPATIC FUNCTION Routine 02/22/2020 5:46 Results for this PANEL AM CDT procedure are i n the results section. TRANSFUSE Routine 02/22/2020 4:18 LEUKO-REDUCED RED AM CDT BLOOD CELLS XR CHEST 1 VIEW STAT 02/22/2020 2:39 Results for this PORTABLE/BEDSIDE AM CDT procedure a re in the results section. CBC W/PLT COUNT & Routine 02/21/2020 11:36 Result s for this AUTO DIFFERENTIAL PM CDT procedure are in the results section. TYPE AND SCREEN, Routine 02/21/2020 11:36 Results for this AUTOMATED PM CDT procedure are i n the results section. PROTHROMBIN TIME/INR Routine 02/21/2020 11:36 Res ults for this PM CDT procedure are i n the results section. BASIC METABOLIC PANEL Routine 02/21/2020 11:36 Re sults for this (7) PM CDT procedure are i n the results section. TROPONIN I Routine 02/21/2020 11:36 Results for this PM CDT procedure are i n the results section. CBC W/PLT COUNT & Routine 02/21/2020 11:36 Result s for this AUTO DIFFERENTIAL PM CDT procedure are in the results section. after 03/16/2019 Results EKG-SCANNED (02/28/2020 12:11 PM CDT) Narrative Performed At This result has an attachment that is no t available. RHYTHM STRIP - SCAN (02/28/2020 12:11 PM CDT) Narrative Performed At This result has an attachment that is no t available. POC-Glucose meter (02/25/2020 12:15 PM CDT)Only the most recent of12 results within the time period is included. POC-Glucose Meter 141 (H)Comment: : TESTED 70 - 110 mg/dL [facility] Adriana Smith [facility] [address], [address]: Director Of Planning/Evp Business Development ID = [id number] for TEETEE PERSAUD Specimen Blood Performing Organization Address City/State/Zipcode Phone Number [facility] [phone] [place], [place] [phone] CENTER CBC with platelet count + automated diff (02/25/2020 3:49 AM CDT)Only the most recent of5 resultswithin the time period is included. WBC 10.8 (H) 3.5 - 10.5 K/L [facility] RBC 4.22 (L) 4.63 - 6.08 M/L [facility] Hemoglobin 7.4 (L) 13.7 - 17.5 GM/DL [facility] Hematocrit 28.5 (L) 40.1 - 51.0 % [facility] MCV 67.5 (L) 79.0 - 92.[address] [facility] MCH 17.5 (L) 25.7 - 32.[address] [facility] MCHC 26.0 (L) 32.3 - 36.5 GM/DL [facility] RDW 28.4 (H) 11.6 - 14.4 % [facility] Platelets 213 150 - 450 K/CU MM [facility] MPV Comment: Unable to [facility] report due to abnormal [facility] Platelet population distribution. nRBC 0 0 - 0 /[address] [facility] % Neutros 73 % [facility] % Lymphs 13 % [facility] % Monos 9 % [facility] % Eos 3 % [facility] % Baso 1 % [facility] # Neutros 7.87 (H) 1.78 - 5.38 K/L [facility] # Lymphs 1.35 1.32 - 3.57 K/L [facility] # Monos 1.00 (H) 0.30 - 0.82 K/L [facility] # Eos 0.36 0.04 - 0.54 K/L [facility] # Baso 0.09 (H) 0.01 - 0.08 K/L [facility] Immature 1 0 - 1 % [facility] Granulocytes-Relative [facility] Specimen Blood Performing Organization Address City/[facility]/Zipcode Phone Number [address] [address] CENTER Magnesium (02/25/2020 3:49 AM CDT) Magnesium 2.0 1.6 - 2.6 mg/dL [facility] Specimen Blood Narrative Performed At Director Of Planning ID - PIAYA L [facility] Performing Organization Address City/[facility]/Zipcode Phone Number [address] [address] CENTER Basic Metabolic Panel (02/25/2020 3:49 AM CDT)Only the most recent of5 results within the time period is included. Sodium 135 (L) 136 - 145 meq/L [facility] Potassium 4.0 3.5 - 5.1 meq/L [facility] Chloride 105 98 - 107 meq/L [facility] CO2 24 22 - 29 meq/L [facility] BUN 16 7 - 21 mg/dL [facility] Creatinine 1.03 0.57 - 1.25 mg/dL [facility] Glucose 120 (H) 70 - 105 mg/dL [facility] Calcium 8.3 (L) 8.4 - 10.2 mg/dL [facility] EGFR 71Comment: ESTIMATED GFR IS mL/min/1.73 sq m [facility] NOT ACCURATE CREATININE [facility] CLEARANCE IN PREDICTING GLOMERULAR FILTRATION RATE. ESTIMATED GFR IS NOT APPLICABLE FOR DIALYSIS PATIENTS. Specimen Blood Narrative Performed At Director Of Planning ID - AMBROSIO Vasquez [facility] Performing Organization Address City/State/Zipcode Phone Number [address] [address] [place] TRANSFUSION SERVICE REPORT - SCAN (02/24/2020 5:50 PM CDT)Only the most recent of3 resultswithin the time period is included. Narrative Performed At This result has an attachment that is no t available. Prothrombin time/INR (02/24/2020 3:41 AM CDT)Only the most recent of4 results within the time period is included. Protime 15.7 (H) 11.9 - 14.2 seconds [facility] INR 1.3 <=5.9 [facility] Specimen Blood Narrative Performed At Effective 02/17/2019: PT Reference Range [facility] Change New: 11.9-14.2Previous: 11.7-14.7 RECOMMENDED COUMADIN/WARFARIN INR THERAPY RANGES STANDARD DOSE: 2.0-3.0Includes: PROPHYLAXIS for venous thrombosis, systemic embolization; TREATMENT for venous thrombosis and/or pulmonary embolus. HIGH RISK: Target INR is 2.5-3.5 for patients wiht mechanical heart valves. Performing Organization Address City/State/Zipcode Phone Number [address] [address] [place] Hepatic function panel (02/24/2020 3:41 AM CDT)Only the most recent of3 results within the time period is included. Protein, Total 6.4 6.0 - 8.3 gm/dL [facility] Albumin 3.9 3.5 - 5.0 g/dL [facility] Total Bilirubin 1.2 0.2 - 1.2 mg/dL [facility] Bilirubin, Direct 0.7 (H) 0.1 - 0.5 mg/dL [facility] Alkaline Phosphatase 77 40 - 150 U/L [facility] AST 15 5 - 34 U/L [facility] ALT 13 6 - 55 U/L [facility] Specimen Blood Narrative Performed At Director Of Planning ID - BS [facility] Performing Organization Address City/[facility]/Zipcode Phone Number [address] [address] CENTER Prepare Leuko-Red RBC (02/23/2020 11:54 PM CDT)Only the most recent of2 results within the time period is included. CROSSMATCH COMPATIBLE SAFETRACE TX Unit ABO O Pos SAFETRACE TX UNIT NUMBER [id number] SAFETRACE TX Status TX_TIMEINCHART SAFETRACE TX Blood Bank Product RED BLOOD CELLS SAFETRACE TX PRODUCT CODE [id number] SAFET[place]ACE [place] Specimen Other Performing Organization Address City/[facility] Phone Number SAFETRACE [place] REPORT OF PROCEDURE - ENDOSCOPY URL (02/23/2020 11:47 AM CDT) Narrative Performed At This result has an attachment that is no t available. REPORT OF PROCEDURE - ENDOSCOPY URL (02/23/2020 11:39 AM CDT) Narrative Performed At This result has an attachment that is no t available. Tissue Exam (02/23/2020 11:06 AM CDT) Case Report Surgical Pathology Report Case: [id number] [facility] Authorizing Provider:Dionicio Ojeda MDCollected: 02/23/2020 11:06 AM [facility] Ordering Location: [address] Received:02/24/2020 09:14 AM Service Pathologist: Suma Moise MD Specimens: A) - Duodenum , Duodenum Bx B) - Biopsy, Gastric, Random Gastric Bx C) - Polyp, Colon - Right/Ascending, via Hot snare DIAGNOSIS A. DUODENUM, BIOPSY: [facility] - NO SIGNIFICANT PATHOLOGIC ABNORMALITY [facility] B. STOMACH, RANDOM BIOPSY: - CHRONIC GASTRITIS WITH REACTIVE CHANGE - INTESTINAL METAPLASIA - NO HELICOBACTER PYLORI MICROORGANISMS IDENT IFIED C. RIGHT ASCENDING COLON POLYP, BIOPSY: - TUBULAR ADENOMA CC/pl Signing Pathologist Direct Phone Line: [phone] CPT Code(s) 86016 x3; 76244 x1 [facility] CLINICAL HISTORY Anemia [facility] ER SPECIMEN SOURCE A. Duodenum [facility] B. Gastric biopsy [facility] C ENTER C. Right/ascending colon polyp GROSS DESCRIPTION A. Received in formalin lab eled the patient's name, accession number and "duodenum" are 3 velasquez-pink tissue fragments measuring up to 0.2 cm in greatest dimension which are filtered and submitted in toto in A1. [facility] B. Received in formalin lab eled with the patient's name, accession number and "gastric biopsy" are 4 velasquez-pink tissue fragments measuring up to 0.5 cm in greatest dimension which are filtered and submitted in toto in B1. C. Received in formalin lab eled with the patient's name, accession number and "right/ascending colon polyp" are multiple velasquez-pink tissue fragments measuring up to 0.4 cm in greatest dimension which are filtered and submitted in toto in C1. LYNNE Licona (ASCP)cm MICROSCOPIC DESCRIPTION A. The duodenum biopsy consi sts of three pieces of small bowel mucosa with intact villous architecture and lamina propria content. There is a slightly increased chronic inflammation present. No acute in [facility] flammation, intestinal metap lasia, dysplasia present. No Helicobacter pylori microorganism is identified. [facility] B. The stomach random biopsy consists of multiple pieces of antrum mucosa and oxyntic mucosa with mild lymphoplasmacytic infiltrate in the lamina propria and reactive change. Focal intestinal metaplasia is seen. No acute inflammat ion or dysplasia is present. No Helicobacter pylori microorganisms is identified by Warthin-starry stain. C. The right ascending colon polyp consists of multiple pieces of colonic mucosa. One piece has features of tubular adenoma. No high grade dysplasia is seen. SPECIAL STUDIES The interpretation of this c ase included the use of immunohistochemistry or special stains. [facility] Control Slides Examined: In -house known positive controls were evaluated along with the test tissue. These control slides run alongside of the patients sample show appropriate staining. Internal posit alla and negative controls when available are morgan hogue Immunohistochemistry technic anibal testing was performed at [facility], Pathology Laboratory where it was developed and its performance characteristics were determined. It has not be en cleared or approved by [facility] U.S. Food and Drug Administration. The FDA has determined that such clearance or approval is not necessary. The test is used for clinical purposes. It should not be regarde d as investigational or for research. This laboratory is certified under the Clinical Laboratory Improvement Amendments of 1988 (CLIA-88) as qualified to perform high complexity clinical laboratory testing. Specimen Tissue Tissue - Gastric biopsy sample (specimen ) Tissue - Polyp, Colon - Right/Ascending Performing Organization Address City/State/Zipcode Phone Number [facility] [address] [place] [address] CENTER SARS-CoV2/RT-PCR (Asymptomatic ONLY) (02/23/2020 8:47 AM CDT) SARS-COV2/RT-PCR Not Detected Not Detected, Negative [facility] SARS-COV-2 PERFORMING LAB [facility] Specimen Other Narrative Performed At Negative results do not preclude SARS-CoV-2 [facility] infection and should not be used as the sole basis for patient management decisions. Negative results must be combined with clinical observations, patient history, and epidemiological information. A false negative result may occur if a specimen is improperly collected, transported or handled. The limit of detection for this assay is 250 copies/mL. This SARS CoV-2 test is a rapid, real-time RT-PCR test intended for the qualitative detection of nucleic acid from SARS-CoV-2 in a nasopharyngeal swab specimen collected from individuals suspected of COVID-19 by their healthcare provider. This test has not been Food and Drug Administration (FDA) cleared or approved and has been authorized by FDA under an Emergency Use Authorization (EUA). This EUA will be effective until the declaration that circumstances exist justifying the authorization of the emergency use of in vitro diagnostic tests for detection and/or diagnosis of COVID-19 is terminated under Section 564(b)(2) of the Act or the EUA is revoked under Section 564(g) of the Act. Fact Sheet for Healthcare Providers: https://www.[employer]/Documents/Xpert%20Xpre ss%20SARS%20CoV-2/Fact%20Sheets/302-3802%20SAR S-COV-2%20HEALTHCARE%20PROVIDERS%20FACT%20SHEE T.pdf Fact Sheet for Healthcare Patients: https://www.[employer]/Documents/Xpert%20Xpre ss%20SARS%20CoV-2/Fact%20Sheets/302-3801%20SAR S-COV-2%20PATIENT%20FACT%20SHEET.pdf Performing Laboratory: [place] [address] Performing Organization Address City/State/Zipcode Phone Number [place] [phone] CENTER Lipid panel (02/23/2020 4:41 AM CDT) Triglycerides 87 mg/dL [facility] Cholesterol 67 mg/dL [facility] HDL 20 mg/dL [facility] LDL Calculated 30 mg/dL [facility] Specimen Blood Narrative Performed At Triglyceride Reference Range: [facility] Low Risk <150 [id number] High Risk 200-499 Very High Risk>=500 Cholesterol Reference Range: Low Risk <200 [id number] High Risk>240 HDL Cholesterol Reference Range: Low Risk >=60 High Risk <40 LDL Cholesterol Reference Range: Optimal<100 Near [id number] Very High >=190 Director Of Planning ID - BRANDEN Andres Performing Organization Address City/[facility]/Zipcode Phone Number [address] [address] CENTER Iron, TIBC, % sat. (without ferritin) (02/22/2020 7:02 PM CDT) Iron 150.0 40.0 - 160.0 ug/dL [facility] TIBC 423 250 - 450 ug/dL [facility] Iron % Saturation 35 20 - 55 % [facility] Specimen Blood Narrative Performed At Director Of Planning ID - BS [facility] Performing Organization Address [facility] Phone Number [address] [address] CENTER Ferritin (02/22/2020 7:02 PM CDT) Ferritin 4.57 (L) 5.00 - 275.00 ng/mL [facility] Specimen Blood Narrative Performed At Director Of Planning ID - BS [facility] Performing Organization Address [facility] Phone Number [address] [address] C[place] Transfuse Leuko-Red RBC (02/22/2020 6:40 PM CDT)Only the most recent of4 resultswithin the time period is included.2D Echo W/Doppler(CW/PW/Color) (02/22/2020 4:51 PM CDT) Ejection Fraction [facility] ECHO HEAR TLAB [facility] Specimen Narrative Performed At Transthoracic Echocardiography Report (T TE) [facility] ECHO HEARTLAB MKCKESSON CPA Demographics Patient Name BERTO MCCOY Date of Study 02/22/2020 ALEXIS [id number] Gender Male Visit Number [id number] Unknown [id number] Room Number [id number] Number Date of Birth1945Referring Physician Sami Rowe Age74 year(s)Provider Relations Representative Abed Randy Erickson Shannon. Bud, Physician MD Fellow Mariano Le MD Procedure Type of Study TTE procedure:2DECHO W DOPPLER(CW/PW/COLOR) (Routine) Indications:Shortness of breath. Clinical History HGB 6.4 HCT 25.3 % CAD HTN SLEEP APNEA SOB BYPASS AORTO CORNARY MISTY/SVG CARDIAC CATHERIZATION Contrast Medium: Definity. Amount - 2 ml Height: 66 inches Weight: 109.77 kg (242 lbs) BSA: 2.17 m^2 BMI: 39.06 kg/m^2 HR: 117 bpm BP: 103/75 mmHg Summary 1. The left ventricle is chamber size is moderately enlarged. LVEF is moderately reduced (30-34%) . Inferior segments are akinetic. Septum is hypokinetic. All other segments are mildly hypokinetic. 2. There is moderate systolic dysfunction of the right ventricle. The right ventricular cavity size is no rmal 3. Grade 3 diastolic dysfunction (marked elevated LA pressure). 4. Estimated peak systolic PA pressure is cannot be determined due to inadequate TR velocity signal . Previous Study No prior studies available for comparis on. Signature Findings Rhythm/BPIrregular rhythm during the exam. Left Ventricle The left ventricle is chamber size (by vol index) is moderately enlarged (male - LVED vol 90 -100ml.m2) . No rmal LV wall thickness. Inferior segment s are ak inetic. Septum is hypokinetic. All other segments ar e mildly hypokinetic. Gr jennifer 3 diastolic dysfunction (marked elev ated LA pr essure). Estimated LVEF by qualitative a ssessment is moderately reduced (30-34%) . Left AtriumLA size is severely enlarged (>48 ml/m2) . Right VentricleThere is moderate systolic dysfunction of the right ve ntricle. Th e right ventricular cavity size is manpreet l . Right Atrium RA size is normal. Atrial SeptumThe interatrial septum is partially visualized. No rmal interatrial septum by available vie ws. Aortic Valve Normal AoV structure and function. Mitral Valve Normal MV structure. Tr bouchra mitral regurgitation. Tricuspid ValveThe tricuspid valve is not well visualized. A trace of tricuspid regurgitation. Es timated peak systolic PA pressure is can not be de termined due to inadequate TR velocity s ignal . Pulmonic Valve Normal PV structure and function. AortaAortic root size (SInus of Valsalva diameter) i s in determinate (not well seen) . PericardiumNo significant pericardial effusion is visualized. IVC/SVC/PA/PV/PleuralThe estimated RA pressure by IVC dynamics 11-15mmHg . Chambers/Structures Left Atrium LA Volume: 92.62 ml LA Area: 30.28 cm^2 LA Vol. Index: 43 ml/m^2 Left Ventricle LVIDd: 5.78 cm LVEDV:162.56 ml LV Septum Diastolic: 0.93 cm LV PW Diastolic: 1.12 cm LVEDV Dean's:195.08 ml LVESV Dean's:124.53 ml LVEF Dean's: 36.2 % LVEDVI: 90 ml/m^2 LVESVI: 57 ml/m^2 LVOT Diameter: 2.23 cm Right Ventricle RV Diast Dim.: 3.77 cm RVOT VTI: 9.11 cm Doppler/Quantitative Measurements Aortic Valve Peak Velocity: 1.03 m/sMean Velocity: 0.61 m/s Peak Gradient: 4.27 mmHg Mean Gradient: 1.86 mmHg AV Area (continuity): 3.64 cm^2 AV VTI: 13.34 cm AV DVI: 0.93 LVOT Peak Velocity: 0.7 m/sPeak Gradient: 1.94 mmHg Mean Velocity: 0.47 m/s Mean Gradient: 0.99 mmHg LVOT Diameter: 2.23 cmLVOT VTI: 12.43 cm LVOT Area: 3.91 cm^2LVOT SV:48.52 ml LVOT CO: 5.68 l/min LVOT CI: 2.62 l/min/m^2 Procedure Note Interface, External Ris In - 02/23/2020 4:46 PM CDT Transthoracic Echocardiography Report (TTE) Demographics Patient Name BERTO MCCOY Date o f Study 02/22/2020 ALEXIS Gender Male Visit Number [id number] Race Unknown [place] [address] Number Date of 1945 Referr ing Physician Sami Rowe Age 74 year(s) Sonogr apher Abed Randy Interp reting Doug Deleon MD Fellow Mariano Le MD Procedure Type of Study TTE procedure:2DECHO W DOPPLE R(CW/PW/COLOR) (Routine) Indications:Shortness of breath. Clinical History HGB 6.4 HCT 25.3 % CAD HTN SLEEP APNEA SOB BYPASS AORTO CORNARY MISTY/SVG CARDIAC CATHERIZATION Contrast Medium: Definity. Amount - 2 ml Height: 66 inches Weight: 109.77 kg (242 lbs) BSA: 2.17 m^2 BMI: 39.06 kg/m^2 HR: 117 bpm BP: 103/75 mmHg Summary 1. The left ventricle is chamber size i s moderately enlarged. LVEF is moderately reduced (30-34%) . Inferior segments are akinetic. Septum is hypokinetic. All other segments are mildly hypokinetic. 2. There is moderate systolic dysfuncti on of the right ventricle. The right ventricular cavity size is no rmal 3. Grade 3 diastolic dysfunction (marke d elevated LA pressure). 4. Estimated peak systolic PA pressure is cannot be determined due to inadequate TR velocity signal . Previous Study No prior studies available for comparis on. Signature Findings Rhythm/BP Irregular rhythm during the exam. Left Ventricle The left ventric le is chamber size (by vol index) is moderately en larged (male - LVED vol 90-100ml.m2) . Normal LV wall t hickness. Inferior segments are akinetic. Septum is hypokinetic. All other segments are mildly hypok inetic. Grade 3 diastoli c dysfunction (marked elevated LA pressure). Estim ated LVEF by qualitative assessment is moderately re duced (30-34%) . Left Atrium LA size is sever waqar enlarged (>48 ml/m2) . Right Ventricle There is moderat e systolic dysfunction of the right ventricle. The right ventri cular cavity size is normal . Right Atrium RA size is manpreet l. Atrial Septum The interatrial septum is partially visualized. Normal interatri al septum by available views. Aortic Valve Normal AoV struc ture and function. Mitral Valve Normal MV struct ure. Trace mitral reg urgitation. Tricuspid Valve The tricuspid va lve is not well visualized. A trace of tricu spid regurgitation. Estimated peak s ystolic PA pressure is cannot be determined due t o inadequate TR velocity signal . Pulmonic Valve Normal PV struct ure and function. Aorta Aortic root size (SInus of Valsalva diameter) is indeterminate (n ot well seen) . Pericardium No significant p ericardial effusion is visualized. IVC/SVC/PA/PV/Pleural The estimated RA pressure by IVC dynamics 11-15mmHg . Chambers/Structures Left Atrium LA Volume: 92.62 ml LA Area: 30.28 cm^2 LA Vol. Index: 43 ml/m^2 Left Ventricle LVIDd: 5.78 cm LVEDV:162.56 ml LV Septum Diastolic: 0.93 cm LV PW Diastolic: 1.12 cm LVEDV Dean's:195.08 ml LVESV Dean's:124.53 ml LVEF Dean's: 36.2 % LVEDVI: 90 ml/m^2 LVESVI: 57 ml/m^2 LVOT Diameter: 2.23 cm Right Ventricle RV Diast Dim.: 3.77 cm RVOT VTI: 9.11 cm Doppler/Quantitative Measurements Aortic Valve Peak Velocity: 1.03 m/s Mean Velocity: 0.61 m/s Peak Gradient: 4.27 mmHg Mean Gradient: 1.86 mmHg AV Area (continuity): 3.64 cm^2 AV VTI: 13.34 cm AV DVI: 0.93 LVOT Peak Velocity: 0.7 m/s Pea k Gradient: 1.94 mmHg Mean Velocity: 0.47 m/s Merry n Gradient: 0.99 mmHg LVOT Diameter: 2.23 cm LVO T VTI: 12.43 cm LVOT Area: 3.91 cm^2 LVO T SV:48.52 ml LVOT CO: 5.68 l/min LVO T CI: 2.62 l/min/m^2 Performing Organization Address City/[facility]/Zipcode Phone Number [facility] ECHO HEARTLAB MKCKESSON CPACS B-type Natriuretic Factor (BNP) (02/22/2020 5:46 AM CDT) BNP 340 (H) 0 - 100 pg/mL [facility] Specimen Blood Narrative Performed At Director Of Planning ID - PIAYA L [facility] Performing Organization Address [facility]/Zipcode Phone Number [address] [address] [place] Hemoglobin A1c (02/22/2020 5:46 AM CDT) Hemoglobin A1C 6.6 (H) 4.3 - 6.1 % [facility] Specimen Blood Performing Organization Address [facility]/Zipcode Phone Number [address] [address] [place] XR chest 1 view portable / bedside (02/22/2020 2:39 AM CDT) Specimen Narrative Performed At FINAL REPORT [facility] Chest one view. Clinical history: dyspnea Comparison: Chest radiograph 09/16/2017. Technique: A single frontal view of the chest was obtained. Findings: The patient is status post median sterno pillo and CABG. The cardiomediastinal contours are stabl e. There is pulmonary vascular congestion and small bilateral pleural effusions. There is no pneumothorax. Signed: Alondra Taylor MD Report Verified Date/Time:02/22/2020 03:02:06 Procedure Note Interface, External Ris In - 02/22/2020 3:04 AM CDT FINAL REPORT Chest one view. Clinical history: dyspnea Comparison: Chest radiograph 09/16/2017. Technique: A single frontal view of the chest was obtained. Findings: The patient is status post median sterno pillo and CABG. The cardiomediastinal contours are stabl e. There is pulmonary vascular congestion and small bilateral pleural effusions. There is no pneumothorax. Signed: Alondra Taylor MD Report Verified Date/Time: 02/22/2020 0 3:02:06 Performing Organization Address City/State/Zipcode Phone Number GE RIS Type and screen, automated (02/21/2020 11:36 PM CDT) ABO/RH AUTOMATED (BEAKER) [facility] Ab Scrn NEGATIVE [facility] [place] [place] Specimen Blood Performing Organization Address [facility]/Zipcode Phone Number [address] [address] Troponin I (02/21/2020 11:36 PM CDT) Troponin I <0.01 0.00 - 0.03 ng/mL [facility] Specimen Blood Narrative Performed At Troponin I (TnI) levels must be interpreted [facility] in the context of the presenting symptoms and the clinical findings. Elevated TnI levels indicate myocardial damage, but are not specific for ischemic heart disease. Elevated TnI levels are seen in patients with other cardiac conditions (including myocarditis and congestive heart failure), and slight TnI elevations occur in patients with other conditions, including sepsis, renal failure, acidosis, acute neurological disease, and persistent tachyarrhythmia. Director Of Planning ID - PIAYA L Performing Organization Address [facility]/Zipcode Phone Number [address] [address] CENTER after 03/16/2019 Insurance Payer Benefit Plan / Group Subscriber ID Type Phone A ddress MEDICARE MEDICARE A B xxxxxxxxxxx Medicare AETNA - MGD CARE AETNA INDEMNITY NON xxxxxxxxx Comm CONTR CDCREVIEW CDCREVIEW xxxxx[place] [address] [place] [place] [address] Advance Directives For more information, please contact:[facility], [place] [phone] Code Status Date Activated Date Inactivated Comments Full Code 02/21/2020 10:42 PM 02/25/2020 3:27 PM This code status was determined by: Patient Full Code 09/09/2017 7:12 PM 09/18/2017 2:49 PM This code status was determined by: Patient Full Code 09/09/2017 7:39 AM 09/09/2017 7:12 PM This code status was determined by: Patient
--- OUTSIDE RECORDS SUMMARY | 2020-03-16 14:54 | XMS REPORT | Continuity of Care Document ---
:1945 Author Organization [facility] t Address [address] [place] [address] Care Team Providers Name Role Phone Kayleen Benji Primary Care Physician Unavailable VICENTA PERRY Attending Clinician Unavailable Vicky HAWLEY, Vicenta Attending Clinician Danna Santana MD Attending Clinician Ramone HAWLEY, Susan Attending Clinician Anabell Chowdary MD Attending Clinician Don Cerda MD Attending Clinician BILL PRICE Attending Clinician Unavailable SUSAN PACK Admitting Clinician Unavailable BILL PRICE Admitting Clinician Unavailable Payers Payer Name Policy Policy Number Effective Expiration Source Type Date Date MEDICAREMEDICARE A xxxxxxxxxxx [facility] AETNA - MGD CAREAETNA INDEMNITY xxxxxxxxx [facility] NON CONTRxxxxxxxxxComm [facility] CDCREVIEWCDCREVIEWxxxxxxxxPO [place]xxxx[place] [address] [facility] Problems Condition Condition Condition Status Onset Resolution Last Treating Co mments Source Name Details Category Date Date Treatment Clinician Date GIB GIB Disease Active [facility] (gastroint (gastroint 02-20 [facility] - estinal estinal 00:00: Medical bleeding) bleeding) 00 Cent er Hypertensi Hypertensi Disease Active 2016-[address] [facility]10 [facility] Rosacea Rosacea Disease Active 2016-[address] 11-10 [facility] CAD CAD Disease Active 2016-[address] [facility] (coronary (coronary 11-10 [facility] - artery artery 00:00: Medical disease) disease) 00 Center Acute Acute Disease Active [facility] respirator respirator Isabel kes - y y Medical insufficie insufficie Ce nter ncy ncy Paroxysmal Paroxysmal Disease Active [facility] atrial atrial [facility] - fibrillati fibrillati Me dical on with on with Center RVR RVR Acute Acute Disease Active [facility] blood loss blood loss [facility] anemia anemia [facility] Thrombocyt Thrombocyt Disease Active [facility] openia openia [facility] Hyperglyce Hyperglyce Disease Active [facility] brittaney brittaney [facility] Allergies, Adverse Reactions, Alerts This patient has no known allergies or adverse reactions. Social History Social Habit Start Date Stop Date Quantity Comments Source History of tobacco Current smoker I [facility] - use [facility] Sex Assigned At [facility] Cigarettes smoked 2020-02-23 2020-02-23 [facility] - current (pack per 00:00:00 00:00:00 [facility] day) - Reported Cigarette 2020-02-23 2020-02-23 [facility] - pack-years 00:00:00 00:00:00 [facility] Alcohol Comment 2018-03-27 2018-03-27 occasionally [facility] - 00:00:00 00:00:00 [facility] Smoking Status Start Date Stop Date Source Former smoker 2020-02-23 00:00:00 2020-02-23 00:00:00 [facility] Medications Ordered Filled Start Stop Current Ordering Indication Dosage Frequency Signature Comments Components Source Medication Medication Date Date Medication? Clinician (SIG) Name Name furosemide 2020- Yes 40mg QD Take [address] (LASIX) 40 02-25 tablet (40 Isabel kes - MG tablet 00:00: 23:59 mg total) Me dical 00 :00 by mouth Geraldine daily. pantoprazol 2019- No 40mg QD Take [address] [facility] e 6-05 06-05 by mouth [facility] - (PROTONIX) 09:59: 00:00 daily. Medi katelyn 40 MG 14 :00 Center tablet metoprolol 2019- No 25mg QD Take [address] (TOPROL-XL) 02-24 06-05 by mouth Omar es - 25 MG 24 hr 09:59: 00:00 daily. Med ical tablet 14 :00 Center minocycline 2019- No 100mg QD Take [address] (MINOCIN,DY 02-24 06-05 mg by [facility] - NACIN) 100 09:57: 00:00 mouth Medic al MG capsule 14 :00 daily. Center pantoprazol Yes 40mg QD Take [address] e 6-05 tablet (40 [facility] - (PROTONIX) 00:00: mg total) Me dical 40 MG 00 by mouth Center tablet daily. metoprolol 2020- Yes 75mg Q.5D Take [address] succinate 6- 06-05 tablets [facility] - (TOPROL-XL) 00:00: 23:59 (75 mg Med ical 25 MG 24 hr 00 :00 total) by Fabrizio ter tablet mouth 2 (two) times daily. ferrous 2020- Yes 325mg Take [address] sulfate 325 - 06-05 tablet [facility] - (65 FE) MG 00:00: 23:59 (325 mg Med ical EC tablet 00 :00 total) by Cente r mouth 2 (two) times daily with breakfast and dinner. glimepiride Yes 1mg Take [address] (AMARYL) 1 6-02 by mouth [facility] - MG tablet 07:19: every Medical 58 morning Center before breakfast. metFORMIN 2019-0 Yes 500mg Take [address] (GLUCOPHAGE 6-02 mg by [facility] - ) 500 MG 07:19: mouth 2 Medica l tablet 58 (two) Center times daily with breakfast and dinner. atorvastati 2019-0 Yes 40mg QD Take [address] n (LIPITOR) 6-02 by mouth Luke s - 40 MG 07:19: daily. Medical tablet 58 Center ferrous 2019-0 2020- No 325mg Take [address] sulfate 325 6- 06-02 mg by [facility] - (65 FE) MG 07:18: 00:00 mouth Medic al tablet 11 :00 daily with Center breakfast. aspirin 81 2018-0 Yes 81mg QD Take [address] MG EC 03-27 by mouth [facility] - tablet 15:40: daily. [place] [address] Center Vital Signs Vital Name Observation Time Observation Value Comments Source Systolic blood 2020-02-25 11:41:00 116 mm[Hg] [facility] Diastolic blood 2020-02-25 11:41:00 75 mm[Hg] [facility] Heart rate 2020-02-25 11:41:00 102 /min [facility] Body temperature 2020-02-25 11:41:00 36.83 Sammie [facility] Respiratory rate 2020-02-25 11:41:00 18 /min [facility] Oxygen saturation in 2020-02-25 11:41:00 99 /min [facility] Arterial blood by Medical nter Pulse oximetry Body height 2020-02-21 22:00:00 167.6 cm [facility] Body weight Measured 2020-02-21 22:00:00 109.77 kg [facility] BMI 2020-02-21 22:00:00 39.06 kg/m2 [facility] Procedures Procedure Date / Time Performed Performing Clinician [facility] e REPORT OF PROCEDURE - 2020-02-28 12:11:04 Provider, Default [facility] ENDOSCOPY SCAN Scanning [facility] RHYTHM STRIP - SCAN 2020-02-28 12:11:03 Provider, Default [facility] POCT-GLUCOSE METER 2020-02-25 12:15:00 Carrie Santana [facility] POCT-GLUCOSE METER 2020-02-25 06:00:00 Carrie Santana [facility] BASIC METABOLIC PANEL 2020-02-25 03:49:00 Carrie Santana [facility] (7) [facility] MAGNESIUM 2020-02-25 03:49:00 Carrie Santana [facility] CBC W/PLT COUNT & AUTO 2020-02-25 03:49:00 Carrie Santana [facility] DIFFERENTIAL [facility] POCT-GLUCOSE METER 2020-02-25 00:13:00 Carrie Santana [facility] TRANSFUSION SERVICE 2020-02-24 17:50:23 Provider, Default [facility] - REPORT - SCAN [facility] POCT-GLUCOSE METER 2020-02-24 17:46:00 Carrie Santana [facility] POCT-GLUCOSE METER 2020-02-24 12:08:00 Carrie Santana [facility] POCT-GLUCOSE METER 2020-02-24 07:30:00 Carrie Santana [facility] HEPATIC FUNCTION PANEL 2020-02-24 03:41:00 Ramone [facility] PROTHROMBIN TIME/INR 2020-02-24 03:41:00 Ramone [facility] BASIC METABOLIC PANEL 2020-02-24 03:41:00 Debbi Pack [facility] ([address] [place] [address] CBC W/PLT COUNT & AUTO 2020-02-24 03:41:00 Carrie Santana [facility] PREPARE LEUKO-REDUCED 2020-02-23 23:54:00 Carrie Santana [facility] POCT-GLUCOSE METER 2020-02-23 23:06:00 Carrie Santana [facility] TRANSFUSION SERVICE 2020-02-23 17:50:29 Provider, Default [facility] REPORT OF PROCEDURE - 2020-02-23 11:47:53 Zaida Beavertonscarlet [facility] ENDOSCOPY [facility] REPORT OF PROCEDURE - 2020-02-23 11:39:11 Zaida [facility] TISSUE EXAM 2020-02-23 11:06:00 Zaida [facility] UPPER ENDOSCOPY,BIOPSY 2020-02-23 11:00:00 Zaida [facility] COLONOSCOPY,POLYPECTOMY 2020-02-23 11:00:00 Zaida Beavertonscarlet jaimes [facility] SARS-COV2/RT-PCR ([facility] & 2020-02-23 08:47:00 Naima Chowdary [facility] REF LABS) [facility] POCT-GLUCOSE METER 2020-02-23 06:20:00 Carrie Santana [facility] HEPATIC FUNCTION PANEL 2020-02-23 04:41:00 Ramone [facility] PROTHROMBIN TIME/INR 2020-02-23 04:41:00 Ramone [facility] BASIC METABOLIC PANEL 2020-02-23 04:41:00 [facility] LIPID PANEL 2020-02-23 04:41:00 Sami Rowe [facility] CBC W/PLT COUNT & AUTO 2020-02-23 04:41:00 Carrie Santana [facility] POCT-GLUCOSE METER 2020-02-22 20:52:00 [facility]/INR 2020-02-22 19:02:00 [facility] IRON, TIBC, % SAT. 2020-02-22 19:02:00 Brandyn Sheehan [facility] (WITHOUT FERRITIN) [facility] 2020-02-22 19:02:00 Brandyn Sheehan [facility] TRANSFUSE LEUKO-REDUCED 2020-02-22 18:40:28 Carrie Santana [facility] RED BLOOD CELLS [facility] TRANSFUSION SERVICE 2020-02-22 17:50:38 Mike Ho [facility] REPORT - SCAN Scanning [facility] POCT-GLUCOSE METER 2020-02-22 17:00:00 Carrie Santana [facility] 2D ECHO W/ DOPPLER 2020-02-22 16:51:44 [facility] POCT-GLUCOSE METER 2020-02-22 08:32:00 Carrie Santana [facility] CBC W/PLT COUNT & AUTO 2020-02-22 07:54:00 Sylvia Santanaberly [facility] POCT-GLUCOSE METER 2020-02-22 06:34:00 Dwayne Perry [facility] HEPATIC FUNCTION PANEL 2020-02-22 05:46:00 [facility] BASIC METABOLIC PANEL 2020-02-22 05:46:00 Debbi Pack [facility] (7) [facility] B-TYPE NATRIURETIC 2020-02-22 05:46:00 Debbi Pack [facility] - FACTOR (BNP) [facility] HEMOGLOBIN A1C 2020-02-22 05:46:00 [facility] TRANSFUSE LEUKO-REDUCED 2020-02-22 04:18:10 [facility] RED [facility]LOOD CELLS [facility] XR CHEST 1 VIEW 2020-02-22 02:39:00 [facility] PORT[facility]/BEDSIDE [facility] TROPONIN I 2020-02-21 23:36:00 [facility] BASIC METABOLIC PANEL 2020-02-21 23:36:00 Debbi Pack [facility] (7) [facility] PROTHROMBIN TIME/INR 2020-02-21 23:36:00 [facility] TYPE AND SCREEN, 2020-02-21 23:36:00 Debbi Pack [facility] es - AUTOMATED [facility] CBC W/PLT COUNT & AUTO 2020-02-21 23:36:00 [facility] - DIFFERENTIAL [facility] Results Test Description Test Time Test Comments Results Result Comments Source POCT-GLUCOSE METER 2020-03-08 11:43:00 Test Item Value Reference Range Interpretation Comme nts POC-GLUCOSE METER (BEAKER) 99 mg/dL 70-110 : TESTED AT [facility] [address] [place] [address] (test code = 1538) HERMELINDA Penaloza, [address]: Land Acquisition Analyst/Techni ja ID = [id number] for JOCELYNN CANELA POCT-GLUCOSE [id number] 11:42:00 Test Item Value Reference Range Interpretation Comments POC-GLUCOSE METER 140 mg/dL 70-110 H : [facility] (BEAKER) (test code = [facility], 153) [address]: Land Acquisition Analyst/Techni ja ID = [id number] for NAN JO POCT-GLUCOSE [id number] 11:42:00 Test Item Value Reference Range Interpretation Comments POC-GLUCOSE METER 124 mg/dL 70-110 H : TESTED A T [facility] 67[address] (BEAKER) (test code = [facility], 153) [address]: Land Acquisition Analyst/Techni ja ID = [id number] for SABAS ROY POC-Glucose [id number] 12:26:00 Test Item Value Reference Range Interpretation Comments POC-Glucose Meter (test 141 mg/dL 70-110 H : TE STED AT [facility] code = 1538) [address] [facility], 7[address]: Land Acquisition Analyst/Techni ja ID = [id number] for ARY PERSAUD Lab Interpretation (test Abnormal code = 42082-8) [facility] [id number] 12:26:00 Test Item Value Reference Range Interpretation Comments POC-GLUCOSE METER 141 mg/dL 70-110 H : TESTED A T [facility] 6720 (BEAKER) (test code = [facility], 153) [address]: Land Acquisition Analyst/Techni ja ID = [id number] for TEETEE IBANEZ POCT-GLUCOSE [id number] 06:11:00 Test Item Value Reference Range Interpretation Comments POC-GLUCOSE METER 107 mg/dL 70-110 : TESTED A T [facility] 6720 (BEAKER) (test code = [facility], 153) [address]: Land Acquisition Analyst/Techni ja ID = [id number] for PH ILIP, SHERRY CBC with platelet count + automated [id number] 05:01:00 Test Item Value Reference Range Interpretation Comments WBC (test code = 6690-2) 10.8 3.5- 10.5 K/L H RBC (test code = 789-8) 4.22 4.63- 6.08 M/L L MCHC (test code = 786-4) 26.0 32.3- 36.5 GM/DL L Hematocrit (test code = 28.5 % 40.1-51 L 4544-3) MCV (test code = 787-2) 67.5 fL 79-92.2 L MCH (test code = 785-6) 17.5 pg 25.7-32.2 L RDW (test code = 788-0) 28.4 % 11.6-14.4 H Platelets (test code = 213 150- 450 K/CU MM 777-3) MPV (test code = [place] [address]-0) to abnormal Bandar telet population distribution. nRBC (test code = 413) 0 0- 0 /100 WBC % Neutros (test code = 73 % 429) % Lymphs (test code = 13 % 430) % Monos (test code = 9 % 431) % Eos (test code = 432) 3 % % Baso (test code = 437) 1 % # Neutros (test code = 7.87 1.78- 5.38 K/L H 670) # Lymphs (test code = 1.35 1.32- 3.57 K/L 414) # Monos (test code = 1.00 0.30- 0.82 K/L H 415) # Eos (test code = 416) 0.36 0.04- 0.54 K/L # Baso (test code = 417) 0.09 0.01- 0.08 K/L H Immature 1 % 0-1 Granulocytes-Relative (test code = 2801) Lab Interpretation (test Abnormal code = 03590-3) [facility] W/PLT COUNT & AUTO [id number] 05:01:00 Test Item Value Reference Range Interpretation Comments WHITE BLOOD CELL COUNT 10.8 K/ L 3.5-10.5 H (BEAKER) (test code = 775) RED BLOOD CELL COUNT 4.22 M/ L 4.63-6.08 L (BEAKER) (test code = 761) HEMOGLOBIN (BEAKER) 7.4 GM/DL 13.7-17.5 L (test code = 410) HEMATOCRIT (BEAKER) 28.5 % 40.1-51.0 L (test code = 411) MEAN CORPUSCULAR 67.5 fL 79.0-92.2 L VOLUME (BEAKER) (test code = 753) MEAN CORPUSCULAR 17.5 pg 25.7-32.2 L HEMOGLOBIN (BEAKER) (test code = 751) MEAN CORPUSCULAR 26.0 GM/DL 32.3-36.5 L HEMOGLOBIN CONC (BEAKER) (test code = 752) RED CELL DISTRIBUTION 28.4 % 11.6-14.4 H WIDTH (BEAKER) (test code = 412) PLATELET COUNT 213 K/CU MM 150-450 (BEAKER) (test code = 756) MEAN PLATELET VOLUME Unable to report due (BEAKER) (test code = to abn ormal Platelet 754) population distribution. NUCLEATED RED BLOOD 0 /100 WBC 0-0 CELLS (BEAKER) (test code = 413) NEUTROPHILS RELATIVE 73 % PERCENT (BEAKER) (test code = 429) LYMPHOCYTES RELATIVE 13 % PERCENT (BEAKER) (test code = 430) MONOCYTES RELATIVE 9 % PERCENT (BEAKER) (test code = 431) EOSINOPHILS RELATIVE 3 % PERCENT (BEAKER) (test code = 432) BASOPHILS RELATIVE 1 % PERCENT (BEAKER) (test code = 437) NEUTROPHILS ABSOLUTE 7.87 K/ L 1.78-5.38 H COUNT (BEAKER) (test code = 670) LYMPHOCYTES ABSOLUTE 1.35 K/ L 1.32-3.57 COUNT (BEAKER) (test code = 414) MONOCYTES ABSOLUTE 1.00 K/ L 0.30-0.82 H COUNT (BEAKER) (test code = 415) EOSINOPHILS ABSOLUTE 0.36 K/ L 0.04-0.54 COUNT (BEAKER) (test code = 416) BASOPHILS ABSOLUTE 0.09 K/ L 0.01-0.08 H COUNT (BEAKER) (test code = 417) IMMATURE 1 % 0-1 GRANULOCYTES-RELATIVE PERCENT (BEAKER) (test code = 2801) Basic Metabolic [id number] 04:31:00 Test Item Value Reference Range Interpretation Comments Sodium (test code = 135 meq/L 136-145 L 2951-2) Potassium (test code = 4.0 meq/L 3.5-5.1 2823-3) Chloride (test code = 105 meq/L 98-107 5-0) CO2 (test code = 24 meq/L 22-29 8-9) BUN (test code = 16 mg/dL 7-21 3094-0) Creatinine (test code 1.03 mg/dL 0.57-1.25 = 2160-0) Glucose (test code = 120 mg/dL 70-105 H 2345-7) Calcium (test code = 8.3 mg/dL 8.4-10.2 L 75696-0) EGFR (test code = 71 mL/min/1.73 [place] [address]-7) NOT ACCURATE CREATININE CLEARANCE IN PREDICTING GLOMERULAR FILTRATION RATE . ESTIMATED GFR I S NOT APPLICABLE FOR DIALYSIS PATIENTS. YARI (test code = YARI) Land Acquisition Analyst ID - ANNE MARIEAYA L Lab Interpretation Abnormal (test code = 69128-4) [facility] 04:31:00 Test Item Value Reference Range Interpretation Comments Magnesium (test code = 2.0 mg/dL 1.6-2.6 22869-1) YARI (test code = YARI) Land Acquisition Analyst ID - PIAYA L Lab Interpretation (test Normal code = 91593-6) [facility]2020-06-05 04:31:00 Test Item Value Reference Range Interpretation Comments MAGNESIUM (BEAKER) (test code = 2.0 mg/dL 1.6-2.6 627) Land Acquisition Analyst ID - PIAYA LBASIC METABOLIC [id number] 04:31:00 Test Item Value Reference Range Interpretation Comments SODIUM (BEAKER) 135 meq/L 136-145 L (test code = 381) POTASSIUM (BEAKER) 4.0 meq/L 3.5-5.1 (test code = 379) CHLORIDE (BEAKER) 105 meq/L 98-107 (test code = 382) CO2 (BEAKER) (test 24 meq/L 22-29 code = 355) BLOOD UREA NITROGEN 16 mg/dL 7-21 (BEAKER) (test code = 354) CREATININE (BEAKER) 1.03 mg/dL 0.57-1.25 (test code = 358) GLUCOSE RANDOM 120 mg/dL 70-105 H (BEAKER) (test code = 652) CALCIUM (BEAKER) 8.3 mg/dL 8.4-10.2 L (test code = 697) EGFR (BEAKER) (test 71 mL/min/1.73 ESTIMA DAGOBERTO GFR IS code = 1092) sq m NOT ACCURATE CREATININE CLEARANCE IN PREDICTING GLOMERULAR FILTRATION RATE . ESTIMATED GFR I S NOT APPLICABLE FOR DIALYSIS PATIEN TS. Land Acquisition Analyst ID - PIAYA LPOCT-GLUCOSE [id number] 00:24:00 Test Item Value Reference Range Interpretation Comments POC-GLUCOSE METER 124 mg/dL 70-110 H : TESTED A T [facility] 6720 (DEJUAN) (test code = [place], 1538) [address]: Land Acquisition Analyst/Techni ja ID = [id number] for PH SHERRY JIN Tissue [id number] 17:44:00 Test Item Value Reference Range Interpretation Comments Case Report (test code Surgical Pathology = 104) Report Case: [id number] Authorizing Provider: Dionicio Cerda MD Collected: 02/23/2020 11:06 AM Ordering Location: [address] Received: 02/24/2020 09:14 AM Service Pathologist: Suma Moise MD Specimens: A) - Duodenum, Duodenum Bx B) - Biopsy, Gastric, Random Gastric Bx C) - Polyp, Colon - Right/Ascending, via Hot snare DIAGNOSIS (test code = [id number] 3220) FuZzEwMzNcZnRuYmpcdWMx VPqldiQqXTssr7VcL2EeTb AwMFxhbnNpXGRlZmxhbmcx UNLdDTJ3uxIuVHQhPRokHD VsOUslOf9eeNAjvEzjQqId QSZvb1qrijFByomobSf9iT ptE22rf4P8RolwS5nbAYLp DCPqJ2LdZL9lYHVjGji6HU F5OJH3WFLaGFNbN9NwWA7h GJKnqETxEGh3u7cavIjsAT MgDKE0z5nwNEzkdlOlFJ1y lm2ndEq5l8xrybTcIUDnCO SqpZRSSIKwO3KcrSgiVy1v aYg4tCroFmzvLMQ6Gkv4WV 1rmt27otb0wSydOMPopnvb HaK1EWdpBXZqdlbxBQh5DN xtYXJnbDcyMFxtYXJncjcy MFxtYXJndDcyMFxtYXJnYj weMJvxLHVmFIB4FLmxk348 DPW5BIolm7ljx0eczZFoRr x4EWYvJeNhCxlwZGtth6Wf d6apFADymu9gLUX4vALmdE pwy5Z5gNXdLUUayCBfadVj XFOdJoI0XQipNA1eqv84RH CrPDS5po2xjKAlwSkkclCw yLLtDJszJ0DqAWXos610VZ VoD2JvSIMtk1O9uvBsElXd NXJwiVV2eqP3HXQfPEa2gZ XalmY9dhOjjBVvS3lwyG99 SgAqrGNfQ3LogS22DnQrrS HkO2MysM30FzUqcVHqX1Cl tU15PdNhrJGuAZHdxVTvJq 2hoAIdeYVrj9YroEDtXLsr V79qi370DXOlodShN6mgrL FpblxwbGFpblxmMFxmczI0 XHFsXHBsYWluXGYwXGZzMj BcbGFuZzEwMzNcaGljaFxm QOmgEeUuKEWyUDowE3rlYv ZrHuPxFEOTGrEWRA1LUX5K TSwgQklPUFNZOlxwYXIgIC FnNOQVYjBCKCoPCQOOO9VK VAEISWABA4zEO4cGJPUIIo 9STUFMSVRZXHBhclxwYXIg Ee5eI3DEAYQEJSrpQmZTER 3QMSYSY3HJMEyyfIXvWMAn TQ7oD4fYD51GCmYHJHAKCt cOXYIqY3gFWIGPJMYJRYmR BQTVMOTCM7VukACwBYRoLX 3xGU9CLYUKBB5DHDVQZCJN GDhWB1uWTPVnqaRzNABmFW 7WMNmBWPdLP2JGK6TMHvXS BZzOGpqfOVhKKd2FAzfAUo lTTVMgSURFTlRJRklFRFxw JAXtwRUkSPBkGVNSQ3eVRL UMM7SWYApEMhSHC0lBKjDB T4hRFMyvMgdYSPIOPzwoJX IgICAgLSBUVUJVTEFSIEFE SA6XHCVshIBsLRTyiuEILp 8tjWmwJRS2m7vzvQJrLIYb dGUxODAwMFxhbnNpXGRlZm dmjndhIZLxJNS6ooMvJSKc AWkqXIRuIYcqAp4ntSBjyS wrUnDjVAPvi5lopjQZsgzv fQw6p1kjCLKwRzS5lRCgPC wiH4rhblRmvKIkRZWdJVd2 xJ83SMMygA2fcPMqUGvglv LvJcS1FTbuSJCtWhA0AZUa gQHqJVBmW9leBMNrJPadDS YtQVuxhZIfRND3jBewn1I6 bGVzaGVldHtcZjBcZnMyMi JYs7OxRGn9nKqsC7IaBWMr SpP9dTIoPXDcBLtzYLWzOQ WcjvB1xW91TGjlxvE0kZIm c2Qxp39xw245rG2aiKZqSZ H0QCAmEOPzfKBmGDAgLCZ5 KBLplMHqA1koRKTnKX6xad omBPhdRZycNTHesNP3SLBa dIDwM7ZkDETkSEmgJOEtlm v3BvQjGr2lsTEccAueVEtq i3qhj0ehuALuTyx1FGScYa GuVxbiOYtzu2Nwt1ffEULm jn6fGCA9mQAwpEwkt3L4zX GuTFOcgVLoAINvBI1trDTi IPEgoG4paqlvQZTvCaAvsw vmPFHoeWmrrwRwWk3onPds DTX8RDwrW6bgwG7cXxZ0BD dnV8xqvL7vKEy0XQtrOFKo uQG6fvS8BKYqdJLbB1RkuI 9oUFWuZH9wtmp5z6inBOR0 JUbmGBDeXbC1hjH0GCQeiK PeUIRrbZeiBPhnx850EWT7 BaIuSQHgr0SaE8JdsBumP2 8bwSlyJ24iHPUhaHbpeL6p iZaxgE1aAjUjKgNlDUlzxH fxLQ5mAIZkK1ejpHWnWYRx NQCeH1qrFuOndH2saLjvLI xnrmWxDGXnLtj5ELVcbTMy LUZoZzd9XMDkNCLfH44opq ylXFW1rH5jz8wlw4LfXJby NGC9ZGVhh18lUVdtpqZ6WD irRo5cLyIqKPK5LVocZTZ3 fQ== CPT Code(s) (test code c6riaVPaZMLbeDGaYhIxMD = 3358) UyYLKgk7omMWRxsIKvOqOn MzNcZnRuYmpcdWMxXGRlZm Xhy8set804oTAle1jlEAUo VyC8yXThMGKhmUXaD131v7 umf7hcohOoeXC7HUClOGJ4 IBuanzDnxvK8UHvvoOFnFq G5RRspduFtOBqehaFwehHp Ztq7KJJdY080PEU2hVknn8 nqREO8EBLyZQHxCzVcNs5f fGTaK668PBPrLXILJJLxkD y1RMPmpiNugdAkxACOa574 X229z5ijQCJayjTgpPmWjl ngr2ujK726XJSpmDGkguUz ZyOsDITrfUGifLD5QHWsNG 4hqyjvNuUxJM0bghvfXcUt WP3zvzn5IaVfLP9iwyewPr OfDHcaYJRwjftgOYHnk1Md inmwBE0xU8Fjc2W5oZ3qiN NaHQPtaAWfFqDgFQCrjm3j oIMxLEqbn2WmOBT9kpF8aU LbdOHhMHUxZK22Aromd7Zu DfbuKEU1NNBamaJhu6Qil4 nbXvTrkvGhA4lpF2EeACFh VKBjQJScMqFrgmHhc0Oci8 KxtZBqzFl5m5bqYXLwJHEt cGvtj6huMTA7UJHlQ4Y4qC Zjc9taSRfzPBWavXA6doun ZXymPVXpfwD1iyhoCPcmQH XclTT5ofdyAOnbWBLcWdK9 tonaDPuoDHHxTYA0BQlxw8 89LRF8HLdsYohvLUsqPYVs bmNvbnRccGduZGVjXHBsYW luXHBsYWluXGYwXGZzMjRc jYacdNjzwY6mCsQlNbLcPW dzYO1iULDnD5nzrVLwWLXn HHHeZ5jfZvDitJ0oaUmiWX nftmTuZLo9BnK6SVyzIbJ5 EWBeYiU7OWtpESM6 CLINICAL HISTORY (test c5mebSKcVZBuuUOmNyEtTD code = 3351) ZiLLVlr4vvWXHlbLNcHlMc MzNcZnRuYmpcdWMxXGRlZm Ejd2mvh230xVKxn9qtOTBe EiY7yNVmXCZhcMIcK139LO KtTPzja9gib4WlXWUbrEVy t2J3YXFCcnlijIl2eXiuP1 3ic3Z8UhuvH0kkIOWvXYQl F3IbAY9kGZEaLyq0JZR7WR Z1THJgZIJoM6GgOA9pHDBg uECrRPi6i4ouaTpbCLKwYD D0p5whCXpyinXxHD0wvh2c bAc8i3lwjtIzDGTnNXWckG XCWRTqG0JazUvrSi0thGy0 yOmuEyigQVI7Rvp3ZS2hhj 29azz1sZdhJZUmuvgmTmE6 BWvnYXRqnupuHAb0BBryEV JnbDcyMFxtYXJncjcyMFxt YXJndDcyMFxtYXJnYjcyMF uhAOYuAXH4CAiob855EOR6 UGymk8kta7tozJScVtj6KJ XtFfPrOnxfAUmlm6Uka1dp KSHvki0pBWF4pCXmjUtoo0 D2yNJcDHXpsLLnofQyPNFm ArZ0UEhnEO5egu06BRGlWI K0ci0qyUDfbEihlcTrkJFb RKjmK0QoOYHtw531KHLhO1 PwCRGqu2Q7uuMnNwLvGTTt zYB6lsQ4UWFuCNs2eZKily E3jfExeCAlJ6nmiC64FxAg iOXmC7LqjC52GbTdiAWtW0 UryN22SpXmcJJzN1SvyB07 XtPorYJmZRVfnWZeNp7wwL JfyZKrz5TvcAEuXYubR09t l622AIAqhzKvY2mpxSJtja yivHUoriuhUDomyfA7XBi1 cnBhclxxbFxwbGFpblxmMV xmczIwXGxhbmcxMDMzXGhp S8ayOrRuVHNwbKynOZvsq7 WxSVMjQZDmPcQxBV6jyAap XHBhcn0= SPECIMEN SOURCE (test p0pcfJKgAQBvyEBtWzMvZA code = 3377) TkNEQcg7giNFHkjYBqOhYn MzNcZnRuYmpcdWMxXGRlZm Jyy4ske015gIIrn0rtZIGp QeN5zABjSNObpCAvP486k8 xgu2bpzhTdwAI4GPYuESO6 ZRxglcFosoG3NXsbjMFjRs R8SJwzurTjIDlmdgSmhgIz Yir8ESObN976DRA0yWjxm1 bsDWN9LANqBVIrSeYbBf8v vLPaZ543CHTjATCCKTOpjN a6IXNralGzfcOlsODGv129 C715e6ijHOGbnzWhdPmRxh cbn0lbC384RHUeqXByurZh LeVxWCArtVWrjYI3JRPlPX 8ebpqnMvFbAD0foqseQiFi KU4tsxd3NzVwEB1ynzxnJa InGUqcQIDkrboeAMXqf5Zq csryCU0lE8Vzq6U2tO3svJ ZrQPGynQWnGaRsASSxrl2d eVMkEYjib9YuYVN2zxO1yP RuxFLwIETfPM23Ehljg3Mk XwdiOWS3JBWsgjWdb5Tgz7 fgRwMtlfNjL2koT4ZwVCYy SZUrXLZcFmKjkyKun0Idt8 YvnLUleFd6y3qgPQPoGGRg iIqnt4vaTXX0HDErO7F5qL Pem1zmFPhhWTTsjKM9ephx MUpyWIOwfdQ4lgkbUCgaJH YqiFF7euprEJluXUEhQsG2 rfvrMLybEPTgDRS1NOmaf9 68WQG7HEiiLskyNOkzYEGv bmNvbnRccGduZGVjXHBsYW luXHBsYWluXGYwXGZzMjRc wNlxpPyapA9xLxNdVsNwVM owRP1gWUIiO3zydQZzFDIq EEOeF7prOuShnA1heBcmNB yikoTtUJSrHOTTeW4jKV35 gXglMYJnLz7qOEkpv5TheY NaStthqIO6TJBqqfLCDyPv MhrhbLNtJCOpRG9xwM7uJX UjyL7gUQPaiLpmIUClhv4= GROSS DESCRIPTION (test r0upuHSoUKZknQDaZxYlJK code = 3366) ZlBLWqu7ltJJIgkOUpZnDh MzNcZnRuYmpcdWMxXGRlZm Mnl1chl460cRZww1ziERMn BiW9qKZvEOYbuFXpN738y6 rql1yjmwTctIM6CULlAHT9 SXqqrfKaaoD8TTrsxPDtIw F6ORjcghEuBFmsahEfwgMu Ade2VRBsB287AHC9iLfzn1 bnVHC7HKExWTZcTjTkJj9n mDIzA751GIMqCDVVQPDlsE w2PPQuecRdpuWzaUKHo692 S987b8ueDNDewgIlxNtOnm zgm4eaM893SJKzdNYuuwUm GmFjVFFroMRzuVA0HUXbJI 4xapjwOpHhYA8obcpnWcNn LR6bxhj7ZwQsTH8bkolhIk LpUPelKNZflywhPRZje1Fy whdmBP4wE3Acw5G0tR2gfX DcPHXugSBeNkAfCWOavj6t sMWxYGhyk5EiPLD1qdF3cA NcsKUcJMRrRY49Jwxfa8Bo PrgeRGU1JRWdzvBnc3Zvu9 kjPmCaxuCgX7znS5ZyXDQi FALdSTObWaYwrxAes6Kdd0 LpyJGivIb8a8swQVOiAEFa wErkt3ynBBX5RZZiT1R9lX Dgl3ufQWitLDPtvYE0kopt XPjxDYLonzZ8zrvrUVaqXN YtkTB8nrdfDMedRAZqDxT5 lakcNQyzWQFfZOR2NMdht7 08HIJ6QWmmHuvrXZswSBRs bmNvbnRccGduZGVjXHBsYW luXHBsYWluXGYwXGZzMjRc bOyeiCxrwZ5oTyDzRzMuGZ knUT1jADRvF3hynMPsLYUt TSYfD8ahUbXagX2umIyxHU xmczIwIEEuICBSZWNlaXZl LPRsvbUkb4PzIPnexdXgPJ TuaXJaWSXgZWXpVQFnBD72 O5PrmoEhECmtAYPnEPAckW 4oES25nODdzrIhjsMdEhT7 x8VfswDwJuIjjqMzGgQ6GA 8bxVmkluD2tSOqxQSkHhZq P35fukSaOG0kKDV5ppuuJs Q5jOV0mzCnXgOyR16zzS8u Q7IlREInp3OsMFynHK6meD 0mNTohvRXiBXUzLOJqlXy4 RAHeGNRedvYbf3NmeGw0dF MzYCbsXGHbdR1hwR7qGLFq OPWnvfvzNMIbIv9mOJEhT9 SgcvCtIYtdONToyj2myAqe FMmqLjXwELVhc0j9hBO8dB QrzCF9lQSccShfXO2brFEx TNPmZ4Enu3sxocSnpG6xTW LcCS6lWLUrEXS2zruoULDo s7TfuNQxMXSfDFErzRVqCH JciitgyXzbi0SqCWKjYUjp UU19yrHmFKEdhWUhdqhfrQ WbhD2oNZ91JCZrOPepDGpb PMZ5CVA6ATQpgWFfi4skvy X8oStmjQMybtKxArwbtTVv TSSrMX3dEKR0Kq8qfHQdCG SamuI7p1PoAFeaXQQsUjkm YXJccGFyIEMuICBSZWNlaX UvNDCawzYws2TyXMrfhpJx YWJlbGVkIHdpdGggdGhlIH RsgTxphvGkhkNuMB6iUXSf U5Yfv2Oye26urgEnZnWzUP OsAMUalacxmYMsIXRoVL6x wR1wGGCbrT1zGNGbnCbtLy BhcmUgbXVsdGlwbGUgdGFu XWDwnpassPhed0TwMMLoVG tuRX50wwMbSEPzsCOtqyuv yXBzvF7sOX04TDHyAMvmFZ lgFME3JNQ4XWStaCGzy6ut soO8oQzewYEojnUoBnxnkK OnWSSpQX0sOIB7Hx6ooMJr CHPnrpO1l5QcTErmNOYmYz xwYXJccGFyIFBpbGFyIEFy V5OkcKjprelkIBMfOQOBP2 PcP08qkOBpbN== MICROSCOPIC DESCRIPTION o5awjOToUKZgyNKrLlRsWS (test code = 3371) RcQLOup6yxWWQuwMBsHwNo MzNcZnRuYmpcdWMxXGRlZm Trs6fms606xVEja8vfMKOa WaJ7yDUiNTZnbTUoH961OS ArUZwrz2dge4WrHCCtuCRp p0O1ODHCyvdtmTf9lHusV4 2at2R2RnclT1mxJKWzDQdi WNJuDLmkjTFcOWN1XXWdPB K5EAlowkQudaX5HXhfsLRr HbO4XEy7x4shfBgkMROxKQ N4l4joMVckscFoPC1uxl9g sUq5s6vmjcLcFCEmAVQshM GMWGOeC6UszPhvXl9sjEv7 gStuSmxtDRS1Dau8MJ0bni 71tjn7lGqqEIDeavxlOaJ6 BDauUNIpcalyYJr0MKtzSI JnbDcyMFxtYXJncjcyMFxt YXJndDcyMFxtYXJnYjcyMF sjJMYjPBG3PKwqa903TTG9 ZEphw3eks8cpeCBbYxd5PN CsVgOeTsfcDKbpf7Xjb7qi LYJpko0hHEJ8dRKfqZbcp2 U4lZHqFDKceSXbkjBiVHHs WlS3VBeaCR9poe32GTReVG W5ym9opJHeuXbdobSikRTy IHsqH0RcOYCpj871XBOzF9 TmRXWxn6L4xfXdBbCtGEPc lRT8fvK6OVGyNGr1fNFrjz R5oiXurHUfY2qrbT01PkTw hUUvU9QosB28HcXnmTZmP5 SqtE60GcRcsAJxG8XnuL23 ZlBmePHlONAavCDzLr7sxQ WeeTHdb5MfyLZrWFbmW26e h178RQWyvfQlF9jphMYwcl xwbGFpblxmMFxmczIwXHFs XHBsYWluXGYwXGZzMjBccG nynS1kVzJdVsCzNFRWVkPE mDCuVXFtUDFzuZ3wYxsvuG T3MHSgwsOju0ZwNW0pSLDl cmVlIHBpZWNlcyBvZiBzbW HovELew8mjeLDqsBAhr1Sb h3q7dTGbxeBgD7LgaqmyeF 99xwQypzTwwNKlQ8V3kdCh XB9tTQtsfFNjriukVWwkch VoRTaepOqpIHIroq4wwgln XHBsYWluXGYwXGZzMjAgIG NvbnRlbnQuIFRoZXJlIGlz XUYtl7eyL0z6yWgcsZ4vaz Qns4EcFBOdgk0fhPFdwZ9p iHFgdAU3lZ5nEPLmZTQnxr MtXH0vAHHmzVZcEGphXidv cI8ebLrupylwyE98OIL2tK 0uyKTtNUPnzIhdv0fdXXDq zRPykXLqvXDpbCXgx8EueV 0xTn3qWCHarFGyVzWizPGi LOE0sI0xlRVzxNLuw72aX1 NotZTtUHoxFCpbZG66yZZk ZWQuIFxwYXJccGFyIEIuIF YcQXTaxJ4yJCTqPUEtzlSq lAPxfC0qw1wbB17uj5esmY Qeb0JdzQKttVfiiNHuoUqh B8SzUQ0lKOXlnYH9tNYwtH Vxf4UtCS4vFJ52hS13hQId bAAzc2TpKPrgmAhxdPouCI PrfA4qvZ3sgDHcpUToqYMn YyBpbmZpbHRyYXRlIGluIH WdWWSsjFtrqW0qOkBkIiXu OAYmIK5czjVbvLQwwWPjBS xwbGFpblxmMFxmczIwICBh lsLknySjA4MhdiXnQ6qasl wwKrOFh8TohPZjrzGcy8Xd mbAyGS8ufBIypPLymFVpgC Xlm8Rwwc0bNo7xZCO1zQTv dC3skNQfzOX5rM3pOW3gDP B2w8UaWODoQWQlqmSvskWc NH46NkVOpnRFPVujB18rPA F8XCMenUpjv5IqTQ4yP1Uw r2ElBC2mh03hORdkJGvyAQ 72bPUbHHMfJghgY9QeyPhc fb1hdWJluuleb3VspQ9dOF BhclxwYXJcbGluZSBDLiBU pULwnzswdZRzGOXqRR5pwQ 8iXYVbwQ3hWTRkwAeuKVIl mwQwt6UhRB0pLU81xRRzcO zpFZDcFQMqtvCcOsUbs3wk avwaUC49M97zWK4qS02fOA PwUIQpSNkkrbXqCKD0iJVf czEgDqB3jAE7tJNuHYLuAW 2jzBIbAR5rXSxnE5qkX8Nq GHXwCZinlUphs0knCWagTK SuRR6uOSwfWMB2 SPECIAL STUDIES (test k8lxnIZaJXBup3pcZWZonI code = 3376) FuZzEwMzNcZnRuYmpcdWMx WZwumuWdKVdva7AbO8ByVp AwMFxhbnNpXGRlZmxhbmcx BMTnLWN4ocKsARJxILsvXN LnVNrfEe7exEJiiZddPnYh JGZbs6vuztUHqdbyySt6p5 ebUGNsTnD8yINyVRygB4bx maUuhBVxD0HimVXtnVy0t0 ahBnIfZmP5rZTtXBmoH6kk xhPugYItCWKyHWy2kV80GJ DoxR3ztDDqJZeezvFbRkW5 CDmvGIHzWtK7FPAluUGfHK PsL0ptKEIuJUrdSYBhXOcr tHNuJUQ5mNxjo1I0hKBplW VrlSezYvMnLfNqAbGTi1Eo TYb9vCxfY4BjWRXtVzU4kF QgUGFyYWdyYXBoIEZvbnQ7 hYraipHyx43enHMiTZJmTT NqHrBegJpdXGNaFZOTd1Zl yDgnOIU8dRx4cOutEyywAS D8Mjp2BP1kwg19dgz2fRvq IPRdbfziMbT5VRjtLRWubc unQGg5KSjmQUEsiOD9SZIb kQBuJ9JyZOCnZB4pcqj2GV M0BBvvMAXaVdY7FTQmaVZi LKDuzFowSBfqb481CLY1Yj UcXT8bG1Llo4N1zN9ybAMw KVAapDPhPyLiNFYqoi6hpS PoSToqw0GfRPG9viP9rOSz fCFyROCxUW59Lpocx2OyKt pig9TjQ65zsCA7SSttc0sd JK5vWzD6nsCoGYlav4harL 8uGmR0KFucBD7wNS7aXOQp dQ2hhofwNQCsOsXvodcvGR OoeRhajcDhWv9zwCouIBW0 XQcoX1tnwL5wOzP3OPxeD8 knbB4sQCz1AFfquDS6XWLe jV9tZZ9oyhinq9rhGEloXP axGMQiphI0hcO0ALHctXDt U5IggD5hZCEzIR9xbuojz2 anXZB3PZdhEHHuIZO5GhSy BQKzu2Uspfw6EaJiz2OhhU IcMFajQ25wt754XUEwoqTz V0fgaXKxovgiwLPqbhfzOD eswvN5VSUkUKTkADlwSALb XGZzMjJcbGFuZzEwMzNcaG ljaFxmMVxkYmNoXGYxXGxv C4gwPnTtF2LxMZCoDjJjYH caKPbdeKPhvCFvwNW2aF4k WQ9iMAJvaUSlV1FbJZLazu VuwGPiFTU9zGXulUQpXS1v QZnzoPVkx3fxt5ExM8stoX oavVF1BR1lKQDwTHUaIGkq t1QrjM3nBqmcwVEasscnNC xmczIyXGxhbmcxMDMzXGhp X6hrLmNwKHYcmJzlBCcme3 NoXGYxXGNmMlxmczIyXGx0 cmNoXHBhclxwYXJccGxhaW 4rYzErWsJlKoqbZU1fDKMq Z2zofCKkVPRdBBIrK6wkDf KhmH2wgHwiUYxkLuTxPlOf HcVRu940ip3jKQDyvTDhlb ULnLFbsI3yUHctVIpdWDza wUJfJPqgm0zmSBAsv2j9xI UsBTBvyaXwc8cqKQtajhAs ABTwsWGboYQoWWBhb10oEP abbFjmjSjmSWOml8AqvDwn w8QgOpMrXFdpt4WsV20tpW JvbCBzbGlkZXMgcnVuIGFs t31nm9abAILzBiT0bRCyrS H4fPGzbYRyu1OtgYuxYRDo y5ifLYGgkk8lktinzSOqb2 TbmR2jphhnNRvldGUqygRk WYXmh1u1kENwSUXiNQSvYM cfvZf5QZPmx147id9jfdB6 nHSbVWL8VSooGPKnGCLjqq UgZXZhbHVhdGVkXHBsYWlu XGYxXGZzMjJcCrownpoint Healthcare FacilityZzEwz NcaGljaFxmMVxkYmNoXGYx UPpzV3ksHhRvQ9XnZDYkCq SbiBPnJ8kpmFZhHPItZXfe XGYxXGZzMjJcbGFuZzEwMz NcaGljaFxmMVxkYmNoXGYx AQctY6hzXmWhF6MkQKMvGg IgIFxwbGFpblxmMVxmczIy KEzwrmzyXTLsHUwqM4rsXu NaVVUqnTmcRXnla9LaWMAa LJMvQvlchbKjMFo8eoJjKW BhclxwbGFpblxmMVxmczIy KZjjctteWCUtFGmpB9kdWf FbZPCslArcCMkrf9CmNILp XGNmMlxmczIyIEltbXVub2 ynh2IwY6livUnpxZM5GSVf L8iseQVlpIV0FQO1hB0bAD xoqzNfOTUmw8FkNCTtSFUv TgC6bD3tXFY5RmROpMisOX BsYWluXGYxXGZzMjJcbGFu ZzEwMzNcaGljaFxmMVxkYm XyPHDiGFmhH8knXnPgM1Sb WHVsQjXuuBruAFepVSq5Zk xwbGFpblxmMVxmczIyXGxh sbpvOCSmWEvlK2mmTqJbUC UrxXfbOKdtt9DnTOWbFAPy MlxmczIyIHMgTWVkaWNhbC XWIC56ZLFpLJQpfEmzrQ3o gVRUNCWrhaP0q4D5UKskQX AiUIs6BOepwrPhGAWdkD1a BSJrYG5gCQi7zsAsXTLqj9 WaUC7tDFXebATyIGR9VZSy d1QtG9Lcj6KfDHCfTCIfzi 3ysmDoZoALgIMtIZKwck23 SKOsGI9dF2kzTBZiOFXqrf KduKSsw7YzVOZecPJ3yTNg KS3HLyGUs47fABRuBXVYqh ScWJWrrHqpzWY0iqX5bX7n LiBUaGUgRkRBIGhhcyBkZX Gkos0irpApKRAqVEFsm8Sr nEOyeCYdvrEzT0Twq3ZvKL Qcja86JFlmdSDjnd44NI9y M1Jua3NorA3mICihKJDhl3 UfzDWzqKHrDFHtv7KdL9ju hidjNTffwTJmaE3iMQWkHS y6OKBom7ZzNYCdr8LxJsSt rqCpBSLzWMCkJORppO63KZ G0lAzetUtkchTbWF9rTENl dzQeRHZhXZSfdH6mPRncvs JeQCDglmT3k4E9YNgrATOp wxMrOvsyKCW4chLwdfJ4oD BpV5rckqffGAxrVQCju9Iq eP7mqRWTuBXnk3AhzTChsQ CNiBZaUP5gdaDfJG9gAQQ9 ODggKENMSUEtODgpIGFzIH U8COaiAwycKLC5wgBlTWTr f5DdAZhjM8ncA73viRaawV r0vLNvxEsvbSDciFIeTZGg viP3o5W3SSRsq4BlmgrbWN BsYWluXGYyXGZzMjJcbGFu ZzEwMzNcaGljaFxmMlxkYm NgQAAiFSkkC5dkUjViOoTd NyfwYFK0xW== [facility] [id number] 17:44:00Surgical Pathology Report Case: [id number] Authorizing Provider: Dionicio Cerda MD Collected: 02/23/2020 11:06 AM Ordering Location: [address] Received: 02/24/2020 09:14 AM Service Pathologist: Suma Moise MD Specimens: A) - Duodenum, Duodenum Bx B) -Biopsy, Gastric, Random Gastric Bx C) - Polyp, Colon - Right/Ascending, via Hot snare A. DUODENUM, BIOPSY: - NO SIGNIFICANT PATHOLOGIC ABNORMALITYB. STOMACH, RANDOM BIOPSY: - CHRONIC GASTRITIS WITH REACTIVECHANGE - INTESTINAL METAPLASIA - NO HELICOBACTER PYLORI MICROORGANISMS IDENTIFIEDC. RIGHT ASCENDING COLON POLYP, BIOPSY: - TUBULAR ADENOMACC/pl Signing Pathologist Direct Phone Line: [phone] [id number]. DuodenumB. Gastric biopsyC. Right/ascending colon polypA. Received in formalin labeled the patient's name, accession number and "duodenum" are 3 velasquez-pink tissue fragments measuring up to 0.2 cm in greatest dimension which are filtered and submitted in toto in A1.B. Received in formalin labeled with the patient's name, accession number and "gastric biopsy" are 4 velasquez-pink tissue fragments measuring up to0.5 cm in greatest dimension which are filtered and submitted in toto in B1.C. Received in formalinlabeled with the patient's name, accession number and "right/ascending colon polyp" are multiple velasquez-pink tissue fragments measuring up to 0.4 cm in greatest dimension which are filtered and submitted in toto in C1.LYNNE Licona (ASCP)brim ironer hand. The duodenum biopsy consists of three pieces of small bowel mucosa with intact villous architecture and lamina propria content. There is a slightly increasedchronic inflammation present. No acute inflammation, intestinal metaplasia, dysplasia present. No Hel icobacter pylori microorganism is identified. B. The stomach random biopsy consists of multiple pieces of antrum mucosa and oxyntic mucosa with mild lymphoplasmacytic infiltrate in the lamina propria and reactive change. Focal intestinal metaplasia is seen. No acute inflammation or dysplasia is present. No Helicobacter pylori microorganisms is identified by Warthin-starry stain.C. The right ascendingcolon polyp consists of multiple pieces of colonic mucosa. One piece has features of tubular adenoma. No high grade dysplasia is seen. The interpretation of this case included the use of immunohistochemistry or special stains.Control Slides Examined: In-house known positive controls were evaluated along with the test tissue. These control slides run alongside of the patients sample show appropriatestaining. Internal positive and negative controls when available are evaluated Immunohistochemistry technical testing was performed at [facility], Pathology Laboratory where it was developed and its performance characteristics were determined. It has not been cleared or approved by the U.S. Food and Drug Administration. The FDA has determined that such clearance or approval is not necessary. The test is used for clinical purposes. It should not be regarded as investigational orfor research. This laboratory is certified under the Clinical Laboratory Improvement Amendments of 1988 (CLIA-88) as qualified to perform high complexity clinical laboratory testing.POCT-GLUCOSE [id number] 12:20:00 Test Item Value Reference Range Interpretation Comments POC-GLUCOSE METER 119 mg/dL 70-110 H : TESTED A T [facility] [address] ([employer]) ([place], [address]: code = 1538) Land Acquisition Analyst/Techni ja ID = [id number] for ISAI DEEGE JOHNSTON IN POCT-GLUCOSE [id number] 07:41:00 Test Item Value Reference Range Interpretation Comments POC-GLUCOSE METER 108 mg/dL 70-110 : TESTED A T [facility] [address] ([employer]) ([place], [address]: code = 1538) Land Acquisition Analyst/Techni ja ID = [id number] for ISAI GE QUINTERO IN Hepatic function [id number] 05:42:00 Test Item Value Reference Range Interpretation Comments Protein, Total (test code = 6.4 6.0- 8.3 gm/dL 2885-2) Albumin (test code = 3.9 g/dL 3.5-5 34668-8) Total Bilirubin (test code = 1.2 mg/dL 0.2-1.2 1974-2) Bilirubin, Direct (test code 0.7 mg/dL 0.1-0.5 H = 1967-7) Alkaline Phosphatase (test 77 U/L 40-150 code = 6768-6) AST (test code = 1920-8) 15 U/L 5-34 ALT (test code = 1742-6) 13 U/L 6-55 YARI (test code = YARI) Land Acquisition Analyst ID - BS Lab Interpretation (test Abnormal code = 54396-3) [facility] [id number] 05:42:00 Test Item Value Reference Range Interpretation Comments TOTAL PROTEIN (BEAKER) (test code = 6.4 gm/dL 6.0-8.3 770) ALBUMIN (BEAKER) (test code = 1145) 3.9 g/dL 3.5-5.0 BILIRUBIN TOTAL (BEAKER) (test code 1.2 mg/dL 0.2-1.2 = 377) BILIRUBIN DIRECT (BEAKER) (test 0.7 mg/dL 0.1-0.5 H code = 706) ALKALINE PHOSPHATASE (BEAKER) (test 77 U/L 40-150 code = 346) AST (SGOT) (BEAKER) (test code = 15 U/L 5-34 353) ALT (SGPT) (BEAKER) (test code = 13 U/L 6-55 347) Land Acquisition Analyst ID - BSBASIC METABOLIC [id number] 05:42:00 Test Item Value Reference Range Interpretation Comments SODIUM (BEAKER) 135 meq/L 136-145 L (test code = 381) POTASSIUM (BEAKER) 3.9 meq/L 3.5-5.1 (test code = 379) CHLORIDE (BEAKER) 105 meq/L 98-107 (test code = 382) CO2 (BEAKER) (test 23 meq/L 22-29 code = 355) BLOOD UREA NITROGEN 16 mg/dL 7-21 (BEAKER) (test code = 354) CREATININE (BEAKER) 0.95 mg/dL 0.57-1.25 (test code = 358) GLUCOSE RANDOM 101 mg/dL 70-105 (BEAKER) (test code = 652) CALCIUM (BEAKER) 8.5 mg/dL 8.4-10.2 (test code = 697) EGFR (BEAKER) (test 78 mL/min/1.73 ESTIMA DAGOBERTO GFR IS code = 1092) sq m NOT ACCURATE CREATININE CLEARANCE IN PREDICTING GLOMERULAR FILTRATION RATE . ESTIMATED GFR I S NOT APPLICABLE FOR DIALYSIS PATIEN TS. Land Acquisition Analyst ID - BSProthrombin time/[id number] 05:20:00 Test Item Value Reference Range Interpretation Comments Protime (test code = 15.7 11.9- 14.2 H 5902-2) seconds INR (test code = 1.3 <=5.9 6301-6) YARI (test code = YARI) Effective 02/17/2019: PT Reference Range ChangeNew: 11.9-14.2 Previous: 11.7-14.7 RECOMMENDED COUMADIN/WARFARIN INR THERAPY RANGESSTANDARD DOSE: 2.0-3.0 Includes: PROPHYLAXIS for venous thrombosis, systemic embolization; TREATMENT for venous thrombosis and/or pulmonary embolus.HIGH RISK: Target INR is 2.5-3.5 for patients wiht mechanical heart valves. Lab Interpretation Abnormal (test code = 71026-7) [facility]/[id number] 05:20:00 Test Item Value Reference Range Interpretation Comments PROTIME (BEAKER) (test code = 15.7 seconds 11.9-14.2 H 759) INR (BEAKER) (test code = 370) 1.3 <=5.9 Effective 02/17/2019: PT Reference Range ChangeNew: 11.9-14.2 Previous: 11.7- 14.7RECOMMENDED COUMADIN/WARFARIN INR THERAPY RANGESSTANDARD DOSE: 2.0-3.0 Includes: PROPHYLAXIS for venous thrombosis, systemic embolization; TREATMENT for venous thrombosis and/or pulmonary embolus.HIGH RISK: Target INR is2.5-3.5 for patients wiht mechanical heart valves.CBC W/PLT COUNT & AUTO [id number] 05:02:00 Test Item Value Reference Range Interpretation Comments WHITE BLOOD CELL COUNT 14.6 K/ L 3.5-10.5 H (BEAKER) (test code = 775) RED BLOOD CELL COUNT 4.16 M/ L 4.63-6.08 L (BEAKER) (test code = 761) HEMOGLOBIN (BEAKER) 7.2 GM/DL 13.7-17.5 L (test code = 410) HEMATOCRIT (BEAKER) 27.8 % 40.1-51.0 L (test code = 411) MEAN CORPUSCULAR 66.8 fL 79.0-92.2 L VOLUME (BEAKER) (test code = 753) MEAN CORPUSCULAR 17.3 pg 25.7-32.2 L HEMOGLOBIN (BEAKER) (test code = 751) MEAN CORPUSCULAR 25.9 GM/DL 32.3-36.5 L HEMOGLOBIN CONC (BEAKER) (test code = 752) RED CELL DISTRIBUTION 27.1 % 11.6-14.4 H WIDTH (BEAKER) (test code = 412) PLATELET COUNT 233 K/CU MM 150-450 (BEAKER) (test code = 756) MEAN PLATELET VOLUME Unable to report due (BEAKER) (test code = to abn ormal Platelet 754) population distribution. NUCLEATED RED BLOOD 0 /100 WBC 0-0 CELLS (BEAKER) (test code = 413) NEUTROPHILS RELATIVE 80 % PERCENT (BEAKER) (test code = 429) LYMPHOCYTES RELATIVE 10 % PERCENT (BEAKER) (test code = 430) MONOCYTES RELATIVE 7 % PERCENT (BEAKER) (test code = 431) EOSINOPHILS RELATIVE 2 % PERCENT (BEAKER) (test code = 432) BASOPHILS RELATIVE 0 % PERCENT (BEAKER) (test code = 437) NEUTROPHILS ABSOLUTE 11.67 K/ L 1.78-5.38 H COUNT (BEAKER) (test code = 670) LYMPHOCYTES ABSOLUTE 1.48 K/ L 1.32-3.57 COUNT (BEAKER) (test code = 414) MONOCYTES ABSOLUTE 1.02 K/ L 0.30-0.82 H COUNT (BEAKER) (test code = 415) EOSINOPHILS ABSOLUTE 0.23 K/ L 0.04-0.54 COUNT (BEAKER) (test code = 416) BASOPHILS ABSOLUTE 0.05 K/ L 0.01-0.08 COUNT (BEAKER) (test code = 417) IMMATURE 1 % 0-1 GRANULOCYTES-RELATIVE PERCENT (BEAKER) (test code = 2801) Prepare Leuko-Red [id number] 23:54:00 Test Item Value Reference Range Interpretation Comments CROSSMATCH (test code = 2264) COMPATIBLE Unit ABO (test code = O Pos 8020345) UNIT NUMBER (test code = [id number] 934-0) Status (test code = 6748872) TX_TIMEINCHART Blood Bank Product (test code RED BLOOD CELLS = 2263) PRODUCT CODE (test code = E4140R59 933-2) [facility] W/Doppler(CW/PW/Color)2020-02-23 16:46:12 Ejection FractionSLE ECHO HEARTLAB MKCKESSON CPACSInterface, External Ris In - 02/23/2020 4:46 PM CDTTransthoracic Echocardiography Report (TTE) Demographics Patient Name BERTO GARCIA Date ofStudy 02/22/2020 MARIO Gender Male Visit Number [id number] Race Unknown RoomNumber 1118 Number Date of 1945 Referring Physician Sami Jae Age 74 year(s) Tumbler Tender Yinka Johnsif Interpreting Emma Silver Physician Fellow Mariano Le MD Procedure Type of Study TTE procedure:2DECHO W DOPPLER(CW/PW/COLOR) (Routine) Indications:Shortness of breath.Clinical HistoryHGB 6.4HCT 25.3 %CADHTNSLEEP APNEASOBBYPASS AORTO CORNARY MISTY/SVGCARDIAC CATHERIZATIONContrast Medium: Definity. Amount - 2 mlHeight: 66 inches Weight: 109.77 kg (242 lbs) BSA: 2.17 m^2 BMI: 39.06kg/m^2HR: 117 bpm BP: 103/75 mmHg Summary 1. The left ventricle is chamber size is moderately enlarged. LVEF is moderately reduced (30-34%) .Inferior segments are akinetic. Septum is hypokinetic. All other segments are mildly hypokinetic. 2. There is moderate systolic dysfunction of the right ventricle. The right ventricular cavity size isnormal 3. Grade 3 diastolic dysfunction (marked elevated LA pressure). 4. Estimated peak systolic PA pressure is cannot be determined due to inadequate TR velocity signal . Previous Study No prior studies available for comparison. Signature Findings Rhythm/BP Irregular rhythm during the exam. Left Ventricle The left ventricle is chamber size (by vol index) is moderately enlarged (male - LVED vol 90-100ml.m2) . Normal LV wall thickness. Inferior segments are akinetic. Septum is hypokinetic. All other segments are mildly hypokinetic. Grade 3 diastolic dysfunction (marked elevated LA pressure). Estimated LVEF by qualitative assessment is moderately reduced (30-34%). Left Atrium LA size is severely enlarged (>48 ml/m2) . Right Ventricle There is moderate systolic dysfunction of the right ventricle. The right ventricular cavity size is normal . Right Atrium RA size is normal. Atrial Septum The interatrial septum is partially visualized. Normal interatrial septum by available views. Aortic Valve Normal AoV structure and function. Mitral Valve Normal MV structure. Trace mitral regurgitation. Tricuspid Valve The tricuspid valve is not well visualized. A trace of tricuspid regurgitation. Estimated peak systolic PA pressure is cannot be determined due to inadequate TR velocity signal . Pulmonic Valve Normal PV structure and function. Aorta Aortic root size (SInus of Valsalva diameter) is indeterminate (not well seen) . Pericardium No significant pericardial effusion is visualized. IVC/SVC/PA/PV/Pleural The estimated RA [...] Diameter: 2.23 cm Right Ventricle RV Diast Dim.:3.77 cm RVOT VTI: 9.11 cm Doppler/Quantitative Measurements Aortic Valve Peak Velocity: 1.03 m/s Mean Velocity: 0.61 m/s Peak Gradient: 4.27 mmHg Mean Gradient: 1.86 mmHg AV Area (continuity): 3.64 cm^2 AV VTI: 13.34 cm AV DVI: 0.93 LVOT Peak Velocity: 0.7 m/s Peak Gradient: 1.94 mmHg Mean Velocity: 0.47 m/s Mean Gradient: 0.99 mmHg LVOT Diameter: 2.23 cm LVOT VTI: 12.43 cm LVOT Area: 3.91 cm^2 LVOT SV:48.52 ml LVOT CO: 5.68 l/min LVOT CI: 2.62 l/min/m^2[facility]/RT-PCR (Asymptomatic ONLY)2020-02-23 10:12:00 Test Item Value Reference Range Interpretation Comments SARS-COV2/RT-PCR Not Detected Not Detected, (test code = Negative 50344-1) SARS-COV-2 [facility] PERFORMING LAB (test code = 83347-1) YARI (test code = Negative results do not YARI) preclude SARS-CoV-2 infection and should not be used as [...] of the Act. Fact Sheet for Healthcare Providers:https://www.Downid.VetCompare/Documents/Xper t%20Xpress%20SARS%20CoV- 2/Fact%20Sheets/302-3282 %16OAEF-SPZ-4%20HEALTHCA RE%20PROVIDERS%20FACT%20 SHEET.pdf Fact Sheet for Healthcare Patients:https://www.cinvolve heid.com/Documents/Xpert %20Xpress%20SARS%20CoV-2 /Fact%20Sheets/302-3801% 55GEOT-USQ-7%20PATIENT%2 0FACT%20SHEET.pdf Performing Laboratory:[facility] [place] [address] [facility] & REF LAB[facility])2020-02-23 10:12:00 Test Item Value Reference Range Interpretation Comments SARS-COV2/RT-PCR (test Not Detected Not Detected, Negative code = 8078774) SARS-COV-2 PERFORMING LAB [facility] (test code = 5977233) Negative results do not preclude SARS-CoV-2 infection and should not be used as the sole basis for patient management decisions. Negative results must be combined with clinical observations, patient history, and epidemiological information. A false negative result may occur if a specimen is improperly collected, transported or handled.The limit of detection for this assay is 250 copies/mL.This SARS CoV-2 test is a rapid, real-time RT-PCR test intended for the qualitative detection of nucleic acid from SARS-CoV-2 in a nasopharyngeal swab specimen collected from individuals suspected of COVID-19 by their healthcare provider.This test has not been Food and Drug [...] is revoked under Section 564(g) of the Act.Fact Sheet for Healthcare Pro viders:https://www.[address]Documents/Xpert%20Xpress%20SARS%20CoV-2/Fact%20Sh eets/302-3802%62VIVY-FUS-0%20HEALTHCARE%20PROVIDERS%20FACT%20SHEET.pdfFact Sheet for Healthcare Patients:https://www.[employer]/Documents/Xpert%20Xpress%20SARS%20CoV-2/Fact%20Sheets/302-3801%20SARS-COV -2%20PATIENT%20FACT%20SHEET.pdfPerforming Laboratory:[facility], [place] [address]Ftgho [id number] 06:50:00 Test Item Value Reference Range Interpretation Comments Triglycerides (test 87 mg/dL code = 2571-8) Cholesterol (test code 67 mg/dL = 2093-3) HDL (test code = 20 mg/dL 2085-9) LDL Calculated (test 30 mg/dL code = 04816-0) YARI (test code = YARI) Triglyceride Reference Range: Low Risk <150 Borderline 150-199 High Risk 200-499 Very High Risk >=500 Cholesterol Reference Range: Low Risk <200 Borderline 200-239 High Risk >240 HDL Cholesterol Reference Range: Low Risk >=60 High Risk <40 LDL Cholesterol Reference Range: Optimal <100 Near Optimal 100-129 Borderline 130-159 High 160-189 Very High >=190 [employer] Analyst ID - BRANDEN Andres [facility] HospitalLIPID [id number] 06:50:00 Test Item Value Reference Range Interpretation Comments TRIGLYCERIDES (BEAKER) (test code = 87 mg/dL 540) CHOLESTEROL (BEAKER) (test code = 67 mg/dL 631) HDL CHOLESTEROL (BEAKER) (test code 20 mg/dL = 976) LDL CHOLESTEROL CALCULATED (BEAKER) 30 mg/dL (test code = 633) Triglyceride Reference Range: Low Risk <150 Borderline 150-199 High Risk 200-499 Very High Risk >=500Cholesterol Reference Range: Low Risk <200 Borderline 200-239 High Risk >240HDL Cholesterol Reference Range: Low Risk >=60 High Risk <40LDL Cholesterol Reference Range: Optimal <100 Near Optimal 100-129 Borderline 130-159 High 160-189 Very High >=190 Land [employer] Analyst ID - BRANDEN MBASIC METABOLIC [id number] 06:50:00 Test Item Value Reference Range Interpretation Comments SODIUM (BEAKER) 138 meq/L 136-145 (test code = 381) POTASSIUM (BEAKER) 3.8 meq/L 3.5-5.1 (test code = 379) CHLORIDE (BEAKER) 107 meq/L 98-107 (test code = 382) CO2 (BEAKER) (test 23 meq/L 22-29 code = 355) BLOOD UREA NITROGEN 13 mg/dL 7-21 (BEAKER) (test code = 354) CREATININE (BEAKER) 0.94 mg/dL 0.57-1.25 (test code = 358) GLUCOSE RANDOM 97 mg/dL 70-105 (BEAKER) (test code = 652) CALCIUM (BEAKER) 8.6 mg/dL 8.4-10.2 (test code = 697) EGFR (BEAKER) (test 79 mL/min/1.73 ESTIMA DAGOBERTO GFR IS code = 1092) sq m NOT ACCURATE CREATININE CLEARANCE IN PREDICTING GLOMERULAR FILTRATION RATE . ESTIMATED GFR I S NOT APPLICABLE FOR DIALYSIS PATIEN TS. Land Acquisition Analyst ID - BRANDEN EPATIC FUNCTION [id number] 06:50:00 Test Item Value Reference Range Interpretation Comments TOTAL PROTEIN (BEAKER) (test code = 6.3 gm/dL 6.0-8.3 770) ALBUMIN (BEAKER) (test code = 1145) 3.9 g/dL 3.5-5.0 BILIRUBIN TOTAL (BEAKER) (test code 1.2 mg/dL 0.2-1.2 = 377) BILIRUBIN DIRECT (BEAKER) (test 0.7 mg/dL 0.1-0.5 H code = 706) ALKALINE PHOSPHATASE (BEAKER) (test 78 U/L 40-150 code = 346) AST (SGOT) (BEAKER) (test code = 18 U/L 5-34 353) ALT (SGPT) (BEAKER) (test code = 14 U/L 6-55 347) Land Acquisition Analyst ID - BRANDEN MPOCT-GLUCOSE [id number] 06:34:00 Test Item Value Reference Range Interpretation Comments POC-GLUCOSE METER 97 mg/dL 70-110 : TESTED A T [facility] 6720 (BEAKER) (test code = REHAN Jaimes [facility], 1538) [address]: Land Acquisition Analyst/Techni ja ID = [id number] for MOLD GLORIASandraSABAS CBC W/PLT COUNT & AUTO [id number] 06:18:00 Test Item Value Reference Range Interpretation Comments WHITE BLOOD CELL COUNT 8.0 K/ L 3.5-10.5 (BEAKER) (test code = 775) RED BLOOD CELL COUNT 4.14 M/ L 4.63-6.08 L (BEAKER) (test code = 761) HEMOGLOBIN (BEAKER) 7.2 GM/DL 13.7-17.5 L (test code = 410) HEMATOCRIT (BEAKER) 26.7 % 40.1-51.0 L (test code = 411) MEAN CORPUSCULAR 64.5 fL 79.0-92.2 L VOLUME (BEAKER) (test code = 753) MEAN CORPUSCULAR 17.4 pg 25.7-32.2 L HEMOGLOBIN (BEAKER) (test code = 751) MEAN CORPUSCULAR 27.0 GM/DL 32.3-36.5 L HEMOGLOBIN CONC (BEAKER) (test code = 752) RED CELL DISTRIBUTION 26.5 % 11.6-14.4 H WIDTH (BEAKER) (test code = 412) PLATELET COUNT 235 K/CU MM 150-450 (BEAKER) (test code = 756) MEAN PLATELET VOLUME Unable to report due (BEAKER) (test code = to abn ormal Platelet 754) population distribution. NUCLEATED RED BLOOD 0 /100 WBC 0-0 CELLS (BEAKER) (test code = 413) NEUTROPHILS RELATIVE 70 % PERCENT (BEAKER) (test code = 429) LYMPHOCYTES RELATIVE 14 % PERCENT (BEAKER) (test code = 430) MONOCYTES RELATIVE 11 % PERCENT (BEAKER) (test code = 431) EOSINOPHILS RELATIVE 5 % PERCENT (BEAKER) (test code = 432) BASOPHILS RELATIVE 1 % PERCENT (BEAKER) (test code = 437) NEUTROPHILS ABSOLUTE 5.56 K/ L 1.78-5.38 H COUNT (BEAKER) (test code = 670) LYMPHOCYTES ABSOLUTE 1.09 K/ L 1.32-3.57 L COUNT (BEAKER) (test code = 414) MONOCYTES ABSOLUTE 0.86 K/ L 0.30-0.82 H COUNT (BEAKER) (test code = 415) EOSINOPHILS ABSOLUTE 0.38 K/ L 0.04-0.54 COUNT (BEAKER) (test code = 416) BASOPHILS ABSOLUTE 0.08 K/ L 0.01-0.08 COUNT (BEAKER) (test code = 417) IMMATURE 1 % 0-1 GRANULOCYTES-RELATIVE PERCENT (BEAKER) (test code = 2801) PROTHROMBIN [id number] 05:40:00 Test Item Value Reference Range Interpretation Comments PROTIME (BEAKER) (test code = 15.6 seconds 11.9-14.2 H 759) INR (BEAKER) (test code = 370) 1.3 <=5.9 Effective 02/17/2019: PT Reference Range ChangeNew: 11.9-14.2 Previous: 11.7- 14.7RECOMMENDED COUMADIN/WARFARIN INR THERAPY RANGESSTANDARD DOSE: 2.0-3.0 Includes: PROPHYLAXIS for venous thrombosis, systemic embolization; TREATMENT for venous thrombosis and/or pulmonary embolus.HIGH RISK: Target INR is2.5-3.5 for patients wiht mechanical heart valves.POCT-GLUCOSE [id number] 21:03:00 Test Item Value Reference Range Interpretation Comments POC-GLUCOSE METER 90 mg/dL 70-110 : TESTED A T [facility] 6720 (AKER) (test code = REHAN SHEN [place], 1538) [address]: Land Acquisition Analyst/Techni ja ID = [id number] for NIA ARCHIBALD [id number] 20:30:00 Test Item Value Reference Range Interpretation Comments Ferritin (test code = 4.57 ng/mL 5-275 L 2276-4) YARI (test code = YARI) Land Acquisition Analyst ID - BS Lab Interpretation (test Abnormal code = 95775-1) [facility]:30[facility]00 Test Item Value Reference Range Interpretation Comments FERRITIN (BEAKER) (test code = 4.57 ng/mL 5.00-275.00 L 361) Land Acquisition Analyst ID - BSIron, TIBC, % sat. (without ferritin)2020-02-22 20:11:00 Test Item Value Reference Range Interpretation Comments Iron (test code = 2498-4) 150.0 ug/dL 40-160 TIBC (test code = 2500-7) 423 ug/dL 250-450 Iron % Saturation (test code 35 % 20-55 = 2502-3) YARI (test code = YARI) Land Acquisition Analyst ID - BS Lab Interpretation (test Normal code = 64143-8) [facility], TIBC, % SAT. (WITHOUT FERRITIN)2020-02-22 20:11:00 Test Item Value Reference Range Interpretation Comments IRON (BEAKER) (test code = 547) 150.0 ug/dL 40.0-160.0 TOTAL IRON BINDING CAPACITY 423 ug/dL 250-450 (BEAKER) (test code = 769) IRON % SATURATION (2) (BEAKER) 35 % 20-55 (test code = 2590) Land Acquisition Analyst ID - BSPROTHROMBIN TIME/[id number] 19:39:00 Test Item Value Reference Range Interpretation Comments PROTIME (BEAKER) (test code = 15.8 seconds 11.9-14.2 H 759) INR (BEAKER) (test code = 370) 1.3 <=5.9 Effective 02/17/2019: PT Reference Range ChangeNew: 11.9-14.2 Previous: 11.7- 14.7RECOMMENDED COUMADIN/WARFARIN INR THERAPY RANGESSTANDARD DOSE: 2.0-3.0 Includes: PROPHYLAXIS for venous thrombosis, systemic embolization; TREATMENT for venous thrombosis and/or pulmonary embolus.HIGH RISK: Target INR is2.5-3.5 for patients wiht mechanical heart valves.POCT-GLUCOSE [id number] 17:12:00 Test Item Value Reference Range Interpretation Comments POC-GLUCOSE METER 100 mg/dL 70-110 : TESTED A T [facility] 6720 (BEAKER) (test code = REHAN SH[place], 1538) [address]: Land Acquisition Analyst/Techni ja ID = [id number] for DANDY GAR Hemoglobin [id number] 10:10:00 Test Item Value Reference Range Interpretation Comments Hemoglobin A1C (test code = 4548-4) 6.6 % 4.3-6.1 H Lab Interpretation (test code = Abnormal 62514-5) [facility] [id number] 10:10:00 Test Item Value Reference Range Interpretation Comments HEMOGLOBIN A1C (BEAKER) (test code = 6.6 % 4.3-6.1 H 368) CBC W/PLT COUNT & AUTO [id number] 09:51:00 Test Item Value Reference Range Interpretation Comments WHITE BLOOD CELL COUNT 8.5 K/ L 3.5-10.5 (BEAKER) (test code = 775) RED BLOOD CELL COUNT 4.00 M/ L 4.63-6.08 L (BEAKER) (test code = 761) HEMOGLOBIN (BEAKER) 6.4 GM/DL 13.7-17.5 L (test code = 410) HEMATOCRIT (BEAKER) 25.3 % 40.1-51.0 L (test code = 411) MEAN CORPUSCULAR 63.3 fL 79.0-92.2 L VOLUME (BEAKER) (test code = 753) MEAN CORPUSCULAR 16.0 pg 25.7-32.2 L HEMOGLOBIN (BEAKER) (test code = 751) MEAN CORPUSCULAR 25.3 GM/DL 32.3-36.5 L HEMOGLOBIN CONC (BEAKER) (test code = 752) RED CELL DISTRIBUTION 25.1 % 11.6-14.4 H WIDTH (BEAKER) (test code = 412) PLATELET COUNT 242 K/CU MM 150-450 (BEAKER) (test code = 756) MEAN PLATELET VOLUME Unable to report due (BEAKER) (test code = to abn ormal Platelet 754) population distribution. NUCLEATED RED BLOOD 0 /100 WBC 0-0 CELLS (BEAKER) (test code = 413) NEUTROPHILS RELATIVE 70 % PERCENT (BEAKER) (test code = 429) LYMPHOCYTES RELATIVE 14 % PERCENT (BEAKER) (test code = 430) MONOCYTES RELATIVE 11 % PERCENT (BEAKER) (test code = 431) EOSINOPHILS RELATIVE 4 % PERCENT (BEAKER) (test code = 432) BASOPHILS RELATIVE 1 % PERCENT (BEAKER) (test code = 437) NEUTROPHILS ABSOLUTE 5.89 K/ L 1.78-5.38 H COUNT (BEAKER) (test code = 670) LYMPHOCYTES ABSOLUTE 1.20 K/ L 1.32-3.57 L COUNT (BEAKER) (test code = 414) MONOCYTES ABSOLUTE 0.92 K/ L 0.30-0.82 H COUNT (BEAKER) (test code = 415) EOSINOPHILS ABSOLUTE 0.33 K/ L 0.04-0.54 COUNT (BEAKER) (test code = 416) BASOPHILS ABSOLUTE 0.05 K/ L 0.01-0.08 COUNT (BEAKER) (test code = 417) IMMATURE 1 % 0-1 GRANULOCYTES-RELATIVE PERCENT (BEAKER) (test code = 2801) HEPATIC FUNCTION [id number] 07:53:00 Test Item Value Reference Range Interpretation Comments TOTAL PROTEIN (BEAKER) (test code = 6.3 gm/dL 6.0-8.3 770) ALBUMIN (BEAKER) (test code = 1145) 3.9 g/dL 3.5-5.0 BILIRUBIN TOTAL (BEAKER) (test code 0.9 mg/dL 0.2-1.2 = 377) BILIRUBIN DIRECT (BEAKER) (test 0.5 mg/dL 0.1-0.5 code = 706) ALKALINE PHOSPHATASE (BEAKER) (test 75 U/L 40-150 code = 346) AST (SGOT) (BEAKER) (test code = 15 U/L 5-34 353) ALT (SGPT) (BEAKER) (test code = 13 U/L 6-55 347) Land Acquisition Analyst HUMPHREY ROSADOASIC METABOLIC [id number] 07:53:00 Test Item Value Reference Range Interpretation Comments SODIUM (BEAKER) 137 meq/L 136-145 (test code = 381) POTASSIUM (BEAKER) 4.2 meq/L 3.5-5.1 (test code = 379) CHLORIDE (BEAKER) 105 meq/L 98-107 (test code = 382) CO2 (BEAKER) (test 25 meq/L 22-29 code = 355) BLOOD UREA NITROGEN 14 mg/dL 7-21 (BEAKER) (test code = 354) CREATININE (BEAKER) 0.82 mg/dL 0.57-1.25 (test code = 358) GLUCOSE RANDOM 91 mg/dL 70-105 (BEAKER) (test code = 652) CALCIUM (BEAKER) 8.5 mg/dL 8.4-10.2 (test code = 697) EGFR (BEAKER) (test 92 mL/min/1.73 ESTIMA DAGOBERTO GFR IS code = 1092) sq m NOT ACCURATE CREATININE CLEARANCE IN PREDICTING GLOMERULAR FILTRATION RATE . ESTIMATED GFR I S NOT APPLICABLE FOR DIALYSIS PATIEN TS. Land Acquisition Analyst HUMPHREY VALENTE LB-type Natriuretic Factor (BNP)2020-02-22 07:34:00 Test Item Value Reference Range Interpretation Comments BNP (test code = 31818-6) 340 pg/mL 0-100 H YARI (test code = YARI) Land Acquisition Analyst HUMPHREY Vasquez Lab Interpretation (test Abnormal code = 55721-5) [facility] (BNP)2020-02-22 07:34:00 Test Item Value Reference Range Interpretation Comments B-TYPE NATRIURETIC PEPTIDE (BEAKER) 340 pg/mL 0-100 H (test code = 700) Land Acquisition Analyst HUMPHREY VALENTE LPOCT-GLUCOSE [id number] 06:46:00 Test Item Value Reference Range Interpretation Comments POC-GLUCOSE METER 88 mg/dL 70-110 : TESTED A T [facility] 6720 (DEJUAN) (test code = REHAN SHEN [place], 1538) [address]: Land Acquisition Analyst/Techni ja ID = [id number] for VINNIE RO, NIA RAD, CHEST, 1 VIEW, NON [id number] 03:02:00Reason for exam:- >dyspneaShould this be performed at the bedside?->YesFINAL REPORT Chest one view. Clinical history: dyspnea Comparison: Chest radi ograph 09/16/2017. Technique: A single frontal view of the chest was obtained. Findings:The patientis status post median sternotomy and CABG.The cardiomediastinal contours are stable. There is pulmonary vascular congestion and small bilateral pleural effusions. There is no pneumothorax. Signed: Alondra Taylor Verified Date/Time: 02/22/2020 03:02:06 XR chest 1 view portable / [id number] 03:02:00Interface, External Ris In - 02/22/2020 3:04 AM CDTFINAL REPORT Chest one view. Clinical history: dyspnea Comparison: Chest radiograph 09/16/2017. Technique: A single frontal view of the chest was obtained. Findings:The patient is status post median sternotomy and CABG.The cardiomediastinal contours are stable. There is pulmonary vascular congestion and small bilateral pleural effusions. There is no pneumothorax. Signed: Alondra Taylor Verified Date/Time: 02/22/2020 03:02:06 [facility] [id number] 00:23:00 Test Item Value Reference Range Interpretation Comments ABO/RH AUTOMATED (DEJUAN) (test O POSITIVE code = 2260) Ab Scrn (test code = 890-4) [facility]GATIVE [facility] [id number] 00:21:00 Test Item Value Reference Range Interpretation Comments Troponin I (test code = <0.01 0-0.03 64521-7) YARI (test code = YARI) Troponin I (TnI) levels must be interpreted in the context of the presenting symptoms and the clinical findings. Elevated TnI levels indicate myocardial damage, but are not specific for ischemic heart disease. Elevated TnI levels are seen in patients with other cardiac conditions (including myocarditis and congestive heart failure), and slight TnI elevations occur in patients with other conditions, including sepsis, renal failure, acidosis, acute neurological disease, and persistent tachyarrhythmia.Opera tor ID - AMBROSIO L Lab Interpretation (test Normal code = 26310-4) [facility] [id number] 00:21:00 Test Item Value Reference Range Interpretation Comments TROPONIN I (BEAKER) (test code = 397) < ng/mL 0.00-0.03 Troponin I (TnI) levels must be interpreted in the context of the presenting symptoms and the clinical findings. Elevated TnI levels indicate myocardial damage, but are not specific for ischemic heart disease. Elevated TnI levels are seen in patients with other cardiac conditions (including myocarditis and congestive heart failure), and slight TnI elevations occur in patients with other conditions, including sepsis, renal failure, acidosis, acute neurological disease, and persistent tachyarrhythmia.Land Acquisition Analyst ID - PIAYA LPROTHROMBIN TIME/[id number] 00:16:00 Test Item Value Reference Range Interpretation Comments PROTIME (BEAKER) (test code = 15.2 seconds 11.9-14.2 H 759) INR (BEAKER) (test code = 370) 1.2 <=5.9 Effective 02/17/2019: PT Reference Range ChangeNew: 11.9-14.2 Previous: 11.7- 14.7RECOMMENDED COUMADIN/WARFARIN INR THERAPY RANGESSTANDARD DOSE: 2.0-3.0 Includes: PROPHYLAXIS for venous thrombosis, systemic embolization; TREATMENT for venous thrombosis and/or pulmonary embolus.HIGH RISK: Target INR is2.5-3.5 for patients wiht mechanical heart valves.BASIC METABOLIC [id number] 00:14:00 Test Item Value Reference Range Interpretation Comments SODIUM (BEAKER) 138 meq/L 136-145 (test code = 381) POTASSIUM (BEAKER) 4.3 meq/L 3.5-5.1 (test code = 379) CHLORIDE (BEAKER) 106 meq/L 98-107 (test code = 382) CO2 (BEAKER) (test 25 meq/L 22-29 code = 355) BLOOD UREA NITROGEN 15 mg/dL 7-21 (BEAKER) (test code = 354) CREATININE (BEAKER) 0.94 mg/dL 0.57-1.25 (test code = 358) GLUCOSE RANDOM 91 mg/dL 70-105 (BEAKER) (test code = 652) CALCIUM (BEAKER) 8.6 mg/dL 8.4-10.2 (test code = 697) EGFR (BEAKER) (test 79 mL/min/1.73 ESTIMA DAGOBERTO GFR IS code = 1092) sq m NOT ACCURATE CREATININE CLEARANCE IN PREDICTING GLOMERULAR FILTRATION RATE . ESTIMATED GFR I S NOT APPLICABLE FOR DIALYSIS PATIEN TS. Land Acquisition Analyst ID - PIAYA LCBC W/PLT COUNT & AUTO [id number] 00:02:00 Test Item Value Reference Range Interpretation Comments WHITE BLOOD CELL COUNT 9.1 K/ L 3.5-10.5 (BEAKER) (test code = 775) RED BLOOD CELL COUNT 3.75 M/ L 4.63-6.08 L (BEAKER) (test code = 761) HEMOGLOBIN (BEAKER) 5.7 GM/DL 13.7-17.5 LL (test code = 410) HEMATOCRIT (BEAKER) 22.9 % 40.1-51.0 L (test code = 411) MEAN CORPUSCULAR 61.1 fL 79.0-92.2 L VOLUME (BEAKER) (test code = 753) MEAN CORPUSCULAR 15.2 pg 25.7-32.2 L HEMOGLOBIN (BEAKER) (test code = 751) MEAN CORPUSCULAR 24.9 GM/DL 32.3-36.5 L HEMOGLOBIN CONC (BEAKER) (test code = 752) RED CELL DISTRIBUTION 22.7 % 11.6-14.4 H WIDTH (BEAKER) (test code = 412) PLATELET COUNT 254 K/CU MM 150-450 (BEAKER) (test code = 756) MEAN PLATELET VOLUME Unable to report due (BEAKER) (test code = to abn ormal Platelet 754) population distribution. NUCLEATED RED BLOOD 0 /100 WBC 0-0 CELLS (BEAKER) (test code = 413) NEUTROPHILS RELATIVE 70 % PERCENT (BEAKER) (test code = 429) LYMPHOCYTES RELATIVE 15 % PERCENT (BEAKER) (test code = 430) MONOCYTES RELATIVE 10 % PERCENT (BEAKER) (test code = 431) EOSINOPHILS RELATIVE 3 % PERCENT (BEAKER) (test code = 432) BASOPHILS RELATIVE 1 % PERCENT (BEAKER) (test code = 437) NEUTROPHILS ABSOLUTE 6.41 K/ L 1.78-5.38 H COUNT (BEAKER) (test code = 670) LYMPHOCYTES ABSOLUTE 1.38 K/ L 1.32-3.57 COUNT (BEAKER) (test code = 414) MONOCYTES ABSOLUTE 0.93 K/ L 0.30-0.82 H COUNT (BEAKER) (test code = 415) EOSINOPHILS ABSOLUTE 0.27 K/ L 0.04-0.54 COUNT (BEAKER) (test code = 416) BASOPHILS ABSOLUTE 0.06 K/ L 0.01-0.08 COUNT (BEAKER) (test code = 417) IMMATURE 1 % 0-1 GRANULOCYTES-RELATIVE PERCENT (BEAKER) (test code = 2801) BASIC METABOLIC [id number] 11:11:00 Test Item Value Reference Range Interpretation Comments SODIUM (BEAKER) 135 meq/L 136-145 L (test code = 381) POTASSIUM (BEAKER) 4.4 meq/L 3.5-5.1 (test code = 379) CHLORIDE (BEAKER) 106 meq/L 98-107 (test code = 382) CO2 (BEAKER) (test 22 meq/L 22-29 code = 355) BLOOD UREA NITROGEN 16 mg/dL 7-21 (BEAKER) (test code = 354) CREATININE (BEAKER) 0.82 mg/dL 0.57-1.25 (test code = 358) GLUCOSE RANDOM 147 mg/dL 70-105 H (BEAKER) (test code = 652) CALCIUM (BEAKER) 8.4 mg/dL 8.4-10.2 (test code = 697) EGFR (BEAKER) (test 93 mL/min/1.73 ESTIMA DAGOBERTO GFR IS code = 1092) sq m NOT ACCURATE CREATININE CLEARANCE IN PREDICTING GLOMERULAR FILTRATION RATE . ESTIMATED GFR I S NOT APPLICABLE FOR DIALYSIS PATIEN TS. CBC W/PLT COUNT & AUTO [id number] 09:19:00 Test Item Value Reference Range Interpretation [...] PERCENT (BEAKER) (test code = 2801) TISSUE [id number] 17:27:00Surgical Pathology Report Case: [id number] Authorizing Provider: Mike Price MD Collected: 09/10/2017 1045 Ordering Location: [facility] Received: 09/10/2017 1314 PERIOPERATIVE SERVICES Pathologist: Darcy Duque MD Specimen: Plaque, LEFT OM1 ARTERY PLAQUE TISSUE SUBMITTED LEFT OM1 ARTERY PLAQUE: - ATHEROSCLEROTIC PLAQUE WITH CALCIFICATIONS Signing Pathologist Direct Phone Line: [phone] signed by Darcy Duque MD on 09/17/2017 at 5:27 [id number]; [id number] artery plaque Specimen is received in saline labeled with the patient's information and labeled "left artery plaque" and consists of a velasquez, off-white, tubular shaped segment of calcified tissue measuring 1.2 cm in length x 0.3 cm in diameter. The specimen is sectioned and submitted entirely in A1 for decalcification. CG/ew PERFORMEDCBC W/PLT COUNT & AUTO [id number] 13:19:00 Test Item Value Reference Range Interpretation [...] = 2801) RAD, CHEST, 1 VIEW, NON [id number] 12:21:00Reason for exam:->atelectasis ? wheezeShould this be performed at the bedside?->YesFINAL REPORT CLINICAL HISTORY: atelectasis wheeze TECHNIQUE: 1 view of the est. COMPARISON: 09/13/2017 IMPRESSION: Mild prominence of the pulmonary vasculature is again seen with decreased left lower lung pleural-parenchymal opacity. A trace right effusion is again seen. The cardiomediastinal silhouette is magnified by technique with sternotomy wires. A chronic left clavicular fracture is again seen. Signed: Jose Marley MDReport Verified Date/Time: 09/16/2017 12:21:35 Reading Location: [facility] Radiology Reading Room BASI METABOLIC [id number] 09:07:00 Test Item Value Reference Range Interpretation [...] S NOT APPLICABLE FOR DIALYSIS PATIEN TS. [id number] 07:48:00 Test Item Value Reference Range Interpretation Comments PHOSPHORUS (BEAKER) (test code = 3.4 mg/dL 2.3-4.7 604) [id number] 07:48:00 Test Item Value Reference Range Interpretation Comments MAGNESIUM (BEAKER) (test code = 2.0 mg/dL 1.6-2.6 627) BASIC METABOLIC [id number] 07:48:00 Test Item Value Reference Range Interpretation [...] PATIEN TS. CBC W/PLT COUNT & AUTO [id number] 06:28:00 Test Item Value Reference Range Interpretation [...] PERCENT (BEAKER) (test code = 2801) CALCIUM, [id number] 06:25:00 Test Item Value Reference Range Interpretation Comments CALCIUM IONIZED (BEAKER) (test 1.02 mmol/L 1.12-1.27 L code = 698) PH, BLOOD (BEAKER) (test code = 7.39 1810) CBC W/PLT COUNT & AUTO [id number] 08:38:00 Test Item Value Reference Range Interpretation [...] = 2801) RAD, CHEST, 1 VIEW, NON [id number] 07:45:00Reason for exam:->s/p cardiac surgeryFINAL REPORT HISTORY [...] venous congestion with some interstitial prominence. Signed: Jd Sutherland MDReport Verified Date/Time: 09/13/2017 07:45:50 Reading Location: [address] Transitional Reading Room [id number] 07:22:00 Test Item Value Reference Range Interpretation Comments MAGNESIUM (BEAKER) 2.1 mg/dL 1.6-2.6 Specimen slightly (test code = 627) hemolyzed [id number] 07:22:00 Test Item Value Reference Range Interpretation Comments PHOSPHORUS (BEAKER) 3.3 mg/dL 2.3-4.7 Specimen slightly (test code = 604) hemolyzed BASIC METABOLIC [id number] 07:22:00 Test Item Value Reference Range Interpretation [...] NOT APPLICABLE FOR DIALYSIS PATIEN TS. POCT-GLUCOSE [id number] 17:00:00 Test Item Value Reference Range Interpretation Comments POC-GLUCOSE METER 258 mg/dL 70-110 H TESTED AT [facility] 6720 (BEAKER) (test code = REHAN SHEN [place] 1538) [address] POCT-GLUCOSE [id number] 16:40:00 Test Item Value Reference Range Interpretation Comments POC-GLUCOSE METER 123 mg/dL 70-110 H TESTED AT [facility] [address] (BEAKER) (test code = REHAN SHEN [place] 1538) [address] [id number] 08:08:00 Test Item Value Reference Range Interpretation Comments PHOSPHORUS (BEAKER) (test code = 3.3 mg/dL 2.3-4.7 604) [id number] 08:08:00 Test Item Value Reference Range Interpretation Comments MAGNESIUM (BEAKER) (test code = 2.3 mg/dL 1.6-2.6 627) BASIC METABOLIC [id number] 08:08:00 Test Item Value Reference Range Interpretation [...] PATIEN TS. RAD, CHEST, 1 VIEW, NON [id number] 07:59:00Reason for exam:->s/p cardiac surgeryFINAL REPORT AP chest HISTORY: Cardiac surgery COMPARISON: 09/11/2017 IMPRESSION:Endotracheal tube removed. Remainder of support lines unchanged. Cardiomegaly similar to previous. Some interval improvement in pulmonary expansion. Interstitial edema appears stable to slightly improved. Trace effusions. No pneumothorax. Signed: Sterling Meza MDReport Verified Date/Time: 09/12/2017 07:59:49 Reading Location: [facility] Radiology Reading Room CBC W/PLT COUNT & AUTO [id number] 06:44:00 Test Item Value Reference Range Interpretation [...] code = 2801) LACTIC ACID, ARTERIAL, WHOLE [id number] 05:23:00 Test Item Value Reference Range Interpretation Comments LACTATE BLOOD ARTERIAL (2) 1.0 mmol/L 0.5-2.2 (BEAKER) (test code = 2874) Effective 01/24/2016: Units/Reference Range ChangeNew: 0.5-2.2 mmol/L Previous: 5-20 mg/dLCALCIUM, [id number] 04:58:00 Test Item Value Reference Range Interpretation Comments CALCIUM IONIZED (BEAKER) (test 1.09 mmol/L 1.12-1.27 L code = 698) PH, BLOOD (BEAKER) (test code = 7.46 1810) OXYGEN SATURATION, [id number] 04:58:00 Test Item Value Reference Range Interpretation Comments O2 SATURATION (MEASURED) (BEAKER) 62.7 % (test code = 1455) POCT-GLUCOSE [id number] 22:35:00 Test Item Value Reference Range Interpretation Comments POC-GLUCOSE METER 178 mg/dL 70-110 H [facility] [place] [address] [facility] (test code = [facility] 1538) [address] [id number] 18:51:00 Test Item Value Reference Range Interpretation Comments POTASSIUM (BEAKER) (test code = 4.4 meq/L 3.5-5.1 379) [id number] 18:51:00 Test Item Value Reference Range Interpretation Comments MAGNESIUM (BEAKER) (test code = 2.1 mg/dL 1.6-2.6 627) POCT-GLUCOSE [id number] 18:46:00 Test Item Value Reference Range Interpretation Comments POC-GLUCOSE METER 170 mg/dL 70-110 H TESTED AT [place] [address] ([facility]) (test code = [facility] 1538) [address] CALCIUM, [id number] 18:23:00 Test Item Value Reference Range Interpretation Comments CALCIUM IONIZED (BEAKER) (test 1.09 mmol/L 1.12-1.27 L code = 698) PH, BLOOD (BEAKER) (test code = 7.44 1810) BLOOD GAS, [id number] 15:01:00 Test Item Value Reference Range Interpretation [...] (test code = 1819) 40.0 % POCT-GLUCOSE [id number] 13:46:00 Test Item Value Reference Range Interpretation Comments POC-GLUCOSE METER 166 mg/dL 70-110 H TESTED AT [place] [address] ([facility]) (test code = [place] 1538) [address] [id number] 13:40:00 Test Item Value Reference Range Interpretation Comments POTASSIUM (BEAKER) (test code = 4.3 meq/L 3.5-5.1 379) [id number] 13:40:00 Test Item Value Reference Range Interpretation Comments MAGNESIUM (BEAKER) (test code = 2.1 mg/dL 1.6-2.6 627) RAD, CHEST, 1 VIEW, NON [id number] 09:06:00Reason for exam:->postopShould this be performed at [...] Gallego Verified Date/Time: 09/11/2017 09:06:00 Reading Location: [facility] Radiology Reading Room POCT-GLUCOSE [id number] 08:34:00 Test Item Value Reference Range Interpretation Comments POC-GLUCOSE METER 172 mg/dL 70-110 H TESTED AT [place] [address] ([facility]) (test code = [place] 1538) [address] CBC W/PLT COUNT & AUTO [id number] 04:19:00 Test Item Value Reference Range Interpretation [...] 0-1 PERCENT (BEAKER) (test code = 2801) [id number] 04:16:00 Test Item Value Reference Range Interpretation Comments PHOSPHORUS (BEAKER) (test code = 3.9 mg/dL 2.3-4.7 604) [id number] 04:16:00 Test Item Value Reference Range Interpretation Comments MAGNESIUM (BEAKER) (test code = 2.1 mg/dL 1.6-2.6 627) BASIC METABOLIC [id number] 04:16:00 Test Item Value Reference Range Interpretation [...] NOT APPLICABLE FOR DIALYSIS PATIEN TS. POCT-GLUCOSE [id number] 04:15:00 Test Item Value Reference Range Interpretation Comments POC-GLUCOSE METER 135 mg/dL 70-110 H TESTED AT [facility] 6720 (BEAKER) (test code = REHAN Jaimes [place] 1538) [address] BLOOD GAS, [id number] 03:44:00 Test Item Value Reference Range Interpretation [...] (test code = 1819) 40.0 % POCT-GLUCOSE [id number] 03:10:00 Test Item Value Reference Range Interpretation Comments POC-GLUCOSE METER 128 mg/dL 70-110 H TESTED AT [facility] 6720 (BEAKER) (test code = REHAN [place] 1538) [address] LACTIC ACID, ARTERIAL, WHOLE [id number] 01:31:00 Test Item Value Reference Range Interpretation Comments LACTATE BLOOD ARTERIAL (2) 1.5 mmol/L 0.5-2.2 (BEAKER) (test code = 2874) Effective 01/24/2016: Units/Reference Range ChangeNew: 0.5-2.2 mmol/L Previous: 5-20 mg/dLBLOOD GAS, [id number] 01:20:00 Test Item Value Reference Range Interpretation [...] (test code = 1819) 40.0 % GLUCOSE-STAT [id number] 01:20:00 Test Item Value Reference Range Interpretation Comments GLUCOSE RANDOM (BEAKER) (test code 123 mg/dL 70-110 H = 652) POCT-GLUCOSE [id number] 00:57:00 Test Item Value Reference Range Interpretation Comments POC-GLUCOSE METER 154 mg/dL 70-110 H TEST[facility] [place] [address] [facility] (test code = REHAN [place] 1538) [address] POCT-GLUCOSE [id number] 22:22:00 Test Item Value Reference Range Interpretation Comments POC-GLUCOSE METER 176 mg/dL 70-110 H TESTED AT [place] [address] ([facility]) (test code = REHAN Jaimes [place] 1538) [address] POCT-GLUCOSE [id number] 22:22:00 Test Item Value Reference Range Interpretation Comments POC-GLUCOSE METER 227 mg/dL 70-110 H TESTED AT [place] [address] ([facility]) (test code = REHAN Jaimes [place] 1538) [address] LACTIC ACID, ARTERIAL, WHOLE [id number] 21:58:00 Test Item Value Reference Range Interpretation Comments LACTATE BLOOD ARTERIAL (2) 3.1 mmol/L 0.5-2.2 H (BEAKER) (test code = 2874) Effective 01/24/2016: Units/Reference Range ChangeNew: 0.5-2.2 mmol/L Previous: 5-20 mg/[id number] 21:58:00 Test Item Value Reference Range Interpretation Comments MAGNESIUM (BEAKER) (test code = 2.2 mg/dL 1.6-2.6 627) OXYGEN SATURATION, [id number] 21:27:00 Test Item Value Reference Range Interpretation Comments O2 SATURATION (MEASURED) (BEAKER) 75.9 % (test code = 1455) BLOOD GAS, [id number] 21:26:00 Test Item Value Reference Range Interpretation [...] 1819) 60.0 % HGB/HCT (H&H) - STAT [id number] 21:26:00 Test Item Value Reference Range Interpretation Comments HEMOGLOBIN (BEAKER) (test code = 9.1 g/dL 13.0-16.8 L 410) HEMATOCRIT (BEAKER) (test code = 27.0 % 40.0-50.0 L 411) CALCIUM, [id number] 21:26:00 Test Item Value Reference Range Interpretation Comments CALCIUM IONIZED (BEAKER) (test 1.08 mmol/L 1.12-1.27 L code = 698) PH, BLOOD (BEAKER) (test code = 7.42 1810) BASIC METABOLIC [id number] 18:58:00 Test Item Value Reference Range Interpretation [...] APPLICABLE FOR DIALYSIS PATIEN TS. HEPATIC FUNCTION [id number] 18:54:00 Test Item Value Reference Range Interpretation [...] U/L 6-55 347) LACTIC ACID, ARTERIAL, WHOLE [id number] 17:19:00 Test Item Value Reference Range Interpretation Comments LACTATE BLOOD ARTERIAL (2) 9.2 mmol/L 0.5-2.2 H (BEAKER) (test code = 2874) Effective 01/24/2016: Units/Reference Range ChangeNew: 0.5-2.2 mmol/L Previous: 5-20 mg/dLPOCT-GLUCOSE [id number] 17:09:00 Test Item Value Reference Range Interpretation Comments POC-GLUCOSE METER 233 mg/dL 70-110 H TESTED AT [facility] 6720 (BEAKER) (test code = REHAN [place] 1538) [address] HEMOGLOBIN AND [id number] 17:08:00 Test Item Value Reference Range Interpretation Comments HEMOGLOBIN (BEAKER) (test code = 9.1 GM/DL 13.7-17.5 L 410) HEMATOCRIT (BEAKER) (test code = 29.2 % 40.1-51.0 L 411) BLOOD GAS, [id number] 17:03:00 Test Item Value Reference Range Interpretation [...] (test code = 1819) 60 BLOOD GAS, [id number] 16:14:00 Test Item Value Reference Range Interpretation [...] 0-0 (BEAKER) (test code = 413) POTASSIUM-STAT [id number] 14:57:00 Test Item Value Reference Range Interpretation Comments POTASSIUM (BEAKER) (test code = 4.2 meq/L 3.6-5.5 379) BLOOD GAS, [id number] 14:57:00 Test Item Value Reference Range Interpretation [...] code = 1819) 100.0 % SODIUM NA-STAT [id number] 14:57:00 Test Item Value Reference Range Interpretation Comments SODIUM (BEAKER) (test code = 381) 134 meq/L 135-148 L GLUCOSE-STAT [id number] 14:57:00 Test Item Value Reference Range Interpretation Comments GLUCOSE RANDOM (BEAKER) (test code 218 mg/dL 70-110 H = 652) HGB/HCT (H&H) - STAT [id number] 14:57:00 Test Item Value Reference Range Interpretation Comments HEMOGLOBIN (BEAKER) (test code = 10.5 g/dL 13.0-16.8 L 410) HEMATOCRIT (BEAKER) (test code = 31.0 % 40.0-50.0 L 411) LACTIC ACID, ARTERIAL, WHOLE [id number] 14:12:00 Test Item Value Reference Range Interpretation Comments LACTATE BLOOD 4.2 mmol/L 0.5-2.2 H Specimen sligh tly ARTERIAL (2) (BEAKER) hemoly zed (test code = 2874) Effective 01/24/2016: Units/Reference Range ChangeNew: 0.5-2.2 mmol/L Previous: 5-20 mg/dLBASIC METABOLIC [id number] 13:49:00 Test Item Value Reference Range Interpretation [...] S NOT APPLICABLE FOR DIALYSIS PATIEN TS. [id number] 13:47:00 Test Item Value Reference Range Interpretation Comments MAGNESIUM (BEAKER) 2.2 mg/dL 1.6-2.6 Specimen slightly (test code = 627) hemolyzed [id number] 13:47:00 Test Item Value Reference Range Interpretation Comments POTASSIUM (BEAKER) 3.7 meq/L 3.5-5.1 Specimen slightly (test code = 379) hemolyzed [id number] 13:47:00 Test Item Value Reference Range Interpretation Comments GLUCOSE RANDOM (BEAKER) (test code 217 mg/dL 70-105 H = 652) BLOOD GAS, [id number] 13:17:00 Test Item Value Reference Range Interpretation [...] code = 1819) 100.0 % SODIUM NA-STAT [id number] 13:17:00 Test Item Value Reference Range Interpretation Comments SODIUM (BEAKER) (test code = 381) 132 meq/L 135-148 L GLUCOSE-STAT [id number] 13:17:00 Test Item Value Reference Range Interpretation Comments GLUCOSE RANDOM (BEAKER) (test code 209 mg/dL 70-110 H = 652) HGB/HCT (H&H) - STAT [id number] 13:17:00 Test Item Value Reference Range Interpretation Comments HEMOGLOBIN (BEAKER) (test code = 11.3 g/dL 13.0-16.8 L 410) HEMATOCRIT (BEAKER) (test code = 33.0 % 40.0-50.0 L 411) POTASSIUM-STAT [id number] 13:15:00 Test Item Value Reference Range Interpretation Comments POTASSIUM (BEAKER) (test code = 3.7 meq/L 3.6-5.5 379) OXYGEN SATURATION, [id number] 13:15:00 Test Item Value Reference Range Interpretation Comments O2 SATURATION (MEASURED) (BEAKER) 72.7 % (test code = 1455) RAD, CHEST, 1 VIEW, NON [id number] 13:11:00Reason for exam:- >intubated/cardiac surgeryShould this be [...] summary, no definite postoperative obligation. Signed: Luiz Velasquez MDReport Verified Date/Time: 09/10/2017 13:11:58 Reading Location: [facility] B1 [id number] Ortho Consult Reading Room [id number] 12:12:00 Test Item Value Reference Range Interpretation Comments ACTIVATED CLOTTING TIME 109 sec TEST ED AT [place] [address] ([facility]) (test code = REHAN Jaimes [place] [address]) [id number] 12:12:00 Test Item Value Reference Range Interpretation Comments ACTIVATED CLOTTING TIME 412 sec TEST ED AT [place] [address] ([facility]) (test code = REHAN Jaimes [place] [address]) [address] [id number] 12:11:00 Test Item Value Reference Range Interpretation Comments ACTIVATED CLOTTING TIME 461 sec TEST ED AT [place] [address] ([facility]) (test code = REHAN Jaimes [place] [address]) [address] [id number] 12:11:00 Test Item Value Reference Range Interpretation Comments ACTIVATED CLOTTING TIME 527 sec TEST ED AT [place] [address] ([facility]) (test code = REHAN Jaimes [place] [address]) [address] [id number] 12:11:00 Test Item Value Reference Range Interpretation Comments ACTIVATED CLOTTING TIME 494 sec TEST ED AT [place] [address] ([facility]) (test code = REHAN Jaimes [place] [address]) [address] PROTHROMBIN [id number] 12:07:00 Test Item Value Reference Range Interpretation Comments PROTIME ([facility]) (test code = 18.3 seconds 11.7-14.7 H 759) INR ([facility]) (test code = 370) 1.5 <=5.9 RECOMMENDED COUMADIN/WARFARIN INR THERAPY RANGESSTANDARD DOSE: 2.0 - 3.0 Includes: PROPHYLAXIS forvenous thrombosis, systemic embolization; TREATMENT for venous thrombosis and/or pulmonary embolus.HIGH RISK: Target INR is 2.5-3.5 for patients with mechanical heart valves.[id number] 12:07:00 Test Item Value Reference Range Interpretation Comments FIBRINOGEN LEVEL ([facility]) (test 248 mg/dl 225-434 code = 658) [id number] 12:07:00 Test Item Value Reference Range Interpretation Comments PARTIAL THROMBOPLASTIN TIME 32.4 seconds 22.5-36.0 (BEAKER) (test code = 760) PLATELET [id number] 11:46:00 Test Item Value Reference Range Interpretation Comments PLATELET COUNT (BEAKER) (test 113 K/CU MM 150-450 L code = 756) BLOOD GAS, [id number] 11:25:00 Test Item Value Reference Range Interpretation [...] code = 1819) 100.0 % SODIUM NA-STAT [id number] 11:25:00 Test Item Value Reference Range Interpretation Comments SODIUM (BEAKER) (test code = 381) 129 meq/L 135-148 L GLUCOSE-STAT [id number] 11:25:00 Test Item Value Reference Range Interpretation Comments GLUCOSE RANDOM (BEAKER) (test code 158 mg/dL 70-110 H = 652) HGB/HCT (H&H) - STAT [id number] 11:25:00 Test Item Value Reference Range Interpretation Comments HEMOGLOBIN (BEAKER) (test code = 9.4 g/dL 13.0-16.8 L 410) HEMATOCRIT (BEAKER) (test code = 28.0 % 40.0-50.0 L 411) CALCIUM, [id number] 11:25:00 Test Item Value Reference Range Interpretation Comments CALCIUM IONIZED (BEAKER) (test 1.10 mmol/L 1.12-1.27 L code = 698) PH, BLOOD (BEAKER) (test code = 7.43 1810) POTASSIUM-STAT [id number] 11:22:00 Test Item Value Reference Range Interpretation Comments POTASSIUM (BEAKER) (test code = 4.6 meq/L 3.6-5.5 379) BLOOD GAS, [id number] 10:50:00 Test Item Value Reference Range Interpretation [...] code = 1819) 90.0 % SODIUM NA-STAT [id number] 10:50:00 Test Item Value Reference Range Interpretation Comments SODIUM (BEAKER) (test code = 381) 128 meq/L 135-148 L GLUCOSE-STAT [id number] 10:50:00 Test Item Value Reference Range Interpretation Comments GLUCOSE RANDOM (BEAKER) (test code 153 mg/dL 70-110 H = 652) HGB/HCT (H&H) - STAT [id number] 10:50:00 Test Item Value Reference Range Interpretation Comments HEMOGLOBIN (BEAKER) (test code = 8.6 g/dL 13.0-16.8 L 410) HEMATOCRIT (BEAKER) (test code = 25.0 % 40.0-50.0 L 411) POTASSIUM-STAT [id number] 10:50:00 Test Item Value Reference Range Interpretation Comments POTASSIUM (BEAKER) (test code = 6.1 meq/L 3.6-5.5 HH 379) POTASSIUM-STAT [id number] 10:26:00 Test Item Value Reference Range Interpretation Comments POTASSIUM (BEAKER) (test code = 6.3 meq/L 3.6-5.5 HH 379) BLOOD GAS, [id number] 10:25:00 Test Item Value Reference Range Interpretation [...] code = 1819) 75.0 % SODIUM NA-STAT [id number] 10:25:00 Test Item Value Reference Range Interpretation Comments SODIUM (BEAKER) (test code = 381) 124 meq/L 135-148 L GLUCOSE-STAT [id number] 10:25:00 Test Item Value Reference Range Interpretation Comments GLUCOSE RANDOM (BEAKER) (test code 143 mg/dL 70-110 H = 652) HGB/HCT (H&H) - STAT [id number] 10:25:00 Test Item Value Reference Range Interpretation Comments HEMOGLOBIN (BEAKER) (test code = 7.6 g/dL 13.0-16.8 L 410) HEMATOCRIT (BEAKER) (test code = 22.0 % 40.0-50.0 L 411) BLOOD GAS, [id number] 10:07:00 Test Item Value Reference Range Interpretation [...] code = 1819) 70.0 % BLOOD GAS, [id number] 10:06:00 Test Item Value Reference Range Interpretation [...] code = 1819) 70.0 % SODIUM NA-STAT [id number] 10:06:00 Test Item Value Reference Range Interpretation Comments SODIUM (BEAKER) (test code = 381) 125 meq/L 135-148 L GLUCOSE-STAT [id number] 10:06:00 Test Item Value Reference Range Interpretation Comments GLUCOSE RANDOM (BEAKER) (test code 126 mg/dL 70-110 H = 652) HGB/HCT (H&H) - STAT [id number] 10:06:00 Test Item Value Reference Range Interpretation Comments HEMOGLOBIN (BEAKER) (test code = 6.9 g/dL 13.0-16.8 L 410) HEMATOCRIT (BEAKER) (test code = 20.0 % 40.0-50.0 L 411) POTASSIUM-STAT [id number] 10:04:00 Test Item Value Reference Range Interpretation Comments POTASSIUM (BEAKER) (test code = 5.2 meq/L 3.6-5.5 379) CALCIUM, [id number] 08:57:00 Test Item Value Reference Range Interpretation Comments CALCIUM IONIZED (BEAKER) (test 1.02 mmol/L 1.12-1.27 L code = 698) PH, BLOOD (BEAKER) (test code = 7.45 1810) BLOOD GAS, [id number] 08:57:00 Test Item Value Reference Range Interpretation [...] code = 1819) 98.0 % SODIUM NA-STAT [id number] 08:57:00 Test Item Value Reference Range Interpretation Comments SODIUM (BEAKER) (test code = 381) 129 meq/L 135-148 L GLUCOSE-STAT [id number] 08:57:00 Test Item Value Reference Range Interpretation Comments GLUCOSE RANDOM (BEAKER) (test code 115 mg/dL 70-110 H = 652) HGB/HCT (H&H) - STAT [id number] 08:57:00 Test Item Value Reference Range Interpretation Comments HEMOGLOBIN (BEAKER) (test code = 10.8 g/dL 13.0-16.8 L 410) HEMATOCRIT (BEAKER) (test code = 32.0 % 40.0-50.0 L 411) POTASSIUM-STAT [id number] 08:56:00 Test Item Value Reference Range Interpretation Comments POTASSIUM (BEAKER) (test code = 4.8 meq/L 3.6-5.5 379) COMPREHENSIVE METABOLIC [id number] 11:10:00 Test Item Value Reference Range Interpretation [...] PATIEN TS. CBC W/PLT COUNT & AUTO [id number] 10:41:00 Test Item Value Reference Range Interpretation [...] PERCENT (BEAKER) (test code = 2801) PROTHROMBIN [id number] 10:30:00 Test Item Value Reference Range Interpretation Comments PROTIME (BEAKER) (test code = 14.0 seconds 11.7-14.7 759) INR (BEAKER) (test code = 370) 1.1 <=5.9 RECOMMENDED COUMADIN/WARFARIN INR THERAPY RANGESSTANDARD DOSE: 2.0 - 3.0 Includes: PROPHYLAXIS forvenous thrombosis, systemic embolization; TREATMENT for venous thrombosis and/or pulmonary embolus.HIGH RISK: Target INR is 2.5-3.5 for patients with mechanical heart valves.RAD, CHEST, 1 VIEW, NON [id number] 09:27:00Reason for exam:->pre opShould this be performed [...] identified over the left lung base. Signed: Jd Sutherland MDReport Verified Date/Time: 09/09/2017 09:27:37 Reading Location: [facility] Radiology Reading Room
[2020-03-16 15:21] VITALS: BP 108/51
[2020-03-16 18:10] VITALS: TEMP 97.2
--- NOTE | 2020-03-16 22:31 | OP ---
Date of Procedure: 03/16/2020 Surgeon: FRANCISCO J WINSLOW Indication: Unstable angina. Access: Right femoral artery 6-Welsh closed with 6-Welsh Angio-Seal. Procedure Performed: 1.Selective coronary angiogram. 2.Bypass graft study. 3.Left heart catheterization. Complications: None. Anesthesia: Total sedation time was 40 minutes. Description Of Procedure: After risks, benefits, and alternatives were explained to the patient, pat chadpapito signed a formal consent. The patient was brought into the cardiac catheterization laboratory, p repped and draped in usual sterile fashion and then we accessed the right femoral artery using ultras ound guidance and under fluoroscopy guidance using the micropuncture sheath. Then we inserted a 6-Fr ench [place] sheath. Then, we took the JL-4 catheter over the J-wire into the aortic root, tried to engage the left main. It was very difficult. Then, we tried AL1 catheter, it did not work, then we tried EBU 3.5 without the ability to engage the left main. Subsequently, we took AL2 catheter and w ere able to engage the left main using that particular catheter and then took the standard views, the n we exchanged for a JR4 catheter, engaged the RCA, then the SVG grafts, and then we removed all wire s and catheters on the body and the sheath and we closed the site with 6-Welsh Angio-Seal with good hemostasis. 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 2.Severe first OM disease. 3.Severe diffuse RCA disease. 4.Patent SVG graft to mid LAD. It is a jump graft that supplies the OM-1 and also that one is patmarco t. 5.Patent jump graft to OM-1. 6.Patent SVG to the PDA on the right. 7.LVEDP of 11 mmHg. We took the JR4 catheter over the J-wire into the LV across the aortic valve an d recorded LVEDP and then upon pullback there was no difference in gradient. Conclusion: 1.Severe three affiliated coronary artery disease with patent SVG grafts as above. 2.LVEDP of 11 mmHg. Recommendations: Aggressive medical management of coronary artery disease. SR/MODL Voice ID: [id number] Report ID: [id number]
== END 2020-03-16 15:40 | disposition home or self-care (01) ==
LOC: CCL 11:54
PROVIDERS: ATTEND Internal Medicine
DX: I25.10 Atherosclerotic heart disease of native coronary artery without angina pectoris (principal); Z11.59 Encounter for screening for other viral diseases; I11.0 Hypertensive heart disease with heart failure; I50.23 Acute on chronic systolic (congestive) heart failure; I48.91 Unspecified atrial fibrillation; E78.5 Hyperlipidemia, unspecified; E11.9 Type 2 diabetes mellitus without complications; D64.9 Anemia, unspecified; K21.9 Gastro-esophageal reflux disease without esophagitis; F17.210 Nicotine dependence, cigarettes, uncomplicated; Z95.1 Presence of aortocoronary bypass graft; Z82.49 Family history of ischemic heart disease and other diseases of the circulatory system
CPT/HCPCS: 36415; 85610; 82947; 85730; 71046; 93459; U0002; C1893; C1760; J2250; J3010; J7040; J1644